=== PATIENT | female | born 1935 | race Caucasian/White ===

== ENCOUNTER 2017-02-28 09:45 | Emergency (ER) | payer OTHER ==
[~2017-02-28] VITALS: Ht 165.1 cm; Wt 55.0 kg
[~2017-02-28 09:45] MED LIST: ALBU1AER9 INH; ATEN100T8 PO; ATOR-24 PO; BNT20 PO; CHOL1000 PO; CYAN10004 PO; FEXO1TAB46 PO; FLUT110A INH; HYDR200T5 PO; LOSA1TAB PO; POTA20TA16 PO; PRLSR20 PO; TRAM-10 PO; WARF-246 PO
[2017-02-28 09:55] VITALS: TEMP 36.4; Ht 165.1 cm; Wt 55.0 kg
[2017-02-28] MEDS ORDERED: TNR50 PO (10:12)
[2017-02-28] MEDS ORDERED: HYG/25 PO (10:12)
[2017-02-28] MEDS ORDERED: WARF5TAB7 PO (10:17)
[2017-02-28 11:53] LABS: BASO % 0.7 %; BASO ABS # 0.04 K/uL (0-0.2); COMPLETE YES; EOS % 1.9 %; HEMATOCRIT 38.3 % (37-47); IG% 0.2 %; LYMPH % 26.7 %; LYMPH ABS # 1.58 K/uL (1.2-3.4); MEAN CELL VOLUME 91.6 fL (80-100); MEAN CORPUSCULAR HEMOGLOBIN 31.1 pg (25-34); MEAN CORPUSCULAR HGB CONC 33.9 g/dl (32-36); MEAN PLATELET VOLUME 10.6 fL (7.4-10.4); MONO % 8.5 %; PLATELET COUNT 160 K/uL (130-400); RED BLOOD COUNT 4.18 M/uL (4.2-5.4); WHITE BLOOD COUNT 5.91 K/uL (4.8-10.8)
[2017-02-28 11:59] LABS: URINE APPEARANCE CLOUDY (CLEAR); URINE BILIRUBIN NEG (NEG); URINE COLOR YELLOW; URINE EPITHELIAL CELL AUTO >30 /lpf (0-5); URINE NITRITE NEG (NEG); URINE SPECIFIC GRAVITY 1.018 (1.000-1.030); UROBILINOGEN NEG (NEG)
--- NOTE | 2017-02-28 11:59 | EMERGENCY ROOM VISIT NOTE ---
History Report prepared by Magan: Caridad Roman Under the Supervision of: Dr. Jordon Lynn D.O. First contact with patient: 10:48 Chief Complaint: ED VAG BLEEDING Stated Complaint: VAGINAL PAIN AND BLEEDING History of Present Illness The patient is an 81 year old female who presents to the Emergency Room with complaints of persistent vaginal bleeding starting this morning. She has had lower abdominal pain for the past couple of months. She has also been losing weight. Yesterday the pain worsened and she became very nauseous. This morning she went to the bathroom and noticed that there was blood in her Depends. She changed into a new one and later noticed there was bright red blood again. She believes the blood is coming from her vagina. Currently her abdominal pain is less severe. She reports a gurgling in her stomach. She has a history of C section and hiatal hernia surgery. She is on Coumadin for multiple TIA in the past and A fib. Source of History: patient Onset: this morning Position: other (vaginal) Quality: other (bleeding) Timing: other (persistent) Associated Symptoms: + nausea, + abdominal pain Note: Pt reports weight loss. Review of Systems See HPI for pertinent positives & negatives. A total of 10 systems reviewed and were otherwise negative. Past Medical & Surgical Medical Problems: (1) Asthma (2) CKD (chronic kidney disease) stage 3, GFR 30-59 ml/min (3) Coronary artery disease (4) Diaphragmatic hernia (5) Dyslipidemia (6) GERD (gastroesophageal reflux disease) (7) History of TIA (transient ischemic attack) (8) HTN (hypertension) (9) Meniere's disease (10) Myocardial infarction (11) Osteoporosis (12) Sciatica (13) Seronegative rheumatoid arthritis Surgical Problems: (1) H/O cataract removal with insertion of prosthetic lens (2) H/O hernia repair (3) History of carpal tunnel surgery (4) History of section (5) History of Milly fundoplication (6) S/P repair of paraesophageal hernia Social History Problems: (1) Esophageal Reflux (2) Osteoporosis Nos Family History Heart disease Social History Smoking Status: Never Smoker Drug Use: none Marital Status: Housing Status: lives with significant other Current/Historical Medications Scheduled Atenolol (Atenolol), 100 MG PO QAM Atorvastatin (Lipitor), 40 MG PO QAM Chlorthalidone (Hygroton), 25 MG PO QAM Cholecalciferol (Vitamin D3), 1 TAB PO QAM Cyanocobalamin (Vitamin B-12 1000 Mcg), 1,000 MCG PO QAM Dicyclomine Hcl (Bentyl *), 20 MG PO QAM Fluticasone Propionate Hfa (Flovent Hfa 110MCG Inhaler), 2 PUFF INH BID Hydroxychloroquine Sulfate (Plaquenil), 400 MG PO HS Losartan Potassium (Cozaar), 25 MG PO QAM Omeprazole (Prilosec), 20 MG PO BID Warfarin Sod (Jantoven), 5 MG PO 4XWK Warfarin Sodium (Warfarin Sodium), 2.5 MG PO DIRECTED Scheduled PRN Albuterol Sulfate (Proair Hfa), 2 PUFF INH Q4 PRN for SOB/Wheezing Fexofenadine Hcl (Valentina), 180 MG PO DAILY PRN for ALLERGIC REACTION Tramadol (Ultram), 50 MG PO Q4H PRN for Pain Allergies Coded Allergies: Penicillins (Verified Allergy, Mild, RASH, 02/28/17) Latex (Verified Allergy, Unknown, RASH, 02/28/17) Niacin (Verified Allergy, Unknown, UNKNOWN, 02/28/17) Metronidazole (Verified Adverse Reaction, Mild, N/V, 02/28/17) Sulfa Antibiotics (Verified Adverse Reaction, Unknown, ., 02/28/17) Physical Exam Vital Signs Date Time Temp Pulse Resp B/P (MAP) Pulse Ox O2 Delivery O2 Flow Rate FiO2 02/28/17 13:29 51 17 139/72 98 02/28/17 11:45 50 16 145/69 98 Room Air 02/28/17 09:55 36.4 58 18 112/70 98 Room Air Physical Exam GENERAL: Patient is awake, alert, and in no acute distress. Patient is resting comfortably and showing no signs of anxiety EYES: The conjunctivae are clear. The pupils are round and reactive. EARS, NOSE, MOUTH AND THROAT: The nose is without any evidence of any deformity. Mucous membranes are moist tongue is midline NECK: The neck is nontender and supple. RESPIRATORY: Normal respiratory effort is noted there is no evidence of wheezing rhonchi or rales CARDIOVASCULAR: Regular rate and rhythm noted there no murmurs rubs or gallops normal S1 normal S2 GASTROINTESTINAL: The abdomen is mildly distended, but soft. Lower abdomen is tender to palpation, no guarding or rigidity. Rectal exam reveals brown stool which is heme negative. PELVIS: External genitalia is normal in appearance, no active bleeding, no bleeding on fingertip exam MUSCULOSKELETAL/EXTREMITIES: There is no evidence of gross deformity full range of motion is noted in the hips and shoulders SKIN: There is no obvious evidence of any rash. There are no petechiae, pallor or cyanosis noted. NEUROLOGIC: Patient is awake alert and oriented x3 Medical Decision & Procedures ER Provider Diagnostic Interpretation: X-ray results as stated below per interpretation by me and the radiologist. Radiology results as stated below per my review and radiologist interpretation: SINGLE VIEW CHEST CLINICAL HISTORY: Generalized abdominal pain. FINDINGS: An AP, portable, upright chest radiograph is compared to study dated 01/06/2016 and correlated with chest CT dated 04/17/2010. The examination is degraded by portable technique and patient rotation. The heart is mildly enlarged and there is atherosclerotic calcification of the thoracic aorta. The pulmonary vasculature is noncongested. Chronic interstitial thickening is unchanged. No airspace consolidation, large pleural effusion, or pneumothorax is seen. The skeletal structures are osteopenic. Degenerative change is noted throughout the thoracic spine. IMPRESSION: Mild cardiac enlargement with no acute cardiopulmonary abnormality. Electronically signed by: Mukesh Godfrey M.D. 02/28/2017 12:03 PM Dictated Date/Time: 02/28/2017 12:02 PM ULTRASOUND OF THE PELVIS CLINICAL HISTORY: Vaginal bleeding. COMPARISON STUDY: No priors. TECHNIQUE: Real-time, grayscale, and color flow sonography of the pelvis is performed transabdominally. Images are reviewed in the transverse and longitudinal planes. The patient declined the endovaginal examination. FINDINGS: Uterus: The uterus is mildly enlarged measuring 11.2 x 3.0 x 6.0 cm. 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 Endometrium: The endometrium is thickened for age measuring up to 0.8 cm. No internal flow is shown color imaging. Trace fluid is noted within the endometrial canal. Ovaries: The ovaries not visualized on this transabdominal examination. Pelvis: There is no free fluid in the cul-de-sac. No concerning adnexal lesion is seen. IMPRESSION: 1. The endometrium is thickened for age measure up to 8 mm. Follow-up with gynecology is recommended with consideration to endometrial biopsy. 2. The ovaries were not visualized. 3. 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 Electronically signed by: Mukesh Godfrey M.D. 02/28/2017 1:02 PM Dictated Date/Time: 02/28/2017 1:00 PM Laboratory Results 02/28/17 11:20 Red Blood Count 4.18, Mean Corpuscular Volume 91.6, Mean Corpuscular Hemoglobin 31.1, Mean Corpuscular Hemoglobin Concent 33.9, Mean Platelet Volume 10.6, Neutrophils (%) (Auto) 62.0, Lymphocytes (%) (Auto) 26.7, Monocytes (%) (Auto) 8.5, Eosinophils (%) (Auto) 1.9, Basophils (%) (Auto) 0.7, Neutrophils # (Auto) 3.67, Lymphocytes # (Auto) 1.58, Monocytes # (Auto) 0.50, Eosinophils # (Auto) 0.11, Basophils # (Auto) 0.04 02/28/17 11:20 Test 02/28/17 11:20 02/28/17 11:35 White Blood Count 5.91 K/uL (4.8-10.8) Red Blood Count 4.18 M/uL (4.2-5.4) Hemoglobin 13.0 g/dL (12.0-16.0) Hematocrit 38.3 % (37-47) Mean Corpuscular Volume 91.6 fL (80-100) Mean Corpuscular Hemoglobin 31.1 pg (25-34) Mean Corpuscular Hemoglobin Concent 33.9 g/dl (32-36) Platelet Count 160 K/uL (130-400) Mean Platelet Volume 10.6 fL (7.4-10.4) Neutrophils (%) (Auto) 62.0 % Lymphocytes (%) (Auto) 26.7 % Monocytes (%) (Auto) 8.5 % Eosinophils (%) (Auto) 1.9 % Basophils (%) (Auto) 0.7 % Neutrophils # (Auto) 3.67 K/uL (1.4-6.5) Lymphocytes # (Auto) 1.58 K/uL (1.2-3.4) Monocytes # (Auto) 0.50 K/uL (0.11-0.59) Eosinophils # (Auto) 0.11 K/uL (0-0.5) Basophils # (Auto) 0.04 K/uL (0-0.2) RDW Standard Deviation 43.8 fL (36.4-46.3) RDW Coefficient of Variation 13.1 % (11.5-14.5) Immature Granulocyte % (Auto) 0.2 % Immature Granulocyte # (Auto) 0.01 K/uL (0.00-0.02) Prothrombin Time 13.9 SECONDS (9.0-12.0) Prothromb Time International Ratio 1.3 (0.9-1.1) Activated Partial Thromboplast Time 29.4 SECONDS (21.0-31.0) Partial Thromboplastin Ratio 1.1 Anion Gap 7.0 mmol/L (3-11) Est Creatinine Clear Calc Drug Dose 34.8 ml/min Estimated GFR () 54.5 Estimated GFR (Non- 47.0 BUN/Creatinine Ratio 20.1 (10-20) Calcium Level 8.9 mg/dl (8.5-10.1) Total Bilirubin 0.8 mg/dl (0.2-1) Direct Bilirubin 0.2 mg/dl (0-0.2) Aspartate Amino Transf (AST/SGOT) 24 U/L (15-37) Alanine Aminotransferase (ALT/SGPT) 27 U/L (12-78) Alkaline Phosphatase 50 U/L (45-117) Troponin I 0.191 ng/ml (0-0.045) Total Protein 6.9 gm/dl (6.4-8.2) Albumin 3.7 gm/dl (3.4-5.0) Lipase 189 U/L (73-393) Urine Color YELLOW Urine Appearance CLOUDY (CLEAR) Urine pH 5.0 (4.5-7.5) Urine Specific [place] 1.018 (1.000-1.030) Urine Protein NEG (NEG) Urine Glucose (UA) NEG (NEG) Urine Ketones NEG (NEG) Urine Occult Blood 3+ (NEG) Urine Nitrite NEG (NEG) Urine Bilirubin NEG (NEG) Urine Urobilinogen NEG (NEG) Urine Leukocyte Esterase SMALL (NEG) Urine WBC (Auto) 1-5 /hpf (0-5) Urine RBC (Auto) 0-4 /hpf (0-4) Urine Hyaline Casts (Auto) 1-5 /lpf (0-5) Urine Epithelial Cells (Auto) >30 /lpf (0-5) Urine Bacteria (Auto) NEG (NEG) Laboratory results per my review. ECG Indication: bradycardia Rate (beats per minute): 53 Rhythm: sinus bradycardia Findings: no ectopy, other (no acute ST segment abnormality, LVH by voltage criteria) Comparison ECG Date: 06-Jan-2017 Change: no significant change ED Course 1103: The patient was evaluated in room B8. A complete history and physical examination were performed. 1334: I discussed the patient's case with Suzanne Carey Spray Mixer. He recommends outpatient follow up. 1340: Upon reevaluation, the patient is resting comfortably. I discussed the results and treatment plan with her. She verbalized agreement of the treatment plan. She was discharged home. Medical Decision Prior records/ancillary studies reviewed. Triage Nursing notes reviewed. Additional history obtained from the family. The patient's history was concerning for vaginal bleeding and abdominal pain. Differential diagnosis: Etiologies such as ectopic , dysfunction uterine bleeding, bleeding dyscrasia, trauma, infection, as well as others were entertained. Medication Reconciliation: I attest that I have personally reviewed the patient' s current medications list. Blood pressure screening: Patient was found to have normal blood pressure on screening and does not require follow-up. The patient is an 81-year-old female who presented to the emergency department for an evaluation of vaginal bleeding. The patient appeared to have some degree of vaginal bleeding prior to arrival. No active bleeding was noted on digital exam and no rectal bleeding was noted either. The patient does take anticoagulation. I discussed the patient's laboratory and radiographic studies with her. I also discussed her case with the on-call A AUXILIARY physician for her primary group. She did have a mild elevation in her troponin but looks as though she's had chronic elevations in her troponin. Her EKG does not show any significant change from previous. She was encouraged to follow-up with the OB/ AUTO DESIGN CHECKER physician as soon as possible for further workup and possible endometrial biopsy. She was also encouraged return the emergency apartment immediately if symptoms change worsen or the need arises. Consults Time Called: 1325 Consulting Physician: Suzanne Carey Spray Mixer Returned Call: [phone] I discussed the patient's case with him. He recommends outpatient follow up. Impression Primary Impression: Vaginal bleeding Scribe Attestation The scribe's documentation has been prepared under my direction and personally reviewed by me in its entirety. I confirm that the note above accurately reflects all work, treatment, procedures, and medical decision making performed by me. Departure Information Dispostion Home / Self-Care Referrals Rory Vargas M.D. (PCP) John Post ., DO Forms HOME CARE DOCUMENTATION FORM, IMPORTANT VISIT INFORMATION, WORK / SCHOOL INSTRUCTIONS Patient Instructions ED Bleed Irregular Vaginal, My [facility] Additional Instructions Call the A AUXILIARY physician in the morning to schedule a follow-up appointment. You may require a biopsy to further evaluate the cause of your bleeding. Return to the emergency Department immediately if symptoms change worsen or the need arises.
[2017-02-28 12:00] LABS: BUN/CREATININE RATIO 20.1 (10-20); CALCIUM 8.9 mg/dl (8.5-10.1); CREATININE 1.1 mg/dl (0.60-1.20)
[2017-02-28 12:01] LABS: INR 1.3 (0.9-1.1); PARTIAL THROMBOPLASTIN RATIO 1.1; PROTHROMBIN TIME (PATIENT) 13.9 SECONDS (9.0-12.0)
--- NOTE | 2017-02-28 12:04 | DIAGNOSTIC IMAGING REPORT ---
SINGLE VIEW CHEST CLINICAL HISTORY: Generalized abdominal pain. FINDINGS: An AP, portable, upright chest radiograph is compared to study dated 01/06/2016 and correlated with chest CT dated 04/17/2010. The examination is degraded by portable technique and patient rotation. The heart is mildly enlarged and there is atherosclerotic calcification of the thoracic aorta. The pulmonary vasculature is noncongested. Chronic interstitial thickening is unchanged. No airspace consolidation, large pleural effusion, or pneumothorax is seen. The skeletal structures are osteopenic. Degenerative change is noted throughout the thoracic spine. IMPRESSION: Mild cardiac enlargement with no acute cardiopulmonary abnormality. Electronically signed by: Mukesh Godfrey M.D. 02/28/2017 12:03 PM Dictated Date/Time: 02/28/2017 12:02 PM
[2017-02-28 12:05] LABS: MANUAL MICROSCOPIC REQUIRED? NO; REVIEW REQ? NO
--- NOTE | 2017-02-28 13:04 | DIAGNOSTIC IMAGING REPORT ---
ULTRASOUND OF THE PELVIS CLINICAL HISTORY: Vaginal bleeding. COMPARISON STUDY: No priors. TECHNIQUE: Real-time, grayscale, and color flow sonography of the pelvis is performed transabdominally. Images are reviewed in the transverse and longitudinal planes. The patient declined the endovaginal examination. FINDINGS: Uterus: The uterus is mildly enlarged measuring 11.2 x 3.0 x 6.0 cm. 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 Endometrium: The endometrium is thickened for age measuring up to 0.8 cm. No internal flow is shown color imaging. Trace fluid is noted within the endometrial canal. Ovaries: The ovaries not visualized on this transabdominal examination. Pelvis: There is no free fluid in the cul-de-sac. No concerning adnexal lesion is seen. IMPRESSION: 1. The endometrium is thickened for age measure up to 8 mm. Follow-up with gynecology is recommended with consideration to endometrial biopsy. 2. The ovaries were not visualized. 3. 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 Electronically signed by: Mukesh Godfrey M.D. 02/28/2017 1:02 PM Dictated Date/Time: 02/28/2017 1:00 PM
[2017-02-28 13:29] VITALS: BP 139/72; PULSE 51; O2SAT 98
== END 2017-02-28 14:12 | disposition home or self-care (01) ==
LOC: C.EDB 09:46
DX: N93.9 Abnormal uterine and vaginal bleeding, unspecified (principal); J45.909 Unspecified asthma, uncomplicated; N18.3 Chronic kidney disease, stage 3 (moderate); I25.10 Atherosclerotic heart disease of native coronary artery without angina pectoris; E78.5 Hyperlipidemia, unspecified; K21.9 Gastro-esophageal reflux disease without esophagitis; Z86.73 Personal history of transient ischemic attack (TIA), and cerebral infarction without residual deficits; I10 Essential (primary) hypertension; H81.09 Meniere's disease, unspecified ear; I25.2 Old myocardial infarction; M81.0 Age-related osteoporosis without current pathological fracture; M54.40 Lumbago with sciatica, unspecified side; M06.00 Rheumatoid arthritis without rheumatoid factor, unspecified site; Z82.49 Family history of ischemic heart disease and other diseases of the circulatory system; Z79.01 Long term (current) use of anticoagulants; Z51.81 Encounter for therapeutic drug level monitoring

== ENCOUNTER → 2017-11-18 | Day surgery (SDC) | payer OTHER ==
[~2017-11-18] VITALS: Ht 162.6 cm; Wt 53.0 kg
[~2017-11-18] MED LIST changes: +ACETAMINOPHEN 325 MG TAB PO PRN; +ADENOSINE IV SOLN 3 MG/ML 20 ML VIAL ONE; -ATEN100T8 PO; +ATROPINE SULFATE 0.1 MG/ML 5ML SYR IV PRN; +DIAZEPAM 5MG TAB ONE; +HEPARIN SOD (PORCINE) 1000 UNIT/ML 10 ML VIAL ONE; +HYG/25 PO; +HydrALAZINE HCL 20 MG/ML VIAL ONE; +NITROGLYCERIN 0.4 MG SL PER TAB CHARGE SL PRN; +NITROGLYCERIN/D5W 100MCG/ML 20ML SYR ONE; +NRV5 PO; +NiCARDipine HCL INJ 2.5 MG/ML 10 ML AMP ONE; -POTA20TA16 PO; +SODIUM CHLORIDE 0.9% 1000ML 1,000 ML IV SCH; +SODIUM CHLORIDE 0.9% 1000ML 250 ML IV PRN; +TNR50 PO; +TRMCR130WC; +WARF5TAB7 PO
[2017-11-18 07:20] VITALS: BP 167/85; PULSE 58; TEMP 36.2; O2SAT 99; Ht 162.6 cm; Wt 53.0 kg
--- NOTE | 2017-11-18 08:42 | History & Physical Bridge Note ---
H&P Re-Evaluation Bridge Note: I have examined the patient, reviewed the History & Physical and in the interval since the performance of the History & Physical I have noted the following changes of clinical significance: No changes noted
--- NOTE | 2017-11-18 08:43 | Pre Sedation Assessment ---
Pre Sedation Assessment General Date of Sedation: Nov 18, 2017. Vital Signs Past 12 Hours Date Time Temp Pulse Resp B/P (MAP) Pulse Ox O2 Delivery O2 Flow Rate FiO2 11/18/17 07:20 36.2 58 18 167/85 (112) 99 Room Air Review Cardiovascular: regular rate, rhythm Lungs: chest non-tender, lungs clear Pre-Sedation Airway Assessment Smoking Status: Never Smoker Hx of Sleep Apnea: No Short Thick Neck: No Thyro-mental Distance: > 3 Finger Breadths Oral Cavity: WNL Mallampati Classification: Class II ASA Classification: Class III NPO Status Date of Last Intake of Fluids: Nov 18, 2017 Time of Last Intake of Fluids: 0530 Date of Last Intake of Solids: Nov 17, 2017 Time of Last Intake of Solids: 2200 Procedure Planning Contraindications for Sedation: None Current Medications Reviewed: Yes Notes The planned sedation has been discussed with the patient. Informed Consent was obtained. I have identified the patient, determined the appropriateness of sedation and have assessed the patient immediately prior to the procedure. All medicine(s) and interventions are by my order.
--- NOTE | 2017-11-18 09:52 | [facility] Post Operative Brief Note ---
Preliminary Procedure Note Procedure Date Nov 18, 2017. Pre-Procedure Diagnosis Angina AUC Score 7 Post-Procedure Diagnosis Moderate CAD Procedure(s) Performed Coronary Angiography, Left Heart Cath, LV Angiography Road Tester Dr. Rio Huber Calculation Reviewer(s) Iris Real Estimated Blood Loss <20cc Medication(s) Lidocaine 1% (Local infiltration), Diphenhydramine (25 mg p.o.), Diazepam (5 mg p.o.) Preliminary Findings Right dominant coronary anatomy Left main calcified but without obstruction Left anterior descending: Type III vessel with thin apical segment small first diagonal large second diagonal. There is an eccentric 60% mid left anterior descending stenosis after the second diagonal branch and moderate proximal and mid vessel calcification Left circumflex: Moderately large bifurcating obtuse marginal 1 large bifurcating obtuse2. There is a 30% mid left circumflex stenosis Ramus intermedius: Small vessel without disease Right coronary artery: Dominant in distribution within distal segments consisting of a long posterior descending artery and two tiny posterior ventricular branches Left ventricle hyperdynamic EF greater than 70% EDP 17 Recommendations management recommendations (Patient referred for FloWire interrogation of the mid left anterior descending) Specimens None Fluids (cc crystalloids) 46 Anesthesia Start time 852 end 935 anxiolytic usage only Procedural Complication(s) None Disposition Supervisor Sewer Maintenance Holding/Recovery
--- NOTE | 2017-11-18 10:18 | Post Sedation Assessment ---
Post Sedation Assessment General Date of Sedation Nov 18, 2017. Vital Signs: Vital Signs Past 12 Hours Date Time Temp Pulse Resp B/P (MAP) Pulse Ox O2 Delivery O2 Flow Rate FiO2 11/18/17 10:12 65 16 164/80 (108) 100 Room Air 11/18/17 07:20 36.2 58 18 167/85 (112) 99 Room Air Post Procedure Recovery Score Activity: (2) Moves 4 extremities * Respiration: (2) Deep breath/cough Circulation: (2) +/-20% PreAnes Value Consciousness: (2) Fully Awake Oxygen Saturation: (2) > 92% On Room Air Post Anesthesia Score: 10 Discharge Sedation Level of Care: Fast Track Phase II Post Sedation Plan On clinical assessment, the patient appears to have tolerated the sedation without complications. Patient is recovering as anticipated. Patient will continue to be monitored by nursing and may be discharged when sedation discharge criteria are met per below protocol. Upon Completions of procedure and additional 15 minutes continue every 5 minute vital signs and the P.A.R. score; then discharge to a Phase I or Fast Track to Phase II per the following guidelines: * Discharge Patient to appropriate Phase II area if PAR is 8 or greater or return to pre- procedure baseline. The post - procedure orders will be as directed. * If PAR score is less than 8 or not return to pre-procedure baseline then patient will follow Phase I monitoring till PAR is reached for Phase II. The Phase I may be done in procedure room or may call to secure a Phase I area. * If naloxone or flumazenil are used for reversal, hold in Phase I for an additional 60 -120 minutes before discharge to Phase II. Please call the Sedation Physician to re-evaluate and complete post-note for discharge to Phase II area. Do NOT discharge from procedure sedation or Phase 1 until post- sedation evaluation note is complete by procedure /sedation MD Sedation Discharge Instructions to be given to the patient at discharge to home.
--- NOTE | 2017-11-18 10:26 | Cardiac Catheterization ---
Procedure Note Procedure Date Nov 18, 2017. Pre-Procedure Diagnosis CAD AUC Score 7 Post-Procedure Diagnosis Moderate CAD Procedure(s) Performed Fractional Flow [place] Transition Coach Ray Academic Registrar(s) [place] Estimated Blood Loss 10 Medication(s) Heparin, Adenosine Summary of Findings For full details of patient's coronary angiography please see cath report dictated by Dr. Huber. Briefly found to have intermediate mid LAD disease. Decision to asses with FFR. Procedure: Upsized to 6Fr sheath via right TRANSPORTATION PLANNING TECHNICIAN EBU 3.75 guide (large for patient). Straight FFR wire placed into distal LAD iFR 0.89 FFR 0.81 Post procedure angiography revealed no coronary complications. Abdominal angiogram -- no aneurysms or significant stenotic arterial disease noted. Right TRANSPORTATION PLANNING TECHNICIAN - high bifurcation but appropriate for closure. SUMMARY: 1. Borderline mid LAD obstructive disease. FFR 0.81 Recommendations: - Maximize antianginal therapy. - Follow-up with Dr. Huber and Dr. Olivas. Hemodynamics Rest Ao: 150/57/92 Final Ao: 161/59/101 LV: -- Recommendations Medical therapy and/or Counseling Specimens None Radiation Exposure (mGy) 252 Contrast (mls) 130 + 40 Fluids (cc crystalloids) 95 Drains None Anesthesia Moderate Procedural Complication(s) None Disposition Oven Operator Automatic Holding/Recovery ACC Data Cardiac Status Clinical evaluation leading to the procedure CAD Presntation: Stable angina Anginal Classification: CCS III Heart Failure: No, NYHA Class: CCS I Cardiogenic Shock w/in 24Hrs: No Cardiac Arrest w/in 24Hrs: No Imaging studies past 6 months: Yes Stress studies past 6 months: No Closure Device Percutaneous Entry Location: Femoral Closure Device: Mynx, none - manual hold Recommendations: Medical therapy and/or Counseling Intraprocedure Events Significant Dissection: No Perforation: No
--- NOTE | 2017-11-18 13:47 | Discharge Instructions ---
Discharge Instructions Procedure Procedure Date: Nov 18, 2017. Reason for Visit: Exertional Chest Pain *Dr Huber To Do*. Discharge Discharge Date: Nov 18, 2017. Discharge Diagnosis: Stable coronary artery disease Last Recorded Wt (Kilograms): 53 Anesthesia Post Anesthesia Instructions: If you have had General Anesthesia or IV Sedation: * Do not drive today. * Resume driving when surgeon permits. * Do not make important decisions or sign legal documents today. * Call surgeon for: 1. Temperature elevations greater than 101 degrees F. 2. Uncontrollable pain. 3. Excessive bleeding. 4. Persistent nausea and vomiting. 5. Medication intolerance (nausea, vomiting or rash). * For nausea and vomiting use only clear liquids such as: tea, soda, bouillon until nausea subsides, then gradually increase diet as tolerated. * If you have any concerns or questions, call your surgeon's office. If physician is unavailable and it is an emergency, call 911 or go to the nearest emergency room. Instructions Activity Recommendations: limitations as noted below Recommended Home Diet: resume previous diet Allergies: Coded Allergies: Penicillins (Verified Allergy, Mild, RASH, 02/28/17) Latex (Verified Allergy, Unknown, RASH, 02/28/17) Niacin (Verified Allergy, Unknown, UNKNOWN, 02/28/17) Metronidazole (Verified Adverse Reaction, Mild, N/V, 02/28/17) Sulfa Antibiotics (Verified Adverse Reaction, Unknown, ., 02/28/17) Provider Instructions ACTIVITY RECOMMENDATIONS: It is common to feel weak and fatigue for a few days. * Do not drive or operate any motorized equipment for the next three days. * Limit stair usage (2 or 3 trips a day only) for the next three days. * Do not lift anything heavier than 10 pounds for the next three days. * Do not engage in vigorous exercise or any sports for the next five days. * You may shower the day after your procedure, but do not immerse the area for three days. Cleanse the site gently with soap and water. SPECIAL CARE INSTRUCTIONS: * You may replace the pressure dressing or band-aid the morning after the procedure. * After your procedure, it is normal to have a small bruise or small lump at the site. Examine your site daily for any change in the bruise or lump, redness, swelling, drainage or numbness. Notify your doctor if any change. BLEEDING: * If there is a small amount of bleeding at the site, lie down and apply firm pressure with a clean cloth for ten minutes. When the bleeding stops, lie quietly keeping the procedure limb straight for six hours. Notify your doctor as soon as possible. * If the bleeding does not stop after ten minutes or if there is a large amount of bleeding or spurting, call 911 immediately. Continue to lie down and hold firm pressure until help arrives. SKIN IRRITATION: * You may experience some redness and/or swelling in the area where radiation was administered. If any skin irritation occurs, please contact your family physician. FOLLOW UP VISIT: Keep any scheduled doctor appointments. Follow Up Follow-up with: Dr Olivas as scheduled Jose Zaman Recommendations: Call your doctor if: * Temperature above 101 degrees * Pain not relieved by pain medicine ordered * There is increased drainage or redness from any incision * You have any unanswered questions or concerns. Your Doctors Instructions noted above were prepared by provider Rio Huber. Patient Signature Section: Patient Instructions Signature Page Liliana Fuller Patient (or Guardian) Signature/Date: I have read and understand the instructions given to me by my caregivers. Caregiver/RN/Doctor Signature/Date: The above-named patient and/or guardian has received patient instructions on this date. + Original Patient Signature Page (only) stays with chart. Please make copy for patient.
[2017-11-18 14:05] VITALS: BP 128/62; PULSE 60; O2SAT 98
--- NOTE | 2017-11-18 19:09 | CARDIAC CATH REPORT ---
REFERRING: Dr. Aldo Olivas. PRIMARY CARE PHYSICIAN: Dr. Rory Vargas. INDICATIONS: History of moderate coronary artery disease with now increasing anginal symptoms. HISTORY: The patient is an 82-year-old female with prior history of diagnostic cardiac catheterization for anginal complaints in December of 2015 demonstrating moderate 50% mid LAD stenosis. She carries an underlying history of known vascular disease including right subclavian stenosis as well as bilateral carotid artery disease, most recently she has been experiencing increasing anginal symptoms now to chest pain a very low level thresholds. Due to change in anginal pattern symptoms, she is referred for diagnostic cardiac catheterization. PROCEDURE: Left heart catheterization, coronary and LV angiography. ACCESS: Right femoral artery, given history of right subclavian stenosis. CATHETERS: A 5-[place] arterial sheath, a 5-[place] JL4, a [place] 3DRC, and a 5-[place] straight pigtail. CONTRAST: Nonionic 130 mL IV FLUIDS: 46 mL normal saline. SEDATION: Start time 8:52 and end 9:35. The patient received anxiolytic therapy only orally with Valium 5 mg p.o. and Benadryl 25 mg p.o. MEDICATIONS: Local infiltration access site with 1% lidocaine. RADIATION EXPOSURE: 3 minutes fluoroscopy, 123 milligrays, DAP score 879. RESULTS: 1. CORONARY ANGIOGRAPHY: Note coronary anatomy is right dominant. There is moderate calcification in the proximal and mid left anterior descending and left main. 2. LEFT MAIN: Left main is moderately long and trifurcates to give rise to left anterior descending, a trivial ramus intermedius and the left circumflex. There is no disease in the left main, though moderate calcification is present. 3. LEFT ANTERIOR DESCENDING: Left anterior descending is type 3 in distribution with thin apical segment and gives rise to a small first diagonal, large second diagonal. Within the left anterior descending, there is an eccentric 60% mid vessel stenosis after the second diagonal branch. There is noted moderate calcification of the proximal mid vessel, mild irregularities of the distal vessel. 4. LEFT CIRCUMFLEX: Left circumflex is moderately large with a bifurcating obtuse marginal 1 and a bifurcating obtuse marginal 2 and a trivial AV groove portion. Within the left anterior descending, there are moderate irregularities with a 30% mid vessel stenosis. 5. RAMUS INTERMEDIUS: This is a trivial vessel without disease. 6. RIGHT CORONARY ARTERY: The right coronary is moderate in caliber, dominant in distribution and gives rise to a long posterior descending artery and 2 posterior ventricular branches at the AV groove with the distal vessels being thin in caliber. Within the right coronary artery, there are moderate mid vessel irregularities without obstruction. 7. LEFT VENTRICULAR ANGIOGRAPHY: The left ventricle was hyperdynamic, EF greater than 70%. There is no significant mitral insufficiency. HEMODYNAMICS: Initial aortic root pressure was 155/54 with a mean of 93. LV pressure was 165/2 with an EDP of 17. Following completion of the procedure, aortic root pressure was 164/70 with a mean of 108. FINAL IMPRESSIONS: 1. Moderate eccentric 60% narrowing in the mid left anterior descending, representing slight progression from prior study. 2. Calcification in the proximal mid portion of the left anterior descending, left main and right coronary artery. 3. Moderate irregularities of the vasculature without obstructive disease. 4. Hyperdynamic left ventricular function. 5. Systolic and end diastolic hypertension. RECOMMENDATIONS: The patient was referred and underwent flow wire of the left anterior descending, demonstrating the mid left anterior descending stenosis not to be significantly obstructive though with borderline flow wire interrogation of 0.81. Medication therapies will be adjusted and intensified adding antihypertensive and antianginal therapy with amlodipine initially at 2.5 mg per day. If the symptoms progress, consider may be made for re-interrogation of the mid left anterior descending lesion.
== END | disposition home or self-care (01) ==
LOC: C.CATH 06:17
PROVIDERS: ATTEND Internal Medicine Cardiovascular Disease
DX: I25.119 Atherosclerotic heart disease of native coronary artery with unspecified angina pectoris (principal); I12.9 Hypertensive chronic kidney disease with stage 1 through stage 4 chronic kidney disease, or unspecified chronic kidney disease; N18.3 Chronic kidney disease, stage 3 (moderate); M51.9 Unspecified thoracic, thoracolumbar and lumbosacral intervertebral disc disorder; M19.90 Unspecified osteoarthritis, unspecified site; H81.09 Meniere's disease, unspecified ear; M81.0 Age-related osteoporosis without current pathological fracture; E55.9 Vitamin D deficiency, unspecified; K91.1 Postgastric surgery syndromes; I67.2 Cerebral atherosclerosis; E53.8 Deficiency of other specified B group vitamins; E78.5 Hyperlipidemia, unspecified; K58.9 Irritable bowel syndrome, unspecified; J44.9 Chronic obstructive pulmonary disease, unspecified; I77.1 Stricture of artery; M06.09 Rheumatoid arthritis without rheumatoid factor, multiple sites; Z88.0 Allergy status to penicillin; Z88.2 Allergy status to sulfonamides; Z91.040 Latex allergy status; Z85.828 Personal history of other malignant neoplasm of skin; Z86.73 Personal history of transient ischemic attack (TIA), and cerebral infarction without residual deficits; Z79.01 Long term (current) use of anticoagulants; Z82.49 Family history of ischemic heart disease and other diseases of the circulatory system; Z82.3 Family history of stroke

== ENCOUNTER 2017-12-31 13:59 | Emergency (ER) | payer OTHER ==
[~2017-12-31] VITALS: Ht 162.6 cm; Wt 52.0 kg
[~2017-12-31 13:59] MED LIST changes: -ACETAMINOPHEN 325 MG TAB PO PRN; -ADENOSINE IV SOLN 3 MG/ML 20 ML VIAL ONE; -ATROPINE SULFATE 0.1 MG/ML 5ML SYR IV PRN; -DIAZEPAM 5MG TAB ONE; -HEPARIN SOD (PORCINE) 1000 UNIT/ML 10 ML VIAL ONE; -HydrALAZINE HCL 20 MG/ML VIAL ONE; -NITROGLYCERIN 0.4 MG SL PER TAB CHARGE SL PRN; -NITROGLYCERIN/D5W 100MCG/ML 20ML SYR ONE; -NRV5 PO; -NiCARDipine HCL INJ 2.5 MG/ML 10 ML AMP ONE; -SODIUM CHLORIDE 0.9% 1000ML 1,000 ML IV SCH; -SODIUM CHLORIDE 0.9% 1000ML 250 ML IV PRN
[2017-12-31 14:00] VITALS: TEMP 36.4; Ht 162.6 cm; Wt 52.0 kg
--- NOTE | 2017-12-31 14:22 | EMERGENCY ROOM VISIT NOTE ---
History Report prepared by Magan: Luke Farris Under the Supervision of: Dr. Heber Romero M.D. First contact with patient: 14:03 Chief Complaint: CHEST PAIN Stated Complaint: CHEST PAIN History of Present Illness The patient is a 82 year old female who presents to the Emergency Room with complaints of intermittent chest pain that began at 0500. The patient states that she has a history of heart problems and was supposed to get a stent a couple of months ago. She reports that due to the weather, she could not get a life flight to [place]. She reports she did have a cardiac catheter placed by Dr. Huber for her history of coronary artery disease. The patient states that she was then put on a new medication for 30 days, which she reports she is still taking. She reports that starting today she developed shortness of breath and intermittent chest pain. The patient states that her shortness of breath occurs whenever she tries to get up. She reports that her chest pain occurs randomly. The patient states she took four baby aspirin at 1000 for her symptoms. She reports she went to her appointment for a breathing test today at 1100. The patient states she told the nurses about her symptoms who then suggested she come to the ER. She reports she is not currently experiencing chest pain but states she did have some chest tightness on the way here. She denies any abdominal pain. Source of History: patient Onset: 0500 Position: chest Quality: other (tightness) Timing: intermittent Modifying Factors (Relieving): other (four baby aspirin) Associated Symptoms: + SOB, No abdominal pain Review of Systems See HPI for pertinent positives & negatives. A total of 10 systems reviewed and were otherwise negative. Past Medical & Surgical Medical Problems: (1) Asthma (2) CKD (chronic kidney disease) stage 3, GFR 30-59 ml/min (3) Coronary artery disease (4) Diaphragmatic hernia (5) Dyslipidemia (6) GERD (gastroesophageal reflux disease) (7) History of TIA (transient ischemic attack) (8) HTN (hypertension) (9) Meniere's disease (10) Myocardial infarction (11) Osteoporosis (12) Sciatica (13) Seronegative rheumatoid arthritis Surgical Problems: (1) H/O cataract removal with insertion of prosthetic lens (2) H/O hernia repair (3) History of carpal tunnel surgery (4) History of section (5) History of Milly fundoplication (6) S/P repair of paraesophageal hernia Social History Problems: (1) Esophageal Reflux (2) Osteoporosis Nos Family History Heart disease Social History Smoking Status: Never Smoker Drug Use: none Marital Status: Housing Status: lives with significant other Occupation Status: retired Current/Historical Medications Scheduled Amlodipine Besylate (Norvasc), 2.5 MG PO QAM Atenolol (Atenolol), 100 MG PO QAM Atorvastatin (Lipitor), 40 MG PO QAM Chlorthalidone (Hygroton), 25 MG PO QAM Cholecalciferol (Vitamin D3), 1 TAB PO QAM Cyanocobalamin (Vitamin B-12 1000 Mcg), 1,000 MCG PO QAM Dicyclomine Hcl (Dicyclomine Hcl), 20 MG PO QAM Fluticasone Propionate (Flovent Hfa), 2 PUFFS INH BID Hydroxychloroquine Sulfate (Plaquenil), 400 MG PO HS Losartan Potassium (Cozaar), 25 MG PO QAM Nitroglycerin (Nitrostat), 0.3 MG UT PRN Omeprazole (Prilosec), 20 MG PO BID Triamcinolone Acet (Aristocort 0.1%), use as directed Warfarin Sod (Jantoven), 5 MG PO 4XWK Warfarin Sodium (Warfarin Sodium), 2.5 MG PO DIRECTED Scheduled PRN Albuterol Sulfate (Proair Respiclick), 2 PUFFS INH Q4H PRN for SOB/Wheezing Fexofenadine Hcl (Valentina), 180 MG PO DAILY PRN for ALLERGIC REACTION Tramadol (Ultram), 50 MG PO Q4H PRN for Pain Allergies Coded Allergies: Penicillins (Verified Allergy, Mild, RASH, 12/31/17) Latex (Verified Allergy, Unknown, RASH, 12/31/17) Niacin (Verified Allergy, Unknown, UNKNOWN, 12/31/17) Metronidazole (Verified Adverse Reaction, Mild, N/V, 12/31/17) Sulfa Antibiotics (Verified Adverse Reaction, Unknown, ., 12/31/17) Physical Exam Vital Signs Date Time Temp Pulse Resp B/P (MAP) Pulse Ox O2 Delivery O2 Flow Rate FiO2 12/31/17 16:23 61 18 147/76 98 12/31/17 16:19 61 18 147/76 98 Room Air 12/31/17 15:58 50 18 148/61 97 Room Air 12/31/17 15:07 Room Air 12/31/17 15:00 57 23 158/74 98 Room Air 12/31/17 14:52 98 Room Air 12/31/17 14:35 98 Room Air 12/31/17 14:12 54 12/31/17 14:00 36.4 53 16 139/71 99 Room Air Physical Exam GENERAL: Awake, alert, well-appearing, in no acute distress HENT: Normocephalic, atraumatic. Oropharynx unremarkable. EYES: Normal conjunctiva. Sclera non-icteric. NECK: Supple. No nuchal rigidity. FROM. No JVD. RESPIRATORY: Clear to auscultation. CARDIAC: Regular rate, normal rhythm. Extremities warm and well perfused. Pulses equal. ABDOMEN: Soft, non-distended. No tenderness to palpation. No rebound or guarding. No masses. RECTAL: Deferred. MUSCULOSKELETAL: Chest examination reveals no tenderness. The back is symmetrical on inspection without obvious abnormality. There is no CVA tenderness to palpation. No joint edema. LOWER EXTREMITIES: Calves are equal size bilaterally and non-tender. No edema. No discoloration. NEURO: Normal sensorium. No sensory or motor deficits noted. SKIN: No rash or jaundice noted. Medical Decision & Procedures ER Provider Diagnostic Interpretation: X-ray results as stated below per interpretation by me and the radiologist: CHEST ONE VIEW PORTABLE CLINICAL HISTORY: CHEST PAIN dyspnea COMPARISON STUDY: 02/28/2017 FINDINGS: The bones soft tissues and hemidiaphragms are normal. The cardiomediastinal silhouette is normal. The lungs are clear. The pulmonary vasculature is normal. IMPRESSION: Negative chest. The above report was generated using voice recognition software. It may contain grammatical, syntax or spelling errors. Electronically signed by: Sudhir Loya M.D. 12/31/2017 2:33 PM Dictated Date/Time: 12/31/2017 2:32 PM Laboratory Results 12/31/17 15:00 Red Blood Count 4.20, Mean Corpuscular Volume 90.7, Mean Corpuscular Hemoglobin 30.5, Mean Corpuscular Hemoglobin Concent 33.6, Mean Platelet Volume 10.5, Neutrophils (%) (Auto) 61.4, Lymphocytes (%) (Auto) 29.3, Monocytes (%) (Auto) 7.7, Eosinophils (%) (Auto) 0.7, Basophils (%) (Auto) 0.7, Neutrophils # (Auto) 3.53, Lymphocytes # (Auto) 1.68, Monocytes # (Auto) 0.44, Eosinophils # (Auto) 0.04, Basophils # (Auto) 0.04 12/31/17 15:00 Test 12/31/17 15:00 White Blood Count 5.74 K/uL (4.8-10.8) Red Blood Count 4.20 M/uL (4.2-5.4) Hemoglobin 12.8 g/dL (12.0-16.0) Hematocrit 38.1 % (37-47) Mean Corpuscular Volume 90.7 fL (80-100) Mean Corpuscular Hemoglobin 30.5 pg (25-34) Mean Corpuscular Hemoglobin Concent 33.6 g/dl (32-36) Platelet Count 177 K/uL (130-400) Mean Platelet Volume 10.5 fL (7.4-10.4) Neutrophils (%) (Auto) 61.4 % Lymphocytes (%) (Auto) 29.3 % Monocytes (%) (Auto) 7.7 % Eosinophils (%) (Auto) 0.7 % Basophils (%) (Auto) 0.7 % Neutrophils # (Auto) 3.53 K/uL (1.4-6.5) Lymphocytes # (Auto) 1.68 K/uL (1.2-3.4) Monocytes # (Auto) 0.44 K/uL (0.11-0.59) Eosinophils # (Auto) 0.04 K/uL (0-0.5) Basophils # (Auto) 0.04 K/uL (0-0.2) RDW Standard Deviation 42.9 fL (36.4-46.3) RDW Coefficient of Variation 13.0 % (11.5-14.5) Immature Granulocyte % (Auto) 0.2 % Immature Granulocyte # (Auto) 0.01 K/uL (0.00-0.02) Prothrombin Time 17.2 SECONDS (9.0-12.0) Prothromb Time International Ratio 1.7 (0.9-1.1) Anion Gap 6.0 mmol/L (3-11) Est Creatinine Clear Calc Drug Dose 28.9 ml/min Estimated GFR () 47.3 Estimated GFR (Non- 40.8 BUN/Creatinine Ratio 16.2 (10-20) Calcium Level 8.8 mg/dl (8.5-10.1) Total Bilirubin 0.8 mg/dl (0.2-1) Direct Bilirubin 0.3 mg/dl (0-0.2) Aspartate Amino Transf (AST/SGOT) 30 U/L (15-37) Alanine Aminotransferase (ALT/SGPT) 26 U/L (12-78) Alkaline Phosphatase 43 U/L (45-117) Total Creatine Kinase 244 U/L (26-192) Creatine Kinase MB 2.3 ng/ml (0.5-3.6) Creatine Kinase MB Ratio 0.9 (0-3.0) Troponin I 0.674 ng/ml (0-0.045) Total Protein 7.1 gm/dl (6.4-8.2) Albumin 4.1 gm/dl (3.4-5.0) Lipase 153 U/L (73-393) Labs reviewed by ED physician. Medications Administered Medications (Trade) Dose Ordered Sig/Pam Route Start Time Stop Time Status Last Admin Dose Admin Sodium Chloride 500 ml @ 999 mls/hr Q31M STAT IV 12/31/17 15:34 12/31/17 16:04 DC 12/31/17 15:58 999 MLS/HR Potassium Chloride (Klor-Con Tab) 40 meq NOW STAT PO 12/31/17 15:39 12/31/17 15:41 DC 12/31/17 16:16 40 MEQ Potassium Chloride (Klor-Con M10) 30 meq NOW STAT PO 12/31/17 15:57 12/31/17 15:58 DC 12/31/17 16:16 30 MEQ ECG Per My Interpretation Indication: chest pain Rate (beats per minute): 55 Rhythm: sinus bradycardia Findings: LBBB, left axis deviation Comparison ECG Date: 02/28/17 Change: no significant change ED Course 1402: Past medical records reviewed. The patient was evaluated in room C07. A complete history and physical examination was performed. 1419: I discussed the patient's case with Dr. Lamar, [facility]. He reports he is going to look into the patient's case. 1456: I discussed the patient's case with Suzanne Patricia. He reports that the patient is able to be given Nitro since she does not have any at home. He states the patient is able to be discharged home and does not need to be hospitalized. 1534: Ordered Sodium Chloride 500 ml @ 999 mls/hr IV. 1539: Ordered Potassium Chloride 40 meq PO. 1545: I discussed the patient's elevated troponin with Suzanne Patricia. He still feels the patient is able to go home. 1546: Upon reexamination the patient is doing well. I discussed results and treatment plan with the patient. She verbalizes agreement and understanding. The patient is ready for discharge. Medical Decision Prior records/ancillary studies reviewed. Triage Nursing notes reviewed. Differential diagnosis: Etiologies such as cardiac ischemia, aortic dissection, pulmonary embolism, pneumonia, pneumothorax, musculoskeletal, infections, pericarditis, myocarditis , esophageal rupture, gastrointestinal, as well as others were entertained. This is an 82-year-old female who recently had a cardiac catheterization. I will note that the patient is being medically managed by her fork lift mechanic. Because the patient's complicated history I did discuss the case with the fork lift mechanic on-call who felt that the patient can be discharged on nitro. We did discuss the elevation in the patient's troponin however we both noted that this is chronically elevated. Patient is going to follow-up in the office. She was given a normal saline bolus here in the emergency department and her potassium was repleted. Do believe that the patient is well enough to be discharged home for follow-up with a primary care physician. Patient was in agreement with the treatment plan. Medication Reconcilliation Current Medication List: was personally reviewed by me Blood Pressure Screening Patient's blood pressure: Elevated blood pressure Blood pressure disposition: Referred to PCP Consults Time Called: 1419 Consulting Physician: [facility] Returned Call: [phone] I discussed the patient's case with Suzanne Patricia. He reports he is going to look into the patient's case. Additional Consults: Time Called: 1454 Consulted Physician: [facility] Returned Call: [phone] Additional Comments: I discussed the patient's case with Suzanne Patricia. He reports that the patient is able to be given Nitro since she does not have any at home. He states the patient is able to be discharged home and does not need to be hospitalized. Time Called: 1545 Consulted Physician: [facility] Returned Call: [phone] Additional Comments: I discussed the patient's elevated troponin with Suz[facility] Patricia [facility]. He still feels the patient is able to go home. Impression Primary Impression: Chest pain Scribe Attestation The scribe's documentation has been prepared under my direction and personally reviewed by me in its entirety. I confirm that the note above accurately reflects all work, treatment, procedures, and medical decision making performed by me. Departure Information Dispostion Home / Self-Care Prescriptions Nitroglycerin (Nitrostat) 0.3 Mg Tab 0.3 MG UT PRN, #30 BTL Prov: Heber Romero MD 12/31/17 Referrals Rory Vargas M.D. (PCP) Forms HOME CARE DOCUMENTATION FORM, IMPORTANT VISIT INFORMATION Patient Instructions Chest Pain - [facility], [facility] Additional Instructions Follow up with DR Huber's office You have been examined and treated today on an emergency basis only. This is not a substitute for, or an effort to provide, complete comprehensive medical care. It is impossible to recognize and treat all injuries or illnesses in a single emergency department visit. It is therefore important that you follow up closely with Dr Vargas. Call as soon as possible for an appointment. Thank you for your time and consideration. I look forward to speaking with you again soon. Please don't hesitate to call us if you have any questions. Problem Qualifiers Primary Impression: Chest pain Chest pain type: unspecified Qualified Codes: R07.9 - Chest pain, unspecified
[2017-12-31 14:35] VITALS: O2SAT 98
--- NOTE | 2017-12-31 14:35 | DIAGNOSTIC IMAGING REPORT ---
CHEST ONE VIEW PORTABLE CLINICAL HISTORY: CHEST PAIN dyspnea COMPARISON STUDY: 02/28/2017 FINDINGS: The bones soft tissues and hemidiaphragms are normal. The cardiomediastinal silhouette is normal. The lungs are clear. The pulmonary vasculature is normal. IMPRESSION: Negative chest. The above report was generated using voice recognition software. It may contain grammatical, syntax or spelling errors. Electronically signed by: Sudhir Loya M.D. 12/31/2017 2:33 PM Dictated Date/Time: 12/31/2017 2:32 PM
[2017-12-31] MEDS ORDERED: NTRSL3 UT (15:01)
[2017-12-31 15:14] LABS: BASO % 0.7 %; BASO ABS # 0.04 K/uL (0-0.2); EOS % 0.7 %; EOS ABS # 0.04 K/uL (0-0.5); HEMATOCRIT 38.1 % (37-47); HEMOGLOBIN 12.8 g/dL (12.0-16.0); IG# 0.01 K/uL (0.00-0.02); LYMPH % 29.3 %; LYMPH ABS # 1.68 K/uL (1.2-3.4); MEAN CELL VOLUME 90.7 fL (80-100); MEAN CORPUSCULAR HEMOGLOBIN 30.5 pg (25-34); MEAN CORPUSCULAR HGB CONC 33.6 g/dl (32-36); MEAN PLATELET VOLUME 10.5 fL (7.4-10.4); MONO % 7.7 %; MONO ABS # 0.44 K/uL (0.11-0.59); NEUT % 61.4 %; NEUT ABS # 3.53 K/uL (1.4-6.5); PLATELET COUNT 177 K/uL (130-400); RED CELL DISTRIBUTION WIDTH SD 42.9 fL (36.4-46.3); WHITE BLOOD COUNT 5.74 K/uL (4.8-10.8)
[2017-12-31] MEDS ORDERED: FLVHFA110 INH (15:15)
[2017-12-31] MEDS ORDERED: AMLO5TAB2 PO (15:15)
[2017-12-31] MEDS ORDERED: ALBU18002 INH (15:15)
[2017-12-31] MEDS ORDERED: DICY20TA10 PO (15:15)
[2017-12-31 15:19] LABS: INR 1.7 (0.9-1.1)
[2017-12-31 15:32] LABS: ALBUMIN 4.1 gm/dl (3.4-5.0); CALCIUM 8.8 mg/dl (8.5-10.1); CREATININE 1.23 mg/dl (0.60-1.20); POTASSIUM 3.2 mmol/L (3.5-5.1)
[2017-12-31] MEDS ORDERED: SODIUM CHLORIDE 0.9% 500ML 500 ML IV STA (15:34)
[2017-12-31] MEDS ORDERED: POTASSIUM CHLORIDE 20 MEQ TABCR PO STA (15:39)
[2017-12-31 15:41] LABS: CKMB 2.3 ng/ml (0.5-3.6); TOTAL PROTEIN 7.1 gm/dl (6.4-8.2)
[2017-12-31] MEDS ORDERED: POTASSIUM CHLORIDE 10 MEQ TABCR PO STA (15:57)
[2017-12-31 16:23] VITALS: BP 147/76; PULSE 61; O2SAT 98
== END 2017-12-31 16:23 | disposition home or self-care (01) ==
LOC: C.EDB 14:01 → C.EDC 16:23
DX: R07.9 Chest pain, unspecified (principal); I12.9 Hypertensive chronic kidney disease with stage 1 through stage 4 chronic kidney disease, or unspecified chronic kidney disease; N18.3 Chronic kidney disease, stage 3 (moderate); I25.2 Old myocardial infarction; E78.5 Hyperlipidemia, unspecified; J45.909 Unspecified asthma, uncomplicated; M06.00 Rheumatoid arthritis without rheumatoid factor, unspecified site; K21.9 Gastro-esophageal reflux disease without esophagitis; I25.10 Atherosclerotic heart disease of native coronary artery without angina pectoris; Z79.01 Long term (current) use of anticoagulants; Z88.0 Allergy status to penicillin; Z91.040 Latex allergy status; Z88.8 Allergy status to other drugs, medicaments and biological substances; Z88.2 Allergy status to sulfonamides

== ENCOUNTER 2018-04-01 00:54 | Inpatient (IN) | payer OTHER ==
[2018-04-01] VITALS (13 sets, daily range): BP systolic 103–149; BP diastolic 47–68; PULSE 53–86; TEMP 36.4–37; O2SAT 94–99; Ht 160 cm; Wt 51.7 kg
[~2018-04-01] VITALS: Ht 160 cm; Wt 51.7 kg
[~2018-04-01 00:54] MED LIST changes: +ALBU18002 INH; -ALBU1AER9 INH; +AMLO5TAB2 PO; -BNT20 PO; +DICY20TA10 PO; -FLUT110A INH; +FLVHFA110 INH; +NTRSL3 UT
--- NOTE | 2018-04-01 01:31 | EMERGENCY ROOM VISIT NOTE ---
History Report prepared by Magan: John Whittaker Under the Supervision of: Dr. Janessa Marc D.O. First contact with patient: 01:02 Chief Complaint: CHEST PAIN Stated Complaint: CHEST PAIN History of Present Illness The patient is an 82 year old female who presents to the Emergency Room with complaints of intermittent chest fullness beginning two days ago. The patient states she woke up yesterday morning with chest fullness and shortness of breath. She reports it felt as if she had pneumonia. The patient notes she continued the day with a dry cough and trouble swallowing. She states she was having trouble with swallowing meat and bread. The patient denies trouble swallowing applesauce and milk. She reports she woke up again this morning with similar symptoms, but they were not as severe. The patient notes her shortness of breath feels as if she cannot get enough air, and she gets winded more quickly. She states she also has a mild post nasal drip, and she normally takes allergy medication. The patient reports she has followed up with her PCP for her difficulty swallowing. She notes she has had a swallow study, and an endoscopy before, but it has been quite some time. The patient states a history of asthma and heart trouble. She reports she had a heart catheterization in January and told she has a 70% heart block. The patient notes she was supposed to have a stent placed, but she could not because of transportation issues. She states she was placed on medication and tried to medically manage it. The patient reports she follows up with Dr. Olivas, and she last saw him a week ago. She notes she was taken off the dicyclomine, and she is still on aspirin and Plavix. The patient denies fevers, chills, a stuffy nose, a history of smoking, changes in her diet, changes in activity, being around anyone sick, and currently being short of breath. Source of History: patient Onset: two days ago Position: chest Quality: other (fullness) Timing: intermittent Associated Symptoms: + cough (dry), + SOB, No fevers, No chills Note: Associated symptoms: difficulty swallowing, post nasal drip Denies: stuffy nose Review of Systems See HPI for pertinent positives & negatives. A total of 10 systems reviewed and were otherwise negative. Past Medical & Surgical Medical Problems: (1) Asthma (2) CKD (chronic kidney disease) stage 3, GFR 30-59 ml/min (3) Coronary artery disease (4) Diaphragmatic hernia (5) Dyslipidemia (6) GERD (gastroesophageal reflux disease) (7) History of TIA (transient ischemic attack) (8) HTN (hypertension) (9) Meniere's disease (10) Myocardial infarction (11) NSTEMI (non-ST elevated myocardial infarction) (12) Osteoporosis (13) Sciatica (14) Seronegative rheumatoid arthritis Surgical Problems: (1) H/O cataract removal with insertion of prosthetic lens (2) H/O hernia repair (3) History of carpal tunnel surgery (4) History of section (5) History of Milly fundoplication (6) S/P repair of paraesophageal hernia Social History Problems: (1) Esophageal Reflux (2) Osteoporosis Nos Family History Heart disease Social History Smoking Status: Never Smoker Drug Use: none Marital Status: Housing Status: lives with significant other Occupation Status: retired Current/Historical Medications Scheduled Amlodipine Besylate (Norvasc), 2.5 MG PO QAM Atenolol (Atenolol), 50 MG PO QAM Atorvastatin (Lipitor), 40 MG PO QAM Chlorthalidone (Hygroton), 25 MG PO QAM Cholecalciferol (Vitamin D3), 1,000 UNITS PO QAM Cyanocobalamin (Vitamin B-12 1000 Mcg), 1,000 MCG PO QAM Fluticasone Propionate (Flovent Hfa), 2 PUFFS INH BID Hydroxychloroquine Sulfate (Plaquenil), 400 MG PO HS Losartan Potassium (Cozaar), 25 MG PO QAM Nitroglycerin (Nitrostat), 0.4 MG UT PRN Omeprazole (Prilosec), 20 MG PO BID Triamcinolone Acet (Aristocort 0.1%), use as directed Warfarin Sod (Jantoven), 5 MG PO 4XWK Warfarin Sodium (Warfarin Sodium), 2.5 MG PO DIRECTED Scheduled PRN Albuterol Sulfate (Proair Respiclick), 2 PUFFS INH Q4H PRN for SOB/Wheezing Fexofenadine Hcl (Valentina), 180 MG PO DAILY PRN for ALLERGIC REACTION Tramadol (Ultram), 50 MG PO Q6H PRN for Pain Allergies Coded Allergies: Penicillins (Verified Allergy, Mild, RASH, 12/31/17) Latex (Verified Allergy, Unknown, RASH, 12/31/17) Niacin (Verified Allergy, Unknown, UNKNOWN, 12/31/17) Metronidazole (Verified Adverse Reaction, Mild, N/V, 12/31/17) Sulfa Antibiotics (Verified Adverse Reaction, Unknown, ., 12/31/17) Physical Exam Vital Signs Date Time Temp Pulse Resp B/P (MAP) Pulse Ox O2 Delivery O2 Flow Rate FiO2 04/01/18 04:00 55 18 159/68 99 Room Air 04/01/18 03:30 55 18 131/68 99 Room Air 04/01/18 03:01 54 16 125/58 97 04/01/18 02:31 53 22 138/74 97 04/01/18 02:01 56 15 145/66 96 04/01/18 01:36 58 12 149/68 97 04/01/18 01:15 55 04/01/18 01:02 Room Air 04/01/18 01:02 Room Air 04/01/18 00:59 36.5 58 14 140/72 97 Room Air Physical Exam GENERAL: alert, well appearing, well nourished, no distress, non-toxic EYE EXAM: normal conjunctiva, PERRL and EOM's grossly intact OROPHARYNX: no exudate, no erythema, lips, buccal mucosa, and tongue normal and mucous membranes are moist NECK: supple, no nuchal rigidity, no adenopathy, non-tender CHEST: No reproducible chest wall pain. LUNGS: Clear to auscultation. Normal chest wall mechanics. No wheezes, rhonchi, or rales. HEART: no murmurs, S1 normal and S2 normal ABDOMEN: abdomen soft, non-tender, normo-active bowel sounds, no masses, no rebound or guarding. BACK: Back is symmetrical on inspection and there is no deformity, no midline tenderness, no CVA tenderness. SKIN: no rashes and no bruising UPPER EXTREMITIES: upper extremities are grossly normal. LOWER EXTREMITIES: No pitting edema. NEURO EXAM: Normal sensorium, cranial nerves II-XII grossly intact, normal speech, no gross weakness of arms, no gross weakness of legs. Medical Decision & Procedures ER Provider Diagnostic Interpretation: X-ray: I interpreted the following studies. Chest: A one view study of the chest was reviewed and was negative for cardiomegaly, focal consolidation, effusion, pulmonary edema, or wide mediastinum. Laboratory Results 04/01/18 01:05 Red Blood Count 4.51, Mean Corpuscular Volume 88.7, Mean Corpuscular Hemoglobin 30.2, Mean Corpuscular Hemoglobin Concent 34.0, Mean Platelet Volume 10.9, Neutrophils (%) (Auto) 50.8, Lymphocytes (%) (Auto) 37.5, Monocytes (%) (Auto) 10.6, Eosinophils (%) (Auto) 0.3, Basophils (%) (Auto) 0.6, Neutrophils # (Auto ) 3.16, Lymphocytes # (Auto) 2.33, Monocytes # (Auto) 0.66, Eosinophils # (Auto ) 0.02, Basophils # (Auto) 0.04 04/01/18 01:05 Test 04/01/18 01:05 04/01/18 04:05 White Blood Count 6.22 K/uL (4.8-10.8) Red Blood Count 4.51 M/uL (4.2-5.4) Hemoglobin 13.6 g/dL (12.0-16.0) Hematocrit 40.0 % (37-47) Mean Corpuscular Volume 88.7 fL (80-100) Mean Corpuscular Hemoglobin 30.2 pg (25-34) Mean Corpuscular Hemoglobin Concent 34.0 g/dl (32-36) Platelet Count 175 K/uL (130-400) Mean Platelet Volume 10.9 fL (7.4-10.4) Neutrophils (%) (Auto) 50.8 % Lymphocytes (%) (Auto) 37.5 % Monocytes (%) (Auto) 10.6 % Eosinophils (%) (Auto) 0.3 % Basophils (%) (Auto) 0.6 % Neutrophils # (Auto) 3.16 K/uL (1.4-6.5) Lymphocytes # (Auto) 2.33 K/uL (1.2-3.4) Monocytes # (Auto) 0.66 K/uL (0.11-0.59) Eosinophils # (Auto) 0.02 K/uL (0-0.5) Basophils # (Auto) 0.04 K/uL (0-0.2) RDW Standard Deviation 42.0 fL (36.4-46.3) RDW Coefficient of Variation 13.0 % (11.5-14.5) Immature Granulocyte % (Auto) 0.2 % Immature Granulocyte # (Auto) 0.01 K/uL (0.00-0.02) Prothrombin Time 24.8 SECONDS (9.0-12.0) Prothromb Time International Ratio 2.4 (0.9-1.1) D-Dimer 190 ug/L FEU (0-500) Anion Gap 6.0 mmol/L (3-11) Est Creatinine Clear Calc Drug Dose 30.2 ml/min Estimated GFR () 51.9 Estimated GFR (Non- 44.7 BUN/Creatinine Ratio 19.1 (10-20) Calcium Level 8.5 mg/dl (8.5-10.1) Magnesium Level 1.9 mg/dl (1.8-2.4) Total Bilirubin 1.3 mg/dl (0.2-1) Aspartate Amino Transf (AST/SGOT) 37 U/L (15-37) Alanine Aminotransferase (ALT/SGPT) 30 U/L (12-78) Alkaline Phosphatase 47 U/L (45-117) Troponin I 1.580 ng/ml (0-0.045) Pro-B-Type Natriuretic Peptide 1417 pg/ml (0-1800) Total Protein 7.3 gm/dl (6.4-8.2) Albumin 4.0 gm/dl (3.4-5.0) Globulin 3.3 gm/dl (2.5-4.0) Albumin/Globulin Ratio 1.2 (0.9-2) Thyroid Stimulating Hormone (TSH) 1.420 uIu/ml (0.300-4.500) Urine Color YELLOW Urine Appearance CLEAR (CLEAR) Urine pH 6.0 (4.5-7.5) Urine Specific [place] 1.005 (1.000-1.030) Urine Protein NEG (NEG) Urine Glucose (UA) NEG (NEG) Urine Ketones NEG (NEG) Urine Occult Blood NEG (NEG) Urine Nitrite NEG (NEG) Urine Bilirubin NEG (NEG) Urine Urobilinogen NEG (NEG) Urine Leukocyte Esterase MODERATE (NEG) Urine WBC (Auto) 1-5 /hpf (0-5) Urine RBC (Auto) 0-4 /hpf (0-4) Urine Hyaline Casts (Auto) 0 /lpf (0-5) Urine Epithelial Cells (Auto) 5-10 /lpf (0-5) Urine Bacteria (Auto) NEG (NEG) Laboratory results per my review. Medications Administered Medications (Trade) Dose Ordered Sig/Pam Route Start Time Stop Time Status Last Admin Dose Admin Al Hydroxide/Mg Hydroxide (Maalox Susp) 30 ml NOW STAT PO 04/01/18 02:36 04/01/18 02:37 DC 04/01/18 02:42 30 ML Nitroglycerin (Nitroglycerin 2% Oint) 1 inch NOW ONCE EXT 04/01/18 02:45 04/01/18 04:05 DC 04/01/18 02:48 1 INCH Potassium Chloride (Klor-Con M10) 40 meq NOW STAT PO 04/01/18 03:02 04/01/18 03:03 DC 04/01/18 03:10 40 MEQ Potassium Chloride (Klor-Con M10) 40 meq NOW STAT PO 04/01/18 03:44 04/01/18 03:52 DC 04/01/18 03:59 40 MEQ ECG Per My Interpretation Indication: chest pain Rate (beats per minute): 56 Rhythm: sinus bradycardia Findings: LBBB, left axis deviation Comparison ECG Date: 12/31/2017 Change: no significant change ED Course 0105: The patient was evaluated in room B09. A complete history and physical exam was performed. 0215: Review of medical list from the patient's recent office visit shows she takes Coumadin and not Plavix/aspirin. 0236: Ordered Maalox Susp 30ml PO 0241: I reevaluated the patient and made her aware of the results. Her pain is improving but still present. I discussed the treatment plan with the patient. She and her family express agreement and understanding. The patient will be evaluated for further management. 0245: Ordered Nitroglycerin 1 inch EXT 0246: I spoke with the patient's son privately per his request. He states she seems to be having intermittent unfound paranoia regarding the people that live below her apartment. He states her mother behaved similarly with increased age. The son is not concerned for the physical safety of the other people. He thinks she may benefit from seeing a geriatric psychologist. 0302: Ordered Potassium Chloride 40meq PO 0329: I discussed the patient's case with Suzanne Browning Hospitalist. The patient will be evaluated for further management and care. Medical Decision Differential diagnoses includes but is not limited to acute coronary syndrome, myocardial infarction, pericarditis, pulmonary embolus, aortic dissection, pneumonia, pneumothorax, musculoskeletal, shingles, esophageal. On review of EMR, patient with cardiac catheterization done earlier this year. Patient has had chronically elevated troponins although tonight's is significantly higher than those previously recorded. I do feel there is a component of dysphasia likely contributing to her sense of throat tightness and difficulty swallowing that could likely be evaluated as an outpatient. Given her symptoms of this evening as well as the troponin that is much higher compared to previous levels, case discussed with hospitalist for additional evaluation and treatment. I do not suspect PE given therapeutic INR. No other evidence of effusion, consolidation, or dissection. I do not suspect occult GI bleed or perforation. I do not suspect tamponade. Patient hemodynamically stable throughout. She is pain improved here following Maalox application of Nitropaste. No acute EKG changes otherwise suggest evolving STEMI. Patient and family aware of all results. Son pulled me aside separately and is concerned about intermittent paranoia he is noticing in his mother that seems noted. States her mother had similar episodes late in life also. I did discuss with him outpatient evaluation by geriatric psychiatrist. I do not feel it is contributing to her current symptoms tonight. Patient well- appearing here, and was awake alert and oriented. Medication Reconcilliation Current Medication List: was personally reviewed by me Blood Pressure Screening Patient's blood pressure: Elevated blood pressure Monitored by hospitalist. Consults Time Called: [phone] [facility]ing [facility] Returned Call: [phone] I discussed the patient's case [facility]. The patient will be evaluated for further management and care. Impression Primary Impression: Chest pain Additional Impressions: Dyspnea Elevated troponin I level Hypokalemia Scribe Attestation The scribe's documentation has been prepared under my direction and personally reviewed by me in its entirety. I confirm that the note above accurately reflects all work, treatment, procedures, and medical decision making performed by me. Departure Information Dispostion Being Evaluated By Hospitalist Referrals Rory Vargas M.D. (PCP) Patient Instructions My [facility] Problem Qualifiers Primary Impression: Chest pain Chest pain type: unspecified Qualified Codes: R07.9 - Chest pain, unspecified Additional Impressions: Dyspnea Dyspnea type: unspecified Qualified Codes: R06.00 - Dyspnea, unspecified
[2018-04-01 01:35] LABS: BASO % 0.6 %; BASO ABS # 0.04 K/uL (0-0.2); EOS % 0.3 %; EOS ABS # 0.02 K/uL (0-0.5); HEMOGLOBIN 13.6 g/dL (12.0-16.0); IG# 0.01 K/uL (0.00-0.02); LYMPH % 37.5 %; LYMPH ABS # 2.33 K/uL (1.2-3.4); MEAN CELL VOLUME 88.7 fL (80-100); MEAN CORPUSCULAR HEMOGLOBIN 30.2 pg (25-34); MEAN PLATELET VOLUME 10.9 fL (7.4-10.4); MONO % 10.6 %; MONO ABS # 0.66 K/uL (0.11-0.59); NEUT % 50.8 %; NEUT ABS # 3.16 K/uL (1.4-6.5); PLATELET COUNT 175 K/uL (130-400); WHITE BLOOD COUNT 6.22 K/uL (4.8-10.8)
[2018-04-01 01:43] LABS: INR 2.4 (0.9-1.1)
[2018-04-01] MEDS ORDERED: FEXO1TAB49 PO (01:56)
[2018-04-01] MEDS ORDERED: NTRGSL/4 UT (01:57)
[2018-04-01 02:02] LABS: CALCIUM 8.5 mg/dl (8.5-10.1); CREATININE 1.14 mg/dl (0.60-1.20); POTASSIUM 2.8 mmol/L (3.5-5.1); TOTAL PROTEIN 7.3 gm/dl (6.4-8.2)
[2018-04-01] MEDS ORDERED: ALUMINUM/MAGNESIUM SUSP 30 ML UDC PO STA (02:36)
[2018-04-01] MEDS ORDERED: NITROGLYCERIN 2% OINTMENT 30GM TUBE EXT ONE (02:45)
[2018-04-01] MEDS ORDERED: POTASSIUM CHLORIDE 10 MEQ TABCR PO STA ×2 (03:02→03:44)
[2018-04-01] MEDS ORDERED: NITROGLYCERIN 0.4 MG SL PER TAB CHARGE SL PRN (04:00)
[2018-04-01] MEDS ORDERED: FEXOFENADINE HCL 180 MG TAB PO PRN (04:00)
[2018-04-01] MEDS ORDERED: TRAMADOL HCL 50 MG TAB PO PRN (04:00)
[2018-04-01] MEDS ORDERED: ALBUTEROL HFA 8 GM INHALER INH PRN (04:00)
[2018-04-01] MEDS ORDERED: ALUMINUM/MAGNESIUM/SIMETH (MAALOX MAX) 30 ML UDC PO PRN (04:00)
[2018-04-01] MEDS ORDERED: POLYETHYLENE (MIRALAX) 17 GM PACK PO PRN (04:00)
[2018-04-01] MEDS ORDERED: ONDANSETRON INJ 2 MG/ML 2 ML VIAL IV PRN (04:00)
[2018-04-01] MEDS ORDERED: ACETAMINOPHEN 325 MG TAB PO PRN (04:00)
[2018-04-01] MEDS ORDERED: NITROGLYCERIN 0.4 MG SL PER TAB CHARGE UT SCH (04:00)
[2018-04-01] MEDS ORDERED: ASPIRIN 81 MG ECTAB PO STA (06:09)
--- NOTE | 2018-04-01 06:54 | DIAGNOSTIC IMAGING REPORT ---
CHEST ONE VIEW PORTABLE CLINICAL HISTORY: sob, chest pressure dyspnea COMPARISON STUDY: 12/31/2017 FINDINGS: The bones soft tissues and hemidiaphragms are normal. The cardiomediastinal silhouette is normal. The lungs are clear. The pulmonary vasculature is normal. IMPRESSION: Negative chest. The above report was generated using voice recognition software. It may contain grammatical, syntax or spelling errors. Electronically signed by: Sudhir Loya M.D. 04/01/2018 6:53 AM Dictated Date/Time: 04/01/2018 6:37 AM
[2018-04-01] MEDS ORDERED: PHYTONADIONE 5 MG TAB PO STA (07:31)
[2018-04-01] MEDS: FLUTICASONE HFA 110MCG INHALER INH SCH ×2 (08:20→20:05)
[2018-04-01] MEDS: NITROGLYCERIN 2% OINTMENT 30GM TUBE EXT SCH ×3 (08:20→20:05)
[2018-04-01 08:21] LABS: CALCIUM 8.8 mg/dl (8.5-10.1); CREATININE 0.87 mg/dl (0.60-1.20); POTASSIUM 3.9 mmol/L (3.5-5.1)
[2018-04-01] MEDS: CHLORTHALIDONE 25 MG TAB PO SCH (08:21)
[2018-04-01] MEDS: ATORVASTATIN 20 MG TAB PO SCH (08:21)
[2018-04-01] MEDS: CHOLECALCIFEROL 1000 INTER.UNIT TAB PO SCH (08:21)
[2018-04-01] MEDS: CYANOCOBALAMIN 500 MCG TAB (VIT B-12) PO SCH (08:21)
[2018-04-01] MEDS: LOSARTAN POTASSIUM 25 MG TAB PO SCH (08:21)
[2018-04-01] MEDS: AMLODIPINE BESYLATE 5 MG TAB PO SCH (08:21)
[2018-04-01] MEDS: PANTOprazole SOD 40 MG TAB PO SCH ×2 (08:21→20:05)
--- NOTE | 2018-04-01 08:28 | HISTORY & PHYSICAL EXAMINATION ---
DATE OF ADMISSION: 04/01/2018 CHIEF COMPLAINT: Chest pain. HISTORY OF PRESENT ILLNESS: This is an 82-year-old female with past medical history significant for osteoporosis, vitamin B12 deficiency, hypertension, hyperlipidemia, CVA, irritable bowel syndrome, COPD mild, chronic kidney disease stage III, subclavian artery stenosis, rheumatoid arthritis, who had nonobstructive CAD, last cardiac catheterization was done in 12/2017, which showed mid LAD 60% stenosis, on medical management, comes with chest pain. Yesterday evening, she noticed left-sided chest pain, 6/10 in severity, pressure-like feeling, no radiation, no associated nausea or sweating, no dizziness. She took a nitroglycerin and it helped. She is getting this angina kind of pains on and off, but today's was somewhat more severe, and she came to the ER. Currently, she is resting comfortably and hemodynamically stable. Currently, there is no pain. Denies any headaches, no dizziness. She has some issues with the left eye, and she is following with an eye doctor. No earache, no runny nose, no sore throat. She is having difficulty swallowing for some time. She has difficulty swallowing solids and liquids. Says she eats slowly, and she says she had an speech evaluation was done in 2016, and at that time thought to be having esophageal dysfunction and advised for moist regular diet and followup with the GI. An EGD was also done. Currently denies any nausea or abdominal pain. Normal bowel and bladder movements. No blood in the stools, no blood in the urine. No swelling in the legs. No skin rash. ALLERGIES: LATEX, FLAGYL, NIACIN, PENICILLIN, SULFA ANTIBIOTICS. PAST MEDICAL HISTORY: As mentioned above. PAST SURGICAL HISTORY: Carpal tunnel surgery, right side; C section; colonoscopy with hyperplastic removal; EGD with biopsies; EGD with fundoplasty; implant mesh for abdominal hernia repair; heart catheterization; cataract surgery; repair of paraesophageal hernia; sigmoidoscopy. MEDICATIONS: Patient is on atorvastatin 40 mg p.o. daily, tramadol 50 mg p.o. q.6 h. p.r.n., Plaquenil 400 mg p.o. daily, chlorthalidone 25 mg p.o. daily, amlodipine 2.5 mg p.o. daily, Coumadin 5 mg on Mondays, Wednesdays, and Fridays and 2.5 mg on the rest of the days, albuterol 2 puffs every 4 hours p.r.n., omeprazole 20 mg p.o. b.i.d., losartan 25 mg p.o. daily, atenolol 50 mg p.o. daily, Flovent 2 puffs b.i.d., vitamin D 1000 units p.o. daily, vitamin B12 1000 mcg p.o. daily, fexofenadine as needed. FAMILY HISTORY: Significant for father at the age of 48 of an [place] and also stroke. Mother had no past medical history. Brother had CABG. Daughter has rheumatoid arthritis and has a melanoma. SOCIAL HISTORY: . No smoking, no alcohol, no drug use. REVIEW OF SYMPTOMS: As per HPI. Rest of review of systems negative. PHYSICAL EXAMINATION: GENERAL: Patient is of moderate build, not in distress. VITAL SIGNS: Temperature 36.5, pulse 54, respiratory rate 20, blood pressure 146/68, oxygen saturation 94% on room air. HEENT: No pallor, no icterus. Pupils equal, round, and reactive to light. NECK: No JVD, no neck masses, no carotid bruits. CARDIOVASCULAR SYSTEM: S1 and S2 heard, regular rate and rhythm, no murmur, no gallop. RESPIRATORY SYSTEM: Clear to auscultation bilaterally. No wheezing, no crackles. ABDOMEN: Soft, bowel sounds present, nontender, no distention. CENTRAL NERVOUS SYSTEM: Cranial nerves II through XII grossly intact. Nonfocal. EXTREMITIES: No edema, no erythema. LABORATORY DATA: WBC is 6.2, hemoglobin 13.6, hematocrit 40, platelets 175. Sodium 137, potassium 2.8, chloride 102, bicarb 29, BUN 22, creatinine 1.1, serum glucose 113, calcium 8.5, magnesium 1.9, total bilirubin 1.3, AST 37, ALT 30, alkaline phosphatase 47. Troponin 1.5, BNP 1417. TSH 1.4. PT 24.8, INR 2.4, D-dimer 190. Urinalysis positive for moderate leukocyte esterase. IMAGING: Chest x-ray: No acute findings. EKG: Sinus bradycardia with a rate of 56, left axis deviation, nonspecific T-wave abnormality. ASSESSMENT AND PLAN: This is an 82-year-old female who presents with chest pain. 1. Chest pain, history of nonobstructive coronary artery disease with a 60% lesion in the mid left anterior descending on the cardiac catheterization in 12/2017. Presents with chest pain and troponin elevation of 1.5. Mostly with non-ST elevated myocardial infarction. Patient is already on Coumadin. INR is 2.4. Placed on nitroglycerin paste. Continue home medication of Lipitor and atenolol. We will also give aspirin. We will get repeat troponin, echocardiogram, and consult cardiology for further recommendations. Monitor on the tele floor. 2. Hypokalemia. We will replace potassium. Patient is on chlorthalidone, may need potassium supplements at discharge. 3. History of hypertension. Continue home medication of amlodipine, atenolol, losartan, and chlorthalidone. We will monitor the blood pressure. 4. History of hyperlipidemia. Continue statin. Follow up fasting lipid profile. 5. History of rheumatoid arthritis. Continue Plaquenil. 6. History of cerebrovascular accident. Patient is on Coumadin. INR is therapeutic. 7. History of mild chronic obstructive pulmonary disease, on Flovent and albuterol p.r.n. 8. Gastroesophageal reflux disease, on Prilosec. 9. Deep venous thrombosis prophylaxis, on Coumadin. 10. Disposition: Admit to tele floor. Expect to discharge home and follow up with family doctor. Level 1 full code. MTDD
--- NOTE | 2018-04-01 10:56 | ECHOCARDIOGRAM REPORT ---
*NOTICE TO RECEIVING [employer] [employer] This information is strictly Confidential and protected under [place] law. [place] law prohibits you from making any further disclosure of this information unless further disclosure is expressly permitted by the written consent of the person to whom it pertains or is authorized by law. A general authorization for the release of medical or other information is not sufficient for this purpose. Hospital accepts no responsibility if the information is made available to any other person, INCLUDING THE PATIENT. Interpretation Summary * Name: WOODY IBANEZ Study Date: 04/01/2018 06:42 AM BP: 146/68 mmHg * Patient Location: [facility] [place] [facility] HR: 54 * : 1935 (M/d/yyyy) Gender: Female Height: 65 in * Age: 82 yrs Ethnicity: [place] Weight: 110 lb * Ordering Physician: Humberto Mancia * Referring Physician: Self, Referred * Performed By: Roxann Key RDCS * * Reason For Study: Chest Pain * BSA: 1.5 m2 * The study was technically adequate. * Compared to prior study, there is no significant change. * -- Conclusions -- * Left ventricular systolic function is normal. * Ejection Fraction = 55-60%. * There is mild concentric left ventricular hypertrophy. * No regional wall motion abnormalities noted. * The left atrium is moderately dilated. * There is mild tricuspid regurgitation. * Doppler findings do not suggest pulmonary hypertension. Procedure Details * A complete two-dimensional transthoracic echocardiogram was performed (2D, M-mode, Doppler and color flow Doppler). Left Ventricle * The left ventricle is normal in size. * The left ventricular apex is not well visualized. * There is mild concentric left ventricular hypertrophy. * Ejection Fraction = 55-60%. * Left ventricular systolic function is normal. * No regional wall motion abnormalities noted. Right Ventricle * The right ventricle is normal size. * The right ventricular systolic function is normal as assessed by tricuspid annular plane systolic excursion (TAPSE) (normal >1.5 cm). Atria * The left atrium is moderately dilated. * Right atrial size is normal. * There is no evidence of atrial septal defect, but resolution does not allow assessment for a patent foramen ovale. Mitral Valve * The mitral valve is normal. * There is no mitral valve stenosis. * There is trace mitral regurgitation. Tricuspid Valve * The tricuspid valve is normal. * There is no tricuspid stenosis. * There is mild tricuspid regurgitation. * Doppler findings do not suggest pulmonary hypertension. Aortic Valve * The aortic valve is trileaflet. * Aortic valve sclerosis mild, without significant aortic valvular stenosis. * Aortic stenosis is absent. * There is no significant aortic regurgitation. Pulmonic Valve * The pulmonary valve is not well seen, but the Doppler examination is normal without significant regurgitation or stenosis. Great Vessels * The aortic root is normal size. Pericardium/Pleural * There is no pericardial effusion. Great Vessels * Normal inferior vena cava diameter and respiratory variation suggests normal central venous pressure. Left Ventricular Diastolic Function * Diastolic dysfunction, Grade II (pseudonormalization pattern). MMode 2D Measurements and Calculations IVSd 0.88 cm IVSs 1.0 cm LVIDd 3.8 cm LVIDs 2.8 cm LVPWd 0.96 cm LVPWs 1.9 cm IVS/LVPW 0.91 FS 27.4 % EDV(Teich) 63.4 ml ESV(Teich) 29.2 ml EF(Teich) 54.0 % EDV(cubed) 56.5 ml ESV(cubed) 21.6 ml EF(cubed) 61.7 % % IVS thick 16.3 % % LVPW thick 93.6 % LV mass(C)d 106.1 grams LV mass(C)dI 69.2 grams/m\S\2 LV mass(C)s 134.6 grams LV mass(C)sI 87.8 grams/m\S\2 SV(Teich) 34.2 ml SI(Teich) 22.3 ml/m\S\2 SV(cubed) 34.9 ml SI(cubed) 22.7 ml/m\S\2 Ao root diam 2.4 cm Ao root area 4.6 cm\S\2 ACS 1.8 cm LA dimension 4.6 cm LA/Ao 1.9 LVAd ap4 22.1 cm\S\2 LVLd ap4 6.6 cm EDV(MOD-sp4) 63.0 ml EDV(sp4-el) 62.8 ml LVAs ap4 13.8 cm\S\2 LVLs ap4 6.5 cm ESV(MOD-sp4) 27.9 ml ESV(sp4-el) 25.0 ml EF(MOD-sp4) 55.8 % EF(sp4-el) 60.2 % LVAd ap2 19.6 cm\S\2 LVLd ap2 6.1 cm EDV(MOD-sp2) 53.0 ml EDV(sp2-el) 53.0 ml LVAs ap2 10.2 cm\S\2 LVLs ap2 5.2 cm ESV(MOD-sp2) 17.6 ml ESV(sp2-el) 16.9 ml EF(MOD-sp2) 66.8 % EF(sp2-el) 68.1 % LVLd %diff -7.83 % EDV(MOD-bp) 59.8 ml LVLs %diff -23.90 % ESV(MOD-bp) 23.9 ml EF(MOD-bp) 60.1 % SV(MOD-sp4) 35.1 ml SI(MOD-sp4) 22.9 ml/m\S\2 SV(MOD-sp2) 35.4 ml SI(MOD-sp2) 23.1 ml/m\S\2 SV(MOD-bp) 35.9 ml SI(MOD-bp) 23.4 ml/m\S\2 SV(sp4-el) 37.8 ml SI(sp4-el) 24.6 ml/m\S\2 SV(sp2-el) 36.1 ml SI(sp2-el) 23.5 ml/m\S\2 Doppler Measurements and Calculations MV E max therese 79.4 cm/sec MV A max therese 84.6 cm/sec MV E/A 0.94 MV dec time 0.24 sec Ao V2 max 141.7 cm/sec Ao max PG 8.0 mmHg Ao max PG (full) 4.4 mmHg LV V1 max PG 3.6 mmHg LV V1 max 95.3 cm/sec PA V2 max 100.1 cm/sec PA max PG 4.0 mmHg TR max therese 216.3 cm/sec
--- NOTE | 2018-04-01 13:09 | CARDIOLOGY CONSULTATION ---
DATE OF CONSULTATION: 04/01/2018 CARDIOLOGY CONSULTATION REASON FOR CONSULTATION: Elevated troponin, chest pain, CAD. HISTORY OF PRESENT ILLNESS: Ms. Liliana Fuller is an 82-year-old female with a history of chronic coronary disease. Patient had a cardiac catheterization performed 10/2017 which demonstrated a 60-70% eccentric mid LAD stenosis. The stenosis was found to be not significant by FFR with a value of 0.81. Patient returned to the Emergency Department in December with recurrent chest discomfort, noted to have a mildly elevated troponin. She was discharged to home. She returned again this morning in the early a.m. hours due to chest discomfort. She awoke from sleep with a pressure and heaviness which did not radiate. Describes the severity as 5/10. She took 2 sublingual nitroglycerin at home and then summoned EMS. She received additional sublingual nitroglycerin en route. Patient was then treated with topical nitrates in the ER. Pain resolved at that time. Initial troponin 1.5. Pain free since arrival to the progressive care unit. INR of 2.4. Patient is chronically anticoagulated for remote history of transient ischemic attack. There is no chart history of DVT, PE, or atrial fibrillation. Patient currently offers no complaints. REVIEW OF SYSTEMS: The pertinent positive noted above, a comprehensive 10-system review is otherwise negative. PAST MEDICAL HISTORY: 1. LAD stenosis, not significant by FFR as noted above 10/2017. 2. Dyslipidemia. 3. Meniere's disease. 4. Hypertension. 5. TIA on chronic Coumadin. 6. Myalgia. 7. Stage III chronic kidney disease. 8. Diaphragmatic hernia. 9. GERD. PAST SURGICAL HISTORY: 1. Cardiac catheterization after an FFR. 2. Cataract extraction. 3. Hernia repair. 4. Carpal tunnel surgery. 5. . 6. Milly fundoplication. 7. Paraesophageal hernia repair. FAMILY HISTORY: Heart disease with details unknown. SOCIAL HISTORY: She is , lives with her . She is a nonsmoker. ALLERGIES: LATEX, NIACIN, PENICILLIN, METRONIDAZOLE, SULFA. OUTPATIENT MEDICATIONS: 1. Aspirin 81 mg daily. 2. Norvasc 2.5 mg daily. 3. Atenolol 50 mg daily. 4. Lipitor 40 mg daily. 5. Hygroton 25 mg daily. 6. Vitamin B12 daily. 7. Flovent twice daily. 8. Losartan 25 mg daily. 9. Nitrostat as needed. 10. Prilosec 20 mg twice daily. 11. Triamcinolone topical as needed. 12. Coumadin 5 mg 4 days per week, 2.5 mg 2 days per week. 13. Albuterol as needed. 14. Valentina daily as needed. 15. Tramadol 50 mg q. 6 as needed. LABORATORY DATA: Initial troponin 1.580, repeat troponin 1.450. Sodium 141, potassium 3.9, chloride 106, CO2 28, BUN is 19, creatinine 0.87. White blood cell count 6.22, hemoglobin is 13.6, platelet count is 175. INR is 2.4 on admission. Chest x-ray on admission: No acute disease. ECG on admission: Sinus bradycardia, incomplete left bundle-branch block with ST elevation in V1, V2. Repeat ECG when pain free, unchanged. PHYSICAL EXAMINATION: VITAL SIGNS: Afebrile, pulse 55 beats per minute and regular, respiratory rate is 18 breaths per minute, blood pressure 103/51, SAO2 is 98% on room air. GENERAL: NAD, awake, alert and oriented x3. HEENT: Mucous membranes are moist. No scleral icterus. Conjunctivae pink. NECK: Supple. There is no JVD, no HJR. No carotid bruit. HEART: Regular with a normal S1 and S2. There is no murmur, rub or gallop. LUNGS: Clear without rales, rhonchi or wheeze. ABDOMEN: Soft, nontender. No rebound or guarding. EXTREMITIES: The femoral pulses are 2/4 bilaterally. Left radial pulses 2/4. NEUROLOGIC: Demonstrates no focal deficit. FINAL IMPRESSION: 1. An 82-year-old female admitted with non-ST elevation myocardial infarction and incomplete left bundle-branch block. Currently, pain free with troponin trending downward. Resting 2D transthoracic echocardiogram demonstrates normal wall motion with preserved left ventricular systolic function. 2. Chronic anticoagulation with Coumadin due to history of transient ischemic attack with therapeutic INR. 3. Hypertension, controlled. 4. Dyslipidemia. 5. A 60-70% mid left anterior descending stenosis, not significant by fractional flow reserve October 2017. 6. Chronic kidney disease, stage III. PLAN AND RECOMMENDATIONS: The risks, benefits and alternatives to cardiac catheterization were discussed with the patient at length. She has known right subclavian stenosis. Ulnar collateral flow is inadequate in her left upper extremity. Prior catheterization performed via right femoral approach which is recommended at this time. Patient understands the risks and is agreeable to proceed with surgery. We will reverse INR with fresh frozen plasma and 5 mg vitamin K with a repeat INR prior to procedure. Other medications will be continued as previously ordered. Consider drug-eluting stent implantation pending review of catheterization. PALOMA
[2018-04-01 14:17] LABS: INR 1.5 (0.9-1.1)
[2018-04-01] MEDS ORDERED: WARFARIN SOD 5 MG TAB PO SCH (16:00)
[2018-04-01] MEDS ORDERED: MIDAZOLAM HCL 1 MG/ML 2ML VIAL ONE (16:11)
[2018-04-01] MEDS ORDERED: FENTANYL CITRATE INJ 50 MCG/1 ML 2 ML VIAL ONE (16:12)
[2018-04-01] MEDS ORDERED: NiCARDipine HCL INJ 2.5 MG/ML 10 ML AMP ONE (16:12)
[2018-04-01] MEDS ORDERED: HEPARIN SOD (PORCINE) 1000 UNIT/ML 10 ML VIAL ONE (16:12)
[2018-04-01] MEDS ORDERED: NITROGLYCERIN/D5W 100MCG/ML 20ML SYR ONE (16:12)
--- NOTE | 2018-04-01 16:27 | Pre Sedation Assessment ---
Pre Sedation Assessment General Date of Sedation: Apr 01, 2018. Vital Signs Past 12 Hours Date Time Temp Pulse Resp B/P (MAP) Pulse Ox O2 Delivery O2 Flow Rate FiO2 04/01/18 15:35 36.4 86 16 123/64 (83) 95 Room Air 04/01/18 12:26 36.5 53 18 120/55 (76) 98 Room Air 04/01/18 12:24 36.6 58 18 105/53 96 04/01/18 11:29 36.8 55 18 103/51 98 04/01/18 08:06 96 04/01/18 07:14 36.7 86 16 126/61 (82) 97 Room Air 04/01/18 04:56 36.5 54 20 146/68 94 Room Air Review Cardiovascular: regular rate, rhythm, no edema, no gallop, no JVD Lungs: chest non-tender, lungs clear, normal breath sounds Pre-Sedation Airway Assessment Smoking Status: Never Smoker Oral Cavity: WNL Mallampati Classification: Class II ASA Classification: Class IV NPO Status Date of Last Intake of Fluids: Mar 31, 2018 Date of Last Intake of Solids: Mar 31, 2018 Procedure Planning Contraindications for Sedation: None Current Medications Reviewed: Yes Notes The planned sedation has been discussed with the patient. Informed Consent was obtained. I have identified the patient, determined the appropriateness of sedation and have assessed the patient immediately prior to the procedure. All medicine(s) and interventions are by my order.
--- NOTE | 2018-04-01 17:04 | Post Sedation Assessment ---
Post Sedation Assessment General Date of Sedation Apr 01, 2018. Vital Signs: Vital Signs Past 12 Hours Date Time Temp Pulse Resp B/P (MAP) Pulse Ox O2 Delivery O2 Flow Rate FiO2 04/01/18 15:35 36.4 86 16 123/64 (83) 95 Room Air 04/01/18 12:26 36.5 53 18 120/55 (76) 98 Room Air 04/01/18 12:24 36.6 58 18 105/53 96 04/01/18 11:29 36.8 55 18 103/51 98 04/01/18 08:06 96 04/01/18 07:14 36.7 86 16 126/61 (82) 97 Room Air Post Procedure Recovery Score Activity: (2) Moves 4 extremities * Respiration: (2) Deep breath/cough Consciousness: (2) Fully Awake Oxygen Saturation: (2) > 92% On Room Air Post Anesthesia Score: 8 Discharge Sedation Level of Care: Fast Track Phase II Post Sedation Plan On clinical assessment, the patient appears to have tolerated the sedation without complications. Patient is recovering as anticipated. Patient will continue to be monitored by nursing and may be discharged when sedation discharge criteria are met per below protocol. Upon Completions of procedure and additional 15 minutes continue every 5 minute vital signs and the P.A.R. score; then discharge to a Phase I or Fast Track to Phase II per the following guidelines: * Discharge Patient to appropriate Phase II area if PAR is 8 or greater or return to pre- procedure baseline. The post - procedure orders will be as directed. * If PAR score is less than 8 or not return to pre-procedure baseline then patient will follow Phase I monitoring till PAR is reached for Phase II. The Phase I may be done in procedure room or may call to secure a Phase I area. * If naloxone or flumazenil are used for reversal, hold in Phase I for an additional 60 -120 minutes before discharge to Phase II. Please call the Sedation Physician to re-evaluate and complete post-note for discharge to Phase II area. Do NOT discharge from procedure sedation or Phase 1 until post- sedation evaluation note is complete by procedure /sedation MD Sedation Discharge Instructions to be given to the patient at discharge to home.
--- NOTE | 2018-04-01 17:11 | Cardiac Catheterization ---
Procedure Note Procedure Date Apr 01, 2018. Pre-Procedure Diagnosis Non STEMI AUC Score 8 Post-Procedure Diagnosis Severe CAD Procedure(s) Performed Coronary Angiography, Left Heart Cath Cigarette And Filter Chief Inspector Dr. Frank Storm Window Installer(s) [place] RTR Estimated Blood Loss 8cc Medication(s) Versed Summary of Findings 75% mid LAD Hemodynamics Rest Ao: 134/51/83 Final Ao: 142/54/88 LV: 126/-2/13 Recommendations PCI without planned CABG Specimens None Radiation Exposure (mGy) 432 Contrast (mls) 50 Anesthesia Moderate sedation. Start 1638. End 1700. Sedation monitor Oscar CARROLL Procedural Complication(s) None Disposition Patient remained in laboratory miller for PCI LAD ACC Data Cardiac Status Clinical evaluation leading to the procedure CAD Presntation: Non STEMI Anginal Classification: CCS IV Heart Failure: No Cardiogenic Shock w/in 24Hrs: No Cardiac Arrest w/in 24Hrs: No Imaging studies past 6 months: Yes Stress studies past 6 months: No Coronary Anatomy Dominant: Right Left Main (% Stenosis): Ostial (30% taper with focal calcification) LAD (% Stenosis): Proximal (20%), Mid (75%), Distal (10%) D1 (% Stenosis): Normal Circumflex (% Stenosis): Normal OM1 (% Stenosis): Normal L PL1 (% Stenosis): Normal RCA (% Stenosis): Proximal (20% mild calcification) R PDA (% Stenosis): Normal R PL1 (% Stenosis): Normal Diagnostic Status: Urgent Closure Device Percutaneous Entry Location: Femoral Closure Device: Angio-Seal Intraprocedure Events Significant Dissection: No Perforation: No
[2018-04-01] MEDS ORDERED: NITROGLYCERIN 0.4 MG SL PER TAB CHARGE ONE (17:12)
[2018-04-01] MEDS ORDERED: CLOPIDOGREL BISULFATE 300 MG TAB PO ONE (17:16)
[2018-04-01] MEDS ORDERED: SODIUM CHLORIDE 0.45% 1000ML 1,000 ML IV SCH (17:30)
--- NOTE | 2018-04-01 19:07 | CARDIAC CATH REPORT ---
REPORT OF PERCUTANEOUS CORONARY INTERVENTION INDICATION: Recurrent anginal chest discomfort, recurrent non-ST elevated RI, significant stenosis of the mid LAD in an 82-year-old female whose past medical history is significant for hypertension, hyperlipidemia. PROCEDURE PERFORMED: PCI with drug-eluting stent x1, left anterior descending artery, radiological interpretation and supervision. METHOD: Upon completion of cardiac catheterization and exchange of the 5-Norwegian for a 6-Norwegian sheath in the right femoral artery, a 6-Norwegian EBU 3.5 guiding catheter was advanced over wire under fluoroscopic guidance to the central circulation where it was aspirated and flushed. After confirmation of adequate waveform, was advanced into the left main. Cineangiograms of the left anterior descending artery obtained and reviewed. Intravenous heparin was administered and titrated to an ACT on the order of 200 seconds, INR had been titrated to 1.5 with 2 units of FFP and 5 mg of subcutaneous vitamin K prior to arrival in the laborer operator. A 0.014-inch company pilot wire was advanced through the guiding catheter across the area of stenosis of the apical LAD. A 2.0 Mini Trek 12 angioplasty catheter was positioned in the mid left anterior descending artery immediately distal to a second diagonal branch, inflated to maximum pressure of less than 1 minute. Balloon was withdrawn. A 2.25 Xience 15 stent was positioned in the mid LAD in the same location, inflated to maximum pressure of less than 1 minute. Balloon was withdrawn. The stented segment was postdilated using a 2.5 NC Trek 15 to nominal pressure for less than a minute. Balloon was withdrawn. Final cineangiograms were obtained and the wire was removed from the coronary artery guiding catheter, removed from left main under fluoroscopic guidance. The 6-Norwegian sheath was aspirated and flushed. After an Angio-Seal failed to deploy a manual compression with was held to adequate hemostasis. The patient returned to room in good condition. COMPLICATIONS: None. FINDINGS: Initial cineangiograms demonstrated 75% stenosis in mid LAD distal to the second diagonal branch. Final cineangiograms demonstrate no residual stenosis, no uncovered dissection, GOLDY grade 3 flow in both the LAD and the diagonal branch. IMPRESSION: Successful angioplasty, drug-eluting stent placement, left anterior descending artery. RECOMMENDATIONS: Dual antiplatelet therapy per guidelines.
--- NOTE | 2018-04-01 19:17 | Progress Note ---
Progress Note Date of Service Apr 01, 2018. Progress Note Subjective: Patient is s/p cardiac cath. Patient denies chest pain or shortness of breath. Patient denies abdominal pain or groin pain Physical Exam General: no acute distress Lungs: CTABL Heart: regular rate Abdomen: soft, nontender, positive bowel sounds Extremities: right groin femoral site with dressing Assessment and Plan Recurrent anginal chest discomfort, recurrent non-ST elevated WI, significant stenosis of the mid LAD in an 82-year-old female whose past medical history is significant for hypertension, hyperlipidemia. -PROCEDURE PERFORMED: PCI with drug-eluting stent x1, left anterior descending artery -dual antiplatelet as per guidelines -Continue home medication of amlodipine, atenolol, losartan, and chlorthalidone , statin -continue telemetry monitoring History of cerebrovascular accident in the past -was on coumadin with INR reversed for cardiac cath; hold coumadin for now immediately post cath Hypokalemia resolved after supplementation History of rheumatoid arthritis -Continue Plaquenil. History of mild chronic obstructive pulmonary disease - on Flovent and albuterol p.r.n Gastroesophageal reflux disease -Pantoprazole Deep venous thrombosis prophylaxis -SCDs Full Code
[2018-04-01] MEDS ORDERED: HYDROXYCHLOROQUINE SULFATE 200 MG TAB PO SCH (21:00)
[2018-04-02] MEDS: NITROGLYCERIN 2% OINTMENT 30GM TUBE EXT SCH (02:23)
[2018-04-02 03:22] VITALS: BP 105/46; PULSE 59; TEMP 37; O2SAT 94
[2018-04-02 05:58] LABS: BASO % 0.6 %; BASO ABS # 0.04 K/uL (0-0.2); EOS ABS # 0.14 K/uL (0-0.5); HEMATOCRIT 34.6 % (37-47); HEMOGLOBIN 11.5 g/dL (12.0-16.0); IG# 0.02 K/uL (0.00-0.02); LYMPH % 20.1 %; LYMPH ABS # 1.41 K/uL (1.2-3.4); MEAN CELL VOLUME 89.2 fL (80-100); MEAN CORPUSCULAR HEMOGLOBIN 29.6 pg (25-34); MEAN CORPUSCULAR HGB CONC 33.2 g/dl (32-36); MEAN PLATELET VOLUME 10.7 fL (7.4-10.4); MONO % 11.4 %; NEUT % 65.6 %; PLATELET COUNT 141 K/uL (130-400); RED CELL DISTRIBUTION WIDTH CV 13.1 % (11.5-14.5); RED CELL DISTRIBUTION WIDTH SD 42.8 fL (36.4-46.3); WHITE BLOOD COUNT 7.01 K/uL (4.8-10.8)
[2018-04-02 06:09] LABS: INR 1.3 (0.9-1.1)
[2018-04-02 06:26] LABS: CALCIUM 8.3 mg/dl (8.5-10.1); CREATININE 0.94 mg/dl (0.60-1.20); POTASSIUM 3.7 mmol/L (3.5-5.1)
[2018-04-02 08:00] VITALS: PULSE 60; TEMP 37.1; O2SAT 97
[2018-04-02] MEDS: ATORVASTATIN 20 MG TAB PO SCH (08:34)
[2018-04-02] MEDS: CHOLECALCIFEROL 1000 INTER.UNIT TAB PO SCH (08:34)
[2018-04-02] MEDS: PANTOprazole SOD 40 MG TAB PO SCH (08:34)
[2018-04-02] MEDS: LOSARTAN POTASSIUM 25 MG TAB PO SCH (08:34)
[2018-04-02] MEDS: CHLORTHALIDONE 25 MG TAB PO SCH (08:35)
[2018-04-02] MEDS: CYANOCOBALAMIN 500 MCG TAB (VIT B-12) PO SCH (08:35)
[2018-04-02] MEDS: AMLODIPINE BESYLATE 5 MG TAB PO SCH (08:35)
[2018-04-02] MEDS: FLUTICASONE HFA 110MCG INHALER INH SCH (08:36)
[2018-04-02 08:39] VITALS: BP 101/51
[2018-04-02] MEDS ORDERED: CLOPIDOGREL BISULFATE 75 MG TAB PO SCH (09:00)
[2018-04-02] MEDS ORDERED: ASPIRIN 81 MG ECTAB PO SCH (09:00)
--- NOTE | 2018-04-02 10:42 | PROGRESS NOTE ---
DATE: 04/02/2018 Patient is seen and examined. Chart, medications, telemetry reviewed. SUBJECTIVE: Patient feels well this morning, has been ambulatory in the room without difficulty. Groin site access is healing well. Notes no chest pains, notes no tachypalpitations, notes no dizziness or lightheadedness. Overall is pleased with sense of well being this morning. OBJECTIVE: VITAL SIGNS: Heart rate is 45-50, blood pressure is 101/51. HEENT: Normocephalic and atraumatic. There is no jugular venous distention at 30 degrees. There are no audible carotid bruits. RESPIRATORY: Lungs are clear to auscultation, with good aeration to both bases. CARDIOVASCULAR: Regular, bradycardia. There is no S3 gallop. GASTROINTESTINAL: Abdomen is soft and nontender. SKIN: Right groin puncture sites are healing well. VASCULAR: There is no femoral bruit. LABORATORY DATA: This morning, white cell count 7.0, hemoglobin is 11.5. Sodium is 139, potassium is 3.7, chloride is 106, bicarbonate is 25, BUN is 15, creatinine 0.94. Cholesterol is 114, with an LDL of 32. EKG reveals no acute ST segment changes, with sinus bradycardia, voltage criteria for left ventricular hypertrophy on prior studies. IMPRESSION: An 82-year-old female with a presentation with increased anginal frequency, with cardiac catheterization demonstrating evidence of significant mid vessel left anterior descending stenosis. She has undergone drug-eluting stent implantation. Issues are as follows: 1. Atherosclerotic coronary disease, status post successful coronary stenting. 2. Resting bradycardia. 3. History of past small vessel transient ischemia attack/stroke in 2002, empirically begun on anticoagulation with warfarin at that time. No history of atrial arrhythmias. RECOMMENDATIONS: Would recommend reducing atenolol dosing to 25 mg per day on discharge. Lipids are being well managed due to drug-eluting stent. Patient will warrant dual antiplatelet therapy with aspirin and clopidogrel . Given history of stroke being small vessel nature, no history of atrial arrhythmias, and the increased risk of bleeding with combination of triple therapy, aspirin, clopidogrel, and warfarin, would discontinue warfarin given limited indications for such. Patient has also had past bleeding complications. Patient can be discharged today with planned followup as already arranged. Cardiac rehab consultation to be placed.
[2018-04-02 11:30] VITALS: BP 114/70; PULSE 52; TEMP 36.5; O2SAT 97
--- NOTE | 2018-04-02 13:32 | Progress Note ---
Internal Med Progress Note Date of Service: Apr 02, 2018. Provider Documentation: Subjective: Patient denies chest pain or shortness of breath. Patient denies abdominal pain or groin pain Physical Exam General: no acute distress Neck: no JVD Lungs: CTABL, no wheezing, no use of accessory muscles Heart: regular rate Abdomen: soft, nontender, positive bowel sounds Extremities: ambulatory, no leg edema ASSESSMENT & PLAN: Hospital Course and Plans Recurrent anginal chest discomfort, recurrent non-ST elevated MS, significant stenosis of the mid LAD in an 82-year-old female whose past medical history is significant for hypertension, hyperlipidemia. Atherosclerotic coronary disease, status post successful coronary stenting -PROCEDURE PERFORMED: PCI with drug-eluting stent x1, left anterior descending artery -Continue home medication of amlodipine, atenolol (reduce to 25 mg daily), losartan, and chlorthalidone, statin -Cardiology Dr. Huber RECOMMENDATIONS: "Would recommend reducing atenolol dosing to 25 mg per day on discharge. Lipids are being well managed due to drug -eluting stent. Patient will warrant dual antiplatelet therapy with aspirin and clopidogrel Given history of stroke being small vessel nature, no history of atrial arrhythmias, and the increased risk of bleeding with combination of triple therapy, aspirin, clopidogrel, and warfarin, would discontinue warfarin given limited indications for such. Patient has also had past bleeding complications. " History of past small vessel transient ischemia attack/stroke in 2002, empirically begun on anticoagulation with warfarin at that time. No history of atrial arrhythmias. -was on coumadin with INR reversed for cardiac cath -coumadin to be discontinued as per cardiology as patient on aspirin and plavix now Hypokalemia resolved after supplementation History of mild chronic obstructive pulmonary disease - on Flovent and albuterol p.r.n Gastroesophageal reflux disease -Pantoprazole History of rheumatoid arthritis -Continue Plaquenil. Discharge Instructions Take aspirin and clopidogrel daily. Take atenolol 25 mg daily. Stop coumadin ( warfarin) [facility] 04/11/2018 1:20 PM Rory Vargas MD [facility] (Patient will need follow up appointment with cardiology as outpatient) 04/13/2018 11:00 AM Nurse Infusion 2 Rheumatology Kian, RN Rheumatology [facility] Vital Signs: Date Time Temp Pulse Resp B/P (MAP) Pulse Ox O2 Delivery O2 Flow Rate FiO2 04/02/18 11:30 36.5 52 16 114/70 (85) 97 Room Air 04/02/18 08:39 101/51 (68) 04/02/18 08:20 Room Air 04/02/18 08:00 37.1 60 18 97 Room Air 04/02/18 03:22 37.0 59 12 105/46 (65) 94 Room Air 04/01/18 23:59 94 Room Air 04/01/18 23:18 37.0 58 19 114/47 (69) 94 Room Air 04/01/18 20:57 36.5 53 16 131/63 (85) 97 Room Air 04/01/18 20:00 Room Air 04/01/18 19:00 58 16 127/52 (77) 98 04/01/18 18:21 36.6 56 16 127/60 (82) 99 Room Air 04/01/18 17:58 36.6 69 18 149/63 (91) 97 Room Air 04/01/18 17:40 53 18 139/70 (93) 98 Room Air 04/01/18 17:35 54 18 140/68 (92) 98 Room Air 04/01/18 17:30 54 18 142/66 (91) 97 Room Air 04/01/18 17:25 56 18 130/64 (86) 97 Room Air 04/01/18 17:19 57 18 126/56 (79) 97 Room Air 04/01/18 15:35 36.4 86 16 123/64 (83) 95 Room Air Lab Results: Results Past 24 Hours Test 04/01/18 16:58 04/02/18 05:28 Range/Units Kaolin Activated Coagulation Time 147 94-140 SECONDS White Blood Count 7.01 4.8-10.8 K/uL Red Blood Count 3.88 4.2-5.4 M/uL Hemoglobin 11.5 12.0-16.0 g/dL Hematocrit 34.6 37-47 % Mean Corpuscular Volume 89.2 80-100 fL Mean Corpuscular Hemoglobin 29.6 25-34 pg Mean Corpuscular Hemoglobin Concent 33.2 32-36 g/dl Platelet Count 141 130-400 K/uL Mean Platelet Volume 10.7 7.4-10.4 fL Neutrophils (%) (Auto) 65.6 % Lymphocytes (%) (Auto) 20.1 % Monocytes (%) (Auto) 11.4 % Eosinophils (%) (Auto) 2.0 % Basophils (%) (Auto) 0.6 % Neutrophils # (Auto) 4.60 1.4-6.5 K/uL Lymphocytes # (Auto) 1.41 1.2-3.4 K/uL Monocytes # (Auto) 0.80 0.11-0.59 K/uL Eosinophils # (Auto) 0.14 0-0.5 K/uL Basophils # (Auto) 0.04 0-0.2 K/uL RDW Standard Deviation 42.8 36.4-46.3 fL RDW Coefficient of Variation 13.1 11.5-14.5 % Immature Granulocyte % (Auto) 0.3 % Immature Granulocyte # (Auto) 0.02 0.00-0.02 K/uL Prothrombin Time 14.0 9.0-12.0 SECONDS Prothromb Time International Ratio 1.3 0.9-1.1 Sodium Level 139 136-145 mmol/L Potassium Level 3.7 3.5-5.1 mmol/L Chloride Level 106 98-107 mmol/L Carbon Dioxide Level 25 21-32 mmol/L Anion Gap 8.0 3-11 mmol/L Blood Urea Nitrogen 15 7-18 mg/dl Creatinine 0.94 0.60-1.20 mg/dl Est Creatinine Clear Calc Drug Dose 37.7 ml/min Estimated GFR () 65.5 Estimated GFR (Non- 56.5 BUN/Creatinine Ratio 16.0 10-20 Random Glucose 68 70-99 mg/dl Calcium Level 8.3 8.5-10.1 mg/dl Magnesium Level 1.8 1.8-2.4 mg/dl Triglycerides Level 78 0-150 mg/dl Cholesterol Level 114 0-200 mg/dl HDL Cholesterol 66 mg/dl LDL Cholesterol, Calculated 32 mg/dl VLDL Cholesterol, Calculated 16 mg/dl Cholesterol/HDL Ratio 1.7
[2018-04-02] MEDS ORDERED: TNR25 PO (13:37)
[2018-04-02] MEDS ORDERED: PLV75 PO (13:37)
[2018-04-02] MEDS ORDERED: ASPI-461 OR (13:39)
[2018-04-02 13:54] VITALS: BP 114/70; PULSE 52; TEMP 36.5; O2SAT 97
--- NOTE | 2018-04-02 13:54 | Discharge Instructions ---
Discharge Instructions Date of Service Apr 02, 2018. Admission Reason for Admission: Nstemi (Non-St Elevated Myocardial Infarction) Discharge Discharge Diagnosis / Problem: Atherosclerotic coronary disease, status post successful coronary stenting Discharge Goals Goal(s): Improve disease control Activity Recommendations Activity Limitations: per Instructions/Follow-up section . Instructions / Follow-Up Instructions / Follow-Up Hospital Course and Plans Recurrent anginal chest discomfort, recurrent non-ST elevated [place], significant stenosis of the mid LAD in an 82-year-old female whose past medical history is significant for hypertension, hyperlipidemia. Atherosclerotic coronary disease, status post successful coronary stenting -PROCEDURE PERFORMED: PCI with drug-eluting stent x1, left anterior descending artery -Continue home medication of amlodipine, atenolol (reduce to 25 mg daily), losartan, and chlorthalidone, statin -Cardiology Dr. Huber RECOMMENDATIONS: "Would recommend reducing atenolol dosing to 25 mg per day on discharge. Lipids are being well managed due to drug -eluting stent. Patient will warrant dual antiplatelet therapy with aspirin and clopidogrel Given history of stroke being small vessel nature, no history of atrial arrhythmias, and the increased risk of bleeding with combination of triple therapy, aspirin, clopidogrel, and warfarin, would discontinue warfarin given limited indications for such. Patient has also had past bleeding complications. " History of past small vessel transient ischemia attack/stroke in 2002, empirically begun on anticoagulation with warfarin at that time. No history of atrial arrhythmias. -was on coumadin with INR reversed for cardiac cath -coumadin to be discontinued as per cardiology as patient on aspirin and plavix now Hypokalemia resolved after supplementation History of mild chronic obstructive pulmonary disease - on Flovent and albuterol p.r.n Gastroesophageal reflux disease -Pantoprazole History of rheumatoid arthritis -Continue Plaquenil. Discharge Instructions Take aspirin and clopidogrel daily. Take atenolol 25 mg daily. Stop coumadin ( warfarin) [facility] 04/11/2018 1:20 PM Rory Vargas MD [facility] (Patient will need follow up appointment with cardiology as outpatient) 04/13/2018 11:00 AM Nurse Infusion 2 Rheumatology Kian RN Rheumatology [facility] Hospital Diet Patient's current hospital diet: AHA Diet (Heart Healthy) Discharge Diet Recommended Diet: AHA Diet (Heart Healthy) Pending Studies Studies pending at discharge: no Laboratory Results 04/02/18 05:28 Red Blood Count 3.88, Mean Corpuscular Volume 89.2, Mean Corpuscular Hemoglobin 29.6, Mean Corpuscular Hemoglobin Concent 33.2, Mean Platelet Volume 10.7, Neutrophils (%) (Auto) 65.6, Lymphocytes (%) (Auto) 20.1, Monocytes (%) (Auto) 11.4, Eosinophils (%) (Auto) 2.0, Basophils (%) (Auto) 0.6, Neutrophils # (Auto ) 4.60, Lymphocytes # (Auto) 1.41, Monocytes # (Auto) 0.80, Eosinophils # (Auto ) 0.14, Basophils # (Auto) 0.04 04/02/18 05:28 Test 04/01/18 01:05 04/01/18 04:05 04/01/18 13:45 04/01/18 16:58 D-Dimer 190 ug/L FEU (0-500) Total Bilirubin 1.3 mg/dl (0.2-1) Aspartate Amino Transf (AST/SGOT) 37 U/L (15-37) Alanine Aminotransferase (ALT/SGPT) 30 U/L (12-78) Alkaline Phosphatase 47 U/L (45-117) Pro-B-Type Natriuretic Peptide 1417 pg/ml (0-1800) Total Protein 7.3 gm/dl (6.4-8.2) Albumin 4.0 gm/dl (3.4-5.0) Globulin 3.3 gm/dl (2.5-4.0) Albumin/Globulin Ratio 1.2 (0.9-2) Thyroid Stimulating Hormone (TSH) 1.420 uIu/ml (0.300-4.500) Urine Color YELLOW Urine Appearance CLEAR (CLEAR) Urine pH 6.0 (4.5-7.5) Urine Specific [place] 1.005 (1.000-1.030) Urine Protein NEG (NEG) Urine Glucose (UA) NEG (NEG) Urine Ketones NEG (NEG) Urine Occult Blood NEG (NEG) Urine Nitrite NEG (NEG) Urine Bilirubin NEG (NEG) Urine Urobilinogen NEG (NEG) Urine Leukocyte Esterase MODERATE (NEG) Urine WBC (Auto) 1-5 /hpf (0-5) Urine RBC (Auto) 0-4 /hpf (0-4) Urine Hyaline Casts (Auto) 0 /lpf (0-5) Urine Epithelial Cells (Auto) 5-10 /lpf (0-5) Urine Bacteria (Auto) NEG (NEG) Troponin I 1.290 ng/ml (0-0.045) Kaolin Activated Coagulation Time 147 SECONDS (94-140) Test 04/02/18 05:28 White Blood Count 7.01 K/uL (4.8-10.8) Red Blood Count 3.88 M/uL (4.2-5.4) Hemoglobin 11.5 g/dL (12.0-16.0) Hematocrit 34.6 % (37-47) Mean Corpuscular Volume 89.2 fL (80-100) Mean Corpuscular Hemoglobin 29.6 pg (25-34) Mean Corpuscular Hemoglobin Concent 33.2 g/dl (32-36) Platelet Count 141 K/uL (130-400) Mean Platelet Volume 10.7 fL (7.4-10.4) Neutrophils (%) (Auto) 65.6 % Lymphocytes (%) (Auto) 20.1 % Monocytes (%) (Auto) 11.4 % Eosinophils (%) (Auto) 2.0 % Basophils (%) (Auto) 0.6 % Neutrophils # (Auto) 4.60 K/uL (1.4-6.5) Lymphocytes # (Auto) 1.41 K/uL (1.2-3.4) Monocytes # (Auto) 0.80 K/uL (0.11-0.59) Eosinophils # (Auto) 0.14 K/uL (0-0.5) Basophils # (Auto) 0.04 K/uL (0-0.2) RDW Standard Deviation 42.8 fL (36.4-46.3) RDW Coefficient of Variation 13.1 % (11.5-14.5) Immature Granulocyte % (Auto) 0.3 % Immature Granulocyte # (Auto) 0.02 K/uL (0.00-0.02) Prothrombin Time 14.0 SECONDS (9.0-12.0) Prothromb Time International Ratio 1.3 (0.9-1.1) Anion Gap 8.0 mmol/L (3-11) Est Creatinine Clear Calc Drug Dose 37.7 ml/min Estimated GFR () 65.5 Estimated GFR (Non- 56.5 BUN/Creatinine Ratio 16.0 (10-20) Calcium Level 8.3 mg/dl (8.5-10.1) Magnesium Level 1.8 mg/dl (1.8-2.4) Triglycerides Level 78 mg/dl (0-150) Cholesterol Level 114 mg/dl (0-200) HDL Cholesterol 66 mg/dl LDL Cholesterol, Calculated 32 mg/dl VLDL Cholesterol, Calculated 16 mg/dl Cholesterol/HDL Ratio 1.7 Date/Time Source Procedure Growth Status 04/01/18 13:00 Urine , Clean Catch Urine Culture - Preliminary Group B Beta Strep Resulted Lipid Panel Test 04/02/18 05:28 Range/Units Triglycerides Level 78 0-150 mg/dl Cholesterol Level 114 0-200 mg/dl HDL Cholesterol 66 mg/dl Cholesterol/HDL Ratio 1.7 LDL Cholesterol, Calculated 32 mg/dl Medical Emergencies . Who to Call and When: Medical Emergencies: If at any time you feel your situation is an emergency, please call 911 immediately. . Non-Emergent Contact Non-Emergency issues call your: Primary Care Provider, Casino Controller Call Non-Emergent contact if: you have any medication questions . . "Provider Documentation" section prepared by Arian Negron. .
--- NOTE | 2018-04-02 13:56 | Discharge Summary ---
Discharge Summary Date of Service Apr 02, 2018. Discharge Summary Admission Date: Apr 01, 2018 at 04:03 Discharge Date: Apr 02, 2018 Discharge Disposition: Home Principal Diagnosis: Recurrent anginal chest discomfort, recurrent non-ST elevated FL, significant stenosis of the mid LAD Atherosclerotic coronary disease, status post successful coronary stenting Secondary Diagnoses/Problems: hypertension, hyperlipidemia rheumatoid arthritis Medication Reconciliation New Medications: Aspirin (Aspirin) 81 Mg Tab 1 TAB OR DAILY for 30 Days, #30 TAB Atenolol (Atenolol) 25 Mg Tab 25 MG PO QAM for 30 Days, #30 TAB Clopidogrel Bisulfate (Clopidogrel) 75 Mg Tab 75 MG PO QAM for 30 Days, #30 TAB Continued Medications: Albuterol Sulfate (Proair Respiclick) 108 Mcg/Act Aer 2 PUFFS INH Q4H PRN for SOB/Wheezing Amlodipine Besylate (Norvasc) 5 Mg Tab 2.5 MG PO QAM, TAB Atenolol (Atenolol) 50 Mg Tab 50 MG PO QAM Atorvastatin (Lipitor) 40 Mg Tab 40 MG PO QAM, TAB Chlorthalidone (Hygroton) 25 Mg Tab 25 MG PO QAM, TAB Cholecalciferol (Vitamin D3) 1,000 Unit Tab 1000 UNITS PO QAM Cyanocobalamin (Vitamin B-12 1000 Mcg) 1,000 Mcg Tab 1000 MCG PO QAM, TAB Fexofenadine Hcl (Valentina) 180 Mg Tab 180 MG PO DAILY PRN for ALLERGIC REACTION, TAB Fluticasone Propionate (Flovent Hfa) 120 Puffs/67260 Mcg Aero 2 PUFFS INH BID Hydroxychloroquine Sulfate (Plaquenil) 200 Mg Tab 400 MG PO HS, TAB Losartan Potassium (Cozaar) 25 Mg Tab 25 MG PO QAM, TAB Nitroglycerin (Nitrostat) 0.4 Mg Tab 0.4 MG UT PRN, BTL NEEDED FOR CHEST PAIN. Omeprazole (Prilosec) 20 Mg Capcr 20 MG PO BID, CAP Tramadol (Ultram) 50 Mg Tab 50 MG PO Q6H PRN for Pain, TAB Triamcinolone Acet (Aristocort 0.1%) 90 Appln/30 Gm Cr use as directed Discontinued Medications: Warfarin Sod (Jantoven) 5 Mg Tab 5 MG PO 4XWK, TAB TAKE 5MG Wednesday Warfarin Sodium (Warfarin Sodium) 5 Mg Tab 2.5 MG PO DIRECTED, #30 TAKE 2.5MG WEDNESDAY, WEDNESDAY AND WEDNESDAY Admission Information HPI (per Admitting provider): CHIEF COMPLAINT: Chest pain. HISTORY OF PRESENT ILLNESS: This is an 82-year-old female with past medical history significant for osteoporosis, vitamin B12 deficiency, hypertension, hyperlipidemia, CVA, irritable bowel syndrome, COPD mild, chronic kidney disease stage III, subclavian artery stenosis, rheumatoid arthritis, who had nonobstructive CAD, last cardiac catheterization was done in 12/2017, which showed mid LAD 60% stenosis, on medical management, comes with chest pain. Yesterday evening, she noticed left-sided chest pain, 6/10 in severity, pressure-like feeling, no radiation, no associated nausea or sweating, no dizziness. She took a nitroglycerin and it helped. She is getting this angina kind of pains on and off, but today's was somewhat more severe, and she came to the ER. Currently, she is resting comfortably and hemodynamically stable. Currently, there is no pain. Denies any headaches, no dizziness. She has some issues with the left eye, and she is following with an eye doctor. No earache, no runny nose, no sore throat. She is having difficulty swallowing for some time. She has difficulty swallowing solids and liquids. Says she eats slowly, and she says she had an speech evaluation was done in 2015, and at that time thought to be having esophageal dysfunction and advised for moist regular diet and followup with the GI. An EGD was also done. Currently denies any nausea or abdominal pain. Normal bowel and bladder movements. No blood in the stools, no blood in the urine. No swelling in the legs. No skin rash. ALLERGIES: LATEX, FLAGYL, NIACIN, PENICILLIN, SULFA ANTIBIOTICS. PAST MEDICAL HISTORY: As mentioned above. PAST SURGICAL HISTORY: Carpal tunnel surgery, right side; C section; colonoscopy with hyperplastic removal; EGD with biopsies; EGD with fundoplasty; implant mesh for abdominal hernia repair; heart catheterization; cataract surgery; repair of paraesophageal hernia; sigmoidoscopy. MEDICATIONS: Patient is on atorvastatin 40 mg p.o. daily, tramadol 50 mg p.o. q.6 h. p.r.n., Plaquenil 400 mg p.o. daily, chlorthalidone 25 mg p.o. daily, amlodipine 2.5 mg p.o. daily, Coumadin 5 mg on Mondays, Wednesdays, and Fridays and 2.5 mg on the rest of the days, albuterol 2 puffs every 4 hours p.r.n., omeprazole 20 mg p.o. b.i.d., losartan 25 mg p.o. daily, atenolol 50 mg p.o. daily, Flovent 2 puffs b.i.d., vitamin D 1000 units p.o. daily, vitamin B12 1000 mcg p.o. daily, fexofenadine as needed. FAMILY HISTORY: Significant for father at the age of 48 of an FL and also stroke. Mother had no past medical history. Brother had CABG. Daughter has rheumatoid arthritis and has a melanoma. SOCIAL HISTORY: . No smoking, no alcohol, no drug use. REVIEW OF SYMPTOMS: As per HPI. Rest of review of systems negative. Physical Exam (per Admitting): PHYSICAL EXAMINATION: GENERAL: Patient is of moderate build, not in distress. VITAL SIGNS: Temperature 36.5, pulse 54, respiratory rate 20, blood pressure 146/68, oxygen saturation 94% on room air. HEENT: No pallor, no icterus. Pupils equal, round, and reactive to light. NECK: No JVD, no neck masses, no carotid bruits. CARDIOVASCULAR SYSTEM: S1 and S2 heard, regular rate and rhythm, no murmur, no gallop. RESPIRATORY SYSTEM: Clear to auscultation bilaterally. No wheezing, no crackles. ABDOMEN: Soft, bowel sounds present, nontender, no distention. CENTRAL NERVOUS SYSTEM: Cranial nerves II through XII grossly intact. Nonfocal. EXTREMITIES: No edema, no erythema. Hospital Course Hospital Course and Plans Recurrent anginal chest discomfort, recurrent non-ST elevated FL, significant stenosis of the mid LAD in an 82-year-old female whose past medical history is significant for hypertension, hyperlipidemia. Atherosclerotic coronary disease, status post successful coronary stenting -PROCEDURE PERFORMED: PCI with drug-eluting stent x1, left anterior descending artery -Continue home medication of amlodipine, atenolol (reduce to 25 mg daily), losartan, and chlorthalidone, statin -Cardiology Dr. Huber RECOMMENDATIONS: "Would recommend reducing atenolol dosing to 25 mg per day on discharge. Lipids are being well managed due to drug -eluting stent. Patient will warrant dual antiplatelet therapy with aspirin and clopidogrel Given history of stroke being small vessel nature, no history of atrial arrhythmias, and the increased risk of bleeding with combination of triple therapy, aspirin, clopidogrel, and warfarin, would discontinue warfarin given limited indications for such. Patient has also had past bleeding complications. " History of past small vessel transient ischemia attack/stroke in 2002, empirically begun on anticoagulation with warfarin at that time. No history of atrial arrhythmias. -was on coumadin with INR reversed for cardiac cath -coumadin to be discontinued as per cardiology as patient on aspirin and plavix now Hypokalemia resolved after supplementation History of mild chronic obstructive pulmonary disease - on Flovent and albuterol p.r.n Gastroesophageal reflux disease -Pantoprazole History of rheumatoid arthritis -Continue Plaquenil. Discharge Instructions Take aspirin and clopidogrel daily. Take atenolol 25 mg daily. Stop coumadin ( warfarin) Upcoming [facility] appointments 04/11/2018 1:20 PM Rory Vargas MD [facility] (Patient will need follow up appointment with cardiology as outpatient) 04/13/2018 11:00 AM Nurse Infusion 2 Rheumatology Kian, RN Rheumatology [facility] Total time spent on discharge = 40 minutes This includes examination of the patient, discharge planning, medication reconciliation, and communication with other providers. Discharge Instructions see above
[2018-04-03] MEDS ORDERED: WARFARIN SOD 2.5 MG TAB PO SCH (16:00)
== END 2018-04-02 14:54 | disposition home or self-care (01) | DRG 247 ==
LOC: C.EDB 00:55 → C.2E 04:03 → ENRESERV 04:18
PROVIDERS: ADMIT Hospitalist; ATTEND Hospitalist
PROC: 4A023N7 Measurement of Cardiac Sampling and Pressure, Left Heart, Percutaneous Approach (ICD-10-PCS; 2018-04-01)
PROC: B2111ZZ Fluoroscopy of Multiple Coronary Arteries using Low Osmolar Contrast (ICD-10-PCS; 2018-04-01)
PROC: 027034Z Dilation of Coronary Artery, One Artery with Drug-eluting Intraluminal Device, Percutaneous Approach (ICD-10-PCS; principal; 2018-04-01 09:31)
DX: I21.3 ST elevation (STEMI) myocardial infarction of unspecified site (principal); R07.9 Chest pain, unspecified; J45.909 Unspecified asthma, uncomplicated; N18.3 Chronic kidney disease, stage 3 (moderate); I25.119 Atherosclerotic heart disease of native coronary artery with unspecified angina pectoris; E78.5 Hyperlipidemia, unspecified; K21.9 Gastro-esophageal reflux disease without esophagitis; I12.9 Hypertensive chronic kidney disease with stage 1 through stage 4 chronic kidney disease, or unspecified chronic kidney disease; H81.09 Meniere's disease, unspecified ear; I25.2 Old myocardial infarction; M81.0 Age-related osteoporosis without current pathological fracture; Z82.49 Family history of ischemic heart disease and other diseases of the circulatory system; I44.7 Left bundle-branch block, unspecified; Z79.01 Long term (current) use of anticoagulants; J44.9 Chronic obstructive pulmonary disease, unspecified; Z88.0 Allergy status to penicillin; Z88.5 Allergy status to narcotic agent; Z88.2 Allergy status to sulfonamides; Z88.8 Allergy status to other drugs, medicaments and biological substances; E87.6 Hypokalemia; M06.9 Rheumatoid arthritis, unspecified; Z91.040 Latex allergy status; Z86.73 Personal history of transient ischemic attack (TIA), and cerebral infarction without residual deficits

== ENCOUNTER 2018-11-28 20:58 | Inpatient (IN) ==
[2018-11-28] MEDS ORDERED: SODIUM CHLORIDE 0.9% 1000ML 500 ML IV ONE (21:08)
[2018-11-28] MEDS ORDERED: METOCLOPRAMIDE HCL INJ 5 MG/ML 2 ML VIAL IV STA (21:08)
[2018-11-28 21:41] LABS: Basophils # (auto) 0.03 K/uL (0-0.2); Basophils % (auto) 0.3 %; Eosinophils # (auto) 0.01 K/uL (0-0.5); Eosinophils % (auto) 0.1 %; Hematocrit (blood only) 45.4 % (37-47); Hemoglobin 15.5 g/dL (12.0-16.0); Immature Granulocytes # (auto) 0.02 K/uL (0.00-0.02); Immature Granulocytes % (auto) 0.2 %; Lymphocytes # (auto) 0.77 K/uL (1.2-3.4); Lymphocytes % (auto) 6.7 %; Mean Corpuscular Hgb Conc 34.1 g/dL (32-36); Mean Platelet Volume 10.3 fL (7.4-10.4); Monocytes # (auto) 0.48 K/uL (0.11-0.59); Monocytes % (auto) 4.2 %; Neutrophils # (auto) 10.22 K/uL (1.4-6.5); Neutrophils % (auto) 88.5 %; Platelet Count 148 K/uL (130-400); RDW Coefficient of Variation 13.2 % (11.5-14.5); RDW Standard Deviation 42.8 fL (36.4-46.3); Red Blood Count 5.16 M/uL (4.2-5.4); White Blood Count 11.53 K/uL (4.8-10.8)
[2018-11-28 21:46] LABS: Appearance Urine Clear (Clear); Bacteria Urine Automated Negative (Negative); Bilirubin Urine Negative (Negative); Blood Urine Trace (Negative); Cast Urine Automated 0 /lpf (0-5); Color Urine Yellow; Glucose Urine UA 1+ (Negative); Ketones Urine Trace (Negative); Leukocyte Esterase Urine Negative (Negative); Nitrite Urine Negative (Negative); RBC Urine Automated 0-4 /hpf (0-4); Specific Gravity Urine 1.011 (1.000-1.030); Urobilinogen Urine Negative (Negative); WBC Urine Automated 0 /hpf (0-5); pH Urine 7.5 (4.5-7.5)
[2018-11-28 21:55] LABS: Protein Urine 2+ (Negative)
[2018-11-28 21:58] LABS: Albumin Level 4.5 gm/dl (3.4-5.0); Calcium 9.2 mg/dl (8.5-10.1); Creatinine Clr Calc Pharmacy 51.2 ml/min; Est GFR (African American) 86.8; Est GFR (Non-African American) 74.9
[2018-11-28] MEDS ORDERED: POTASSIUM CHLORIDE 20 MEQ/15 ML UDC PO STA (22:01)
[2018-11-28] MEDS ORDERED: PROMETHAZINE 12.5 MG/50.5 ML BAG IV STA (22:01)
[2018-11-28] MEDS ORDERED: POTASSIUM CHLORIDE / WTR 10 MEQ/100 ML PLCT IV ONE (22:01)
[2018-11-28 22:07] LABS: Albumin Globulin Ratio 1.1 (0.9-2); Bilirubin,Total 1.3 mg/dl (0.2-1); Total Protein 8.5 gm/dl (6.4-8.2); Troponin I 0.119 ng/ml (0-0.045)
--- NOTE | 2018-11-28 22:13 | XRay Report ---
AP CHEST WITH ABDOMINAL SERIES CLINICAL HISTORY: Nausea and vomiting. Diarrhea. FINDINGS: An AP upright chest radiograph is compared to study dated 05/08/2019. Correlation is made with chest C T dated 04/17/2010. Examination is degraded by apical lordotic positioning. The heart is enlarged and there is atherosclerotic calcification of the thoracic aorta. The pulmonary vasculature is noncongest ed. Chronic interstitial thickening is similar to previous. Mild bibasilar atelectasis is noted. No a irspace consolidation or large pleural effusion is identified. No pneumothorax is seen. The skeletal structures are osteopenic. The bony thorax is grossly intact. Supine and erect abdominal radiographs are compared to study dated 03/26/2010. There is a nonobstructed abdominal bowel gas pattern. No evidence of intraperitoneal free air is seen. There are no abnormal abdominal calcifications. Phleboliths are noted in the pelvis. There is mild lumbosacral spondylosis. The lumbosacral spine and bony pelvis appear intact. IMPRESSION: 1. Cardiomegaly with no active disease in the chest. 2. Nonobstructed abdominal bowel gas pattern. Electronically signed by: Mukesh Godfrey M.D. 11/28/2018 10:12 PM
[2018-11-28] MEDS ORDERED: LABETALOL HCL IV 5 MG/ML 20ML IV PRN (22:18)
[2018-11-29] MEDS ORDERED: NITROGLYCERIN SL 0.4 MG/TAB TAB SL PRN ×2 (00:02)
[2018-11-29] MEDS ORDERED: NON-FORMULARY MEDICATION (Melatonin 6 MG) PO PRN (00:02)
[2018-11-29] MEDS ORDERED: ACETAMINOPHEN 325 MG TAB PO PRN (00:02)
[2018-11-29] MEDS ORDERED: TRIAMCINOLONE ACET 0.1% CR 15 GM TUBE TOP PRN (00:02)
[2018-11-29] MEDS ORDERED: FEXOFENADINE HCL 180 MG TAB PO PRN (00:02)
--- NOTE | 2018-11-29 00:47 | Emergency Department Note ---
Entered by Jon Guo acting as a scribe for Heber Romero MD History of Present Illness General Chief complaint: Vomiting Stated complaint: AB PAIN, VOMITING Time Seen by Provider: 11/28/18 20:59 Source: patient and family History of Present Illness Provider complaint: Abdominal pain Onset (ago): hour(s) (This afternoon) Location: abdomen Radiation: non-radiation Pain Consistency: + intermittent Exacerbated By: + none Associated symptoms: + nausea/vomiting and + other (Lightheadedness, no diarrhea) The patient is a 83 year old female who presents to the Emergency Room with complaints of intermittent lower abdominal pain and vomiting that started this afternoon. The patient's son states they were at the hospital earlier today because his father, the patient's , was getting surgery. During this time the patient went to the cafe and had an egg sandwich and about 4 hours after that her symptoms started. The patient's sister also had an egg sandwich and got sick but not nearly as bad as the patient. She has had multiple episodes of vomiting but no diarrhea or hematemesis. She also notes that when she sits up she becomes lightheaded. Prior to arriving at the hospital the patient received 4mg of Zofran from EMS. The patient also stated she did get the flu vaccine this year. Home Medications Home Medications Medication Instructions Recorded Confirmed Type albuterol sulfate [ProAir HFA] 2 puff INHALATION QID PRN 05/08/18 11/28/18 History aspirin [Aspir-81] 81 mg PO DAILY 05/08/18 11/28/18 History atenolol 25 mg PO DAILY 05/08/18 11/28/18 History atorvastatin 40 mg PO DAILY 05/08/18 11/28/18 History cholecalciferol (vitamin D3) 1,000 unit PO DAILY 05/08/18 11/28/18 History clopidogrel 75 mg PO DAILY 05/08/18 11/28/18 History fexofenadine 180 mg PO DAILY PRN 05/08/18 11/28/18 History losartan 25 mg PO DAILY 05/08/18 11/28/18 History nitroglycerin [Nitrostat] 1 tab SUBLINGUAL UD PRN 05/08/18 11/28/18 History omeprazole 20 mg PO BID 05/08/18 11/28/18 History triamcinolone acetonide 1 applic TOPICAL UD PRN 05/08/18 11/28/18 History amlodipine 5 mg PO DAILY #30 tab 05/10/18 11/28/18 Rx cyanocobalamin (vitamin B-12) 1,000 mcg PO DAILY 11/28/18 11/28/18 History [Vitamin B-12] escitalopram oxalate [Lexapro] 5 mg PO DAILY 11/28/18 11/28/18 History fluticasone furoate-vilanterol 1 inh INHALATION DAILY 11/28/18 11/28/18 History [Breo Ellipta] isosorbide dinitrate 5 mg PO TID 11/28/18 11/28/18 History melatonin 6 mg PO HS PRN 11/28/18 11/28/18 History montelukast [Singulair] 10 mg PO PM 11/28/18 11/28/18 History Allergies Allergy/AdvReac Type Severity Reaction Status Date / Time Penicillins Allergy Mild RASH Verified 11/28/18 22:53 latex Allergy Unknown RASH Verified 11/28/18 22:53 niacin Allergy Unknown UNKNOWN Verified 11/28/18 22:53 metronidazole AdvReac Mild N/V Verified 11/28/18 22:53 Sulfa (Sulfonamide AdvReac Unknown . Verified 11/28/18 22:53 Antibiotics) Past Med/Surg History Medical History Rheumatoid arthritis (Chronic) CKD (chronic kidney disease), stage III (Chronic) COPD (chronic obstructive pulmonary disease) (Chronic) Hypertension (Chronic) History of kidney disease (Chronic) History of CVA (cerebrovascular accident) without residual deficits (Chronic) Dyslipidemia (Chronic) HTN (hypertension) (Chronic) History of TIA (transient ischemic attack) (Chronic) GERD (gastroesophageal reflux disease) (Chronic) Osteoporosis (Chronic) Asthma (Chronic) Coronary artery disease (Chronic) Meniere's disease (Chronic) Sciatica (Chronic) Surgical History Status post coronary artery stent placement (Chronic) Drug-eluting stent mid LAD Dr. Garces 04/01/18 History of carpal tunnel repair (Chronic) Status post cardiac catheterization (Chronic) Family History Father Stroke Heart attack Brother Ischemic heart disease Other Family history non-contributory Social History Preferred Language: Vietnamese Communication Ability: Effective Beliefs That Will Affect Care: None Current Living Situation: Spouse Other Information That Helps Us Care for You: No Feels Safe at Home: Yes Safety Concerns: Feels Safe At This Time Smoking Status: Never smoker Hx Alcohol Use: No Hx Substance Use: No Review of Systems See HPI for pertinent positives & negatives. and A total of 10 systems reviewed and were otherwise negative Physical Exam Vital Signs Vital Signs - 24 hr 11/28/18 21:04 11/28/18 21:24 11/28/18 21:25 Temperature 36.5 C Temperature Source Oral Sepsis Recent Fever Within 48 Hours No Sepsis Action Taken by Nursing No Action Required Pulse Rate 76 83 Pulse Rate [Bilateral Apical] Pulse Rhythm [Bilateral Apical] Pulse Strength [Bilateral Apical] Respiratory Rate 18 20 Respiratory Effort / Characteristics Non-Labored Spontaneous Respiratory Depth Normal Respiratory Pattern Regular Blood Pressure 204/123 H Blood Pressure [Left Arm] Blood Pressure Mean 150 Blood Pressure Mean [Left Arm] Blood Pressure Position Lying Pulse Oximetry 98 94 94 Oxygen Delivery Method Room Air Room Air Room Air 11/28/18 21:38 11/28/18 22:22 11/28/18 22:50 Temperature Temperature Source Sepsis Recent Fever Within 48 Hours Sepsis Action Taken by Nursing Pulse Rate Pulse Rate [Bilateral Apical] 80 82 85 Pulse Rhythm [Bilateral Apical] Pulse Strength [Bilateral Apical] Respiratory Rate 20 20 20 Respiratory Effort / Characteristics Non-Labored Respiratory Depth Normal Respiratory Pattern Blood Pressure Blood Pressure [Left Arm] 189/102 H 187/97 H 170/90 H Blood Pressure Mean Blood Pressure Mean [Left Arm] 131 127 116 Blood Pressure Position Pulse Oximetry 94 97 94 Oxygen Delivery Method Room Air Room Air Room Air 11/28/18 23:05 11/28/18 23:34 11/29/18 00:32 Temperature 36.4 C L Temperature Source Oral Sepsis Recent Fever Within 48 Hours Sepsis Action Taken by Nursing Pulse Rate Pulse Rate [Bilateral Apical] 64 75 78 Pulse Rhythm [Bilateral Apical] Regular Pulse Strength [Bilateral Apical] Normal Respiratory Rate 18 18 20 Respiratory Effort / Characteristics Non-Labored Spontaneous Respiratory Depth Normal Respiratory Pattern Blood Pressure Blood Pressure [Left Arm] 180/76 H 171/84 H 188/91 H Blood Pressure Mean Blood Pressure Mean [Left Arm] 110 113 123 Blood Pressure Position Pulse Oximetry 97 95 95 Oxygen Delivery Method Room Air Room Air Room Air GENERAL: Awake, alert, well-appearing, in no distress HENT: Normocephalic, atraumatic. Oropharynx unremarkable. EYES: Normal conjunctiva. Sclera non-icteric. NECK: Supple. No nuchal rigidity. FROM. No masses. RESPIRATORY: Clear to auscultation. No wheezes. No rales. Normal respiratory effort. CARDIAC: Normal rate. Normal rhythm. No murmurs. No rubs. Extremities warm and well perfused. Pulses equal. No JVD. GI: Soft, non-distended. No tenderness to palpation. No rebound or guarding. No masses. RECTAL: Deferred. MUSCULOSKELETAL: Atraumatic. Chest examination reveals no tenderness. The back is symmetrical on inspection without obvious abnormality. There is no CVA tenderness to palpation. No joint edema. LOWER EXTREMITIES: Calves are equal size bilaterally and non-tender. No edema. No discoloration. NEURO: Normal sensorium. No sensory or motor deficits noted. Course 2103: The patient was evaluated in room A11B, and a complete history and physical examination were performed. 2220: I spoke to Dr. Blanche Zelaya about the patient's case and he is going to accept her for further evaluation. Consultations Consultation #1: I spoke to Dr. Blanche Zelaya about the patient's case and he is going to accept her for further evaluation. Time: 22:20 Administered Medications Discontinued Medications Sodium Chloride (Nss 1000ml) 500 mls @ 999 mls/hr IV .Q31M ONE Stop: 11/28/18 21:38 Last Infusion: 11/28/18 21:54 Dose: 0 mls/hr Documented by: [id number] Admin: 11/28/18 21:25 Dose: 999 mls/hr Documented by: [id number] Promethazine HCl (Phenergan) 12.5 mg in 50.5 mls @ 202 mls/hr IV NOW STA Stop: 11/28/18 22:15 Last Infusion: 11/28/18 23:01 Dose: 0 mls/hr Documented by: [id number] Admin: 11/28/18 22:44 Dose: 202 mls/hr Documented by: [id number] Potassium Chloride (K Elias / Wtr) 10 meq in 100 mls @ 100 mls/hr IV ONE ONE Stop: 11/28/18 23:00 Last Infusion: 11/28/18 23:48 Dose: 0 mls/hr Documented by: [id number] Admin: 11/28/18 22:44 Dose: 100 mls/hr Documented by: [id number] Labetalol HCl (Normodyne) 10 mg IV Q10M PRN PRN Reason: SBP above 185 or DBP above 110 Last Admin: 11/28/18 22:44 Dose: 10 mg Documented by: [id number] Cosigned by: [id number] Metoclopramide HCl (Reglan) 10 mg IV NOW STA Stop: 11/28/18 21:09 Last Admin: 11/28/18 21:20 Dose: 10 mg Documented by: [id number] Potassium Chloride (Arianne Ciel Elix) 40 meq PO NOW STA Stop: 11/28/18 22:02 Last Admin: 11/28/18 22:44 Dose: 40 meq Documented by: [id number] Medical Decision Making Differential Diagnosis Differential: Gastroenteritis, Food Borne, Esophageal Perforation, , Electrolyte Abnormality, Dehydration, Intraabdominal Infection, UTI/Pyelonephritis, Bowel Obstruction, Biliary Pathology, amongst other pathology entertained. Medical Records Attestation: I reviewed the patient's medical records. Home Medications Current Medication List: was personally reviewed by me Laboratory Data Attestation: I reviewed the patient's lab results. Result diagrams: 11/28/18 21:25 11/28/18 21:25 Lab Results 11/28/18 11/28/18 11/28/18 Range/Units 21:25 21:25 21:36 WBC 11.53 H (4.8-10.8) K/uL RBC 5.16 (4.2-5.4) M/uL Hgb 15.5 (12.0-16.0) g/dL Hct 45.4 (37-47) % MCV 88.0 (80-100) fL MCH 30.0 (25-34) pg MCHC 34.1 (32-36) g/dL RDW Std Deviation 42.8 (36.4-46.3) fL RDW Coeff of Josse 13.2 (11.5-14.5) % Plt Count 148 (130-400) K/uL MPV 10.3 (7.4-10.4) fL Immature Gran % (Auto) 0.2 % Neut % (Auto) 88.5 % Lymph % (Auto) 6.7 % [place] % (Auto) 4.2 % Eos % (Auto) 0.1 % Baso % (Auto) 0.3 % Immature Gran # (Auto) 0.02 (0.00-0.02) K/uL Neut # (Auto) 10.22 H (1.4-6.5) K/uL Lymph # (Auto) 0.77 L (1.2-3.4) K/uL [place] # (Auto) 0.48 (0.11-0.59) K/uL Eos # (Auto) 0.01 (0-0.5) K/uL Baso # (Auto) 0.03 (0-0.2) K/uL Sodium 135 L (136-145) mmol/L Potassium 3.0 L (3.5-5.1) mmol/L Chloride 99 (98-107) mmol/L Carbon Dioxide 25 (21-32) mmol/L Anion Gap 10.0 (3-11) BUN 13 (7-18) mg/dl Creatinine 0.74 (0.6-1.2) mg/dl Est Cr Clr Drug Dosing 51.2 ml/min Est GFR ( Amer) 86.8 Est GFR (Non-Af Amer) 74.9 BUN/Creatinine Ratio 18.0 (10-20) Glucose 188 H (70-99) mg/dl Calcium 9.2 (8.5-10.1) mg/dl Total Bilirubin 1.3 H (0.2-1) mg/dl AST 21 (15-37) U/L ALT 19 (12-78) U/L Alkaline Phosphatase 82 (45-117) U/L Total Creatine Kinase 91 (26-192) U/L CK-MB (CK-2) 1.0 (0.5-3.6) ng/ml CK/CKMB % Calc 1.1 (0-3.0) Troponin I 0.119 H* (0-0.045) ng/ml Total Protein 8.5 H (6.4-8.2) gm/dl Albumin 4.5 (3.4-5.0) gm/dl Globulin 4.0 (2.5-4.0) gm/dl Albumin/Globulin Ratio 1.1 (0.9-2) Lipase 375 (73-393) U/L Urine Color Yellow Urine Appearance Clear (Clear) Urine pH 7.5 (4.5-7.5) Ur Specific [place] 1.011 (1.000-1.030) Urine Protein 2+ H (Negative) Urine Glucose (UA) 1+ H (Negative) Urine Ketones Trace H (Negative) Urine Blood Trace H (Negative) Urine Nitrite Negative (Negative) Urine Bilirubin Negative (Negative) Urine Urobilinogen Negative (Negative) Ur Leukocyte Esterase Negative (Negative) Urine WBC (Auto) 0 (0-5) /hpf Urine RBC (Auto) 0-4 (0-4) /hpf U Hyaline Cast (Auto) 0 (0-5) /lpf U Epithel Cells (Auto) 5-10 H (0-5) /lpf Urine Bacteria (Auto) Negative (Negative) Imaging Data Radiologist's Impression: Radiology results as stated below per my review and the radiologist's interpretation: AP CHEST WITH ABDOMINAL SERIES CLINICAL HISTORY: Nausea and vomiting. Diarrhea. FINDINGS: An AP upright chest radiograph is compared to study dated 05/08/2019. Correlation is made with chest CT dated 04/17/2010. Examination is degraded by apical lordotic positioning. The heart is enlarged and there is atherosclerotic calcification of the thoracic aorta. The pulmonary vasculature is noncongested. Chronic interstitial thickening is similar to previous. Mild bibasilar atelectasis is noted. No airspace consolidation or large pleural effusion is identified. No pneumothorax is seen. The skeletal structures are osteopenic. The bony thorax is grossly intact. Supine and erect abdominal radiographs are compared to study dated 03/26/2010. There is a nonobstructed abdominal bowel gas pattern. No evidence of intraperitoneal free air is seen. There are no abnormal abdominal calcifications. Phleboliths are noted in the pelvis. There is mild lumbosacral spondylosis. The lumbosacral spine and bony pelvis appear intact. IMPRESSION: 1. Cardiomegaly with no active disease in the chest. 2. Nonobstructed abdominal bowel gas pattern. Electronically signed by: Mukesh Godfrey M.D. 11/28/2018 10:12 PM ECG Data Attestation: I personally reviewed and interpreted this ECG as follows: Indication: vomiting Rate (beats per minute): 80 Rhythm: sinus rhythm Findings: + other (Left ventricular hypertrophy) and + PVC; no ST depression and no ST elevation Blood Pressure Blood Pressure Findings: Elevated blood pressure Blood Pressure Disposition: further management by hospitalist BERYL Narrative This is an 83-year-old female who presents emergency department complaining of emesis. Patient's blood pressure is also grossly elevated. She was given Zofran as well as Reglan in the emergency department. She was started on normal saline bolus and was given labetalol for her blood pressure. I am more concerned that the patient is suffering from hypertensive urgency. Her troponin is also elevated. For this reason I did discuss the case with the hospitalist service who did agree to admit the patient. Patient was in agreement with the treatment plan. Impression & Plan Vomiting, Hypertensive urgency Critical Care Time -I have personally spent greater than 30 minutes of critical care time in the direct management of this patient. This includes bedside care, interpretation of diagnostic studies, and testing, discussion with consultants, patient, and family members, and other required patient management activities. This 30 minutes is in excess of all separately billable procedures. Discharge Plan Visit Data *Final* Discharge Date/Time: 11/28/18 23:38 Chief Complaint: Vomiting Stated Complaint: AB PAIN, VOMITING ED Provider: Heber Romero Discharge Problem: Vomiting, Hypertensive urgency Patient Disposition: Admitted As Inpatient Discharge Instructions Interventions: ED Discharge Assessment Last Done: 11/28/18 23:38 Discharge Problem: Vomiting Qualifiers: Vomiting type: unspecified Vomiting Intractability: non-intractable Nausea presence: with nausea Qualified Code(s): R11.2 - Nausea with vomiting, unspecified The scribe's documentation has been prepared under my direction and personally reviewed by me in its entirety. I confirm that the note above accurately reflects all work, treatment, procedures, and medical decision making performed by me.
--- NOTE | 2018-11-29 00:49 | History and Physical Report ---
DATE OF ADMISSION: 11/28/2018 CHIEF COMPLAINT: Nausea and vomiting. HISTORY OF PRESENT ILLNESS: This is an 83-year-old female with past medical history significant for hyperlipidemia, obstructive sleep apnea on CPAP, moderate persistent asthma without complication, history of CVA, history of subclavian artery stenosis, history of non-ST elevated [place] status post stent to LAD, hypertension, stenosis of left carotid artery, post gastric surgery syndrome, B12 deficiency, vitamin D deficiency, irritable bowel syndrome, GERD, chronic kidney disease stage III, history of paranoia, history of rheumatoid arthritis. Presents with nausea and vomiting. The patient's had a gallbladder surgery today in the hospital. The patient and her daughter ate egg salad in the cafeteria. After that, both of them have been sick with nausea, vomiting, but the patient got more sicker with several episodes of nausea and vomiting. She received Reglan, promethazine in the ER. The blood pressure is running somewhat on the higher side, received some labetalol. Troponin was slightly elevated, and we were called for admission. Currently, patient is resting comfortably, hemodynamically stable. Denies any chest pain. No shortness of breath, no cough. Nausea is better. Denies any abdominal pain, no diarrhea, somewhat constipated. Denies any blood in the stools or black stools, no hematuria or burning micturition. No headache, no sore throat, no cough. Otherwise, her appetite is okay and she ambulates okay. She lives with her . No fever or chills.Some what sleepy. ALLERGIES: LATEX, METRONIDAZOLE, NIACIN, PCN, SULFA ANTIBIOTICS. PAST MEDICAL HISTORY: As mentioned above. PAST SURGICAL HISTORY: Cardiac catheterization multiple times, carpal tunnel surgery, , colonoscopy, laparoscopy with esophagogastric fundoplasty, incisional hernia repair, eyelid surgery, repair of paraesophageal hernia, cataract surgeries. MEDICATIONS: The patient is on triamcinolone p.r.n., omeprazole 20 mg p.o. b.i.d., amlodipine 5 mg p.o. daily, atenolol 25 mg p.o. daily, Plavix 75 mg p.o. daily, Lexapro 5 mg p.o. daily, atorvastatin 40 mg p.o. daily, isosorbide dinitrate 5 mg p.o. t.i.d., losartan 25 mg p.o. daily, Breo Ellipta 1 puff daily, Singulair 10 mg p.o. daily, Tylenol 1000 mg p.o. q. 8 hours p.r.n., melatonin 6 mg p.o. at bedtime, albuterol 2 puffs every 4 hours p.r.n., nitroglycerin 0.3 mg sublingual p.r.n., aspirin 81 mg p.o. daily, vitamin D 1000 units p.o. daily, vitamin B12 1000 mcg p.o. daily. FAMILY HISTORY: Significant for father of [place] at age of 48 and had a stroke. Brother had heart disorder. Daughter has rheumatoid arthritis. SOCIAL HISTORY: , lives with her . No smoking history, no alcohol, no drug use. REVIEW OF SYSTEMS: As per HPI. Rest of the review of systems negative. PHYSICAL EXAMINATION: GENERAL: The patient is old and frail, not in any acute distress. VITAL SIGNS: Temperature 36.5, pulse rate 64, respiratory rate 18, blood pressure 118/76, oxygen 97% room air. HEENT: No pallor, no icterus. Pupils equal, round, and reactive to light. NECK: No JVD. No neck masses, no carotid bruits, no lymphadenopathy. CARDIOVASCULAR: S1, S2 heard, regular rate and rhythm, no murmur, no gallop. RESPIRATORY SYSTEM: Normal AP diameter. No accessory muscle use. No wheezing, no crackles. ABDOMEN: Soft, bowel sounds present. Nontender. No distention. CENTRAL NERVOUS SYSTEM: Cranial nerves II-XII grossly intact. Nonfocal. EXTREMITIES: No edema, no erythema. LABORATORY DATA: WBC 11.5, hemoglobin 15.5, hematocrit 45.4, platelets 148. Sodium 135, potassium 3, chloride 99, bicarbonate 25, BUN 13, creatinine 0.7, serum glucose 188, calcium 9.2, total bilirubin 1.3, AST 21, ALT 19, alkaline phosphatase 82, total creatine kinase 91. CK-MB 1, troponin I of 0.11, lipase 375. Urinalysis, trace ketones, trace blood. IMAGING DATA: Chest and abdominal x-ray unremarkable. EKG: . Sinus rhythm with marked sinus arrhythmia with occasional PVCs. at a rate of 80. ASSESSMENT AND PLAN: This is an 83-year-old female who presents with nausea, vomiting. 1. Nausea, vomiting after eating egg salad in the hospital cafeteria. Currently somewhat improved with antiemetics. We will observe in med/surg tele. IV fluids, clear liquid diet, IV antiemetics and closely monitor. Supportive care. 2. Mild elevation of troponin, most likely demand ischemia. The patient with history of coronary artery disease with stent to LAD and multiple catheterizations in the past. In March 2018, cardiac cath showed 30% stenosis of the left main and 75% stenosis of the mid LAD and 20% stenosis of the proximal right coronary artery. At that time, LAD lesion was stented with drug-eluting stent and again a month later in April 2018, she came with chest pain and another cardiac catheterization showed patent LAD stent and no other significant changes. Amlodipine was added at that time. Will continue her home medications of amlodipine, aspirin, atenolol, Plavix, isosorbide dinitrate. Monitor the serial cardiac enzymes. The patient is currently asymptomatic. Ordered echo and cardiology consult as patient was having pauses and bradycardia on the monitor( could be from [facility]).Holding atenolol. 3. History of moderate left internal carotid artery stenosis and asymptomatic right subclavian stenosis. Needs followup. 4. History of remote recurrent TIAs, currently on aspirin and Plavix. 5. History of sleep apnea, on CPAP. 6. Hyperlipidemia, on statin. 7. Hypertension. Amlodipine, , losartan, isosorbide dinitrate. holding atenolol for bradycardia and pause will monitor blood pressure. 8. Gastroesophageal reflux disease, on PPI. 9. Moderate persistent asthma. Continue home inhalers. Currently seems to be stable. 10. Post gastric surgery syndrome. . Vitamin B12 deficiency, vitamin D deficiency, continue supplements. 11. Chronic kidney disease stage III. Creatinine is 0.7, seems to be at baseline. We will follow the labs. 12. History of depression, on Lexapro. 13. Deep vein thrombosis prophylaxis, sequential compression devices for now. DISPOSITION: Observation in med/surg tele. Level 1 full code. PT and OT prior to discharge. Social service to help with discharge planning. PAL[place]
[2018-11-29] MEDS: SODIUM CHLORIDE 0.9% 1000ML 1,000 ML IV SCH ×2 (00:54→13:49)
[2018-11-29] MEDS ORDERED: ALBUTEROL HFA 8 GM INHALER INH PRN (01:00)
[2018-11-29 01:59] LABS: Magnesium 1.9 mg/dl (1.8-2.4); Potassium 3.7 mmol/L (3.5-5.1)
[2018-11-29] MEDS ORDERED: METOPROLOL TARTRATE 1 MG/ML VIAL IV PRN (03:13)
[2018-11-29 05:30] LABS: Basophils # (auto) 0.01 K/uL (0-0.2); Basophils % (auto) 0.1 %; Hematocrit (blood only) 45.3 % (37-47); Hemoglobin 15.4 g/dL (12.0-16.0); Immature Granulocytes # (auto) 0.02 K/uL (0.00-0.02); Immature Granulocytes % (auto) 0.2 %; Lymphocytes # (auto) 0.85 K/uL (1.2-3.4); Lymphocytes % (auto) 8.1 %; Mean Corpuscular Volume 89.2 fL (80-100); Mean Platelet Volume 10.2 fL (7.4-10.4); Monocytes # (auto) 0.57 K/uL (0.11-0.59); Monocytes % (auto) 5.4 %; Neutrophils # (auto) 9.03 K/uL (1.4-6.5); Neutrophils % (auto) 86.2 %; Platelet Count 168 K/uL (130-400); RDW Coefficient of Variation 13.3 % (11.5-14.5); RDW Standard Deviation 43.6 fL (36.4-46.3); Red Blood Count 5.08 M/uL (4.2-5.4); White Blood Count 10.48 K/uL (4.8-10.8)
[2018-11-29 05:52] LABS: BUN Creatinine Ratio 13.7 (10-20); Calcium 8.4 mg/dl (8.5-10.1); Creatinine Clr Calc Pharmacy 36.4 ml/min; Est GFR (African American) 58.9; Est GFR (Non-African American) 50.8; Potassium 4.5 mmol/L (3.5-5.1)
[2018-11-29 05:57] LABS: Troponin I 0.139 ng/ml (0-0.045)
[2018-11-29] MEDS: ISOSORBIDE DINITRATE 5 MG TAB PO SCH ×3 (06:40→16:30)
[2018-11-29] MEDS: ESCITALOPRAM OXALATE 10 MG TAB PO SCH (07:48)
[2018-11-29] MEDS: CLOPIDOGREL BISULFATE 75 MG TAB PO SCH (07:49)
[2018-11-29] MEDS: AMLODIPINE BESYLATE 5 MG TAB PO SCH (07:49)
[2018-11-29] MEDS: CHOLECALCIFEROL 1,000 UNITS TAB PO SCH (07:49)
[2018-11-29] MEDS: LOSARTAN POTASSIUM 25 MG TAB PO SCH (07:50)
[2018-11-29] MEDS: ASPIRIN 81 MG ECTAB PO SCH (07:50)
[2018-11-29] MEDS: PANTOprazole 40 MG TAB PO SCH ×2 (07:50→21:15)
[2018-11-29] MEDS: NON-FORMULARY MEDICATION (Cyanocobalamin (Vitamin B-12) [Vitamin B-12] 1,000 MCG) PO SCH (08:31)
[2018-11-29] MEDS ORDERED: ATENOLOL 25 MG TABLET PO SCH (09:00)
[2018-11-29] MEDS ORDERED: ATORVASTATIN 40 MG TAB PO SCH (09:00)
[2018-11-29] MEDS: DOCUSATE SODIUM 100 MG CAP PO SCH ×2 (12:23→21:15)
--- NOTE | 2018-11-29 12:50 | Cardiology Consultation ---
Date of Consultation November 29, 2018 Assessment & Plan (1) Sinus bradycardia: As noted above, telemetry reviewed without significant pauses or symptomatic bradycardia. We will discontinue atenolol in favor of low-dose Toprol-XL 25 mg daily due to history of CAD and previous NSTEMI within the past 12 months. Patient currently asymptomatic. I suspect transient lightheadedness as well as bradycardia vagally mediated in the setting of retching and vomiting. (2) Elevated troponin I level: Nonspecific minor elevation in troponin which does not represent acute plaque rupture event. Echocardiogram is stable and ECG without significant ST changes. (3) CAD (coronary artery disease), ak chin coronary artery: (4) HTN (hypertension): Transiently elevated blood pressure noted on admission secondary to GI ill ness. Continue to monitor. No medication changes at this time. History of Present Illness Reason for Consultation: Bradycardia, sinus pauses Requesting Physician: Dr. Humberto Mancia Attending Physician: Joana King MD History of Present Illness 83-year-old female presented to the emergency department with abdominal pain, nausea and vomiting. Denies any chest discomfort or shortness of breath. Symptoms began after eating an egg salad sandwich at the caf yesterday. She had been at the hospital to visit her who underwent hernia repair. Her daughter is present at bedside. Daughter also experienced abdominal symptoms however to a lesser severity than her mother. Mildly elevated troponin is noted. No ischemic ECG changes. Consultation requested for bradycardia and sinus pauses, however, I reviewed the telemetry at length. The longest pause approximately 2.1 seconds during presumed hours of sleep. Normal sinus rhythm noted currently. Patient reports lightheadedness during periods of retching and vomiting otherwise denies lightheadedness, dizziness, syncope, or near syncope. Taking atenolol chronically. Currently asymptomatic. Tolerating a clear liquid diet. Offers no other concerns/complaints at this time. Cardiac history as noted below. Cardiac history as taken from the [facility] medical record: Long-standing history of recurrent chest pain episodes with multiple cardiac catheterizations. Most recently she had presented to [facility] in March 2018 with findings of chest discomfort and mild elevation in her troponin. I performed cardiac catheterization on 04/01/2018 which demonstrated a 30% stenosis the left main, 75% stenosis of the mid LAD, and 20% stenosis of the proximal right coronary artery. The LAD lesion had been previously felt to be intermediate in severity, and on a previous cardiac catheterization had been manage medically, however due to the patient's recurrent symptoms and elevated troponin, this was treated with PCI and drug-eluting stent on 04/01/2018. Echocardiogram during that admission revealed mild left ventricular hypertrophy and normal LV EF. A month later on May 08, 2018 the patient woke up from sleep with 7/10 intensity chest pressure. She was brought to the emergency room by EMS was found to have lateral T-wave inversions and troponin elevation. She had a repeat cardiac catheterization which demonstrated patency of the recently placed LAD stent a no other significant culprit stenosis. Allergies Allergy/AdvReac Type Severity Reaction Status Date / Time Penicillins Allergy Mild RASH Verified 11/28/18 22:53 latex Allergy Unknown RASH Verified 11/28/18 22:53 niacin Allergy Unknown UNKNOWN Verified 11/28/18 22:53 metronidazole AdvReac Mild N/V Verified 11/28/18 22:53 Sulfa (Sulfonamide AdvReac Unknown . Verified 11/28/18 22:53 Antibiotics) Home Medications Home Medications Medication Instructions Recorded Confirmed Type albuterol sulfate [ProAir HFA] 2 puff INHALATION QID PRN 05/08/18 11/28/18 Histo ry aspirin [Aspir-81] 81 mg PO DAILY 05/08/18 11/28/18 History atenolol 25 mg PO DAILY 05/08/18 11/28/18 History atorvastatin 40 mg PO DAILY 05/08/18 11/28/18 History cholecalciferol (vitamin D3) 1,000 unit PO DAILY 05/08/18 11/28/18 History clopidogrel 75 mg PO DAILY 05/08/18 11/28/18 History fexofenadine 180 mg PO DAILY PRN 05/08/18 11/28/18 History losartan 25 mg PO DAILY 05/08/18 11/28/18 History nitroglycerin [Nitrostat] 1 tab SUBLINGUAL UD PRN 05/08/18 11/28/18 History omeprazole 20 mg PO BID 05/08/18 11/28/18 History triamcinolone acetonide 1 applic TOPICAL UD PRN 05/08/18 11/28/18 History amlodipine 5 mg PO DAILY #30 tab 05/10/18 11/28/18 Rx cyanocobalamin (vitamin B-12) 1,000 mcg PO DAILY 11/28/18 11/28/18 History [Vitamin B-12] escitalopram oxalate [Lexapro] 5 mg PO DAILY 11/28/18 11/28/18 History fluticasone furoate-vilanterol 1 inh INHALATION DAILY 11/28/18 11/28/18 History [Breo Ellipta] isosorbide dinitrate 5 mg PO TID 11/28/18 11/28/18 History melatonin 6 mg PO HS PRN 11/28/18 11/28/18 History montelukast [Singulair] 10 mg PO PM 11/28/18 11/28/18 History Patient History Medical History Rheumatoid arthritis (Chronic) CKD (chronic kidney disease), stage III (Chronic) COPD (chronic obstructive pulmonary disease) (Chronic) Hypertension (Chronic) History of kidney disease (Chronic) History of CVA (cerebrovascular accident) without residual deficits (Chronic) Dyslipidemia (Chronic) HTN (hypertension) (Chronic) History of TIA (transient ischemic attack) (Chronic) GERD (gastroesophageal reflux disease) (Chronic) Osteoporosis (Chronic) Asthma (Chronic) Coronary artery disease (Chronic) Meniere's disease (Chronic) Sciatica (Chronic) Surgical History Status post coronary artery stent placement (Chronic) Drug-eluting stent mid LAD Dr. Garces 04/01/18 History of carpal tunnel repair (Chronic) Status post cardiac catheterization (Chronic) Family History Father Stroke Heart attack Brother Ischemic heart disease Other Family history non-contributory Social History Communication Ability: Effective Beliefs That Will Affect Care: None Current Living Situation: Spouse Other Information That Helps Us Care for You: No Feels Safe at Home: Yes Safety Concerns: Feels Safe At This Time Smoking Status: Never smoker Hx Alcohol Use: No Hx Substance Use: No Review of Systems Pertinent positives noted per HPI, conference of 10 system review otherwise negative. Physical Exam Vital Signs (Past 24 Hours): Last Vital Signs Temp 37.1 C 11/29/18 11:21 Pulse 64 11/29/18 11:21 Resp 18 11/29/18 11:21 BP 144/73 H 11/29/18 11:21 Pulse Ox 93 11/29/18 11:21 Physical Exam: General: NAD, AAO x3, well nourished. HEENT: Normocephalic. Atraumatic. Conjunctiva pink, no scleral icterus. Neck: No carotid bruits, the carotid upstrokes are brisk. No JVD. No HJR Heart: Regular normal S-1 and S-2 no S-3 or S-4 gallop. No murmurs or rub appreciated. PMI is not displaced. No RV heave. Lungs: Clear bilateral without rales , rhonchi, or wheeze. Abdomen: Normal bowel sounds. Soft. Nontender. No masses or organomegaly. No abdominal bruits. Extremities: No clubbing, cyanosis, or edema. Pulses: radial=2/4, posterior tibial=2/4. Neuro: Cranial nerves grossly intact. No focal motor deficit. (1) CAD (coronary artery disease), ak chin coronary artery [place] vs. transplanted heart: ak chin heart Associated angina: without angina Qualified Code(s): I25.10 - Atherosclerotic heart disease of ak chin coronary artery without angina pectoris
[2018-11-29] MEDS: METOPROLOL SUCC 25MG EXT REL TAB PO SCH (13:49)
[2018-11-29] MEDS: ONDANSETRON INJ 2 MG/ML 2 ML VIAL IV PRN (15:35)
--- NOTE | 2018-11-29 18:15 | Hospitalist Progress Note ---
Date of Service November 29, 2018 Assessment & Plan (1) Vasovagal syncope: Presented with dizzy spells lightheadedness after nausea vomiting and GI symptoms, Due to vasovagal syncope, appreciate input from cardiology No evidence of stroke, no active coronary event noted Continue supportive care Beta-sheila kept on hold to prevent bradycardia arrhythmia Patient had similar symptoms this afternoon, felt nauseous followed by a flushed, dizzy lightheaded, no syncope, felt totally wiped out tired afterwards Not had any vomiting Patient still have GI symptoms: Poor appetite, nausea, no diarrhea yet Diet changed to clears IV fluids Continue to monitor Symptoms of nausea managed with Zofran, as needed Phenergan (2) Elevated troponin I level: No evidence of acute coronary event, patient input from cardiology Shows no wall motion abnormality Possible mild demand ischemia in the setting of hypotension, vasovagal syncope Continue to monitor No further cardiac testing or intervention needed (3) Sinus bradycardia: Beta-sheila kept on hold (4) Hypertensive urgency: Possible secondary to anxiety, physical distressed with GI symptoms, vasovagal symptoms acid with nausea Evaluated by GI earlier, continued with outpatient antihypertensive Ordered as needed Ativan PRN Zofran and Phenergan alternated for nausea Continue to monitor until (5) Food poisoning: GI symptoms started after eating egg sandwich yesterday evening in [facility] cafeteria Patient and her daughter both at the similar meal and both had this GI symptoms: Abdominal cramps, nausea vomiting No diarrhea, no fever Vision continues to have GI symptoms, poor appetite, no nausea, diet was advanced to solid, could not tolerate, ordered for clear liquid diet, continue IV fluids Per patient: Patient's daughter recovered well, does not have any GI symptoms at present CODE STATUS: Full code Disposition: Expect to be to discharge home in next 24 to 48 hours if remains medically stable Subjective Is feeling fine throughout the day, this evening while trying to go to the bathroom, felt nauseous, dizzy and lightheadedness Patient was seen afterwards, feels totally tired and wiped out No complaint of shortness of breath, no chest heaviness Feels pretty flushed Still have persistent nausea, no abdominal pain or discomfort, no diarrhea no fever or Physical Exam Vital Signs (Past 24 Hours): Last Vital Signs Temp 37.1 C 11/29/18 11:21 Pulse 65 11/29/18 17:09 Resp 18 11/29/18 11:21 BP 157/69 H 11/29/18 16:29 Pulse Ox 93 11/29/18 11:21 Physical Exam: GENERAL: Very tired, pale, increased risk for ongoing nausea HEENT: Sclera nonicteric, Normal oral mucosa, neck: No JVD, no thyromegaly, trachea midline Lungs: Clear to auscultate, no wheeze or rales Cardiovascular: Regular S1 and S2, no murmur or gallop, no JVD, no lower extremity edema Abdomen: Soft, nontender, mild epigastric discomfort, bowel sounds active Extremities: No rash or deformity, normal joint, Neuro: No focal neurological deficit, no dysarthria, no facial droop Psych: Alert awake oriented x3: Anxious Skin: No rash LYMPH NODES: No cervical lymphadenopathy
[2018-11-29] MEDS: HydrALAZINE HCL 20 MG/ML VIAL IV PRN (18:51)
[2018-11-29] MEDS ORDERED: LORazepam 0.5 MG TAB PO PRN (19:17)
[2018-11-29] MEDS ORDERED: SODIUM CHLORIDE 0.9% 1000ML 1,000 ML IV SCH (19:30)
[2018-11-29] MEDS: PROMETHAZINE HCL 12.5 MG in SODIUM CHLORIDE 0.9% 50 ML IV PRN (20:00)
[2018-11-29] MEDS: MONTELUKAST SODIUM 10 MG TABLET PO SCH (21:15)
[2018-11-30] MEDS: ONDANSETRON INJ 2 MG/ML 2 ML VIAL IV PRN (03:37)
[2018-11-30] MEDS: HydrALAZINE HCL 20 MG/ML VIAL IV PRN (04:03)
[2018-11-30] MEDS: PROMETHAZINE HCL 12.5 MG in SODIUM CHLORIDE 0.9% 50 ML IV PRN (06:09)
[2018-11-30] MEDS: NON-FORMULARY MEDICATION (Cyanocobalamin (Vitamin B-12) [Vitamin B-12] 1,000 MCG) PO SCH (07:51)
[2018-11-30] MEDS: CHOLECALCIFEROL 1,000 UNITS TAB PO SCH (08:06)
[2018-11-30] MEDS: ASPIRIN 81 MG ECTAB PO SCH (08:06)
[2018-11-30] MEDS: CLOPIDOGREL BISULFATE 75 MG TAB PO SCH (08:06)
[2018-11-30] MEDS: AMLODIPINE BESYLATE 5 MG TAB PO SCH (08:06)
[2018-11-30] MEDS: LOSARTAN POTASSIUM 25 MG TAB PO SCH (08:06)
[2018-11-30] MEDS: ESCITALOPRAM OXALATE 10 MG TAB PO SCH (08:06)
[2018-11-30] MEDS: ISOSORBIDE DINITRATE 5 MG TAB PO SCH ×3 (08:07→17:08)
[2018-11-30] MEDS: PANTOprazole 40 MG TAB PO SCH ×2 (08:07→20:25)
[2018-11-30] MEDS: DOCUSATE SODIUM 100 MG CAP PO SCH ×2 (08:07→20:24)
[2018-11-30] MEDS: METOPROLOL SUCC 25MG EXT REL TAB PO SCH (08:07)
[2018-11-30] MEDS ORDERED: LORazepam 0.5 MG TAB PO PRN (13:48)
--- NOTE | 2018-11-30 17:56 | Hospitalist Progress Note ---
Date of Service November 30, 2018 Assessment & Plan (1) Hypertensive urgency: Blood pressure remains persistently elevated Possible secondary to anxiety, Will increase patient's p.o. Norvasc from 5 mg to 10 mg daily, Giving extra dose of 5 mg now Will discontinue as needed hydralazine, possible causing flushed appearance Cardiology following Continue to monitor in telemetry Present on Admission?: Yes (2) Vasovagal syncope: Did not had any further episode Just to feel tired and wiped out, BP remains persistently elevated No sign of infection, dehydration Continue monitoring telemetry 11/29/2018 Presented with dizzy spells lightheadedness after nausea vomiting and GI symptoms, Due to vasovagal syncope, appreciate input from cardiology No evidence of stroke, no active coronary event noted Beta-sheila kept on hold -tachycardia/pause Present on Admission?: Yes (3) Elevated troponin I level: No evidence of acute coronary event, patient input from cardiology Shows no wall motion abnormality Possible mild demand ischemia in the setting of hypotension, vasovagal syncope Continue to monitor No further cardiac testing or intervention needed (4) Sinus bradycardia: Beta-sheila kept on hold (5) Food poisoning: GI symptoms started after eating egg sandwich yesterday evening at [facility] [employer] Patient and her daughter both at the similar meal and both had this GI symptoms: Abdominal cramps, nausea vomiting No diarrhea, no fever Patient's daughter recovered well, does not have any GI symptoms at present Diet advanced to solid, very poor appetite-he ate only a few bites at dinner Feels nauseous, no vomiting or diarrhea CODE STATUS: Full code Disposition: Lives at home with , was independent in ADLs prior to admission Noted to have severe weakness, fall risk Order for PT OT evaluation and son updated at bedside Subjective Feeling weak and tired, appears to be very flushed, BP remains elevated more than 160, patient reports of episode of blurred vision earlier this morning after waking /while trying to sit up The symptoms lasted for couple of minutes, did not had any recurrence No complaint of headache, No weakness or paresthesia Appetite remains very poor, No nausea vomiting, no diarrhea No further episode of dizzy spells lightheadedness or syncope Physical Exam Vital Signs (Past 24 Hours): Last Vital Signs Temp 36.6 C 11/30/18 14:59 Pulse 85 11/30/18 15:25 Resp 17 11/30/18 14:59 BP 169/89 H 11/30/18 14:59 Pulse Ox 94 11/30/18 14:59 Physical Exam: GENERAL: No apparent sign of distress,/very tired and fatigue, HEENT: Sclera nonicteric, face: Cheeks, forehead-flushed Normal oral mucosa, neck: No JVD, no thyromegaly, trachea midline Lungs: Clear to auscultate, no wheeze or rales Cardiovascular: Regular S1 and S2, no murmur or gallop, no JVD, no lower extremity edema Abdomen: Soft, nontender, bowel sounds active, no hepatosplenomegaly Extremities: No rash or deformity, normal joint, Neuro: No focal neurological deficit, no dysarthria, no facial droop Psych: Alert awake oriented x3: Flat affect Skin: No rash LYMPH NODES: No cervical lymphadenopathy (1) Food poisoning Encounter type: initial encounter Injury intent: accidental or unintentional Qualified Code(s): T62.91XA - Toxic effect of unspecified noxious substance eaten as food, accidental (unintentional), initial encounter
[2018-11-30] MEDS ORDERED: AMLODIPINE BESYLATE 5 MG TAB PO ONE (18:00)
[2018-11-30] MEDS: MONTELUKAST SODIUM 10 MG TABLET PO SCH (20:25)
[2018-12-01] MEDS ORDERED: MoRPHine SULFATE 2 MG/ML CARP IV PRN
[2018-12-01] MEDS ORDERED: TRAMADOL HCL 50 MG TABLET PO PRN
[2018-12-01] MEDS ORDERED: METOPROLOL SUCC 25MG EXT REL TAB PO SCH
[2018-12-01 00:33] LABS: Basophils # (auto) 0.01 K/uL (0-0.2); Basophils % (auto) 0.1 %; Hematocrit (blood only) 45.1 % (37-47); Hemoglobin 15.8 g/dL (12.0-16.0); Immature Granulocytes # (auto) 0.03 K/uL (0.00-0.02); Immature Granulocytes % (auto) 0.2 %; Lymphocytes # (auto) 1.28 K/uL (1.2-3.4); Lymphocytes % (auto) 10.5 %; Mean Corpuscular Volume 86.7 fL (80-100); Mean Platelet Volume 10.2 fL (7.4-10.4); Monocytes # (auto) 1.51 K/uL (0.11-0.59); Monocytes % (auto) 12.4 %; Neutrophils # (auto) 9.38 K/uL (1.4-6.5); Neutrophils % (auto) 76.8 %; Platelet Count 177 K/uL (130-400); RDW Coefficient of Variation 13.6 % (11.5-14.5); RDW Standard Deviation 43.2 fL (36.4-46.3); White Blood Count 12.21 K/uL (4.8-10.8)
[2018-12-01 00:55] LABS: Albumin Globulin Ratio 0.9 (0.9-2); Albumin Level 3.5 gm/dl (3.4-5.0); BUN Creatinine Ratio 21.3 (10-20); Bilirubin,Total 1.4 mg/dl (0.2-1); Calcium 8.3 mg/dl (8.5-10.1); Creatinine Clr Calc Pharmacy 40.4 ml/min; Est GFR (African American) 69.5; Est GFR (Non-African American) 59.9; Magnesium 1.9 mg/dl (1.8-2.4); Potassium 2.9 mmol/L (3.5-5.1); Total Protein 7.5 gm/dl (6.4-8.2)
[2018-12-01] MEDS ORDERED: POTASSIUM CHLORIDE 20 MEQ TABCR PO STA (01:06)
[2018-12-01] MEDS ORDERED: IOVERSOL 100ml IV PRN (01:08)
[2018-12-01] MEDS ORDERED: MAGNESIUM SULFATE / D5W 1 GM/100 ML BAG IV ONE (01:15)
[2018-12-01] MEDS: ONDANSETRON INJ 2 MG/ML 2 ML VIAL IV PRN (01:32)
[2018-12-01] MEDS ORDERED: NSS + 20MEQ KCL 20 MEQ/1,000 ML BAG IV ONE (01:45)
--- NOTE | 2018-12-01 02:02 | Hospitalist Progress Note ---
Date of Service December 01, 2018 Subjective Made aware by RN of worsening lower abdominal discomfort. No nausea, no emesis Minimal bowel movement yesterday as per px. PVCs noted on the monitor as per as per RN. Patient denies chest pain, S OB. ABD EXAM : Minimal abdominal distention, no overt tenderness CT abdomen pelvis initial read: Cecal volvulus. Mild cecal wall thickening and adjacent inflammatory change. Cholelithiasis. AP Cecal volvulus Patient nontoxic. Bowel rest for now Surgery consult cecal volvulus on CT Case discussed with Dr. Sawyer (general surgeon on-call). He recommends IV antibiotics and urgent GI consult for cecal volvulus. Case discussed with Dr. Doll (GI specialist cone operator) over the phone. Will relay to AM provider. Physical Exam Vital Signs (Past 24 Hours): Last Vital Signs Temp 36.6 C 11/30/18 22:56 Pulse 69 11/30/18 23:33 Resp 18 11/30/18 22:56 BP 146/82 H 11/30/18 22:56 Pulse Ox 93 11/30/18 22:56
[2018-12-01 02:37] LABS: Troponin I 0.254 ng/ml (0-0.045)
[2018-12-01] MEDS ORDERED: ERTAPENEM CONSULT ACTIVE PRN (02:57)
[2018-12-01] MEDS ORDERED: ERTAPENEM SODIUM 1,000 MG in SODIUM CHLORIDE 0.9% 50 ML IV ONE (03:00)
[2018-12-01] MEDS ORDERED: POTASSIUM CHLORIDE 10 MEQ TABCR PO ONE (03:30)
[2018-12-01] MEDS: HydrALAZINE HCL 20 MG/ML VIAL IV PRN (04:10)
[2018-12-01] MEDS ORDERED: CALCIUM GLUCONATE 10% 1,000 MG in SODIUM CHLORIDE 0.9% 50 ML IV ONE (06:45)
--- NOTE | 2018-12-01 07:05 | CT Scan Report ---
CT abd pelvis IV con only CLINICAL HISTORY: 83 years-old Female presenting with rlq and left-sided abdominal pain. TECHNIQUE: Multidetector CT of the abdomen and pelvis was performed after the administration of intra venous contrast. IV contrast: 94 mL of Optiray 320. One or more dose lowering techniques were used co nsistent with the principles of ALARA (as low as reasonably achievable), including automatic exposure control, mA or kV adjustment to individual patient size, and/or use of iterative reconstruction. COMPARISON: None. CT DOSE (mGy.cm): The estimated cumulative dose is 264.07 mGy.cm. 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 Lung bases: Left atrial enlargement. Coronary artery calcification. Trace left pleural effusion. Mini mal dependent changes likely atelectasis. Liver: Normal morphology. No liver lesion. Patent hepatic vasculature. Biliary: No intrahepatic or extrahepatic biliary ductal dilatation. Gallbladder contains gallstones. Pancreas: Shift of the pancreatic head to the right. Pancreas otherwise normal. Spleen: Normal. Adrenal glands: 1.9 cm nodule in the left adrenal gland in the inferior aspect of the medial limb wit h an additional 1.4 cm nodule more superiorly. These are indeterminate by density on this contrast-en hanced examination. Macroscopic fat-containing 1.6 cm nodule in the right adrenal gland characteristi c of myelolipoma. Kidneys and ureters: Few small well-defined hypodensities some too small to characterize though likel y cysts. Excretion of contrast in the urinary collecting systems limits evaluation for renal calculi. Allowing for this, no evidence of nephrolithiasis. Renovascular calcification noted on the right. No hydronephrosis. Mild urothelial thickening bilaterally. Ureters nondistended. Bladder: Distended though otherwise normal. Pelvic organs: Enhancing polypoid 1.1 cm submucosal lesion in the endometrial cavity (series 3 image 308). Ovaries not well visualized, likely atrophic. Bowel: Mild wall thickening of the rectum. The colon is decompressed to the level of the cecum, which is displaced into the left abdomen. A twisting of mesentery is suggested. The cecum is markedly dila armando with a diameter of nearly 9 cm. No pneumatosis or evidence of wall thickening. Distal esophageal wall thickening suggested. Hiatal hernia may be present. The duodenum is shifted to the right as a re sult of the distended cecum. Small bowel is decompressed. Peritoneal cavity: Small amount pelvic ascites as well as fluid in the left lower quadrant. Mesenteri c edema noted diffusely. No pneumatosis or free intraperitoneal gas. Lymph nodes: No enlarged lymph nodes in the abdomen or pelvis. Vasculature: Atherosclerosis of the normal caliber abdominal aorta. IVC patent. Abdominal wall: Mild body wall edema. Musculoskeletal: Degenerative changes of the spine. IMPRESSION: 1. 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 No evidence of perforation or ischemia at this ti me. Surgical consultation is necessary. 2. Distal esophageal wall thickening. This could indicate esophagitis or relate to the presence of a hiatal hernia. Consider gastroenterology consultation on a nonurgent basis. 3. Mild rectal wall thickening. This is nonspecific and may relate to a mild proctitis or nonspecifi c submucosal edema. 4. Enhancing polypoid 1.1 cm submucosal lesion in the uterus. Differential considerations include en dometrial polyp versus submucosal fibroid. Nonurgent outpatient gynecologic consultation could be con sidered if there is clinical concern. 5. Multiple left adrenal nodules, which are indeterminant. Statistically, these most likely represen t adenomas. 6. Small volume ascites, which may be reactive to the volvulus. These findings were discussed with nurse Sinha by Dr. Tellez on 12/01/2018 2:11 AM. The report will be called/faxed according to standard departmental protocol. Electronically signed by: Andrea Ferrell M.D. 12/01/2018 7:04 AM
[2018-12-01] MEDS: NON-FORMULARY MEDICATION (Cyanocobalamin (Vitamin B-12) [Vitamin B-12] 1,000 MCG) PO SCH (07:31)
[2018-12-01] MEDS: ISOSORBIDE DINITRATE 5 MG TAB PO SCH (07:32)
[2018-12-01] MEDS ORDERED: ACETAMINOPHEN 1,000 MG/100 ML VIAL IV SCH (08:00)
[2018-12-01 08:22] LABS: Basophils # (auto) 0.01 K/uL (0-0.2); Basophils % (auto) 0.1 %; Hemoglobin 17.1 g/dL (12.0-16.0); Immature Granulocytes # (auto) 0.02 K/uL (0.00-0.02); Immature Granulocytes % (auto) 0.2 %; Lymphocytes # (auto) 1.01 K/uL (1.2-3.4); Lymphocytes % (auto) 8.1 %; Mean Corpuscular Hgb Conc 34.9 g/dL (32-36); Mean Platelet Volume 10.9 fL (7.4-10.4); Monocytes # (auto) 1.19 K/uL (0.11-0.59); Monocytes % (auto) 9.5 %; Neutrophils # (auto) 10.29 K/uL (1.4-6.5); Neutrophils % (auto) 82.1 %; Platelet Count 194 K/uL (130-400); RDW Coefficient of Variation 13.6 % (11.5-14.5); RDW Standard Deviation 43.4 fL (36.4-46.3); Red Blood Count 5.63 M/uL (4.2-5.4); White Blood Count 12.52 K/uL (4.8-10.8)
[2018-12-01 08:31] LABS: Calcium 8.6 mg/dl (8.5-10.1); Est GFR (African American) 74.5; Est GFR (Non-African American) 64.3; Magnesium 2.4 mg/dl (1.8-2.4); Phosphorus 2.4 mg/dl (2.5-4.9); Potassium 4.3 mmol/L (3.5-5.1)
[2018-12-01 08:43] LABS: Troponin I 0.28 ng/ml (0-0.045)
[2018-12-01] MEDS ORDERED: MoRPHine SULFATE 2 MG/ML CARP IV STA ×3 (08:43→10:07)
--- NOTE | 2018-12-01 08:47 | XRay Report ---
KUB HISTORY: Acute generalized abdominal pain abdominal pain COMPARISON: CT abdomen and pelvis 12/01/2018 FINDINGS: Distended contrast-filled urinary bladder. Cecal volvulus with air distended cecum and ascending colo n redemonstrated measuring up to 11.5 cm transversely. No associated pneumatosis or pneumoperitoneum. No dilated proximal small bowel. No urolith or acute fracture. Degenerative changes of the spine, pe lvis and hips. IMPRESSION: 1. Persistent cecal volvulus. No evidence of associated small bowel obstruction. 2. No pneumatosis or pneumoperitoneum. Electronically signed by: Michael Wu M.D. 12/01/2018 8:45 AM
--- NOTE | 2018-12-01 08:50 | Gastrointestinal Consultation ---
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 Please call with any acute changes, questions or concerns. Please see addendum below with additional recommendation from my supervising physician. Supervising Physician Co-Signing Physician Notes I have seen and examined the patient with REYNALDO Lucas whose note reflects our findings and plan. 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 No role for colonoscopic decompression. History of Present Illness Reason for Consultation: cecal volvulus Requesting Physician: Fernando Attending Physician: Joana King MD History of Present Illness 83 year old female w/ history of dyperlipidemia, LOUIE on CPAP, HTN, IBS, GERD, CKD-3, prior CVA, NSTEMI, RA and other below who presented through the ED for abd pain, nausea/vomiting x 1 days. GI consulted for cecal volvulus. She notes lower abd pain. Persistent. Worsening overnight. Associated w/ nausea and prior vomiting. No vomiting since admission. Denies black/bloody stools, fever, chills. She is afebrile, without leukocytosis. Troponin mildly elevated w/o ischemic changes on EKG. H&H stable w/ normal plt. LFTs non-elevated, lipase was normal on admission, elevated this AM at 873. CT w/ cecal volvulus KUB: Persistent cecal volvulus. No evidence of associated small bowel obstruction. No pneumatosis or pneumoperitoneum. CT: Cecal volvulus with a markedly distended cecum. No evidence of perforation or ischemia at this time. Surgical consultation is necessary. Allergies Allergy/AdvReac Type Severity Reaction Status Date / Time Penicillins Allergy Mild RASH Verified 11/28/18 22:53 latex Allergy Unknown RASH Verified 11/28/18 22:53 niacin Allergy Unknown UNKNOWN Verified 11/28/18 22:53 metronidazole AdvReac Mild N/V Verified 11/28/18 22:53 Sulfa (Sulfonamide AdvReac Unknown . Verified 11/28/18 22:53 Antibiotics) Home Medications Home Medications Medication Instructions Recorded Confirmed Type ertapenem [Invanz] 1 gm IV DAILY #1 ea 12/01/18 Rx Patient History Medical History Rheumatoid arthritis (Chronic) CKD (chronic kidney disease), stage III (Chronic) COPD (chronic obstructive pulmonary disease) (Chronic) Hypertension (Chronic) History of kidney disease (Chronic) History of CVA (cerebrovascular accident) without residual deficits (Chronic) Dyslipidemia (Chronic) HTN (hypertension) (Chronic) History of TIA (transient ischemic attack) (Chronic) GERD (gastroesophageal reflux disease) (Chronic) Osteoporosis (Chronic) Asthma (Chronic) Coronary artery disease (Chronic) Meniere's disease (Chronic) Sciatica (Chronic) Surgical History Status post coronary artery stent placement (Chronic) Drug-eluting stent mid LAD Dr. Garces 04/01/18 History of carpal tunnel repair (Chronic) Status post cardiac catheterization (Chronic) Family History Father Stroke Heart attack Brother Ischemic heart disease Other Family history non-contributory Social History Preferred Language: Bengali Beliefs That Will Affect Care: None Current Living Situation: Spouse Other Information That Helps Us Care for You: No Feels Safe at Home: Yes Safety Concerns: Feels Safe At This Time Smoking Status: Never smoker Hx Alcohol Use: No Hx Substance Use: No Review of Systems Constitutional: no fever, no chills, no fatigue and no anorexia Respiratory: no cough, no dyspnea and no wheezing Cardiovascular: no chest pain, no radiating jaw, neck or arm pain, no dyspnea on exertion and no palpitations Gastrointestinal: + abdominal pain, + bloating, + nausea and + constipation; no belching, no early satiety, no heartburn, no vomiting, no coffee ground emesis, no hematemesis, no pain with swallowing, no dysphagia, no cramping, no excessive flatulence, no change in bowel habits, no change in stools, no diarrhea/loose stools, no fecal incontinence, no constant urge to pass stools, no blood in stools, no melena and no problem reported Physical Exam Vital Signs (Past 24 Hours): Last Vital Signs Temp 36.7 C 12/01/18 08:35 Pulse 65 12/01/18 08:35 Resp 18 12/01/18 08:35 BP 165/78 H 12/01/18 08:35 Pulse Ox 97 12/01/18 08:35 Constitutional: well developed, well nourished, cooperative and comfortable; no acute distress Respiratory: normal respiratory effort, lungs clear to auscultation Cardiovascular: Rate/Rhythm: regular rate and regular rhythm; not tachycardic Gastrointestinal (Abdomen): Inspection/Auscultation: + abdomen distended (mild); + abnormal bowel sounds (hypoactive x 4) Percussion/Palpation: + abdomen tender and abdomen soft; no guarding and abdomen not rigid Skin: no rashes, warm and dry Results & Data Laboratory Results 12/01/18 12/01/18 12/01/18 Range/Units 07:45 07:43 07:43 WBC 12.52 H (4.8-10.8) K/uL RBC 5.63 H (4.2-5.4) M/uL Hgb 17.1 H (12.0-16.0) g/dL Hct 49.0 H (37-47) % MCV 87.0 (80-100) fL MCH 30.4 (25-34) pg MCHC 34.9 (32-36) g/dL RDW Std Deviation 43.4 (36.4-46.3) fL RDW Coeff of Josse 13.6 (11.5-14.5) % Plt Count 194 (130-400) K/uL MPV 10.9 H (7.4-10.4) fL Immature Gran % (Auto) 0.2 % Neut % (Auto) 82.1 % Lymph % (Auto) 8.1 % [place] % (Auto) 9.5 % Eos % (Auto) 0.0 % Baso % (Auto) 0.1 % Immature Gran # (Auto) 0.02 (0.00-0.02) K/uL Neut # (Auto) 10.29 H (1.4-6.5) K/uL Lymph # (Auto) 1.01 L (1.2-3.4) K/uL [place] # (Auto) 1.19 H (0.11-0.59) K/uL Eos # (Auto) 0.00 (0-0.5) K/uL Baso # (Auto) 0.01 (0-0.2) K/uL Sodium (136-145) mmol/L Potassium (3.5-5.1) mmol/L Chloride (98-107) mmol/L Carbon Dioxide (21-32) mmol/L Anion Gap (3-11) BUN (7-18) mg/dl Creatinine (0.6-1.2) mg/dl Est Cr Clr Drug Dosing ml/min Est GFR ( Amer) Est GFR (Non-Af Amer) BUN/Creatinine Ratio (10-20) Glucose (70-99) mg/dl Lactate 1.1 (0.4-2.0) mmol/L Calcium (8.5-10.1) mg/dl Phosphorus (2.5-4.9) mg/dl Magnesium (1.8-2.4) mg/dl Total Bilirubin (0.2-1) mg/dl AST (15-37) U/L ALT (12-78) U/L Alkaline Phosphatase (45-117) U/L Troponin I (0-0.045) ng/ml Total Protein (6.4-8.2) gm/dl Albumin (3.4-5.0) gm/dl Globulin (2.5-4.0) gm/dl Albumin/Globulin Ratio (0.9-2) Lipase (73-393) U/L Procalcitonin < 0.05 (0-0.5) ng/ml 12/01/18 12/01/18 12/01/18 Range/Units 07:43 00:19 00:19 WBC 12.21 H (4.8-10.8) K/uL RBC 5.20 (4.2-5.4) M/uL Hgb 15.8 (12.0-16.0) g/dL Hct 45.1 (37-47) % MCV 86.7 (80-100) fL MCH 30.4 (25-34) pg MCHC 35.0 (32-36) g/dL RDW Std Deviation 43.2 (36.4-46.3) fL RDW Coeff of Josse 13.6 (11.5-14.5) % Plt Count 177 (130-400) K/uL MPV 10.2 (7.4-10.4) fL Immature Gran % (Auto) 0.2 % Neut % (Auto) 76.8 % Lymph % (Auto) 10.5 % [place] % (Auto) 12.4 % Eos % (Auto) 0.0 % Baso % (Auto) 0.1 % Immature Gran # (Auto) 0.03 H (0.00-0.02) K/uL Neut # (Auto) 9.38 H (1.4-6.5) K/uL Lymph # (Auto) 1.28 (1.2-3.4) K/uL [place] # (Auto) 1.51 H (0.11-0.59) K/uL Eos # (Auto) 0.00 (0-0.5) K/uL Baso # (Auto) 0.01 (0-0.2) K/uL Sodium 135 L 135 L (136-145) mmol/L Potassium 4.3 D 2.9 L D (3.5-5.1) mmol/L Chloride 103 101 (98-107) mmol/L Carbon Dioxide 25 27 (21-32) mmol/L Anion Gap 7.0 7.0 (3-11) BUN 18 19 H (7-18) mg/dl Creatinine 0.84 0.89 (0.6-1.2) mg/dl Est Cr Clr Drug Dosing 43.0 40.4 ml/min Est GFR ( Amer) 74.5 69.5 Est GFR (Non-Af Amer) 64.3 59.9 BUN/Creatinine Ratio 22.0 H 21.3 H (10-20) Glucose 128 H 127 H (70-99) mg/dl Lactate (0.4-2.0) mmol/L Calcium 8.6 8.3 L (8.5-10.1) mg/dl Phosphorus 2.4 L (2.5-4.9) mg/dl Magnesium 2.4 1.9 (1.8-2.4) mg/dl Total Bilirubin 1.4 H (0.2-1) mg/dl AST 22 (15-37) U/L ALT 18 (12-78) U/L Alkaline Phosphatase 70 (45-117) U/L Troponin I 0.280 H* 0.254 H* (0-0.045) ng/ml Total Protein 7.5 (6.4-8.2) gm/dl Albumin 3.5 (3.4-5.0) gm/dl Globulin 4.0 (2.5-4.0) gm/dl Albumin/Globulin Ratio 0.9 (0.9-2) Lipase 173 872 H (73-393) U/L Procalcitonin (0-0.5) ng/ml
[2018-12-01] MEDS ORDERED: AMLODIPINE BESYLATE 5 MG TAB PO SCH (09:00)
--- NOTE | 2018-12-01 09:51 | Discharge Summary ---
Date of Service December 01, 2018 Admission HPI Per Admitting Provider DICTATED BY: Humberto Mancia MD DATE OF ADMISSION: 11/28/2018 CHIEF COMPLAINT: Nausea and vomiting. HISTORY OF PRESENT ILLNESS: This is an 83-year-old female with past medical history significant for hyperlipidemia, obstructive sleep apnea on CPAP, moderate persistent asthma without complication, history of CVA, history of subclavian artery stenosis, history of non-ST elevated NH status post stent to LAD, hypertension, stenosis of left carotid artery, post gastric surgery syndrome, B12 deficiency, vitamin D deficiency, irritable bowel syndrome, GERD, chronic kidney disease stage III, history of paranoia, history of rheumatoid arthritis. Presents with nausea and vomiting. The patient's had a gallbladder surgery today in the hospital. The patient and her daughter ate egg salad in the cafeteria. After that, both of them have been sick with nausea, vomiting, but the patient got more sicker with several episodes of nausea and vomiting. She received Reglan, promethazine in the ER. The blood pressure is running somewhat on the higher side, received some labetalol. Troponin was slightly elevated, and we were called for admission. Currently, patient is resting comfortably, hemodynamically stable. Denies any chest pain. No shortness of breath, no cough. Nausea is better. Denies any abdominal pain, no diarrhea, somewhat constipated. Denies any blood in the stools or black stools, no hematuria or burning micturition. No headache, no sore throat, no cough. Otherwise, her appetite is okay and she ambulates okay. She lives with her . No fever or chills.Some what sleepy. ALLERGIES: LATEX, METRONIDAZOLE, NIACIN, PCN, SULFA ANTIBIOTICS. PAST MEDICAL HISTORY: As mentioned above. Principal Diagnosis Cecal volvuous -needs emergent surgery /exp laparotomy Pt is transferred to [facility] Discharge Exam GENERAL: ill appearing , in distress for abdominal pain HEENT: Sclera nonicteric, pink-purple bilateral equal reactive to light extraocular muscle intact dry oral mucosa, neck: No JVD, no thyromegaly, trachea midline Lungs: Clear to auscultate, no wheeze or rales Cardiovascular: Regular S1 and S2, no murmur or gallop, no JVD, no lower extremity edema Abdomen: + tenderness , bowel sound diminished Extremities: No rash or deformity, normal joint, Neuro: No focal neurological deficit, no dysarthria, no facial droop Psych: Alert awake oriented x3: anxious Skin: No rash LYMPH NODES: No cervical lymphadenopathy Discharge Data Allergies Allergy/AdvReac Type Severity Reaction Status Date / Time Penicillins Allergy Mild RASH Verified 11/28/18 22:53 latex Allergy Unknown RASH Verified 11/28/18 22:53 niacin Allergy Unknown UNKNOWN Verified 11/28/18 22:53 metronidazole AdvReac Mild N/V Verified 11/28/18 22:53 Sulfa (Sulfonamide AdvReac Unknown . Verified 11/28/18 22:53 Antibiotics) Consultations 11/29/18 00:02 Consult Case Management - Discharge Planning Routine 11/29/18 08:00 Consult Cardiology Routine 12/01/18 02:25 Consult General Surgery Routine 12/01/18 02:26 Consult Gastroenterology Routine 12/01/18 09:19 Burn CD for patient Routine Ordered Studies 11/30/18 23:58 CT abd pelvis IV con only Urgent Hospital Course (1) Cecal volvulus: Developed acute abdominal pain overnight CT abdomen /pelvis shows distended Cecum and Ascending colon -cecal volvolus with twisting of mesentery no radiographic evidence of bowel ischemia ordered NPO /given 1 gm IV Invanz , lactic acid level -wnl GI updated -volvulous is too high /beyond colonoscopinc decompression Repeat KUB this Am show progression of colonic distention > 11 cm Surgery team contacted : pt will need emergent exp laparotomy given high risk /CAD -recommends transfer to tertiary care Contacted [facility] pt is accepted by surgery team life flighted to [facility] today (2) Hypertensive urgency: developed Hypertensive Urgency due to acute abdomen pt is strict NPO pain control PRN IV hypertensives for SBP > 160 (3) Vasovagal syncope: 11/29/2018 Presented with dizzy spells lightheadedness after nausea vomiting and GI symptoms, Due to vasovagal syncope, appreciate input from cardiology No evidence of stroke, no active coronary event noted Beta-sheila kept on hold -tachycardia/pause (4) Elevated troponin I level: secondary to acute illness No evidence of acute coronary event, patient input from cardiology Shows no wall motion abnormality Possible mild demand ischemia in the setting of hypotension, vasovagal syncope Pt has hx of CAD s/p Drug eluting stent on 05/2018 d/w Cardiology OK to hold Plavix for ex laparotomy for acute abdomen (5) Sinus bradycardia: Beta-sheila kept on hold (6) Food poisoning: GI symptoms started after eating egg sandwich yesterday evening at [facility] [employer] Patient and her daughter both at the similar meal and both had this GI symptoms: Abdominal cramps, nausea vomiting No diarrhea, no fever Patient's daughter recovered well, does not have any GI symptoms at present developed acute abdomen /Cecal volulous overnight NPO , IV fluids , pain control transferred to [facility] CODE STATUS: Full code Disposition: Transferred to [facility] Total Time Total Time Spent Total Time Spent (In Minutes): 50 mins Total Time Includes: Examination of the Patient, Discharge Planning, Medication Reconciliation and Communication With Other Providers Discharge Plan Discharge Items Patient Disposition: Transfer Acute Care Hospital Reason For Visit: NAUSEA,VOMITING Discharge Diagnosis: ACUTE CEACAL VOLVULOUS Discharge Goals: Decrease discomfort Activity: As commented below Activity Comment: BED REST TILL EVALUATED BY SURGERY TEAM Non-emergency contact: Primary Care Provider Call non-emergency contact if: you have any medication questions Follow-up/Referrals: Rory Vargas MD [Primary Care Provider] - Diet: See below Diet Comment: STRICT NPO Addtl Provider Instructions: PATIENT IS BEING TRANSFERRED TO [facility] FOR ACUTE ABDOMEN , ACUTE CEACAL VOLVULUS ACCEPTING SURGERY PHYSICIAN DR DARLENE MAYFIELD Prescriptions: New ertapenem [Invanz] 1 gram recon soln 1 gm IV DAILY Qty: 1 RF: 0 Discontinued atorvastatin 40 mg Tablet 40 mg PO DAILY RF: 0 atenolol 25 mg Tablet 25 mg PO DAILY RF: 0 fexofenadine 180 mg Tablet 180 mg PO DAILY PRN (Reason: Allergy Symptoms) RF: 0 aspirin [Aspir-81] 81 mg Tablet,Delayed Release (Dr/Ec) 81 mg PO DAILY RF: 0 triamcinolone acetonide 0.1 % Cream 1 applic TOPICAL UD PRN (Reason: skin impairment) RF: 0 losartan 25 mg Tablet 25 mg PO DAILY RF: 0 nitroglycerin [Nitrostat] 0.4 mg Tablet, Sublingual 1 tab Sublingual UD PRN (Reason: Chest Pain) RF: 0 albuterol sulfate [ProAir HFA] 90 mcg/actuation Hfa Aerosol Inhaler 2 puff INHALATION QID PRN (Reason: Allergy Symptoms) RF: 0 cholecalciferol (vitamin D3) 1,000 unit Capsule 1,000 unit PO DAILY RF: 0 omeprazole 20 mg Tablet,Delayed Release (Dr/Ec) 20 mg PO BID RF: 0 clopidogrel 75 mg Tablet 75 mg PO DAILY RF: 0 amlodipine 5 mg tablet 5 mg PO DAILY Qty: 30 RF: 5 cyanocobalamin (vitamin B-12) [Vitamin B-12] 1,000 mcg Tablet 1,000 mcg PO DAILY RF: 0 melatonin 3 mg Tablet 6 mg PO HS PRN (Reason: Sleep) RF: 0 montelukast [Singulair] 10 mg Tablet 10 mg PO PM RF: 0 isosorbide dinitrate 5 mg tablet 5 mg PO TID RF: 0 escitalopram oxalate [Lexapro] 5 mg tablet 5 mg PO DAILY RF: 0 Breo Ellipta 100-25 mcg/dose Blister With Device 1 inh INHALATION DAILY RF: 0 Stand-Alone Forms: [facility] Discharge Orders: Discharge Order (Routine); Ordered 12/01/18 Ordered By: Joana King Admission Data Admit Date/Time: 12/01/18 07:55 Attending Provider: Joana King Admit Provider: Humberto Mancia Primary Care Provider: Rory Vargas Other Providers: Rio Huber ; Radha Valdez ; Sudhir Sawyer ; Martha Doll Service: Telemetry Medical Other Interventions: Discharge Summary Assessment (RN) Last Done: 12/01/18 09:56 DC Date/Time DO NOT enter until pt leaves facility: 12/01/18 10:23
[2018-12-01] MEDS ORDERED: NSS + 20MEQ KCL 20 MEQ/1,000 ML BAG IV SCH (22:00)
[2018-12-02] MEDS ORDERED: ERTAPENEM SODIUM 1,000 MG in SODIUM CHLORIDE 0.9% 50 ML IV SCH (04:00)
== END 2018-12-01 10:23 | disposition short-term general hospital (02) | DRG 917 ==
LOC: 2N 20:58 → ED 20:58 → SUATTDRO 23:08 → 2N 23:38
DX: Z88.3 Allergy status to other anti-infective agents; G47.33 Obstructive sleep apnea (adult) (pediatric); R11.2 Nausea with vomiting, unspecified; R55 Syncope and collapse; F41.9 Anxiety disorder, unspecified; N18.3 Chronic kidney disease, stage 3 (moderate); Z95.5 Presence of coronary angioplasty implant and graft; K21.9 Gastro-esophageal reflux disease without esophagitis; Z82.49 Family history of ischemic heart disease and other diseases of the circulatory system; Z88.8 Allergy status to other drugs, medicaments and biological substances; K91.1 Postgastric surgery syndromes; Z79.02 Long term (current) use of antithrombotics/antiplatelets; E55.9 Vitamin D deficiency, unspecified; I12.9 Hypertensive chronic kidney disease with stage 1 through stage 4 chronic kidney disease, or unspecified chronic kidney disease; Z82.3 Family history of stroke; Z86.73 Personal history of transient ischemic attack (TIA), and cerebral infarction without residual deficits; Z88.2 Allergy status to sulfonamides; F32.9 Major depressive disorder, single episode, unspecified; E78.5 Hyperlipidemia, unspecified; Z79.82 Long term (current) use of aspirin; I95.9 Hypotension, unspecified; Z88.0 Allergy status to penicillin; I25.2 Old myocardial infarction; R00.1 Bradycardia, unspecified; K56.2 Volvulus; E53.8 Deficiency of other specified B group vitamins; Z91.81 History of falling; Z79.899 Other long term (current) drug therapy; J45.40 Moderate persistent asthma, uncomplicated; I24.8 Other forms of acute ischemic heart disease; J44.9 Chronic obstructive pulmonary disease, unspecified; Z91.040 Latex allergy status; I25.10 Atherosclerotic heart disease of native coronary artery without angina pectoris; T62.91XA Toxic effect of unspecified noxious substance eaten as food, accidental (unintentional), initial encounter; I16.0 Hypertensive urgency

== ENCOUNTER 2019-04-18 13:58 | Inpatient (IN) ==
--- OUTSIDE RECORDS SUMMARY | 2019-04-18 14:01 | External Medical Summary | Continuity of Care Document ---
:1935 Author Name Ramon Gomez, Provider Address Unavailable Unavailable , Care Team Providers Name Role Phone Magen Gomez, Williams Valdez Unavailable [email or web address] [email or web address], UNKNOWN Unavailable Unavailable Problems Active medical history not documented Allergies and Adverse Reactions Allergy history not documented Medications Medications not documented Procedures Procedures not documented Immunizations Immunizations not documented Plan of Treatment Planned Observations Planned Goals not documented Results No Known Results Results not documented
[2019-04-18] MEDS ORDERED: HYDROmorphone INJ 0.5 MG/0.5 ML SYR IV STA (14:09)
[2019-04-18] MEDS ORDERED: ONDANSETRON INJ 2 MG/ML 2 ML VIAL IV STA (14:13)
[2019-04-18] MEDS ORDERED: SODIUM CHLORIDE 0.9% 500 ML IV SCH (14:15)
[2019-04-18] MEDS ORDERED: XYLOCAINE 1%/SOD BICARB 20 ML VIAL INFIL ONE (14:24)
[2019-04-18] MEDS ORDERED: ACETAMINOPHEN 1,000 MG/100 ML VIAL IV STA (14:29)
[2019-04-18 14:39] LABS: Basophils # (auto) 0.04 K/uL (0-0.2); Basophils % (auto) 0.5 %; Eosinophils # (auto) 0.07 K/uL (0-0.5); Eosinophils % (auto) 0.9 %; Hematocrit (blood only) 39.8 % (37-47); Hemoglobin 13.6 g/dL (12.0-16.0); Immature Granulocytes # (auto) 0.01 K/uL (0.00-0.02); Immature Granulocytes % (auto) 0.1 %; Lymphocytes # (auto) 1.61 K/uL (1.2-3.4); Lymphocytes % (auto) 20.2 %; Mean Corpuscular Hgb Conc 34.2 g/dL (32-36); Mean Corpuscular Volume 87.7 fL (80-100); Mean Platelet Volume 10.1 fL (7.4-10.4); Monocytes # (auto) 0.74 K/uL (0.11-0.59); Monocytes % (auto) 9.3 %; Neutrophils # (auto) 5.51 K/uL (1.4-6.5); Platelet Count 184 K/uL (130-400); RDW Coefficient of Variation 13.3 % (11.5-14.5); RDW Standard Deviation 42.5 fL (36.4-46.3); Red Blood Count 4.54 M/uL (4.2-5.4); White Blood Count 7.98 K/uL (4.8-10.8)
[2019-04-18 14:49] LABS: Prothrombin Time 10.3 Seconds (9.0-12.0)
[2019-04-18 14:57] LABS: Albumin Level 3.7 gm/dl (3.4-5.0); BUN Creatinine Ratio 23.7 (10-20); Calcium 8.6 mg/dl (8.5-10.1); Creatinine Clr Calc Pharmacy 44.9 ml/min; Est GFR (African American) 76.7; Est GFR (Non-African American) 66.2; Potassium 4.2 mmol/L (3.5-5.1)
[2019-04-18 14:59] LABS: Globulin 3.7 gm/dl (2.5-4.0); Total Protein 7.4 gm/dl (6.4-8.2)
--- NOTE | 2019-04-18 15:18 | XRay Report ---
XR knee RT 2V routine CLINICAL HISTORY: Right knee pain following fall. COMPARISON: None FINDINGS: A small right knee joint effusion is noted. There is marked prepatellar soft tissue swelli ng. There is a possible acute nondisplaced patellar fracture. No additional fractures are noted. A sc lerotic lesion within the distal right femur is likely benign. There is extensive vascular calcificat ion. Mild right knee osteoarthrosis present. IMPRESSION: 1. Possible acute nondisplaced patellar fracture. Marked prepatellar soft tissue swelling. 2. Small right knee joint effusion. Electronically signed by: Mehdi Ibarra M.D. 04/18/2019 3:16 PM
--- NOTE | 2019-04-18 15:19 | XRay Report ---
XR finger RT min 2V CLINICAL HISTORY: Right middle finger laceration. COMPARISON: None FINDINGS: Bandage on the right third finger is noted. There is no acute fracture or radiopaque forei gn body. Mild osteoarthritis is noted within the articulations of the right third finger. Alignment i s anatomic. IMPRESSION: No acute fracture, dislocation or radiopaque foreign body within the right third finger. Electronically signed by: Mehdi Ibarra M.D. 04/18/2019 3:18 PM
--- NOTE | 2019-04-18 15:21 | XRay Report ---
XR wrist LT min 3V routine CLINICAL HISTORY: Left wrist pain following fall. COMPARISON: None FINDINGS: No acute carpal bone fracture is noted. 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 Note is made of an acute comminuted mildly di splaced angulated distal left radial fracture with intra-articular extension. There is mild palmar ti lt of the distal component. IMPRESSION: Acute comminuted displaced distal left radial fracture with intra-articular extension and mild palmar tilt of the distal component. Electronically signed by: Mehdi Ibarra M.D. 04/18/2019 3:19 PM
--- NOTE | 2019-04-18 15:21 | XRay Report ---
XR pelvis 1-2V routine CLINICAL HISTORY: Pt c/o fall trauma. Pain. COMPARISON: None. DISCUSSION: Moderate narrowing of the hip joint spaces bilaterally. No evidence for fracture or dislocation. No evidence for acetabular protrusion. There is no evidence for soft tissue swelling. IMPRESSION: Generalized degenerative change. No acute process. The above report was generated using voice recognition software. It may contain grammatical, syntax or spelling errors. Electronically signed by: Sudhir Loya M.D. 04/18/2019 3:19 PM
--- NOTE | 2019-04-18 15:22 | XRay Report ---
XR chest 1V portable CLINICAL HISTORY: Fall. COMPARISON STUDY: Chest radiograph December 09, 2018. FINDINGS: There is no pneumothorax or pleural effusion. Skinfold projects over the left hemithorax. C ardiomediastinal silhouette is stable. No airspace opacities are identified. There is no evidence for pulmonary edema. IMPRESSION: No acute cardiopulmonary findings. Electronically signed by: Mehdi Ibarra M.D. 04/18/2019 3:21 PM
[2019-04-18 15:37] LABS: Appearance Urine Clear (Clear); Bilirubin Urine Negative (Negative); Blood Urine Negative (Negative); Color Urine Yellow; Glucose Urine UA Negative (Negative); Ketones Urine Negative (Negative); Leukocyte Esterase Urine Negative (Negative); Nitrite Urine Negative (Negative); Protein Urine Negative (Negative); Urobilinogen Urine Negative (Negative)
--- NOTE | 2019-04-18 15:51 | CT Scan Report ---
CT facial bones wo con CT DOSE: 882.13 mGy.cm HISTORY: Trauma. Pain. Pt c/o fall TECHNIQUE: Multiaxial CT images of the maxillofacial region were performed and reformatted in the cor onal plane without the use of contrast. A dose lowering technique was utilized adhering to the princ iplVanesa. COMPARISON: None. FINDINGS: The visualized cervical spine, skull base, pterygoid plates, nasal bones, lamina papyracea, orbital floors, mandible, and zygomatic arches are intact. No fractures. The orbits are unremarkable . There are findings of the mandibular soft tissue edema. Several periapical abscesses and caries are i dentified involving the dentition primarily of the maxilla. There are hyperplastic changes the nasal turbinates. IMPRESSION: 1. No acute bony abnormality. 2. Premandibular soft tissue edema. 3. Several periapical abscesses and caries within the dentition as discussed. The above report was generated using voice recognition software. It may contain grammatical, syntax or spelling errors. Electronically signed by: Sudhir Loya M.D. 04/18/2019 3:50 PM
--- NOTE | 2019-04-18 15:52 | CT Scan Report ---
CT OF THE HEAD WITHOUT CONTRAST CLINICAL HISTORY: Fall. COMPARISON STUDY: No previous studies for comparison. TECHNIQUE: Helical axial images of the head were obtained without IV contrast. Automated exposure con trol was utilized for the study. A dose lowering technique was utilized adhering to the principles o f ALARA. FINDINGS: No acute intracranial hemorrhage, midline shift or mass effect is present. The ventricular system is unremarkable. The basilar cisterns are patent. No extra-axial collections are present. Ther e are no findings to suggest acute dural sinus thrombosis or acute territorial infarct. No significan t calvarial abnormalities are present. Visualized portions of the sinuses and mastoid air cells are c lear. IMPRESSION: 1. No acute intracranial findings. 2. No calvarial fracture. Electronically signed by: Mehdi Ibarra M.D. 04/18/2019 3:51 PM
--- NOTE | 2019-04-18 15:53 | CT Scan Report ---
CT cervical spine wo con CT DOSE: HISTORY: Trauma. Pain. Pt c/o fall TECHNIQUE: Multiaxial CT images of the cervical spine were performed and reformatted in the sagittal and coronal plane without the use of contrast. A dose lowering technique was utilized adhering to th e principles of ALARA. COMPARISON: None. FINDINGS: No fractures. No subluxation. Prevertebral soft tissues and the C1-C2 interval are intact. No pneumothorax. General degenerative disc change. Osteopenia. IMPRESSION: No fractures within the cervical spine. Generalized degenerative disc change. The above report was generated using voice recognition software. It may contain grammatical, syntax or spelling errors. Electronically signed by: Sudhir Loya M.D. 04/18/2019 3:52 PM
[2019-04-18] MEDS ORDERED: CEFAZOLIN 1000MG 1,000 MG/7.5 ML SYR IV STA (16:14)
[2019-04-18 17:41] LABS: Creatine Kinase MB 1.2 ng/ml (0.5-3.6); Troponin I 0.082 ng/ml (0-0.045)
--- NOTE | 2019-04-18 17:53 | History & Physical Report ---
Date of Service April 18, 2019 Assessment & Plan (1) Fall (on) (from) other stairs and steps, initial encounter: (2) Closed fracture of left distal radius: (3) Closed fracture of right patella: This is an 83-year-old female who has significant PMH of CAD with history of MILENA to mid LAD 03/2018, mild COPD, hx of CVA/TIA w/o deficit, LOUIE on cpap, seronegative RA, senile osteoporosis, GERD, CKD-3, vitamin D deficiency, GERD who presents to [facility] ED after suffering mechanical fall. Pt with multiple injuries including nondisplaced R Patellar Fracture, L comminuted distal radial fx with intraarticular involvement, R 3rd finger laceration, numerous ecchymosis and abrasion CBC, CMP relatively unremarkable Troponin elevated at 0.082, has been elevated in past - pt w/o chest pain, sob or ECG changes admit to med/surg orthopedics consulted NWB to RLE and LUE Splint in place to LUE, RLE immobilizer ICE prn Oxycodone 5mg po q4h prn pain/ IV dilaudid q4hr prn/APAP senna-S at HS Gentle IVF recommend adding PT/OT after eval by orthopedics case management consulted (4) Laceration of right middle finger: s/p 8 sutures placed dressing changes daily neosporin to area (5) Elevated troponin: troponin 0.082, appears chronically elevated Was elevated in 11/2018 when presented with volvulus hx of CAD as noted above Last echo 04/2018 EF 55-60%, AV sclerosis, trace MR/TR trend troponin, if elevates further recommend obtaining echocardiogram She is asymptomatic w/o cardiac symptoms (6) CAD (coronary artery disease), [place] coronary artery: hx of MILENA to mid LAD 03/2018 no chest pain/sob good exercise tolerance, able to walk flight of stairs w/o sob/cp continue ASA, plavix, statin, atenolol, losartan, imdur (7) Hypertension: blood pressure elevated in setting of acute pain continue amlodipine, atenolol, losartan, imdur monitor (8) History of CVA (cerebrovascular accident) without residual deficits: continue ASA, Statin therapy (9) CKD (chronic kidney disease) stage 3, GFR 30-59 ml/min: bun/cr stable 19/0.82 GFR actually >60 follow (10) Dyslipidemia: continue statin (11) Periapical abscess: asymptomatic recommend dental and periodontal referral as outpatient (12) Seronegative rheumatoid arthritis: continue hydroxychloroquine (13) Osteoporosis: continue vit D supplementation Receives Reclast (14) LOUIE on CPAP: cpap at HS (15) DVT prophylaxis: SCD/TEDS pt on ASA, Plavix will hold off further chemical prophylaxis for now, re-eval need daily Disposition: to be determined, case management consulted, will need PT/OT eval once seen by ortho Follow up: PCP Dr. Vargas upon discharge as well as approp ortho follow up Recommend dental referral given abn finding on Facial CT with periapical abscess and dental caries Patient was seen and examined in collaboration with Dr. Valdez, please see addendum History of Present Illness Chief Complaint: mechanical fall prior to arrival Primary Care Provider: Rory Vargas MD This is an 83-year-old female who has significant PMH of CAD with history of MILENA to mid LAD 03/2018, mild COPD, hx of CVA/TIA w/o deficit, LOUIE on cpap, seronegative RA, senile osteoporosis, GERD, CKD-3, vitamin D deficiency, GERD who presents to [facility] ED after suffering mechanical fall. Patient was returning home from getting groceries, carrying groceries up steps and fell when she got to cement landing. She fell on her chin striking her right knee and landing on the left wrist. Pt helped her get up after fall. Due to pain prompted her to seek ED. Prior to fall she has been in a relatively good state of health given age. Last hospitalized 11/2018 for volvulus s/p R hemicolectomy at [facility]. Denies recent f/c/s, dizziness, lightheaded, syncope, change in vision/hearing, chest pain, lara, n/v/d, change in bowel or urinary habits. +BM this morning. Appetite has been normal. She is still independent, lives in apt with her , able to do adls on own. Allergies Allergy/AdvReac Type Severity Reaction Status Date / Time Penicillins Allergy Mild RASH Verified 04/18/19 14:45 latex Allergy Unknown RASH Verified 04/18/19 14:45 niacin Allergy Unknown UNKNOWN Verified 04/18/19 14:45 metronidazole AdvReac Mild N/V Verified 04/18/19 14:45 Sulfa (Sulfonamide AdvReac Unknown . Verified 04/18/19 14:45 Antibiotics) tramadol AdvReac Unknown psycho Unverified 04/18/19 14:45 Home Medications Home Medications Medication Instructions Recorded Confirmed Type albuterol sulfate [Ventolin HFA] 2 puff INHALATION Q4H PRN 12/09/18 04/18/19 History amlodipine 2.5 mg PO QAM 12/09/18 04/18/19 History atenolol 25 mg PO QAM 12/09/18 04/18/19 History atorvastatin 40 mg PO HS 12/09/18 04/18/19 History cholecalciferol (vitamin D3) 1,000 unit PO QAM 12/09/18 04/18/19 History [Vitamin D3] clopidogrel 75 mg PO QAM 12/09/18 04/18/19 History cyanocobalamin (vitamin B-12) 1,000 mcg PO QAM 12/09/18 04/18/19 History [Vitamin B-12] escitalopram oxalate 5 mg PO QAM 12/09/18 04/18/19 History fluticasone propion-salmeterol 1 puff INHALATION BID PRN 12/09/18 04/18/19 History [Advair Diskus] hydroxychloroquine 400 mg PO HS 12/09/18 04/18/19 History isosorbide dinitrate 5 mg PO TID 12/09/18 04/18/19 History losartan 25 mg PO HS 12/09/18 04/18/19 History montelukast 10 mg PO HS 12/09/18 04/18/19 History nitroglycerin 0.3 mg SUBLINGUAL UD PRN 12/09/18 04/18/19 History olanzapine 2.5 mg PO HS 12/09/18 04/18/19 History omeprazole 20 mg PO BID 12/09/18 04/18/19 History triamcinolone acetonide 1 applic TOPICAL BID PRN 12/09/18 04/18/19 History aspirin 81 mg PO QAM 04/18/19 04/18/19 History Past Med/Surg History Medical History CAD (coronary artery disease), [place] coronary artery (Chronic) Rheumatoid arthritis (Chronic) CKD (chronic kidney disease), stage III (Chronic) COPD (chronic obstructive pulmonary disease) (Chronic) Hypertension (Chronic) History of kidney disease (Chronic) History of CVA (cerebrovascular accident) without residual deficits (Chronic) Dyslipidemia (Chronic) HTN (hypertension) (Chronic) History of TIA (transient ischemic attack) (Chronic) GERD (gastroesophageal reflux disease) (Chronic) Osteoporosis (Chronic) Asthma (Chronic) Coronary artery disease (Chronic) Diaphragmatic hernia (Chronic) Meniere's disease (Chronic) Sciatica (Chronic) CKD (chronic kidney disease) stage 3, GFR 30-59 ml/min (Chronic) Surgical History H/O exploratory laparotomy (Chronic) 11/2018 History of right hemicolectomy (Chronic) 11/2018 History of carpal tunnel repair (Chronic) Status post cardiac catheterization (Chronic) Status post coronary artery stent placement (Chronic) Drug-eluting stent mid LAD Dr. Garces 04/01/18 History of section (Resolved) History of Milly fundoplication (Resolved) Family History Father Stroke Myocardial infarction Brother Ischemic heart disease Other Family history non-contributory Social History Preferred Language: Georgian Communication Ability: Effective Squeezer Operator Required: No Beliefs That Will Affect Care: None Current Living Situation: Spouse Feels Safe at Home: Yes Smoking Status: Never smoker Second Hand Exposure: No ; Hx Alcohol Use: No Hx Substance Use: No Review of Systems Review of Systems: All systems reviewed & are unremarkable except as noted in HPI & below Physical Exam Physical Exam: Constitutional: WD/WN, Elderly F, vitals as above, NAD, sitting up in bed, pleasant, conversing easily Head: Normocephalic, + traumatic with abrasion to chin, lower lip edema and ecchymosis from biting Eyes: PERRL, conjunctivae normal, anicteric sclerae ENMT: external ear and nose normal, oropharynx normal Neck: trachea midline, no thyromegaly normal visual inspection Respiratory: normal respiratory effort, lungs clear to auscultation, no wheeze, rales, rhonchi. Normal insp/exp effort, no accessory muscle use Cardiovascular: RRR, soft 1/6 SILVERIO noted RUSB, no edema Vessels: no JVD or carotid bruit Chest: normal inspection of chest Abdomen: normal bowel sounds, soft, nontender, no hepatosplenomegaly Musculoskeletal: RLE Knee effusion with significant ecchymosis, Immobilizer in place, LUE wrist dorsal ecchymosis and edema, R 3rd finger laceration placed in metal splint, no cyanosis or clubbing, Skin: no rashes, warm and dry normal turgor Neurologic: PERRL, EOMI, accommodation nl, no face palsy, no dysarthria CN's II-XI intact bilaterally and moves all extremities Psychiatric: A+Ox3, euthymic affect Lymphatic: no cervical or axillary lymphadenopathy : deferred Results & Data Vital Signs (Past 12 Hours) Vital Signs Temp Pulse Resp BP Pulse Ox 04/18/19 15:20 63 14 04/18/19 15:10 62 18 04/18/19 15:00 60 18 04/18/19 14:50 60 21 04/18/19 14:40 52 L 20 04/18/19 14:30 58 L 21 04/18/19 14:20 57 L 24 04/18/19 14:16 53 L 19 04/18/19 14:10 98 04/18/19 14:05 69 20 188/76 H 04/18/19 13:52 36.7 C 59 L 20 188/76 H 98 Laboratory Results Short CBC 04/18/19 Range/Units 14:27 WBC 7.98 (4.8-10.8) K/uL Hgb 13.6 (12.0-16.0) g/dL Hct 39.8 (37-47) % Plt Count 184 (130-400) K/uL BMP 04/18/19 14:27 Sodium 142 Potassium 4.2 Chloride 106 Carbon Dioxide 28 BUN 19 H Creatinine 0.82 Glucose 102 H Calcium 8.6 Cardiac Enzymes 04/18/19 04/18/19 Range/Units 14:27 17:10 Total Creatine Kinase 96 79 (26-192) U/L CK-MB (CK-2) 1.2 (0.5-3.6) ng/ml Troponin I 0.082 H* (0-0.045) ng/ml Liver Function 04/18/19 Range/Units 14:27 Total Bilirubin 1.0 (0.2-1) mg/dl AST 14 L (15-37) U/L ALT 14 (12-78) U/L Alkaline Phosphatase 71 (45-117) U/L Albumin 3.7 (3.4-5.0) gm/dl Urine 04/18/19 Range/Units 14:28 Urine Color Yellow Urine Appearance Clear (Clear) Urine pH 7.0 (4.5-7.5) Ur Specific [place] 1.010 (1.000-1.030) Urine Protein Negative (Negative) Urine Glucose (UA) Negative (Negative) Diagnostic Findings Finger Xray: IMPRESSION: No acute fracture, dislocation or radiopaque foreign body within the right third finger. Wrist Xray: IMPRESSION: Acute comminuted displaced distal left radial fracture with intra- articular extension and mild palmar tilt of the distal component. Pelvis Xray: IMPRESSION: Generalized degenerative change. No acute process. Knee Xray: IMPRESSION: 1. Possible acute nondisplaced patellar fracture. Marked prepatellar soft tissue swelling. 2. Small right knee joint effusion. Head CT: IMPRESSION: 1. No acute intracranial findings. 2. No calvarial fracture. Face CT: IMPRESSION: 1. No acute bony abnormality. 2. Premandibular soft tissue edema. 3. Several periapical abscesses and caries within the dentition as discussed. CXR: IMPRESSION: No acute cardiopulmonary findings. Cspine CT: IMPRESSION: No fractures within the cervical spine. Generalized degenerative disc change. Medications Administered Discontinued Medications Hydromorphone HCl (Dilaudid) 0.25 mg IV NOW STA Stop: 04/18/19 14:10 Last Admin: 04/18/19 15:00 Dose: 0.25 mg Documented by: [id number] Sodium Chloride (Nss) 500 mls @ 999 mls/hr IV .Q31M MAC Stop: 04/18/19 14:45 Last Infusion: 04/18/19 15:42 Dose: 0 mls/hr Documented by: [id number] Admin: 04/18/19 15:08 Dose: 999 mls/hr Documented by: [id number] Acetaminophen (Ofirmev) 1,000 mg in 100 mls @ 400 mls/hr IV NOW STA Stop: 04/18/19 14:43 Last Infusion: 04/18/19 15:09 Dose: 0 mls/hr Documented by: [id number] Admin: 04/18/19 14:45 Dose: 400 mls/hr Documented by: [id number] Cefazolin Sodium (Ancef 1000mg) 1,000 mg in 7.5 mls @ 2.5 mls/min IV NOW STA Stop: 04/18/19 16:16 Last Admin: 04/18/19 16:30 Dose: 2.5 mls/min Documented by: [id number] Lidocaine HCl (Buffered Lidocaine 1%) 20 ml INFIL NOW ONE Stop: 04/18/19 14:25 Last Admin: 04/18/19 15:07 Dose: 20 ml Documented by: [id number] Ondansetron HCl (Zofran) 4 mg IV NOW STA Stop: 04/18/19 14:14 Last Admin: 04/18/19 15:08 Dose: 4 mg Documented by: [id number] ECG Rhythm: sinus bradycardia Findings: + LBBB and + PVC Additional Comments: Appears unchanged from prior tracings Code Status & VTE Plan Code Status Full Code VTE Prophylaxis Plan VTE Prophylaxis will be ordered: Yes Supervising Physician Co-Signing Physician Notes Pt was seen and examined. Agreed with Catalina LICONA exam, assessment and plan. 83-year-old female who has significant PMH of CAD with history of MILENA to mid LAD 03/2018, mild COPD, hx of CVA/TIA w/o deficit, LOUIE on cpap, seronegative RA, senile osteoporosis, GERD, CKD-3, vitamin D deficiency, GERD who presents to the ED for mechanical fall while carrying grocery. CT cervical spine showed no fractures within the cervical spine. Left wrist xray showed acute comminuted displaced distal left radial fracture with intra-articular extension and mild palmar tilt of the distal component. Right Knee xray showed possible acute non displaced patellar fracture. Ortho on board recommended no surgical intervention for now. Will continue to wear splint for the right middle finger. Weightbearing as tolerated with a knee immobilizer in place for the right patella fracture. Continue pain control. PT/OT eval. Fall precaution. MD José Miguel (1) CAD (coronary artery disease), [place] coronary artery Associated angina: without angina [place] vs. transplanted heart: [place] heart Qualified Code(s): I25.10 - Atherosclerotic heart disease of [place] coronary artery without angina pectoris
--- NOTE | 2019-04-18 19:29 | Orthopedic Consultation ---
Date of Consultation April 18, 2019 Assessment & Plan (1) Laceration of right middle finger: With regards to her right middle finger, we will keep the bandage on until I see her in the office next week. She will remain in the splint as well. Present on Admission?: Yes (2) Closed fracture of right patella: With regards to her right knee, she can be weightbearing as tolerated with a knee immobilizer in place. I want her in the knee immobilizer at all times. She will likely be locked in full extension for 4 to 6 weeks. She can be weightbearing as tolerated. I will place her in a Alfonzo brace when I see her in the office in 1 week. Present on Admission?: Yes (3) Closed fracture of left distal radius: With regards to her left wrist, I will change the splint when I see her in the office next week. She will likely be in a long-arm coaptation splint for 3 to 4 weeks. We will then get her in a short arm splint for a couple of weeks. She is to be nonweightbearing with the left wrist. Present on Admission?: Yes History of Present Illness Reason for Consultation: Right middle finger laceration Left distal radius fracture Right nondisplaced patella fracture Attending Physician: Arian Garcia DO History of Present Illness Patient is a pleasant 83-year-old female who lives in apartment with her . She was carrying groceries earlier today when she tripped on the first step and fell. She sustained a laceration to her right middle finger and an injury to her left wrist and her right knee. She came to the emergency room. Radiographs demonstrated a nondisplaced patella fracture and a displaced left distal radius fracture. She also had a laceration on her right middle finger. The laceration was closed in the emergency room. The left wrist was placed in a coaptation splint. The right knee was placed in a knee immobilizer. She was then admitted to the hospitalist service. Orthopedics was consulted to evaluate and treat. Allergies Allergy/AdvReac Type Severity Reaction Status Date / Time Penicillins Allergy Mild RASH Verified 04/18/19 14:45 latex Allergy Unknown RASH Verified 04/18/19 14:45 niacin Allergy Unknown UNKNOWN Verified 04/18/19 14:45 metronidazole AdvReac Mild N/V Verified 04/18/19 14:45 Sulfa (Sulfonamide AdvReac Unknown . Verified 04/18/19 14:45 Antibiotics) tramadol AdvReac Unknown psycho Unverified 04/18/19 14:45 Home Medications Home Medications Medication Instructions Recorded Confirmed Type albuterol sulfate [Ventolin HFA] 2 puff INHALATION Q4H PRN 12/09/18 04/18/19 History amlodipine 2.5 mg PO QAM 12/09/18 04/18/19 History atenolol 25 mg PO QAM 12/09/18 04/18/19 History atorvastatin 40 mg PO HS 12/09/18 04/18/19 History cholecalciferol (vitamin D3) 1,000 unit PO QAM 12/09/18 04/18/19 History [Vitamin D3] clopidogrel 75 mg PO QAM 12/09/18 04/18/19 History cyanocobalamin (vitamin B-12) 1,000 mcg PO QAM 12/09/18 04/18/19 History [Vitamin B-12] escitalopram oxalate 5 mg PO QAM 12/09/18 04/18/19 History fluticasone propion-salmeterol 1 puff INHALATION BID PRN 12/09/18 04/18/19 History [Advair Diskus] hydroxychloroquine 400 mg PO HS 12/09/18 04/18/19 History isosorbide dinitrate 5 mg PO TID 12/09/18 04/18/19 History losartan 25 mg PO HS 12/09/18 04/18/19 History montelukast 10 mg PO HS 12/09/18 04/18/19 History nitroglycerin 0.3 mg SUBLINGUAL UD PRN 12/09/18 04/18/19 History olanzapine 2.5 mg PO HS 12/09/18 04/18/19 History omeprazole 20 mg PO BID 12/09/18 04/18/19 History triamcinolone acetonide 1 applic TOPICAL BID PRN 12/09/18 04/18/19 History aspirin 81 mg PO QAM 04/18/19 04/18/19 History Patient History Medical History CAD (coronary artery disease), [place] coronary artery (Chronic) Rheumatoid arthritis (Chronic) CKD (chronic kidney disease), stage III (Chronic) COPD (chronic obstructive pulmonary disease) (Chronic) Hypertension (Chronic) History of kidney disease (Chronic) History of CVA (cerebrovascular accident) without residual deficits (Chronic) Dyslipidemia (Chronic) HTN (hypertension) (Chronic) History of TIA (transient ischemic attack) (Chronic) GERD (gastroesophageal reflux disease) (Chronic) Osteoporosis (Chronic) Asthma (Chronic) Coronary artery disease (Chronic) Diaphragmatic hernia (Chronic) Meniere's disease (Chronic) Sciatica (Chronic) CKD (chronic kidney disease) stage 3, GFR 30-59 ml/min (Chronic) Surgical History H/O exploratory laparotomy (Chronic) 11/2018 History of right hemicolectomy (Chronic) 11/2018 History of carpal tunnel repair (Chronic) Status post cardiac catheterization (Chronic) Status post coronary artery stent placement (Chronic) Drug-eluting stent mid LAD Dr. Garces 04/01/18 History of section (Resolved) History of Milly fundoplication (Resolved) Family History Father Stroke Myocardial infarction Brother Ischemic heart disease Other Family history non-contributory Social History Preferred Language: Latvian Communication Ability: Effective Laundry Superintendent Required: No Beliefs That Will Affect Care: None Current Living Situation: Spouse Feels Safe at Home: Yes Smoking Status: Never smoker Second Hand Exposure: No ; Hx Alcohol Use: No Hx Substance Use: No Review of Systems Review of Systems: All systems reviewed & are unremarkable except as noted in HPI & below Physical Exam Musculoskeletal: On examination of her right hand she has a bandage over the right middle finger. There is a laceration around the area of the PIP joint. It is splinted and she has no range of motion at this time. Examination of her left wrist, there is a coaptation splint in place. She does have active motion of all of her fingers. She has good capillary refill. Examination of the right knee, there is a knee immobilizer in place. I do not see any breaks in the skin. She has active dorsiflexion and plantarflexion of her right ankle. Results & Data Vital Signs (Past 12 Hours) Vital Signs Temp Pulse Resp BP Pulse Ox 04/18/19 18:40 53 L 16 04/18/19 18:30 60 13 173/85 H 04/18/19 18:20 54 L 19 04/18/19 18:10 54 L 16 04/18/19 18:00 55 L 18 178/81 H 04/18/19 17:50 67 13 04/18/19 17:42 57 L 20 04/18/19 17:31 53 L 20 169/75 H 96 04/18/19 17:30 60 21 97 04/18/19 17:20 54 L 17 96 04/18/19 17:10 55 L 20 97 04/18/19 17:06 54 L 17 96 04/18/19 17:05 55 L 15 138/76 98 04/18/19 15:20 63 14 04/18/19 15:10 62 18 04/18/19 15:00 60 18 04/18/19 14:50 60 21 04/18/19 14:40 52 L 20 04/18/19 14:30 58 L 21 04/18/19 14:20 57 L 24 04/18/19 14:16 53 L 19 04/18/19 14:10 98 04/18/19 14:05 69 20 188/76 H 04/18/19 13:52 36.7 C 59 L 20 188/76 H 98 Diagnostic Findings X-rays of her right middle finger are negative X-rays of her left wrist do show a three-part comminuted intra-articular left distal radius fracture. There is moderate displacement. X-rays of the right knee do show a nondisplaced transverse fracture of the right patella. PG Care Time/CCT Total # of Minutes Spent Total Time Spent with Patient: Total time spent is greater than 50% in coordination of care (as documented) at patient's floor/unit and/or counseling patient:
[2019-04-18] MEDS ORDERED: ACETAMINOPHEN 325 MG TAB PO PRN (19:32)
[2019-04-18] MEDS ORDERED: NALOXONE HCL 0.4 MG/1 ML VIAL/CARP IV PRN (19:32)
[2019-04-18] MEDS ORDERED: HYDROmorphone INJ 0.5 MG/0.5 ML SYR IV PRN (19:32)
[2019-04-18] MEDS ORDERED: ALUMINUM/MAGNESIUM SUSP 30 ML UDC PO PRN (19:32)
[2019-04-18] MEDS ORDERED: POLYETHYLENE (MIRALAX) 17 GM PACK PO PRN (19:32)
[2019-04-18] MEDS ORDERED: BISACODYL 10 MG SUPP PR PRN (19:32)
[2019-04-18] MEDS ORDERED: MAGNESIUM HYDROXIDE SUSP 30 ML UDC PO PRN ×2 (19:32)
[2019-04-18] MEDS ORDERED: ONDANSETRON INJ 2 MG/ML 2 ML VIAL IV PRN (19:32)
[2019-04-18] MEDS ORDERED: SODIUM CHLORIDE 0.9% 1000ML 1,000 ML IV SCH (19:32)
[2019-04-18] MEDS: NEOMYCIN/POLYMYX/BACITR OINT 15 GM TUBE EXT SCH (20:16)
[2019-04-18] MEDS: HYDROXYCHLOROQUINE SULFATE 200 MG TAB PO SCH (20:49)
[2019-04-18] MEDS: OLANZAPINE 2.5 MG TAB PO SCH (20:49)
[2019-04-18] MEDS: ATORVASTATIN 40 MG TAB PO SCH (20:49)
[2019-04-18] MEDS: MONTELUKAST SODIUM 10 MG TABLET PO SCH (20:50)
[2019-04-18] MEDS: DOCUSATE SODIUM/SENNA 50/8.6MG TAB PO SCH (20:50)
[2019-04-18] MEDS: PANTOprazole 40 MG TAB PO SCH (20:50)
[2019-04-18] MEDS: LOSARTAN POTASSIUM 25 MG TAB PO SCH (20:51)
[2019-04-18] MEDS: ACETAMINOPHEN 325 MG TAB PO SCH ×2 (20:57→23:55)
--- NOTE | 2019-04-18 21:07 | Emergency Department Note ---
Entered by John Whittaker acting as a scribe for History of Present Illness General Chief complaint: Fall Stated complaint: fall/ facial injury, R hand lac, poss. 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 The patient states she was carrying groceries in when she fell right before going up the stairs. She reports she hit her head on the steps and her right knee on the ground. The patient notes she also fell on her left wrist which took most of her weight. She states she was able to walk to the ambulance and stand, both with assistance. Movement worsens her pain. The patient reports her tetanus is UTD. She states she is on Coumadin for a history of a CVA, three TIAs, and a stent placement. The patient denies neck pain, back pain, and chest pain. She currently does not want pain medication. Home Medications Home Medications Medication Instructions Recorded Confirmed Type albuterol sulfate [Ventolin HFA] 2 puff INHALATION Q4H PRN 12/09/18 04/18/19 History amlodipine 2.5 mg PO QAM 12/09/18 04/18/19 History atenolol 25 mg PO QAM 12/09/18 04/18/19 History atorvastatin 40 mg PO HS 12/09/18 04/18/19 History cholecalciferol (vitamin D3) 1,000 unit PO QAM 12/09/18 04/18/19 History [Vitamin D3] clopidogrel 75 mg PO QAM 12/09/18 04/18/19 History cyanocobalamin (vitamin B-12) 1,000 mcg PO QAM 12/09/18 04/18/19 History [Vitamin B-12] escitalopram oxalate 5 mg PO QAM 12/09/18 04/18/19 History fluticasone propion-salmeterol 1 puff INHALATION BID PRN 12/09/18 04/18/19 History [Advair Diskus] hydroxychloroquine 400 mg PO HS 12/09/18 04/18/19 History isosorbide dinitrate 5 mg PO TID 12/09/18 04/18/19 History losartan 25 mg PO HS 12/09/18 04/18/19 History montelukast 10 mg PO HS 12/09/18 04/18/19 History nitroglycerin 0.3 mg SUBLINGUAL UD PRN 12/09/18 04/18/19 History olanzapine 2.5 mg PO HS 12/09/18 04/18/19 History omeprazole 20 mg PO BID 12/09/18 04/18/19 History triamcinolone acetonide 1 applic TOPICAL BID PRN 12/09/18 04/18/19 History aspirin 81 mg PO QAM 04/18/19 04/18/19 History Allergies Allergy/AdvReac Type Severity Reaction Status Date / Time Penicillins Allergy Mild RASH Verified 04/18/19 14:45 latex Allergy Unknown RASH Verified 04/18/19 14:45 niacin Allergy Unknown UNKNOWN Verified 04/18/19 14:45 metronidazole AdvReac Mild N/V Verified 04/18/19 14:45 Sulfa (Sulfonamide AdvReac Unknown . Verified 04/18/19 14:45 Antibiotics) tramadol AdvReac Unknown psycho Unverified 04/18/19 14:45 Past Med/Surg History Medical History CAD (coronary artery disease), [place] coronary artery (Chronic) Rheumatoid arthritis (Chronic) CKD (chronic kidney disease), stage III (Chronic) COPD (chronic obstructive pulmonary disease) (Chronic) Hypertension (Chronic) History of kidney disease (Chronic) History of CVA (cerebrovascular accident) without residual deficits (Chronic) Dyslipidemia (Chronic) HTN (hypertension) (Chronic) History of TIA (transient ischemic attack) (Chronic) GERD (gastroesophageal reflux disease) (Chronic) Osteoporosis (Chronic) Asthma (Chronic) Coronary artery disease (Chronic) Diaphragmatic hernia (Chronic) Meniere's disease (Chronic) Sciatica (Chronic) CKD (chronic kidney disease) stage 3, GFR 30-59 ml/min (Chronic) Surgical History H/O exploratory laparotomy (Chronic) 11/2018 History of right hemicolectomy (Chronic) 11/2018 History of carpal tunnel repair (Chronic) Status post cardiac catheterization (Chronic) Status post coronary artery stent placement (Chronic) Drug-eluting stent mid LAD Dr. Garces 04/01/18 History of section (Resolved) History of Milly fundoplication (Resolved) Family History Father Stroke Myocardial infarction Brother Ischemic heart disease Other Family history non-contributory Social History Preferred Language: Fijian Communication Ability: Effective Glove Cleaner Required: No Beliefs That Will Affect Care: None Current Living Situation: Spouse Other Information That Helps Us Care for You: No Feels Safe at Home: Yes Safety Concerns: Feels Safe At This Time Smoking Status: Never smoker Second Hand Exposure: No ; Hx Alcohol Use: No Hx Substance Use: No Review of Systems See HPI for pertinent positives & negatives. and A total of 10 systems reviewed and were otherwise negative Physical Exam Vital Signs Vital Signs - 24 hr 04/20/19 15:20 04/20/19 15:41 Temperature 36.7 C Temperature Source Oral Pulse Rate [Right Finger] 54 L Respiratory Rate 16 Respiratory Effort / Characteristics Non-Labored Spontaneous Respiratory Depth Normal Respiratory Pattern Regular Blood Pressure [Right Arm] 109/66 Blood Pressure Mean [Right Arm] 80 Blood Pressure Position [Right Arm] Lying Pulse Oximetry 93 Oxygen Delivery Method Room Air Room Air GENERAL: Awake, alert, well-appearing, in no acute distress HENT: Normocephalic,. Oropharynx unremarkable. Contusion to jaw. EYES: Normal conjunctiva. Sclera non-icteric. NECK: Supple. No nuchal rigidity. FROM. No JVD. RESPIRATORY: Clear to auscultation. CARDIAC: Regular rate, normal rhythm. Extremities warm and well perfused. Pulses equal. ABDOMEN: Soft, non-distended. No tenderness to palpation. No rebound or guarding. No masses. RECTAL: Deferred. MUSCULOSKELETAL: Chest examination reveals no tenderness. The back is symmetrical on inspection without obvious abnormality. There is no CVA tenderness to palpation. No joint edema. UPPER EXTREMITIES: Left wrist has an obvious deformity. Neurovascularly intact at the tip of the fingers. 5cm, S-shaped laceration through the right middle finger that appears to be superficial and above the intermediate joint. LOWER EXTREMITIES: Calves are equal size bilaterally. The right knee is grossly swollen and neurovascularly intact at the right foot. NEURO: Normal sensorium. No sensory or motor deficits noted. SKIN: No rash or jaundice noted. Procedures Free Text Procedures Location: right middle finger Total length: 5 cm Complexity: complex Verbal consent was obtained after the risks and benefits were explained, including but not limited to bleeding, scarring, infection, pain, and bone/joint/nerve damage. At this time, the risks of the procedure are less than the risks of NOT performing the procedure. A time out was taken and the correct patient and site identified. The skin was prepped with Betadine. The target area was anesthetized with 8 ml of 1% lidocaine without epinephrine. Copious irrigation was performed using 500cc normal saline. The skin was re-prepped with Betadine and a sterile field set. The wound was explored for foreign bodies and none found. Examination revealed no injury to deep structures such as tendons, bone, or significant blood vessels. Debridement was not performed. The wound edges were approximated using 8 stitches, 4-0 simple interrupted nylon sutures. Hemostasis and excellent approximation was achieved. Antibacterial ointment and a sterile dressing applied. Detailed wound care instructions and signs and symptoms of infection reviewed with the patient. No complications and the patient tolerated the procedure well. Course 1406: Past medical records reviewed. The patient was evaluated in room C10. A complete history and physical examination was performed. 1551: Upon reevaluation, the patient is resting comfortably. I performed a laceration repair, see the procedure note for details. After performing a laceration I discussed the lab results and imaging results with the patient. She is in agreement with the treatment plan and hospitalist evaluation.. 1642: I discussed patient's case with Catalina Schmid PA-C, [facility] Hospitalist. She will evaluate the patient for further management and care Administered Medications Acetaminophen (Tylenol) 650 mg PO Q6 MAC Stop: 05/18/19 19:59 Last Admin: 04/21/19 05:43 Dose: 650 mg Documented by: [id number] Admin: 04/20/19 23:44 Dose: 650 mg Documented by: [id number] Admin: 04/20/19 17:44 Dose: 650 mg Documented by: [id number] Admin: 04/20/19 12:08 Dose: 650 mg Documented by: [id number] Admin: 04/20/19 05:50 Dose: 650 mg Documented by: [id number] Admin: 04/19/19 23:35 Dose: 650 mg Documented by: [id number] Admin: 04/19/19 18:05 Dose: 650 mg Documented by: [id number] Admin: 04/19/19 12:29 Dose: 650 mg Documented by: [id number] Admin: 04/19/19 05:08 Dose: 650 mg Documented by: [id number] Admin: 04/18/19 23:55 Dose: Not Given Documented by: [id number] Admin: 04/18/19 20:57 Dose: 650 mg Documented by: [id number] Amlodipine Besylate (Norvasc) 2.5 mg PO [facility] Stop: 05/19/19 08:59 Last Admin: 04/20/19 09:37 Dose: 2.5 mg Documented by: [id number] Admin: 04/19/19 09:28 Dose: 2.5 mg Documented by: [id number] Aspirin (Ecotrin Ectab) 81 mg PO [facility] Stop: 05/19/19 08:59 Last Admin: 04/20/19 09:37 Dose: 81 mg Documented by: [id number] Admin: 04/19/19 09:27 Dose: 81 mg Documented by: [id number] Atenolol (Tenormin) 25 mg PO [facility] Stop: 05/19/19 08:59 Last Admin: 04/20/19 09:38 Dose: 25 mg Documented by: [id number] Admin: 04/19/19 09:31 Dose: Not Given Documented by: [id number] Atorvastatin Calcium (Lipitor) 40 mg PO [facility] Stop: 05/18/19 20:59 Last Admin: 04/20/19 20:34 Dose: 40 mg Documented by: [id number] Admin: 04/19/19 20:41 Dose: 40 mg Documented by: [id number] Admin: 04/18/19 20:49 Dose: 40 mg Documented by: [id number] Clopidogrel Bisulfate (Plavix) 75 mg PO [facility] Stop: 05/19/19 08:59 Last Admin: 04/20/19 09:38 Dose: 75 mg Documented by: [id number] Admin: 04/19/19 09:28 Dose: 75 mg Documented by: [id number] Cyanocobalamin (Vitamin B-12) 1,000 mcg PO [facility] Stop: 05/19/19 08:59 Last Admin: 04/20/19 09:38 Dose: 1,000 mcg Documented by: [id number] Admin: 04/19/19 09:29 Dose: 1,000 mcg Documented by: [id number] Escitalopram Oxalate (Lexapro Tab) 5 mg PO QAM [facility] Stop: 05/19/19 08:59 Last Admin: 04/20/19 09:37 Dose: 5 mg Documented by: [id number] Admin: 04/19/19 09:27 Dose: 5 mg Documented by: [id number] Heparin Sodium (Porcine) (Heparin Sodium (Porcine)) 5,000 units SQ Q12 MAC Stop: 05/20/19 20:59 Last Admin: 04/20/19 20:42 Dose: 5,000 units Documented by: [id number] Cosigned by: [id number] Hydroxychloroquine Sulfate (Plaquenil) 400 mg PO [facility] Stop: 05/18/19 20:59 Last Admin: 04/20/19 20:35 Dose: 400 mg Documented by: [id number] Admin: 04/19/19 20:40 Dose: 400 mg Documented by: [id number] Admin: 04/18/19 20:49 Dose: 400 mg Documented by: [id number] Isosorbide Dinitrate (Isordil) 5 mg PO TID@0700,1200,1700 [facility] Stop: 05/19/19 06:59 Last Admin: 04/21/19 06:05 Dose: 5 mg Documented by: [id number] Admin: 04/20/19 16:42 Dose: 5 mg Documented by: [id number] Admin: 04/20/19 12:08 Dose: 5 mg Documented by: [id number] Admin: 04/20/19 05:50 Dose: 5 mg Documented by: [id number] Admin: 04/19/19 16:47 Dose: 5 mg Documented by: [id number] Admin: 04/19/19 12:29 Dose: 5 mg Documented by: [id number] Admin: 04/19/19 05:08 Dose: 5 mg Documented by: [id number] Losartan Potassium (Cozaar) 25 mg PO [facility] Stop: 05/18/19 20:59 Last Admin: 04/20/19 20:36 Dose: 25 mg Documented by: [id number] Admin: 04/19/19 20:39 Dose: 25 mg Documented by: [id number] Admin: 04/18/19 20:51 Dose: 25 mg Documented by: [id number] Montelukast Sodium (Singulair) 10 mg PO [facility] Stop: 05/18/19 20:59 Last Admin: 04/20/19 20:35 Dose: 10 mg Documented by: [id number] Admin: 04/19/19 20:40 Dose: 10 mg Documented by: [id number] Admin: 04/18/19 20:50 Dose: 10 mg Documented by: [id number] Neomycin/Polymyxin/Bacitracin (Neosporin Oint) 1 appln EXT DAILY MAC Stop: 05/18/19 19:31 Last Admin: 04/20/19 09:37 Dose: 1 appln Documented by: [id number] Admin: 04/19/19 09:34 Dose: 1 appln Documented by: [id number] Admin: 04/18/19 20:16 Dose: Not Given Documented by: [id number] Olanzapine (Zyprexa) 2.5 mg PO [facility] Stop: 05/18/19 20:59 Last Admin: 04/20/19 20:35 Dose: 2.5 mg Documented by: [id number] Admin: 04/19/19 20:40 Dose: 2.5 mg Documented by: [id number] Admin: 04/18/19 20:49 Dose: 2.5 mg Documented by: [id number] Oxycodone HCl (Roxicodone Immediate Rel) 5 mg PO Q4H PRN PRN Reason: MODERATE Pain (Scale 4,5,6) Stop: 05/02/19 19:31 Last Admin: 04/19/19 13:45 Dose: 5 mg Documented by: [id number] Pantoprazole Sodium (Protonix) 40 mg PO BID [facility] Stop: 05/18/19 20:59 Last Admin: 04/20/19 20:34 Dose: 40 mg Documented by: [id number] Admin: 04/20/19 09:38 Dose: 40 mg Documented by: [id number] Admin: 04/19/19 20:41 Dose: 40 mg Documented by: [id number] Admin: 04/19/19 09:28 Dose: 40 mg Documented by: [id number] Admin: 04/18/19 20:50 Dose: 40 mg Documented by: [id number] Senna/Docusate Sodium (Senokot S) 2 tab PO [facility] Stop: 05/18/19 20:59 Last Admin: 04/20/19 20:35 Dose: 2 tab Documented by: [id number] Admin: 04/19/19 20:40 Dose: 2 tab Documented by: [id number] Admin: 04/18/19 20:50 Dose: 2 tab Documented by: [id number] Vitamin D (Vitamin D3) 1,000 units PO QAM MAC Stop: 05/19/19 08:59 Last Admin: 04/20/19 09:39 Dose: 1,000 units Documented by: [id number] Admin: 04/19/19 09:30 Dose: 1,000 units Documented by: [id number] Discontinued Medications Hydromorphone HCl (Dilaudid) 0.25 mg IV NOW STA Stop: 04/18/19 14:10 Last Admin: 04/18/19 15:00 Dose: 0.25 mg Documented by: [id number] Sodium Chloride (Nss) 500 mls @ 999 mls/hr IV .Q31M MAC Stop: 04/18/19 14:45 Last Infusion: 04/18/19 15:42 Dose: 0 mls/hr Documented by: [id number] Admin: 04/18/19 15:08 Dose: 999 mls/hr Documented by: [id number] Acetaminophen (Ofirmev) 1,000 mg in 100 mls @ 400 mls/hr IV NOW STA Stop: 04/18/19 14:43 Last Infusion: 04/18/19 15:09 Dose: 0 mls/hr Documented by: [id number] Admin: 04/18/19 14:45 Dose: 400 mls/hr Documented by: [id number] Cefazolin Sodium (Ancef 1000mg) 1,000 mg in 7.5 mls @ 2.5 mls/min IV NOW STA Stop: 04/18/19 16:16 Last Admin: 04/18/19 16:30 Dose: 2.5 mls/min Documented by: [id number] Sodium Chloride (Nss 1000ml) 1,000 mls @ 80 mls/hr IV .[id number] MAC Stop: 04/19/19 08:01 Last Infusion: 04/19/19 08:39 Dose: 0 mls/hr Documented by: [id number] Infusion: 04/19/19 05:47 Dose: 80 mls/hr Documented by: [id number] Admin: 04/18/19 20:34 Dose: 80 mls/hr Documented by: [id number] Lidocaine HCl (Buffered Lidocaine 1%) 20 ml INFIL NOW ONE Stop: 04/18/19 14:25 Last Admin: 04/18/19 15:07 Dose: 20 ml Documented by: [id number] Ondansetron HCl (Zofran) 4 mg IV NOW STA Stop: 04/18/19 14:14 Last Admin: 04/18/19 15:08 Dose: 4 mg Documented by: [id number] Potassium Chloride (Klor-Con M10) 40 meq PO ONE ONE Stop: 04/19/19 08:46 Last Admin: 04/19/19 09:23 Dose: 40 meq Documented by: [id number] Medical Decision Making Differential Diagnosis Differential diagnoses include major intracranial, cervical, spinal, thoracic, abdominal, pelvic and neurologic injury. Fracture, contusion, sprain, strain, laceration, abrasions included as well. Medical Records Attestation: I reviewed the patient's medical records. Home Medications Current Medication List: was personally reviewed by me Laboratory Data Attestation: I reviewed the patient's lab results. Result diagrams: 04/20/19 06:37 04/20/19 06:37 Lab Results 04/18/19 04/18/19 04/18/19 Range/Units 14:27 14:27 14:27 WBC 7.98 (4.8-10.8) K/uL RBC 4.54 (4.2-5.4) M/uL Hgb 13.6 (12.0-16.0) g/dL Hct 39.8 (37-47) % MCV 87.7 (80-100) fL MCH 30.0 (25-34) pg MCHC 34.2 (32-36) g/dL RDW Std Deviation 42.5 (36.4-46.3) fL RDW Coeff of Josse 13.3 (11.5-14.5) % Plt Count 184 (130-400) K/uL MPV 10.1 (7.4-10.4) fL Immature Gran % (Auto) 0.1 % Neut % (Auto) 69.0 % Lymph % (Auto) 20.2 % [place] % (Auto) 9.3 % Eos % (Auto) 0.9 % Baso % (Auto) 0.5 % Immature Gran # (Auto) 0.01 (0.00-0.02) K/uL Neut # (Auto) 5.51 (1.4-6.5) K/uL Lymph # (Auto) 1.61 (1.2-3.4) K/uL [place] # (Auto) 0.74 H (0.11-0.59) K/uL Eos # (Auto) 0.07 (0-0.5) K/uL Baso # (Auto) 0.04 (0-0.2) K/uL PT 10.3 (9.0-12.0) Seconds INR 1.0 (0.9-1.1) Sodium 142 (136-145) mmol/L Potassium 4.2 (3.5-5.1) mmol/L Chloride 106 (98-107) mmol/L Carbon Dioxide 28 (21-32) mmol/L Anion Gap 8.0 (3-11) BUN 19 H (7-18) mg/dl Creatinine 0.82 (0.6-1.2) mg/dl Est Cr Clr Drug Dosing 44.9 ml/min Est GFR ( Amer) 76.7 Est GFR (Non-Af Amer) 66.2 BUN/Creatinine Ratio 23.7 H (10-20) Glucose 102 H (70-99) mg/dl Calcium 8.6 (8.5-10.1) mg/dl Magnesium (1.8-2.4) mg/dl Total Bilirubin 1.0 (0.2-1) mg/dl AST 14 L (15-37) U/L ALT 14 (12-78) U/L Alkaline Phosphatase 71 (45-117) U/L Total Creatine Kinase 96 (26-192) U/L CK-MB (CK-2) (0.5-3.6) ng/ml CK/CKMB % Calc (0-3.0) Troponin I (0-0.045) ng/ml Total Protein 7.4 (6.4-8.2) gm/dl Albumin 3.7 (3.4-5.0) gm/dl Globulin 3.7 (2.5-4.0) gm/dl Albumin/Globulin Ratio 1.0 (0.9-2) Urine Color Urine Appearance (Clear) Urine pH (4.5-7.5) Ur Specific [place] (1.000-1.030) Urine Protein (Negative) Urine Glucose (UA) (Negative) Urine Ketones (Negative) Urine Blood (Negative) Urine Nitrite (Negative) Urine Bilirubin (Negative) Urine Urobilinogen (Negative) Ur Leukocyte Esterase (Negative) Blood Type Antibody Screen 04/18/19 04/18/19 04/18/19 Range/Units 14:28 17:10 23:03 WBC (4.8-10.8) K/uL RBC (4.2-5.4) M/uL Hgb (12.0-16.0) g/dL Hct (37-47) % MCV (80-100) fL MCH (25-34) pg MCHC (32-36) g/dL RDW Std Deviation (36.4-46.3) fL RDW Coeff of Josse (11.5-14.5) % Plt Count (130-400) K/uL MPV (7.4-10.4) fL Immature Gran % (Auto) % Neut % (Auto) % Lymph % (Auto) % [place] % (Auto) % Eos % (Auto) % Baso % (Auto) % Immature Gran # (Auto) (0.00-0.02) K/uL Neut # (Auto) (1.4-6.5) K/uL Lymph # (Auto) (1.2-3.4) K/uL [place] # (Auto) (0.11-0.59) K/uL Eos # (Auto) (0-0.5) K/uL Baso # (Auto) (0-0.2) K/uL PT (9.0-12.0) Seconds INR (0.9-1.1) Sodium (136-145) mmol/L Potassium (3.5-5.1) mmol/L Chloride (98-107) mmol/L Carbon Dioxide (21-32) mmol/L Anion Gap (3-11) BUN (7-18) mg/dl Creatinine (0.6-1.2) mg/dl Est Cr Clr Drug Dosing ml/min Est GFR ( Amer) Est GFR (Non-Af Amer) BUN/Creatinine Ratio (10-20) Glucose (70-99) mg/dl Calcium (8.5-10.1) mg/dl Magnesium (1.8-2.4) mg/dl Total Bilirubin (0.2-1) mg/dl AST (15-37) U/L ALT (12-78) U/L Alkaline Phosphatase (45-117) U/L Total Creatine Kinase 79 (26-192) U/L CK-MB (CK-2) 1.2 (0.5-3.6) ng/ml CK/CKMB % Calc 1.5 (0-3.0) Troponin I 0.082 H* (0-0.045) ng/ml Total Protein (6.4-8.2) gm/dl Albumin (3.4-5.0) gm/dl Globulin (2.5-4.0) gm/dl Albumin/Globulin Ratio (0.9-2) Urine Color Yellow Urine Appearance Clear (Clear) Urine pH 7.0 (4.5-7.5) Ur Specific [place] 1.010 (1.000-1.030) Urine Protein Negative (Negative) Urine Glucose (UA) Negative (Negative) Urine Ketones Negative (Negative) Urine Blood Negative (Negative) Urine Nitrite Negative (Negative) Urine Bilirubin Negative (Negative) Urine Urobilinogen Negative (Negative) Ur Leukocyte Esterase Negative (Negative) Blood Type O Positive Antibody Screen NEGATIVE 04/18/19 04/19/19 04/19/19 Range/Units 23:03 05:24 05:24 WBC 7.52 (4.8-10.8) K/uL RBC 4.13 L (4.2-5.4) M/uL Hgb 11.9 L (12.0-16.0) g/dL Hct 36.2 L (37-47) % MCV 87.7 (80-100) fL MCH 28.8 (25-34) pg MCHC 32.9 (32-36) g/dL RDW Std Deviation 42.7 (36.4-46.3) fL RDW Coeff of Josse 13.3 (11.5-14.5) % Plt Count 152 (130-400) K/uL MPV 10.0 (7.4-10.4) fL Immature Gran % (Auto) % Neut % (Auto) % Lymph % (Auto) % [place] % (Auto) % Eos % (Auto) % Baso % (Auto) % Immature Gran # (Auto) (0.00-0.02) K/uL Neut # (Auto) (1.4-6.5) K/uL Lymph # (Auto) (1.2-3.4) K/uL [place] # (Auto) (0.11-0.59) K/uL Eos # (Auto) (0-0.5) K/uL Baso # (Auto) (0-0.2) K/uL PT (9.0-12.0) Seconds INR (0.9-1.1) Sodium 142 (136-145) mmol/L Potassium 3.1 L D (3.5-5.1) mmol/L Chloride 109 H (98-107) mmol/L Carbon Dioxide 27 (21-32) mmol/L Anion Gap 6.0 (3-11) BUN 14 (7-18) mg/dl Creatinine 0.66 (0.6-1.2) mg/dl Est Cr Clr Drug Dosing 55.8 ml/min Est GFR ( Amer) 94.7 Est GFR (Non-Af Amer) 81.7 BUN/Creatinine Ratio 21.9 H (10-20) Glucose 86 (70-99) mg/dl Calcium 8.1 L (8.5-10.1) mg/dl Magnesium (1.8-2.4) mg/dl Total Bilirubin (0.2-1) mg/dl AST (15-37) U/L ALT (12-78) U/L Alkaline Phosphatase (45-117) U/L Total Creatine Kinase (26-192) U/L CK-MB (CK-2) (0.5-3.6) ng/ml CK/CKMB % Calc (0-3.0) Troponin I 0.079 H* (0-0.045) ng/ml Total Protein (6.4-8.2) gm/dl Albumin (3.4-5.0) gm/dl Globulin (2.5-4.0) gm/dl Albumin/Globulin Ratio (0.9-2) Urine Color Urine Appearance (Clear) Urine pH (4.5-7.5) Ur Specific [place] (1.000-1.030) Urine Protein (Negative) Urine Glucose (UA) (Negative) Urine Ketones (Negative) Urine Blood (Negative) Urine Nitrite (Negative) Urine Bilirubin (Negative) Urine Urobilinogen (Negative) Ur Leukocyte Esterase (Negative) Blood Type Antibody Screen 04/19/19 04/20/19 04/20/19 Range/Units 05:24 06:37 06:37 WBC 7.75 (4.8-10.8) K/uL RBC 3.90 L (4.2-5.4) M/uL Hgb 11.3 L (12.0-16.0) g/dL Hct 34.2 L (37-47) % MCV 87.7 (80-100) fL MCH 29.0 (25-34) pg MCHC 33.0 (32-36) g/dL RDW Std Deviation 43.1 (36.4-46.3) fL RDW Coeff of Josse 13.4 (11.5-14.5) % Plt Count 142 (130-400) K/uL MPV 9.9 (7.4-10.4) fL Immature Gran % (Auto) % Neut % (Auto) % Lymph % (Auto) % [place] % (Auto) % Eos % (Auto) % Baso % (Auto) % Immature Gran # (Auto) (0.00-0.02) K/uL Neut # (Auto) (1.4-6.5) K/uL Lymph # (Auto) (1.2-3.4) K/uL [place] # (Auto) (0.11-0.59) K/uL Eos # (Auto) (0-0.5) K/uL Baso # (Auto) (0-0.2) K/uL PT (9.0-12.0) Seconds INR (0.9-1.1) Sodium 141 (136-145) mmol/L Potassium 3.6 D (3.5-5.1) mmol/L Chloride 108 H (98-107) mmol/L Carbon Dioxide 27 (21-32) mmol/L Anion Gap 6.0 (3-11) BUN 12 (7-18) mg/dl Creatinine 0.71 (0.6-1.2) mg/dl Est Cr Clr Drug Dosing 51.8 ml/min Est GFR ( Amer) 91.3 Est GFR (Non-Af Amer) 78.8 BUN/Creatinine Ratio 17.1 (10-20) Glucose 102 H (70-99) mg/dl Calcium 8.0 L (8.5-10.1) mg/dl Magnesium 1.9 (1.8-2.4) mg/dl Total Bilirubin (0.2-1) mg/dl AST (15-37) U/L ALT (12-78) U/L Alkaline Phosphatase (45-117) U/L Total Creatine Kinase (26-192) U/L CK-MB (CK-2) (0.5-3.6) ng/ml CK/CKMB % Calc (0-3.0) Troponin I 0.082 H* (0-0.045) ng/ml Total Protein (6.4-8.2) gm/dl Albumin (3.4-5.0) gm/dl Globulin (2.5-4.0) gm/dl Albumin/Globulin Ratio (0.9-2) Urine Color Urine Appearance (Clear) Urine pH (4.5-7.5) Ur Specific [place] (1.000-1.030) Urine Protein (Negative) Urine Glucose (UA) (Negative) Urine Ketones (Negative) Urine Blood (Negative) Urine Nitrite (Negative) Urine Bilirubin (Negative) Urine Urobilinogen (Negative) Ur Leukocyte Esterase (Negative) Blood Type Antibody Screen Imaging Data Radiologist's Impression: Radiology results as stated below per my review and the radiologist's interpretation: CT cervical spine wo con CT DOSE: HISTORY: Trauma. Pain. Pt c/o fall TECHNIQUE: Multiaxial CT images of the cervical spine were performed and reformatted in the sagittal and coronal plane without the use of contrast. A dose lowering technique was utilized adhering to the principles of ALARA. COMPARISON: None. FINDINGS: No fractures. No subluxation. Prevertebral soft tissues and the C1-C2 interval are intact. No pneumothorax. General degenerative disc change. Osteopenia. IMPRESSION: No fractures within the cervical spine. Generalized degenerative disc change. The above report was generated using voice recognition software. It may contain grammatical, syntax or spelling errors. Electronically signed by: Sudhir Loya M.D. 04/18/2019 3:[address] facial bones wo con CT DOSE: 882.13 mGy.cm HISTORY: Trauma. Pain. Pt c/o fall TECHNIQUE: Multiaxial CT images of the maxillofacial region were performed and reformatted in the coronal plane without the use of contrast. A dose lowering technique was utilized adhering to the principles of ALARA. COMPARISON: None. FINDINGS: The visualized cervical spine, skull base, pterygoid plates, nasal bones, lamina papyracea, orbital floors, mandible, and zygomatic arches are intact. No fractures. The orbits are unremarkable. There are findings of the mandibular soft tissue edema. Several periapical abscesses and caries are identified involving the dentition primarily of the maxilla. There are hyperplastic changes the nasal turbinates. IMPRESSION: 1. No acute bony abnormality. 2. Premandibular soft tissue edema. 3. Several periapical abscesses and caries within the dentition as discussed. The above report was generated using voice recognition software. It may contain grammatical, syntax or spelling errors. Electronically signed by: Sudhir Loya M.D. 04/18/2019 3:50 PM XR chest 1V portable CLINICAL HISTORY: Fall. COMPARISON STUDY: Chest radiograph December 09, 2018. FINDINGS: There is no pneumothorax or pleural effusion. Skinfold projects over the left hemithorax. Cardiomediastinal silhouette is stable. No airspace opacities are identified. There is no evidence for pulmonary edema. IMPRESSION: No acute cardiopulmonary findings. Electronically signed by: Mehdi Ibarra M.D. 04/18/2019 3:21 PM XR knee RT 2V routine CLINICAL HISTORY: Right knee pain following fall. COMPARISON: None FINDINGS: A small right knee joint effusion is noted. There is marked prepatellar soft tissue swelling. There is a possible acute nondisplaced p atellar fracture. No additional fractures are noted. A sclerotic lesion within the distal right femur is likely benign. There is extensive vascular calcification. Mild right knee osteoarthrosis present. IMPRESSION: 1. Possible acute nondisplaced patellar fracture. Marked prepatellar soft tissue swelling. 2. Small right knee joint effusion. Electronically signed by: Mehdi Ibarra M.D. 04/18/2019 3:16 PM XR pelvis 1-2V routine CLINICAL HISTORY: Pt c/o fall trauma. Pain. COMPARISON: None. DISCUSSION: Moderate narrowing of the hip joint spaces bilaterally. No evidence for fracture or dislocation. No evidence for acetabular protrusion. There is no evidence for soft tissue swelling. IMPRESSION: Generalized degenerative change. No acute process. The above report was generated using voice recognition software. It may contain grammatical, syntax or spelling errors. Electronically signed by: Sudhir Loya M.D. 04/18/2019 3:19 PM XR wrist LT min 3V routine CLINICAL HISTORY: Left wrist pain following fall. COMPARISON: None FINDINGS: No acute carpal bone fracture is noted. 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 Note is made of an acute comminuted mildly displaced angulated distal left radial fracture with intra-articular extension. There is mild palmar tilt of the distal component. IMPRESSION: Acute comminuted displaced distal left radial fracture with intra- articular extension and mild palmar tilt of the distal component. Electronically signed by: Mehdi Ibarra M.D. 04/18/2019 3:[address] OF THE HEAD WITHOUT CONTRAST CLINICAL HISTORY: Fall. COMPARISON STUDY: No previous studies for comparison. TECHNIQUE: Helical axial images of the head were obtained without IV contrast. Automated exposure control was utilized for the study. A dose lowering technique was utilized adhering to the principles of ALARA. FINDINGS: No acute intracranial hemorrhage, midline shift or mass effect is present. The ventricular system is unremarkable. The basilar cisterns are pa tent. No extra-axial collections are present. There are no findings to suggest acute dural sinus thrombosis or acute territorial infarct. No significant calvarial abnormalities are present. Visualized portions of the sinuses and mastoid air cells are clear. IMPRESSION: 1. No acute intracranial findings. 2. No calvarial fracture. Electronically signed by: Mehdi Ibarra M.D. 04/18/2019 3:51 PM XR finger RT min 2V CLINICAL HISTORY: Right middle finger laceration. COMPARISON: None FINDINGS: Bandage on the right third finger is noted. There is no acute fracture or radiopaque foreign body. Mild osteoarthritis is noted within the articulations of the right third finger. Alignment is anatomic. IMPRESSION: No acute fracture, dislocation or radiopaque foreign body within the right third finger. Electronically signed by: Mehdi Ibarra M.D. 04/18/2019 3:18 PM ECG Data Attestation: I personally reviewed and interpreted this ECG as follows: Indication: other (trauma) Rate (beats per minute): 56 Rhythm: sinus bradycardia Findings: + PVC and + RBBB; no ST depression, no ST elevation and no acute ischemic change MDM Narrative This is an 83-year-old female who presents emergency department complaining of a fall. Patient has a contusion to her chin. She also has a laceration to her left middle finger. I am concerned that this is open therefore the patient was given Ancef. The laceration was repaired as above. Her left wrist is deformed. I did speak with the orthopedic PA on-call about the patient's middle finger, left wrist as well as her right knee fracture. I do not feel this candidate can be safely discharged home so recommended admission. Patient was in agreement with the treatment plan. Impression & Plan Fall, Fracture of wrist, Finger laceration, Fracture, patella Discharge Plan Visit Data *Final* Discharge Date/Time: 04/18/19 18:54 Chief Complaint: Fall Stated Complaint: fall/ facial injury, R hand lac, poss. L wrist fx ED Provider: Heber Romero Discharge Problem: Fall, Fracture of wrist, Finger laceration, Fracture, patella Patient Disposition: Admitted As Inpatient Discharge Instructions Interventions: ED Discharge Assessment Last Done: 04/18/19 18:54 The scribe's documentation has been prepared under my direction and personally reviewed by me in its entirety. I confirm that the note above accurately reflects all work, treatment, procedures, and medical decision making performed by me.
[2019-04-19] MEDS: ISOSORBIDE DINITRATE 5 MG TAB PO SCH ×3 (05:08→16:47)
[2019-04-19] MEDS: ACETAMINOPHEN 325 MG TAB PO SCH ×4 (05:08→23:35)
[2019-04-19 05:46] LABS: Hematocrit (blood only) 36.2 % (37-47); Hemoglobin 11.9 g/dL (12.0-16.0); Mean Corpuscular Hemoglobin 28.8 pg (25-34); Mean Corpuscular Hgb Conc 32.9 g/dL (32-36); Mean Corpuscular Volume 87.7 fL (80-100); Platelet Count 152 K/uL (130-400); RDW Coefficient of Variation 13.3 % (11.5-14.5); RDW Standard Deviation 42.7 fL (36.4-46.3); Red Blood Count 4.13 M/uL (4.2-5.4); White Blood Count 7.52 K/uL (4.8-10.8)
[2019-04-19 06:20] LABS: BUN Creatinine Ratio 21.9 (10-20); Calcium 8.1 mg/dl (8.5-10.1); Creatinine Clr Calc Pharmacy 55.8 ml/min; Est GFR (African American) 94.7; Est GFR (Non-African American) 81.7; Potassium 3.1 mmol/L (3.5-5.1)
[2019-04-19] MEDS ORDERED: POTASSIUM CHLORIDE 10 MEQ TABCR PO ONE (08:45)
[2019-04-19] MEDS: ESCITALOPRAM OXALATE 10 MG TAB PO SCH (09:27)
[2019-04-19] MEDS: ASPIRIN 81 MG ECTAB PO SCH (09:27)
[2019-04-19] MEDS: CLOPIDOGREL BISULFATE 75 MG TAB PO SCH (09:28)
[2019-04-19] MEDS: AMLODIPINE BESYLATE 5 MG TAB PO SCH (09:28)
[2019-04-19] MEDS: PANTOprazole 40 MG TAB PO SCH ×2 (09:28→20:41)
[2019-04-19] MEDS: CYANOCOBALAMIN 500 MCG TABLET (VITAMIN B-12) PO SCH (09:29)
[2019-04-19] MEDS: CHOLECALCIFEROL 1,000 UNITS TAB PO SCH (09:30)
[2019-04-19] MEDS: ATENOLOL 25 MG TABLET PO SCH (09:31)
[2019-04-19] MEDS: NEOMYCIN/POLYMYX/BACITR OINT 15 GM TUBE EXT SCH (09:34)
[2019-04-19] MEDS: OXYCODONE HCL IR 5 MG TAB (IMMEDIATE RELEASE) PO PRN (13:45)
--- NOTE | 2019-04-19 17:52 | Hospitalist Progress Note ---
Date of Service April 19, 2019 Assessment & Plan (1) Fall (on) (from) other stairs and steps, initial encounter: (2) Closed fracture of left distal radius: (3) Closed fracture of right patella: Patient is an 83 yr female with H/O CAD S/P MILENA to mid LAD 03/2018, mild COPD, hx of CVA/TIA w/o deficit, LOUIE on cpap, seronegative RA, senile osteoporosis, GERD, CKD-3, vitamin D deficiency, GERD who presents to [facility] ED after suffering mechanical fall. Mechanical Fall Nondisplaced R Patellar Fracture Left comminuted distal radial fx with intraarticular involvement Right 3rd finger laceration Weightbearing as tolerated Pain control Conservative management Appreciate orthopedics input PT OT May need rehab placement For right patella--locked in full extension for 4 to 6 weeks For left wrist--long-arm coaptation splint for 3 to 4 weeks Needs follow-up with orthopedics upon discharge in 1 week (4) Laceration of right middle finger: s/p 8 sutures placed Continue wound care (5) Elevated troponin: Chronic troponin elevation troponin H/O CAD Last echo 04/2018 EF 55-60%, AV sclerosis, trace MR/TR Denies any chest pain, shortness of breath (6) CAD (coronary artery disease), [place] coronary artery: H/O CAD S/P MILENA to mid LAD 03/2018 continue ASA, plavix, statin, atenolol, losartan, imdur (7) Hypertension: BP stable continue amlodipine, atenolol, losartan, imdur monitor BP (8) History of CVA (cerebrovascular accident) without residual deficits: continue ASA, Statin (9) CKD (chronic kidney disease) stage 3, GFR 30-59 ml/min: Cr at baseline Monitor renal function (10) Dyslipidemia: continue statin (11) Periapical abscess: asymptomatic recommend dental and periodontal referral as outpatient (12) Seronegative rheumatoid arthritis: continue hydroxychloroquine (13) Osteoporosis: continue vit D supplementation Receives Reclast (14) LOUIE on CPAP: cpap at HS (15) DVT prophylaxis: SCD/TEDS for now Disposition: May needs Rehab placement Follow up: PCP Dr. Vargas, Orthopedics, Dental surgeon upon discharge Subjective Patient is seen and examined at bedside Complains of pain over right knee, left wrist Denies any chest pain, shortness of breath, dizziness, nausea, abdominal pain Family at bedside Offers no other complaints Review of Systems Review of Systems: All systems reviewed & are unremarkable except as noted in HPI & below Physical Exam 2 Physical Exam: Physical Exam: Vitals signs as noted above General Appearance:Moderately built and nourished, no apparent distress Head: normocephalic, Echymosis of chin Eyes: normal inspection, EOMI, PERRL Neck: supple, Trachea midline Respiratory/Chest: Normal breath sounds, CTA, No accessory muscle use Cardiovascular: S1, S2, + murmur Abdomen/GI:Soft, Non tender, Bowel sounds present Extremities/Musculoskelatal:normal inspection, no edema, right middle finger bandage, left wrist splint, R knee immobilizer Neurologic/Psych:AAOX3, grossly no focal neurological deficits Skin: normal color, warm Results & Data Vital Signs (Past 12 Hours) Vital Signs Temp Pulse Pulse Resp BP Pulse Ox 04/19/19 15:33 37.1 C 88 17 146/75 H 95 04/19/19 07:35 36.6 C 56 L 14 144/66 H 96 Laboratory Results Short CBC 04/19/19 Range/Units 05:24 WBC 7.52 (4.8-10.8) K/uL Hgb 11.9 L (12.0-16.0) g/dL Hct 36.2 L (37-47) % Plt Count 152 (130-400) K/uL BMP 04/19/19 05:24 Sodium 142 Potassium 3.1 L D Chloride 109 H Carbon Dioxide 27 BUN 14 Creatinine 0.66 Glucose 86 Calcium 8.1 L Cardiac Enzymes 04/18/19 04/18/19 04/19/19 Range/Units 17:10 23:03 05:24 Total Creatine Kinase 79 (26-192) U/L CK-MB (CK-2) 1.2 (0.5-3.6) ng/ml Troponin I 0.082 H* 0.079 H* 0.082 H* (0-0.045) ng/ml (1) CAD (coronary artery disease), [place] coronary artery [place] vs. transplanted heart: [place] heart Associated angina: without angina Qualified Code(s): I25.10 - Atherosclerotic heart disease of [place] coronary artery without angina pectoris
[2019-04-19] MEDS: LOSARTAN POTASSIUM 25 MG TAB PO SCH (20:39)
[2019-04-19] MEDS: OLANZAPINE 2.5 MG TAB PO SCH (20:40)
[2019-04-19] MEDS: MONTELUKAST SODIUM 10 MG TABLET PO SCH (20:40)
[2019-04-19] MEDS: HYDROXYCHLOROQUINE SULFATE 200 MG TAB PO SCH (20:40)
[2019-04-19] MEDS: DOCUSATE SODIUM/SENNA 50/8.6MG TAB PO SCH (20:40)
[2019-04-19] MEDS: ATORVASTATIN 40 MG TAB PO SCH (20:41)
[2019-04-20] MEDS: ACETAMINOPHEN 325 MG TAB PO SCH ×4 (05:50→23:44)
[2019-04-20] MEDS: ISOSORBIDE DINITRATE 5 MG TAB PO SCH ×3 (05:50→16:42)
[2019-04-20 07:02] LABS: Hematocrit (blood only) 34.2 % (37-47); Hemoglobin 11.3 g/dL (12.0-16.0); Mean Corpuscular Volume 87.7 fL (80-100); Mean Platelet Volume 9.9 fL (7.4-10.4); Platelet Count 142 K/uL (130-400); RDW Coefficient of Variation 13.4 % (11.5-14.5); RDW Standard Deviation 43.1 fL (36.4-46.3); White Blood Count 7.75 K/uL (4.8-10.8)
[2019-04-20 07:30] LABS: BUN Creatinine Ratio 17.1 (10-20); Creatinine Clr Calc Pharmacy 51.8 ml/min; Est GFR (African American) 91.3; Est GFR (Non-African American) 78.8; Magnesium 1.9 mg/dl (1.8-2.4); Potassium 3.6 mmol/L (3.5-5.1)
[2019-04-20] MEDS: AMLODIPINE BESYLATE 5 MG TAB PO SCH (09:37)
[2019-04-20] MEDS: ESCITALOPRAM OXALATE 10 MG TAB PO SCH (09:37)
[2019-04-20] MEDS: NEOMYCIN/POLYMYX/BACITR OINT 15 GM TUBE EXT SCH (09:37)
[2019-04-20] MEDS: ASPIRIN 81 MG ECTAB PO SCH (09:37)
[2019-04-20] MEDS: ATENOLOL 25 MG TABLET PO SCH (09:38)
[2019-04-20] MEDS: CYANOCOBALAMIN 500 MCG TABLET (VITAMIN B-12) PO SCH (09:38)
[2019-04-20] MEDS: CLOPIDOGREL BISULFATE 75 MG TAB PO SCH (09:38)
[2019-04-20] MEDS: PANTOprazole 40 MG TAB PO SCH ×2 (09:38→20:34)
[2019-04-20] MEDS: CHOLECALCIFEROL 1,000 UNITS TAB PO SCH (09:39)
--- NOTE | 2019-04-20 17:07 | Hospitalist Progress Note ---
Date of Service April 20, 2019 Assessment & Plan (1) Fall (on) (from) other stairs and steps, initial encounter: (2) Closed fracture of left distal radius: (3) Closed fracture of right patella: Patient is an 83 yr female with H/O CAD S/P MILENA to mid LAD 03/2018, mild COPD, hx of CVA/TIA w/o deficit, LOUIE on cpap, seronegative RA, senile osteoporosis, GERD, CKD-3, vitamin D deficiency, GERD who presents to [facility] ED after suffering mechanical fall. Mechanical Fall Nondisplaced R Patellar Fracture Left comminuted distal radial fx with intraarticular involvement Right 3rd finger laceration Weightbearing as tolerated Pain control Conservative management Appreciate orthopedics input PT OT May need rehab placement For right patella--locked in full extension for 4 to 6 weeks For left wrist--long-arm coaptation splint for 3 to 4 weeks Needs follow-up with orthopedics upon discharge in 1 week Waiting for rehab placement Case management following (4) Laceration of right middle finger: s/p 8 sutures placed Continue wound care (5) Elevated troponin: Chronic troponin elevation troponin H/O CAD Last echo 04/2018 EF 55-60%, AV sclerosis, trace MR/TR Denies any chest pain, shortness of breath (6) CAD (coronary artery disease), [place] coronary artery: H/O CAD S/P MILENA to mid LAD 03/2018 continue ASA, plavix, statin, atenolol, losartan, imdur (7) Hypertension: continue amlodipine, atenolol, losartan, imdur monitor BP (8) History of CVA (cerebrovascular accident) without residual deficits: continue ASA, Statin (9) CKD (chronic kidney disease) stage 3, GFR 30-59 ml/min: Cr at baseline Monitor renal function (10) Dyslipidemia: continue statin (11) Periapical abscess: asymptomatic recommend dental and periodontal referral as outpatient (12) Seronegative rheumatoid arthritis: continue hydroxychloroquine (13) Osteoporosis: continue vit D supplementation Receives Reclast (14) LOUIE on CPAP: CPAP QHS (15) DVT prophylaxis: Heparin SQ Code Status Full Code Disposition: Needs Rehab placement Follow up: PCP Dr. Vargas, Orthopedics, Dental surgeon upon discharge Subjective Patient is seen and examined at bedside No new complaints Pain is controlled Denies any chest pain, shortness of breath, dizziness, nausea, abdominal pain Waiting for placement Review of Systems Review of Systems: All systems reviewed & are unremarkable except as noted in HPI & below Physical Exam Physical Exam: Physical Exam: Vitals signs as noted above General Appearance:Moderately built and nourished, no apparent distress Head: normocephalic, Echymosis of chin Eyes: normal inspection, EOMI, PERRL Neck: supple, Trachea midline Respiratory/Chest: Normal breath sounds, CTA Cardiovascular: S1, S2, + murmur Abdomen/GI:Soft, Non tender, Bowel sounds present Extremities/Musculoskelatal:normal inspection, no edema, right middle finger bandage, left wrist splint, R knee immobilizer Neurologic/Psych:AAOX3, grossly no focal neurological deficits Skin: normal color, warm Results & Data Vital Signs (Past 12 Hours) Vital Signs Temp Pulse Pulse Resp BP Pulse Ox 04/20/19 15:41 36.7 C 54 L 16 109/66 93 04/20/19 06:00 36.4 C L 60 20 113/65 92 Laboratory Results Short CBC 04/20/19 Range/Units 06:37 WBC 7.75 (4.8-10.8) K/uL Hgb 11.3 L (12.0-16.0) g/dL Hct 34.2 L (37-47) % Plt Count 142 (130-400) K/uL BMP 04/20/19 06:37 Sodium 141 Potassium 3.6 D Chloride 108 H Carbon Dioxide 27 BUN 12 Creatinine 0.71 Glucose 102 H Calcium 8.0 L (1) CAD (coronary artery disease), [place] coronary artery [place] vs. transplanted heart: [place] heart Associated angina: without angina Qualified Code(s): I25.10 - Atherosclerotic heart disease of [place] coronary artery without angina pectoris
[2019-04-20] MEDS: ATORVASTATIN 40 MG TAB PO SCH (20:34)
[2019-04-20] MEDS: DOCUSATE SODIUM/SENNA 50/8.6MG TAB PO SCH (20:35)
[2019-04-20] MEDS: MONTELUKAST SODIUM 10 MG TABLET PO SCH (20:35)
[2019-04-20] MEDS: OLANZAPINE 2.5 MG TAB PO SCH (20:35)
[2019-04-20] MEDS: HYDROXYCHLOROQUINE SULFATE 200 MG TAB PO SCH (20:35)
[2019-04-20] MEDS: LOSARTAN POTASSIUM 25 MG TAB PO SCH (20:36)
[2019-04-20] MEDS: HEPARIN SOD 5,000 UNIT/0.5 ML VIAL SQ SCH (20:42)
[2019-04-21] MEDS: ACETAMINOPHEN 325 MG TAB PO SCH ×2 (05:43→10:55)
[2019-04-21] MEDS: ISOSORBIDE DINITRATE 5 MG TAB PO SCH ×3 (06:05→17:32)
[2019-04-21 08:37] LABS: BUN Creatinine Ratio 23.1 (10-20); Calcium 8.3 mg/dl (8.5-10.1); Creatinine Clr Calc Pharmacy 44.3 ml/min; Est GFR (African American) 75.6; Est GFR (Non-African American) 65.2; Potassium 3.9 mmol/L (3.5-5.1)
[2019-04-21] MEDS: ESCITALOPRAM OXALATE 10 MG TAB PO SCH (09:08)
[2019-04-21] MEDS: CHOLECALCIFEROL 1,000 UNITS TAB PO SCH (09:08)
[2019-04-21] MEDS: CYANOCOBALAMIN 500 MCG TABLET (VITAMIN B-12) PO SCH (09:08)
[2019-04-21] MEDS: PANTOprazole 40 MG TAB PO SCH ×2 (09:08→20:30)
[2019-04-21] MEDS: CLOPIDOGREL BISULFATE 75 MG TAB PO SCH (09:08)
[2019-04-21] MEDS: NEOMYCIN/POLYMYX/BACITR OINT 15 GM TUBE EXT SCH (09:09)
[2019-04-21] MEDS: AMLODIPINE BESYLATE 5 MG TAB PO SCH (09:09)
[2019-04-21] MEDS: ATENOLOL 25 MG TABLET PO SCH (09:09)
[2019-04-21] MEDS: HEPARIN SOD 5,000 UNIT/0.5 ML VIAL SQ SCH ×2 (09:12→20:31)
[2019-04-21] MEDS: ASPIRIN 81 MG ECTAB PO SCH (10:54)
[2019-04-21] MEDS ORDERED: BENZOCAINE 20% (ORAJEL) 11.9 GM TUBE MT PRN (14:14)
--- NOTE | 2019-04-21 19:31 | Hospitalist Progress Note ---
Date of Service April 21, 2019 Assessment & Plan (1) Fall (on) (from) other stairs and steps, initial encounter: (2) Closed fracture of left distal radius: (3) Closed fracture of right patella: Patient is an 83 yr female with H/O CAD S/P MILENA to mid LAD 03/2018, mild COPD, hx of CVA/TIA w/o deficit, LOUIE on cpap, seronegative RA, senile osteoporosis, GERD, CKD-3, vitamin D deficiency, GERD who presents to [facility] ED after suffering mechanical fall. Mechanical Fall Nondisplaced R Patellar Fracture Left comminuted distal radial fx with intraarticular involvement Right 3rd finger laceration Weightbearing as tolerated Pain is controlled Conservative management Appreciate orthopedics input PT OT May need rehab placement For right patella--locked in full extension for 4 to 6 weeks For left wrist--long-arm coaptation splint for 3 to 4 weeks Needs follow-up with orthopedics upon discharge in 1 week Plan to discharge to SNF when accepted Case management working on placement (4) Laceration of right middle finger: s/p 8 sutures placed Continue wound care (5) Elevated troponin: Chronic troponin elevation troponin H/O CAD Last echo 04/2018 EF 55-60%, AV sclerosis, trace MR/TR Denies any chest pain, shortness of breath (6) CAD (coronary artery disease), [place] coronary artery: H/O CAD S/P MILENA to mid LAD 03/2018 continue ASA, plavix, statin, atenolol, losartan, imdur (7) Hypertension: continue amlodipine, atenolol, losartan, imdur monitor BP (8) History of CVA (cerebrovascular accident) without residual deficits: continue ASA, Statin (9) CKD (chronic kidney disease) stage 3, GFR 30-59 ml/min: Cr at baseline Monitor renal function (10) Dyslipidemia: continue statin (11) Periapical abscess: asymptomatic recommend dental and periodontal referral as outpatient (12) Seronegative rheumatoid arthritis: continue hydroxychloroquine (13) Osteoporosis: continue vit D supplementation Receives Reclast (14) LOUIE on CPAP: CPAP QHS (15) DVT prophylaxis: Heparin SQ Code Status Full Code Disposition: Waiting for rehab placement Follow up: PCP Dr. Vargas, Orthopedics, Dental surgeon upon discharge Subjective Patient is seen and examined at bedside Leg pain is improving Left shoulder pain decreased Denies any chest pain, shortness of breath, dizziness, nausea, abdominal pain Waiting for placement Family at bedside Review of Systems Review of Systems: All systems reviewed & are unremarkable except as noted in HPI & below Physical Exam Physical Exam: Physical Exam: Vitals signs as noted above General Appearance:Moderately built and nourished, no apparent distress Head: normocephalic, Echymosis of chin Eyes: normal inspection, EOMI, PERRL Neck: supple, Trachea midline Respiratory/Chest: Normal breath sounds, CTA Cardiovascular: S1, S2, + murmur Abdomen/GI:Soft, Non tender, Bowel sounds present Extremities/Musculoskelatal:normal inspection, no edema, right middle finger bandage, left wrist splint, R knee immobilizer Neurologic/Psych:AAOX3, grossly no focal neurological deficits Skin: normal color, warm Results & Data Vital Signs (Past 12 Hours) Vital Signs Temp Pulse Pulse Resp BP Pulse Ox 04/21/19 15:43 36.3 C L 55 L 17 137/77 96 04/21/19 08:19 36.6 C 56 L 20 114/58 L 95 Laboratory Results [facility] 04/21/19 07:31 Sodium 142 Potassium 3.9 Chloride 109 H Carbon Dioxide 28 BUN 19 H D Creatinine 0.83 Glucose 99 Calcium 8.3 L (1) CAD (coronary artery disease), [place] coronary artery [place] vs. transplanted heart: [place] heart Associated angina: without angina Qualified Code(s): I25.10 - Atherosclerotic heart disease of [place] coronary artery without angina pectoris
[2019-04-21] MEDS: HYDROXYCHLOROQUINE SULFATE 200 MG TAB PO SCH (20:28)
[2019-04-21] MEDS: ATORVASTATIN 40 MG TAB PO SCH (20:28)
[2019-04-21] MEDS: MONTELUKAST SODIUM 10 MG TABLET PO SCH (20:29)
[2019-04-21] MEDS: LOSARTAN POTASSIUM 25 MG TAB PO SCH (20:29)
[2019-04-21] MEDS: OLANZAPINE 2.5 MG TAB PO SCH (20:30)
[2019-04-21] MEDS: DOCUSATE SODIUM/SENNA 50/8.6MG TAB PO SCH (20:30)
[2019-04-21 22:26] LABS: BUN Creatinine Ratio 15.9 (10-20); Calcium 8.4 mg/dl (8.5-10.1); Creatinine Clr Calc Pharmacy 25.6 ml/min; Est GFR (African American) 38.8; Est GFR (Non-African American) 33.5; Magnesium 1.9 mg/dl (1.8-2.4); Potassium 3.8 mmol/L (3.5-5.1)
[2019-04-21 22:33] LABS: Basophils # (auto) 0.05 K/uL (0-0.2); Basophils % (auto) 0.6 %; Eosinophils # (auto) 0.26 K/uL (0-0.5); Eosinophils % (auto) 2.9 %; Hematocrit (blood only) 36.2 % (37-47); Hemoglobin 12.2 g/dL (12.0-16.0); Immature Granulocytes # (auto) 0.01 K/uL (0.00-0.02); Immature Granulocytes % (auto) 0.1 %; Lymphocytes # (auto) 2.18 K/uL (1.2-3.4); Lymphocytes % (auto) 24.4 %; Mean Corpuscular Hemoglobin 29.8 pg (25-34); Mean Corpuscular Hgb Conc 33.7 g/dL (32-36); Mean Corpuscular Volume 88.3 fL (80-100); Mean Platelet Volume 10.3 fL (7.4-10.4); Monocytes % (auto) 13.4 %; Neutrophils # (auto) 5.23 K/uL (1.4-6.5); Neutrophils % (auto) 58.6 %; Platelet Count 177 K/uL (130-400); RDW Coefficient of Variation 13.4 % (11.5-14.5); RDW Standard Deviation 43.2 fL (36.4-46.3); White Blood Count 8.93 K/uL (4.8-10.8)
[2019-04-21] MEDS ORDERED: LACTATED RINGER'S 1,000 ML IV ONE (22:36)
--- NOTE | 2019-04-21 22:37 | Hospitalist Progress Note ---
Date of Service April 21, 2019 Subjective Made aware by RN of patient complaint of transient substernal pain while on the telephone around 9 PM. Denies shortness of breath. SBP 140-150s. EKG as per my interpretation : Rate 65, NSR, LAD, LAFB, chronic left bundle branch block Serum creatinine 1.44 Serum troponin 0.064 from 0.082 (04/19/19) AP Transient chest pain with troponin elevation Elevated BP, ARF History chronic angina History CAD as per records Continue home BP meds, may need titration Baseline UA, monitor creatinine response to IV fluids, hold Losartan until creatinine at baseline Trend troponin Transfer to telemetry if with progression. Fco relay to AM provider. Results & Data Vital Signs (Past 12 Hours) Vital Signs Temp Pulse Pulse Resp BP Pulse Ox 04/21/19 21:43 36.7 C 71 18 146/69 H 98 04/21/19 20:27 62 155/70 H 04/21/19 15:43 36.3 C L 55 L 17 137/77 96
[2019-04-21 22:39] LABS: Troponin I 0.064 ng/ml (0-0.045)
[2019-04-21 22:43] LABS: Partial Thromboplastin Ratio 1.5; Partial Thromboplastin Time 41.5 Seconds (21.0-31.0)
[2019-04-21] MEDS ORDERED: MAGNESIUM SULFATE / D5W 1 GM/100 ML BAG IV ONE (23:00)
[2019-04-22] MEDS: AMLODIPINE BESYLATE 5 MG TAB PO SCH (03:28)
[2019-04-22 03:39] LABS: Basophils # (auto) 0.04 K/uL (0-0.2); Basophils % (auto) 0.5 %; Eosinophils # (auto) 0.28 K/uL (0-0.5); Eosinophils % (auto) 3.6 %; Hematocrit (blood only) 36.1 % (37-47); Hemoglobin 12.3 g/dL (12.0-16.0); Immature Granulocytes # (auto) 0.01 K/uL (0.00-0.02); Immature Granulocytes % (auto) 0.1 %; Lymphocytes # (auto) 2.41 K/uL (1.2-3.4); Lymphocytes % (auto) 30.7 %; Mean Corpuscular Hemoglobin 29.6 pg (25-34); Mean Corpuscular Hgb Conc 34.1 g/dL (32-36); Mean Platelet Volume 10.1 fL (7.4-10.4); Monocytes # (auto) 1.06 K/uL (0.11-0.59); Monocytes % (auto) 13.5 %; Neutrophils # (auto) 4.04 K/uL (1.4-6.5); Neutrophils % (auto) 51.6 %; Platelet Count 187 K/uL (130-400); RDW Coefficient of Variation 13.2 % (11.5-14.5); RDW Standard Deviation 42.2 fL (36.4-46.3); Red Blood Count 4.15 M/uL (4.2-5.4); White Blood Count 7.84 K/uL (4.8-10.8)
[2019-04-22 03:54] LABS: Partial Thromboplastin Ratio 1.4; Partial Thromboplastin Time 38.9 Seconds (21.0-31.0)
[2019-04-22 03:59] LABS: Calcium 8.3 mg/dl (8.5-10.1); Creatinine Clr Calc Pharmacy 35.4 ml/min; Est GFR (African American) 57.5; Est GFR (Non-African American) 49.6; Potassium 3.7 mmol/L (3.5-5.1)
[2019-04-22 04:14] LABS: Troponin I 0.064 ng/ml (0-0.045)
[2019-04-22] MEDS: ISOSORBIDE DINITRATE 5 MG TAB PO SCH ×3 (05:00→16:51)
[2019-04-22] MEDS: ATENOLOL 25 MG TABLET PO SCH (05:01)
[2019-04-22 07:22] LABS: Appearance Urine Clear (Clear); Bacteria Urine Automated Negative (Negative); Bilirubin Urine Negative (Negative); Blood Urine Negative (Negative); Cast Urine Automated 0 /lpf (0-5); Color Urine Yellow; Glucose Urine UA Negative (Negative); Ketones Urine Negative (Negative); Leukocyte Esterase Urine 1+ (Negative); Nitrite Urine Negative (Negative); Protein Urine Negative (Negative); RBC Urine Automated 0-4 /hpf (0-4); Specific Gravity Urine 1.013 (1.000-1.030); Urobilinogen Urine Negative (Negative); pH Urine 6.5 (4.5-7.5)
[2019-04-22] MEDS: ESCITALOPRAM OXALATE 10 MG TAB PO SCH (08:54)
[2019-04-22] MEDS: CHOLECALCIFEROL 1,000 UNITS TAB PO SCH (08:54)
[2019-04-22] MEDS: CLOPIDOGREL BISULFATE 75 MG TAB PO SCH (08:54)
[2019-04-22] MEDS: NEOMYCIN/POLYMYX/BACITR OINT 15 GM TUBE EXT SCH (08:54)
[2019-04-22] MEDS: CYANOCOBALAMIN 500 MCG TABLET (VITAMIN B-12) PO SCH (08:54)
[2019-04-22] MEDS: ASPIRIN 81 MG ECTAB PO SCH (08:55)
[2019-04-22] MEDS: PANTOprazole 40 MG TAB PO SCH ×2 (08:55→20:52)
[2019-04-22] MEDS: HEPARIN SOD 5,000 UNIT/0.5 ML VIAL SQ SCH ×2 (08:55→20:51)
--- NOTE | 2019-04-22 11:13 | Cardiology Consultation ---
Date of Consultation April 22, 2019 Assessment & Plan (1) Left bundle branch block: Patient last night with typical chest discomfort she previously has experience with evaluations as substantially in the past. EKG however demonstrates progression of underlying conduction system disease. Left bundle branch block Do not suspect acute coronary syndrome however patient's had past bradycardia arrhythmias. Current presentation does not appear to be an syncopal event Recommendations place patient on telemetry during current stay. Continue all current medications though may need to reduce beta-sheila if bradycardia observed Echocardiogram ordered for full assessment (2) CAD (coronary artery disease), [place] coronary artery: Stable with class III angina pectoris (3) Sinus bradycardia: History of Present Illness Reason for Consultation: Transient chest pain, left bundle branch block Requesting Physician: Dr. Pate Attending Physician: Clifford Pate MD History of Present Illness Patient is an 83-year-old female referred for evaluation after admission with mechanical fall and multiple limb injury. Her past history is notable for 1. Coronary artery disease s/p MILENA to the mid LAD on 04/01/18, other 30% steno sis of LM, 20% stenosis of RCA noted. Repeat admission/cath due to recurrent chest pain, elevated enzymes on 05/09/18 demonstrated patent stent with non obstructive CAD, med management. 2. LOUIE - following with sleep med 3. History of chest discomfort, possibly due to microvascular dysfunction versus noncardiac etiology. Is noted that she has a long-standing history of recurrent chest discomfort with previous cardiac catheterizations in 2004, 2009, and 2015. Patient has chronic class III angina pectoris 4. History of moderate left internal carotid artery stenosis, most recent duplex March, 5. History of asymptomatic right subclavian stenosis 15 millimeter Hg gradient noted at time cardiac catheterization in Dec, 2015 6. Remote recurrent TIA /CVA 7. Long-standing history of sinus bradycardia, left anterior fascicular block 8. Chronic low level troponin elevation 9. Hospitalization with acute cecal volvulus November 2018 transient bradycardia noted during hospital stay Patient presents this admission noting having been carrying bags of groceries up a small level of stairs and tangled her cane in the stair railing took a mechanical fall with substantial injury. She denies syncope or near syncope shortness of breath or chest discomfort with the initial event. Notes last evening while sitting talking on the phone had her typical low level chest discomfort which resolved spontaneously. EKG and evaluation demonstrated newly noted left bundle branch block. Patient this morning without cardiac complaint no chest pain, shortness of breath, dizziness, lightheadedness, tachypalpitations, orthopnea. Patient notes chest pain last evening was typical for patient usually resolving spontaneously occasionally relieved by sublingual nitroglycerin. Currently without complaint no abdominal pain or discomfort no bleeding difficulties other than signs of ecchymosis injuries Allergies Allergy/AdvReac Type Severity Reaction Status Date / Time Penicillins Allergy Mild RASH Verified 04/18/19 14:45 latex Allergy Unknown RASH Verified 04/18/19 14:45 niacin Allergy Unknown UNKNOWN Verified 04/18/19 14:45 metronidazole AdvReac Mild N/V Verified 04/18/19 14:45 Sulfa (Sulfonamide AdvReac Unknown . Verified 04/18/19 14:45 Antibiotics) tramadol AdvReac Unknown psycho Unverified 04/18/19 14:45 Home Medications Home Medications Medication Instructions Recorded Confirmed Type albuterol sulfate [Ventolin HFA] 2 puff INHALATION Q4H PRN 12/09/18 04/18/19 History amlodipine 2.5 mg PO QAM 12/09/18 04/18/19 History atenolol 25 mg PO QAM 12/09/18 04/18/19 History atorvastatin 40 mg PO HS 12/09/18 04/18/19 History cholecalciferol (vitamin D3) 1,000 unit PO QAM 12/09/18 04/18/19 History [Vitamin D3] clopidogrel 75 mg PO QAM 12/09/18 04/18/19 History cyanocobalamin (vitamin B-12) 1,000 mcg PO QAM 12/09/18 04/18/19 History [Vitamin B-12] escitalopram oxalate 5 mg PO QAM 12/09/18 04/18/19 History fluticasone propion-salmeterol 1 puff INHALATION BID PRN 12/09/18 04/18/19 History [Advair Diskus] hydroxychloroquine 400 mg PO HS 12/09/18 04/18/19 History isosorbide dinitrate 5 mg PO TID 12/09/18 04/18/19 History losartan 25 mg PO HS 12/09/18 04/18/19 History montelukast 10 mg PO HS 12/09/18 04/18/19 History nitroglycerin 0.3 mg SUBLINGUAL UD PRN 12/09/18 04/18/19 History olanzapine 2.5 mg PO HS 12/09/18 04/18/19 History omeprazole 20 mg PO BID 12/09/18 04/18/19 History triamcinolone acetonide 1 applic TOPICAL BID PRN 12/09/18 04/18/19 History aspirin 81 mg PO QAM 04/18/19 04/18/19 History Patient History Medical History CAD (coronary artery disease), [place] coronary artery (Chronic) Rheumatoid arthritis (Chronic) CKD (chronic kidney disease), stage III (Chronic) COPD (chronic obstructive pulmonary disease) (Chronic) Hypertension (Chronic) History of kidney disease (Chronic) History of CVA (cerebrovascular accident) without residual deficits (Chronic) Dyslipidemia (Chronic) HTN (hypertension) (Chronic) History of TIA (transient ischemic attack) (Chronic) GERD (gastroesophageal reflux disease) (Chronic) Osteoporosis (Chronic) Asthma (Chronic) Coronary artery disease (Chronic) Diaphragmatic hernia (Chronic) Meniere's disease (Chronic) Sciatica (Chronic) CKD (chronic kidney disease) stage 3, GFR 30-59 ml/min (Chronic) Surgical History H/O exploratory laparotomy (Chronic) 11/2018 History of right hemicolectomy (Chronic) 11/2018 History of carpal tunnel repair (Chronic) Status post cardiac catheterization (Chronic) Status post coronary artery stent placement (Chronic) Drug-eluting stent mid LAD Dr. Garces 04/01/18 History of section (Resolved) History of Milly fundoplication (Resolved) Family History Father Stroke Myocardial infarction Brother Ischemic heart disease Other Family history non-contributory Social History Preferred Language: [place] Communication Ability: Effective Youth Coordinator Required: No Beliefs That Will Affect Care: None Current Living Situation: Spouse Other Information That Helps Us Care for You: No Feels Safe at Home: Yes Safety Concerns: Feels Safe At This Time Smoking Status: Never smoker Second Hand Exposure: No ; Hx Alcohol Use: No Hx Substance Use: No Physical Exam Constitutional: + thin; no acute distress ENMT: Extensive contusion of chin and jaw with surrounding ecchymosis Neck: trachea midline, no thyromegaly Respiratory: normal respiratory effort, lungs clear to auscultation Cardiovascular: Rate/Rhythm: regular rate and regular rhythm Heart Sounds: normal S1 and normal S2; no gallop and no cardiac rub Vessels: no JVD and no carotid bruit Extremities: no edema Gastrointestinal (Abdomen): normal bowel sounds, soft, nontender, no hepatosplenomegaly Musculoskeletal: Left arm casted, right index finger in splint, right knee in brace Results & Data Vital Signs (Past 12 Hours) Vital Signs Temp Pulse Resp BP Pulse Ox Pulse Ox 04/22/19 07:38 36.8 C 70 16 130/67 97 04/22/19 04:56 72 12 141/73 H 97 97 04/22/19 03:25 62 161/79 H 04/21/19 23:30 98 (1) CAD (coronary artery disease), [place] coronary artery [place] vs. transplanted heart: [place] heart Associated angina: without angina Qualified Code(s): I25.10 - Atherosclerotic heart disease of [place] coronary artery without angina pectoris
[2019-04-22] MEDS ORDERED: NITROGLYCERIN SL 0.4 MG/TAB TAB SL PRN (13:38)
--- NOTE | 2019-04-22 15:23 | Hospitalist Progress Note ---
Date of Service April 22, 2019 Assessment & Plan (1) Fall (on) (from) other stairs and steps, initial encounter: (2) Closed fracture of left distal radius: (3) Closed fracture of right patella: Patient is an 83 yr female with H/O CAD S/P MILENA to mid LAD 03/2018, mild COPD, hx of CVA/TIA w/o deficit, LOUIE on cpap, seronegative RA, senile osteoporosis, GERD, CKD-3, vitamin D deficiency, GERD who presents to [facility] ED after suffering mechanical fall. Mechanical Fall Nondisplaced R Patellar Fracture Left comminuted distal radial fx with intraarticular involvement Right 3rd finger laceration Weightbearing as tolerated Pain is controlled Conservative management Appreciate orthopedics input PT OT Needs rehab placement For right patella--locked in full extension for 4 to 6 weeks For left wrist--long-arm coaptation splint for 3 to 4 weeks Needs follow-up with orthopedics upon discharge in 1 week Plan to discharge to SNF when accepted Case management working on placement (4) Laceration of right middle finger: s/p 8 sutures placed Continue wound care (5) Elevated troponin: Transient chest pain Chronic troponin elevation troponin H/O CAD Last echo 04/2018 EF 55-60%, AV sclerosis, trace MR/TR EKG: Suggestive of progression of underlying conduction system, left bundle branch block Check echo Appreciate cardiology input Monitor on telemetry for bradycardia arrhythmias May need to decrease dose of beta-sheila if significant bradycardia or pauses (6) CAD (coronary artery disease), [place] coronary artery: H/O CAD S/P MILENA to mid LAD 03/2018 continue ASA, plavix, statin, atenolol, losartan, imdur (7) Hypertension: continue amlodipine, atenolol, losartan, imdur monitor BP (8) History of CVA (cerebrovascular accident) without residual deficits: continue ASA, Statin (9) CKD (chronic kidney disease) stage 3, GFR 30-59 ml/min: Cr at baseline Monitor renal function (10) Dyslipidemia: continue statin (11) Periapical abscess: asymptomatic recommend dental and periodontal referral as outpatient (12) Seronegative rheumatoid arthritis: continue hydroxychloroquine (13) Osteoporosis: continue vit D supplementation Receives Reclast (14) LOUIE on CPAP: CPAP QHS (15) DVT prophylaxis: Heparin SQ Code Status Full Code Disposition: Waiting for rehab placement Follow up: PCP Dr. Vargas, Orthopedics, Dental surgeon upon discharge Subjective Patient is seen and examined at bedside Reports transient chest pain overnight, which currently resolved Denies any shortness of breath, dizziness, nausea, abdominal pain Denies right knee pain Left shoulder pain continues to improve Discussed with cardiology today ECHO pending Review of Systems Review of Systems: All systems reviewed & are unremarkable except as noted in HPI & below Physical Exam Physical Exam: Physical Exam: Vitals signs as noted above General Appearance:Moderately built and nourished, no apparent distress Head: normocephalic, Echymosis of chin Eyes: normal inspection, EOMI, PERRL Neck: supple, Trachea midline Respiratory/Chest: Normal breath sounds, CTA Cardiovascular: S1, S2, + murmur Abdomen/GI:Soft, Non tender, Bowel sounds present Extremities/Musculoskelatal:normal inspection, no edema, right middle finger bandage, left wrist splint, R knee immobilizer Neurologic/Psych:AAOX3, grossly no focal neurological deficits Skin: normal color, warm Results & Data Vital Signs (Past 12 Hours) Vital Signs Temp Pulse Pulse Resp BP Pulse Ox Pulse Ox 04/22/19 15:01 36.9 C 66 18 134/65 97 04/22/19 13:42 67 04/22/19 12:00 37.3 C 67 18 151/76 H 96 04/22/19 07:38 36.8 C 70 16 130/67 97 04/22/19 04:56 72 12 141/73 H 97 97 04/22/19 03:25 62 161/79 H Laboratory Results Short CBC 04/21/19 04/22/19 Range/Units 22:11 03:05 WBC 8.93 7.84 (4.8-10.8) K/uL Hgb 12.2 12.3 (12.0-16.0) g/dL Hct 36.2 L 36.1 L (37-47) % Plt Count 177 187 (130-400) K/uL BMP 04/21/19 04/22/19 21:58 03:05 Sodium 140 141 Potassium 3.8 3.7 Chloride 107 107 Carbon Dioxide 27 28 BUN 23 H 21 H Creatinine 1.44 H D 1.04 Glucose 140 H 104 H Calcium 8.4 L 8.3 L Cardiac Enzymes 04/21/19 04/22/19 04/22/19 Range/Units 21:58 03:05 06:32 Troponin I 0.064 H* 0.064 H* 0.063 H* (0-0.045) ng/ml Urine 04/22/19 Range/Units 07:00 Urine Color Yellow Urine Appearance Clear (Clear) Urine pH 6.5 (4.5-7.5) Ur Specific [place] 1.013 (1.000-1.030) Urine Protein Negative (Negative) Urine Glucose (UA) Negative (Negative) (1) CAD (coronary artery disease), [place] coronary artery [place] vs. transplanted heart: [place] heart Associated angina: without angina Qualified Code(s): I25.10 - Atherosclerotic heart disease of [place] coronary artery without angina pectoris
[2019-04-22] MEDS: ATORVASTATIN 40 MG TAB PO SCH (20:52)
[2019-04-22] MEDS: HYDROXYCHLOROQUINE SULFATE 200 MG TAB PO SCH (20:52)
[2019-04-22] MEDS: DOCUSATE SODIUM/SENNA 50/8.6MG TAB PO SCH (20:52)
[2019-04-22] MEDS: MONTELUKAST SODIUM 10 MG TABLET PO SCH (20:52)
[2019-04-22] MEDS: OLANZAPINE 2.5 MG TAB PO SCH (20:52)
[2019-04-22] MEDS: LOSARTAN POTASSIUM 25 MG TAB PO SCH (20:52)
[2019-04-23] MEDS: ATENOLOL 25 MG TABLET PO SCH (07:52)
[2019-04-23] MEDS: CLOPIDOGREL BISULFATE 75 MG TAB PO SCH (07:53)
[2019-04-23] MEDS: ASPIRIN 81 MG ECTAB PO SCH (07:53)
[2019-04-23] MEDS: CHOLECALCIFEROL 1,000 UNITS TAB PO SCH (07:53)
[2019-04-23] MEDS: ISOSORBIDE DINITRATE 5 MG TAB PO SCH ×3 (07:53→16:39)
[2019-04-23] MEDS: CYANOCOBALAMIN 500 MCG TABLET (VITAMIN B-12) PO SCH (07:54)
[2019-04-23] MEDS: ESCITALOPRAM OXALATE 10 MG TAB PO SCH (07:54)
[2019-04-23] MEDS: PANTOprazole 40 MG TAB PO SCH ×2 (07:55→21:30)
[2019-04-23] MEDS: AMLODIPINE BESYLATE 5 MG TAB PO SCH (07:55)
[2019-04-23] MEDS: NEOMYCIN/POLYMYX/BACITR OINT 15 GM TUBE EXT SCH (07:56)
[2019-04-23] MEDS: HEPARIN SOD 5,000 UNIT/0.5 ML VIAL SQ SCH ×2 (09:16→21:30)
--- NOTE | 2019-04-23 09:28 | Cardiology Progress Note ---
Date of Service April 23, 2019 Assessment & Plan (1) Left bundle branch block: Intermittent left bundle branch block on telemetry asymptomatic. Do not suspect acute coronary syndrome Will reduce beta-sheila discontinuing atenolol again and metoprolol succinate at 12.5 mill grams p.o. daily We will increase isosorbide to 10 mg 3 times daily for further blood pressure control (2) CAD (coronary artery disease), [place] coronary artery: Stable with class III angina pectoris As above (3) Sinus bradycardia: With intermittent left bundle branch block, underlying conduction system disease Subjective Patient seen and examined, chart, telemetry, medications reviewed. No cardiac issues overnight though heart rate was slower at times on telemetry with t elemetry demonstrating intermittent left bundle branch block. She denies chest pains or shortness of breath less discomfort at sites of injury Blood pressure somewhat labile in association with pain Physical Exam Constitutional: + thin; no acute distress ENMT: Ecchymosis to chin and jaw improved from day prior Neck: trachea midline, no thyromegaly Respiratory: normal respiratory effort, lungs clear to auscultation Cardiovascular: Rate/Rhythm: regular rate and regular rhythm Heart Sounds: normal S1 and normal S2; no gallop and no cardiac rub Vessels: no JVD and no carotid bruit Extremities: no edema Gastrointestinal (Abdomen): normal bowel sounds, soft, nontender, no hepatosplenomegaly Musculoskeletal: Left arm casted, right index finger in splint, right knee in brace Results & Data Vital Signs (Past 12 Hours) Vital Signs Temp Pulse Pulse Pulse Resp BP Pulse Ox 04/23/19 07:25 36.4 C L 61 18 179/77 H 97 04/23/19 07:24 57 L 04/23/19 03:28 36.6 C 62 19 125/65 95 04/22/19 23:30 36.7 C 65 18 99/62 L 96 04/22/19 23:10 60 (1) CAD (coronary artery disease), [place] coronary artery [place] vs. transplanted heart: [place] heart Associated angina: without angina Qualified Code(s): I25.10 - Atherosclerotic heart disease of [place] coronary artery without angina pectoris
[2019-04-23] MEDS: OXYCODONE HCL IR 5 MG TAB (IMMEDIATE RELEASE) PO PRN (13:54)
--- NOTE | 2019-04-23 18:12 | Hospitalist Progress Note ---
Date of Service April 23, 2019 Assessment & Plan (1) Fall (on) (from) other stairs and steps, initial encounter: (2) Closed fracture of left distal radius: (3) Closed fracture of right patella: Patient is an 83 yr female with H/O CAD S/P MILENA to mid LAD 03/2018, mild COPD, hx of CVA/TIA w/o deficit, LOUIE on cpap, seronegative RA, senile osteoporosis, GERD, CKD-3, vitamin D deficiency, GERD who presents to [facility] ED after suffering mechanical fall. Mechanical Fall Nondisplaced R Patellar Fracture Left comminuted distal radial fx with intraarticular involvement Right 3rd finger laceration Weightbearing as tolerated Pain is controlled Conservative management Appreciate orthopedics input PT OT Needs rehab placement For right patella--locked in full extension for 4 to 6 weeks For left wrist--long-arm coaptation splint for 3 to 4 weeks Needs follow-up with orthopedics upon discharge in 1 week Waiting on SNF placement (4) Laceration of right middle finger: s/p 8 sutures placed Continue wound care (5) Elevated troponin: Transient chest pain Chronic troponin elevation troponin H/O CAD Last echo 04/2018 EF 55-60%, AV sclerosis, trace MR/TR EKG: Suggestive of progression of underlying conduction system, left bundle branch block ECHO:EF:55-60%, No regional wall motion abnormality, grade I diastolic dysfunction Appreciate cardiology input Atenolol discontinued Started on low dose Metoprolol--12.5mg daily Increased Isosorbide to 10mg TID (6) CAD (coronary artery disease), [place] coronary artery: H/O CAD S/P MILENA to mid LAD 03/2018 continue ASA, plavix, statin, atenolol, losartan, imdur (7) Hypertension: continue amlodipine, atenolol, losartan, imdur monitor BP (8) History of CVA (cerebrovascular accident) without residual deficits: continue ASA, Statin (9) CKD (chronic kidney disease) stage 3, GFR 30-59 ml/min: Cr at baseline Monitor renal function (10) Dyslipidemia: continue statin (11) Periapical abscess: asymptomatic recommend dental and periodontal referral as outpatient (12) Seronegative rheumatoid arthritis: continue hydroxychloroquine (13) Osteoporosis: continue vit D supplementation Receives Reclast (14) LOUIE on CPAP: CPAP QHS (15) DVT prophylaxis: Heparin SQ Code Status Full Code Disposition: Waiting for rehab placement Follow up: PCP Dr. Vargas, Orthopedics, Dental surgeon upon discharge Subjective Patient is seen and examined at bedside Doing better today No new complaints Denies any chest pain, SOB, dizziness Left shoulder pain is controlled Review of Systems Review of Systems: All systems reviewed & are unremarkable except as noted in HPI & below Physical Exam Physical Exam: Physical Exam: Vitals signs as noted above General Appearance:Moderately built and nourished, no apparent distress Head: normocephalic, Echymosis of chin Eyes: normal inspection, EOMI, PERRL Neck: supple, Trachea midline Respiratory/Chest: Normal breath sounds, CTA Cardiovascular: S1, S2, + murmur Abdomen/GI:Soft, Non tender, Bowel sounds present Extremities/Musculoskelatal:normal inspection, no edema, right middle finger bandage, left wrist splint, R knee immobilizer Neurologic/Psych:AAOX3, grossly no focal neurological deficits Skin: normal color, warm Results & Data Vital Signs (Past 12 Hours) Vital Signs Temp Pulse Pulse Pulse Pulse Resp BP 04/23/19 16:38 63 120/61 04/23/19 16:00 67 04/23/19 15:00 36.6 C 61 18 107/67 04/23/19 12:29 133/61 04/23/19 11:14 36.8 C 78 18 94/58 L 04/23/19 07:25 36.4 C L 61 18 179/77 H 04/23/19 07:24 57 L Pulse Ox 04/23/19 16:38 04/23/19 16:00 04/23/19 15:00 96 04/23/19 12:29 04/23/19 11:14 95 04/23/19 07:25 97 04/23/19 07:24 (1) CAD (coronary artery disease), [place] coronary artery [place] vs. transplanted heart: [place] heart Associated angina: without angina Qualified Code(s): I25.10 - Atherosclerotic heart disease of [place] coronary artery without angina pectoris
[2019-04-23] MEDS: DOCUSATE SODIUM/SENNA 50/8.6MG TAB PO SCH (21:28)
[2019-04-23] MEDS: MONTELUKAST SODIUM 10 MG TABLET PO SCH (21:30)
[2019-04-23] MEDS: LOSARTAN POTASSIUM 25 MG TAB PO SCH (21:30)
[2019-04-23] MEDS: HYDROXYCHLOROQUINE SULFATE 200 MG TAB PO SCH (21:30)
[2019-04-23] MEDS: ATORVASTATIN 40 MG TAB PO SCH (21:30)
[2019-04-23] MEDS: OLANZAPINE 2.5 MG TAB PO SCH (21:31)
[2019-04-23] MEDS: ACETAMINOPHEN 325 MG TAB PO PRN (21:35)
[2019-04-24] MEDS: ISOSORBIDE DINITRATE 5 MG TAB PO SCH ×3 (06:37→16:45)
[2019-04-24] MEDS: ASPIRIN 81 MG ECTAB PO SCH (08:34)
[2019-04-24] MEDS: METOPROLOL SUCC 25MG EXT REL TAB PO SCH (08:34)
[2019-04-24] MEDS: CHOLECALCIFEROL 1,000 UNITS TAB PO SCH (08:34)
[2019-04-24] MEDS: PANTOprazole 40 MG TAB PO SCH ×2 (08:34→21:22)
[2019-04-24] MEDS: CYANOCOBALAMIN 500 MCG TABLET (VITAMIN B-12) PO SCH (08:34)
[2019-04-24] MEDS: CLOPIDOGREL BISULFATE 75 MG TAB PO SCH (08:34)
[2019-04-24] MEDS: ESCITALOPRAM OXALATE 10 MG TAB PO SCH (08:35)
[2019-04-24] MEDS: HEPARIN SOD 5,000 UNIT/0.5 ML VIAL SQ SCH ×2 (08:35→21:22)
[2019-04-24] MEDS: AMLODIPINE BESYLATE 5 MG TAB PO SCH (08:36)
[2019-04-24] MEDS: NEOMYCIN/POLYMYX/BACITR OINT 15 GM TUBE EXT SCH (08:36)
--- NOTE | 2019-04-24 10:00 | Cardiology Progress Note ---
Date of Service April 24, 2019 Assessment & Plan (1) Left bundle branch block: Intermittent left bundle branch block, astigmatic. Tolerating transition to metoprolol succinate 12.5 mg daily. (2) CAD (coronary artery disease), [place] coronary artery: Chronic class III anginal symptoms, past PCI to LAD for which she is on aspirin and clopidogrel. Isosorbide increased to 10 mg 3 times per day. (3) Sinus bradycardia: Asymptomatic. The patient is well-known to the undersigned as I have followed her on both an inpatient outpatient basis for years. I also follow her who is a patient of mine. I have observed a progressive decline in her gait when watching her walk into her appointments, and unfortunately she has suffered a significant mechanical fall. Agree with transfer to inpatient rehabilitation, [facility], when bed available. Subjective Chief complaint: Follow-up mechanical fall, history of coronary heart disease, difficult to control hypertension, newly diagnosed intermittent left bundle branch block Subjective: Patient comfortable. Telemetry reveals sinus rhythm in the 60 bpm range this morning, sinus rhythm in the 50 bpm range noted overnight last night. No pauses or prolonged AV block noted. Review of Systems Review of Systems: All systems reviewed & are unremarkable except as noted in HPI & below Physical Exam Physical Exam: Temp Pulse Resp BP Pulse Ox 36.6 C 67 17 123/71 95 04/24/19 07:14 04/24/19 07:20 04/24/19 07:14 04/24/19 07:14 04/24/19 07:14 Constitutional: WD/WN, vitals as above Neck: trachea midline, no thyromegaly Respiratory: normal respiratory effort, lungs clear to auscultation Cardiovascular: RRR, no murmur, no edema Gastrointestinal (Abdomen): normal bowel sounds, soft, nontender, no hepatosplenomegaly Musculoskeletal: Right knee and immobilized, left second finger status post sutures, left arm immobilized with soft cast Skin: Multiple areas of ecchymosis noted on her face Results & Data Vital Signs (Past 12 Hours) Vital Signs Temp Pulse Pulse Pulse Resp BP Pulse Ox 04/24/19 07:20 67 04/24/19 07:14 36.6 C 59 L 17 123/71 95 04/24/19 06:36 60 16 134/70 96 04/24/19 04:15 55 L 04/24/19 03:00 36.6 C 56 L 16 114/63 96 04/23/19 23:02 36.8 C 59 L 20 118/67 95 (1) CAD (coronary artery disease), [place] coronary artery [place] vs. transplanted heart: [place] heart Associated angina: without angina Qualified Code(s): I25.10 - Atherosclerotic heart disease of [place] coronary artery without angina pectoris
[2019-04-24] MEDS: ACETAMINOPHEN 325 MG TAB PO PRN (14:18)
--- NOTE | 2019-04-24 18:24 | Hospitalist Progress Note ---
Date of Service April 24, 2019 Assessment & Plan (1) Fall (on) (from) other stairs and steps, initial encounter: (2) Closed fracture of left distal radius: (3) Closed fracture of right patella: Patient is an 83 yr female with H/O CAD S/P MILENA to mid LAD 03/2018, mild COPD, hx of CVA/TIA w/o deficit, LOUIE on cpap, seronegative RA, senile osteoporosis, GERD, CKD-3, vitamin D deficiency, GERD who presents to [facility] ED after suffering mechanical fall. Mechanical Fall Nondisplaced R Patellar Fracture Left comminuted distal radial fx with intraarticular involvement Right 3rd finger laceration Weightbearing as tolerated Conservative management Appreciate orthopedics input PT OT Needs rehab placement For right patella--locked in full extension for 4 to 6 weeks For left wrist--long-arm coaptation splint for 3 to 4 weeks Needs follow-up with orthopedics upon discharge in 1 week Waiting on SNF placement Pain is controlled (4) Laceration of right middle finger: s/p 8 sutures placed Continue wound care Sleep Apnea: Continue CPAP Qhs (5) Elevated troponin: Transient chest pain Chronic troponin elevation troponin H/O CAD Last echo 04/2018 EF 55-60%, AV sclerosis, trace MR/TR EKG: Suggestive of progression of underlying conduction system, left bundle branch block ECHO:EF:55-60%, No regional wall motion abnormality, grade I diastolic dysfunction Appreciate cardiology input Atenolol discontinued Started on low dose Metoprolol--12.5mg daily Increased Isosorbide to 10mg TID (6) CAD (coronary artery disease), [place] coronary artery: H/O CAD S/P MILENA to mid LAD 03/2018 continue ASA, plavix, statin, atenolol, losartan, imdur (7) Hypertension: continue amlodipine, atenolol, losartan, imdur monitor BP (8) History of CVA (cerebrovascular accident) without residual deficits: continue ASA, Statin (9) CKD (chronic kidney disease) stage 3, GFR 30-59 ml/min: Cr at baseline Monitor renal function (10) Dyslipidemia: continue statin (11) Periapical abscess: asymptomatic recommend dental and periodontal referral as outpatient (12) Seronegative rheumatoid arthritis: continue hydroxychloroquine (13) Osteoporosis: continue vit D supplementation Receives Reclast (14) LOUIE on CPAP: CPAP QHS (15) DVT prophylaxis: Heparin SQ Code Status Full Code Disposition: Waiting for SNF placement Follow up: PCP Dr. Vargas, Orthopedics, Dental surgeon upon discharge Subjective Patient is seen and examined at bedside Requests for CPAP at bedtime for Sleep Apnea No new complaints Denies any chest pain, SOB, dizziness Left shoulder pain continues to improve Review of Systems Review of Systems: All systems reviewed & are unremarkable except as noted in HPI & below Physical Exam Physical Exam: Physical Exam: Vitals signs as noted above General Appearance:Moderately built and nourished, no apparent distress Head: normocephalic, Echymosis of chin Eyes: normal inspection, EOMI, PERRL Neck: supple, Trachea midline Respiratory/Chest: Normal breath sounds, CTA Cardiovascular: S1, S2, + murmur Abdomen/GI:Soft, Non tender, Bowel sounds present Extremities/Musculoskelatal:normal inspection, no edema, right middle finger bandage, left wrist splint, R knee immobilizer Neurologic/Psych:AAOX3, grossly no focal neurological deficits Skin: normal color, warm Results & Data Vital Signs (Past 12 Hours) Vital Signs Temp Pulse Pulse Pulse Resp BP Pulse Ox 04/24/19 16:44 67 119/63 04/24/19 15:18 75 04/24/19 15:11 36.7 C 66 66 17 108/61 93 04/24/19 11:30 36.6 C 62 17 136/67 95 04/24/19 07:20 67 04/24/19 07:14 36.6 C 59 L 17 123/71 95 04/24/19 06:36 60 16 134/70 96 (1) CAD (coronary artery disease), [place] coronary artery [place] vs. transplanted heart: [place] heart Associated angina: without angina Qualified Code(s): I25.10 - Atherosclerotic heart disease of [place] coronary artery without angina pectoris
[2019-04-24] MEDS: MONTELUKAST SODIUM 10 MG TABLET PO SCH (21:22)
[2019-04-24] MEDS: ATORVASTATIN 40 MG TAB PO SCH (21:22)
[2019-04-24] MEDS: HYDROXYCHLOROQUINE SULFATE 200 MG TAB PO SCH (21:22)
[2019-04-24] MEDS: OLANZAPINE 2.5 MG TAB PO SCH (21:22)
[2019-04-24] MEDS: LOSARTAN POTASSIUM 25 MG TAB PO SCH (21:22)
[2019-04-24] MEDS: DOCUSATE SODIUM/SENNA 50/8.6MG TAB PO SCH (21:25)
[2019-04-25] MEDS: ISOSORBIDE DINITRATE 5 MG TAB PO SCH ×2 (06:44→11:51)
[2019-04-25] MEDS: METOPROLOL SUCC 25MG EXT REL TAB PO SCH (08:43)
[2019-04-25] MEDS: CYANOCOBALAMIN 500 MCG TABLET (VITAMIN B-12) PO SCH (08:43)
[2019-04-25] MEDS: ESCITALOPRAM OXALATE 10 MG TAB PO SCH (08:44)
[2019-04-25] MEDS: ASPIRIN 81 MG ECTAB PO SCH (08:44)
[2019-04-25] MEDS: PANTOprazole 40 MG TAB PO SCH (08:44)
[2019-04-25] MEDS: HEPARIN SOD 5,000 UNIT/0.5 ML VIAL SQ SCH (08:45)
[2019-04-25] MEDS: CHOLECALCIFEROL 1,000 UNITS TAB PO SCH (08:45)
[2019-04-25] MEDS: AMLODIPINE BESYLATE 5 MG TAB PO SCH (08:45)
[2019-04-25] MEDS: CLOPIDOGREL BISULFATE 75 MG TAB PO SCH (08:45)
[2019-04-25] MEDS: NEOMYCIN/POLYMYX/BACITR OINT 15 GM TUBE EXT SCH (08:50)
--- NOTE | 2019-04-25 13:06 | Hospitalist Progress Note ---
Date of Service April 25, 2019 Assessment & Plan (1) Fall (on) (from) other stairs and steps, initial encounter: (2) Closed fracture of left distal radius: (3) Closed fracture of right patella: Patient is an 83 yr female with H/O CAD S/P MILENA to mid LAD 03/2018, mild COPD, hx of CVA/TIA w/o deficit, LOUIE on cpap, seronegative RA, senile osteoporosis, GERD, CKD-3, vitamin D deficiency, GERD who presents to [facility] ED after suffering mechanical fall. Mechanical Fall Nondisplaced R Patellar Fracture Left comminuted distal radial fx with intraarticular involvement Right 3rd finger laceration Weightbearing as tolerated Conservative management Appreciate orthopedics input PT OT Needs rehab placement For right patella--locked in full extension for 4 to 6 weeks For left wrist--long-arm coaptation splint for 3 to 4 weeks Needs follow-up with orthopedics upon discharge in 1 week Pain is controlled Patient prefers to be discharged home Plan to discharge home with Home Health (4) Laceration of right middle finger: s/p 8 sutures placed Continue wound care Sleep Apnea: Continue CPAP Qhs (5) Elevated troponin: Transient chest pain Chronic troponin elevation troponin H/O CAD Last echo 04/2018 EF 55-60%, AV sclerosis, trace MR/TR EKG: Suggestive of progression of underlying conduction system, left bundle branch block ECHO:EF:55-60%, No regional wall motion abnormality, grade I diastolic dysfunction Appreciate cardiology input Atenolol discontinued Started on low dose Metoprolol--12.5mg daily Increased Isosorbide to 10mg TID (6) CAD (coronary artery disease), [place] coronary artery: H/O CAD S/P MILENA to mid LAD 03/2018 continue ASA, plavix, statin, atenolol, losartan, imdur (7) Hypertension: continue amlodipine, atenolol, losartan, imdur monitor BP (8) History of CVA (cerebrovascular accident) without residual deficits: continue ASA, Statin (9) CKD (chronic kidney disease) stage 3, GFR 30-59 ml/min: Cr at baseline Monitor renal function (10) Dyslipidemia: continue statin (11) Periapical abscess: asymptomatic recommend dental and periodontal referral as outpatient (12) Seronegative rheumatoid arthritis: continue hydroxychloroquine (13) Osteoporosis: continue vit D supplementation Receives Reclast (14) LOUIE on CPAP: CPAP QHS (15) DVT prophylaxis: Heparin SQ Code Status Full Code Disposition: Plan to discharge home with Home Health Follow up: PCP Dr. Vargas, Orthopedics, Dental surgeon upon discharge Subjective Patient is seen and examined at bedside No new complaints Eager to get discharged Denies any chest pain, SOB, dizziness, nausea, abd pain Plan to be discharged home with Home Health Review of Systems Review of Systems: All systems reviewed & are unremarkable except as noted in HPI & below Physical Exam Physical Exam: Physical Exam: Vitals signs as noted above General Appearance:Moderately built and nourished, no apparent distress Head: normocephalic, Ecchymosis of chin Eyes: normal inspection, EOMI, PERRL Neck: supple, Trachea midline Respiratory/Chest: Normal breath sounds, CTA Cardiovascular: S1, S2, + murmur Abdomen/GI:Soft, Non tender, Bowel sounds present Extremities/Musculoskelatal:normal inspection, no edema, right middle finger bandage, left wrist splint, R knee immobilizer Neurologic/Psych:AAOX3, grossly no focal neurological deficits Skin: normal color, warm Results & Data Vital Signs (Past 12 Hours) Vital Signs Temp Pulse Pulse Resp BP Pulse Ox 04/25/19 11:51 116/58 L 04/25/19 11:24 36.8 C 63 16 94/58 L 96 04/25/19 07:05 36.8 C 82 16 152/82 H 95 04/25/19 06:43 36.8 C 80 152/82 H 04/25/19 04:00 37.0 C 78 20 159/83 H 93 (1) CAD (coronary artery disease), [place] coronary artery [place] vs. transplanted heart: [place] heart Associated angina: without angina Qualified Code(s): I25.10 - Atherosclerotic heart disease of [place] coronary artery without angina pectoris
--- NOTE | 2019-04-25 13:25 | Discharge Summary ---
Date of Service April 25, 2019 Admission HPI Per Admitting Provider This is an 83-year-old female who has significant PMH of CAD with history of MILENA to mid LAD 03/2018, mild COPD, hx of CVA/TIA w/o deficit, LOUIE on cpap, seronegative RA, senile osteoporosis, GERD, CKD-3, vitamin D deficiency, GERD who presents to [facility] ED after suffering mechanical fall. Patient was returning home from getting groceries, carrying groceries up steps and fell when she got to cement landing. She fell on her chin striking her right knee and landing on the left wrist. Pt helped her get up after fall. Due to pain prompted her to seek ED. Prior to fall she has been in a relatively good state of health given age. 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 Denies recent f/c/s, dizziness, lightheaded, syncope, change in vision/hearing, chest pain, lara, n/v/d, change in bowel or urinary habits. +BM this morning. Appetite has been normal. She is still independent, lives in apt with her , able to do adls on own. Admission Exam Per Admitting Provider Constitutional: WD/WN, Elderly F, vitals as above, NAD, sitting up in bed, pleasant, conversing easily Head: Normocephalic, + traumatic with abrasion to chin, lower lip edema and ecchymosis from biting Eyes: PERRL, conjunctivae normal, anicteric sclerae ENMT: external ear and nose normal, oropharynx normal Neck: trachea midline, no thyromegaly normal visual inspection Respiratory: normal respiratory effort, lungs clear to auscultation, no wheeze, rales, rhonchi. Normal insp/exp effort, no accessory muscle use Cardiovascular: RRR, soft 1/6 SILVERIO noted RUSB, no edema Vessels: no JVD or carotid bruit Chest: normal inspection of chest Abdomen: normal bowel sounds, soft, nontender, no hepatosplenomegaly Musculoskeletal: RLE Knee effusion with significant ecchymosis, Immobilizer in place, LUE wrist dorsal ecchymosis and edema, R 3rd finger laceration placed in metal splint, no cyanosis or clubbing, Skin: no rashes, warm and dry normal turgor Neurologic: PERRL, EOMI, accommodation nl, no face palsy, no dysarthria CN's II-XI intact bilaterally and moves all extremities Psychiatric: A+Ox3, euthymic affect Lymphatic: no cervical or axillary lymphadenopathy : deferred Principal Diagnosis Discharge Information Discharge Diagnosis Mechanical Fall Non displaced Right Patellar Fracture Left distal radial fracture Discharge Goals Decrease discomfort,Improve disease control, Improve function Discharge Activity Limitations Per instructions/follow-up Discharge Data Allergies Allergy/AdvReac Type Severity Reaction Status Date / Time Penicillins Allergy Mild RASH Verified 04/18/19 14:45 latex Allergy Unknown RASH Verified 04/18/19 14:45 niacin Allergy Unknown UNKNOWN Verified 04/18/19 14:45 metronidazole AdvReac Mild N/V Verified 04/18/19 14:45 Sulfa (Sulfonamide AdvReac Unknown . Verified 04/18/19 14:45 Antibiotics) tramadol AdvReac Unknown psycho Unverified 04/18/19 14:45 Consultations 04/18/19 16:26 Consult Orthopedic Surgery Stat 04/18/19 16:44 ED Decision to Admit Stat 04/18/19 19:32 Consult Case Management - Discharge Planning Routine Consult Orthopedic Surgery Routine 04/19/19 12:22 Consult Case Management - Discharge Planning Routine 04/22/19 08:33 Consult Cardiology Routine Procedures Performed Left Wrist Fracture: Acute comminuted displaced distal left radial fracture with intra-articular extension and mild palmar tilt of the distal component. Pelvic X ray: Generalized degenerative change. No acute process. Right Knee X ray: 1. Possible acute nondisplaced patellar fracture. Marked prepatellar soft tissue swelling. 2. Small right knee joint effusion. Head CT: 1. No acute intracranial findings. 2. No calvarial fracture. Face CT: 1. No acute bony abnormality. 2. Premandibular soft tissue edema. 3. Several periapical abscesses and caries within the dentition as discussed. CXR: No acute cardiopulmonary findings. Neck CT : No fractures within the cervical spine. Generalized degenerative disc change. Right Finger X ray: No acute fracture, dislocation or radiopaque foreign body within the right third finger. Ordered Studies 04/18/19 14:09 CT cervical spine wo con Stat CT facial bones wo con Stat CT head/brain wo con Stat Hospital Course (1) Fall (on) (from) other stairs and steps, initial encounter: (2) Closed fracture of left distal radius: (3) Closed fracture of right patella: Patient is an 83 yr female with H/O CAD S/P MILENA to mid LAD 03/2018, mild COPD, hx of CVA/TIA w/o deficit, LOUIE on cpap, seronegative RA, senile osteoporosis, GERD, CKD-3, vitamin D deficiency, GERD who presents to [facility] ED after suffering mechanical fall. Mechanical Fall Nondisplaced R Patellar Fracture Left comminuted distal radial fx with intraarticular involvement Right 3rd finger laceration Weightbearing as tolerated Conservative management Appreciate orthopedics input PT OT Needs rehab placement For right patella--locked in full extension for 4 to 6 weeks For left wrist--long-arm coaptation splint for 3 to 4 weeks Needs follow-up with orthopedics upon discharge in 1 week Pain is controlled Patient prefers to be discharged home Plan to discharge home with Home Health (4) Laceration of right middle finger: s/p 8 sutures placed Continue wound care Sleep Apnea: Continue CPAP Qhs (5) Elevated troponin: Transient chest pain Chronic troponin elevation troponin H/O CAD Last echo 04/2018 EF 55-60%, AV sclerosis, trace MR/TR EKG: Suggestive of progression of underlying conduction system, left bundle branch block ECHO:EF:55-60%, No regional wall motion abnormality, grade I diastolic dysfunction Appreciate cardiology input Atenolol discontinued Started on low dose Metoprolol--12.5mg daily Increased Isosorbide to 10mg TID (6) CAD (coronary artery disease), [place] coronary artery: H/O CAD S/P MILENA to mid LAD 03/2018 continue ASA, plavix, statin, atenolol, losartan, imdur (7) Hypertension: continue amlodipine, atenolol, losartan, imdur monitor BP (8) History of CVA (cerebrovascular accident) without residual deficits: continue ASA, Statin (9) CKD (chronic kidney disease) stage 3, GFR 30-59 ml/min: Cr at baseline Monitor renal function (10) Dyslipidemia: continue statin (11) Periapical abscess: asymptomatic recommend dental and periodontal referral as outpatient (12) Seronegative rheumatoid arthritis: continue hydroxychloroquine (13) Osteoporosis: continue vit D supplementation Receives Reclast (14) LOUIE on CPAP: CPAP QHS (15) DVT prophylaxis: Heparin SQ Code Status Full Code Disposition: Plan to discharge home with Home Health Follow up: PCP Dr. Vargas, Orthopedics, Dental surgeon upon discharge Total Time Total Time Spent Total Time Spent (In Minutes): 38 minutes Total Time Includes: Examination of the Patient, Discharge Planning, Medication Reconciliation, Communication With Other Providers and Other Discharge Plan Discharge Items Patient Disposition: Home - Home Health Services Reason For Visit: [facility] FALL,PATELLAR FX,WRIST FX Discharge Diagnosis: Mechanical Fall Non displaced Right Patellar Fracture Left distal radial fracture Discharge Goals: Decrease discomfort, Improve disease control and Improve functi on Activity: Per 'Additional Instructions' section Exercise/Sports: As tolerated Non-emergency contact: Primary Care Provider, Surgeon and Bench Worker Binding Call non-emergency contact if: you have any medication questions, your symptoms worsen, your pain is not controlled, your pain is worsening, your pain is unusual for you, your pain is concerning for you, you have a fever, your wound has increased redness, your wound has increased drainage and your wound pain has increased Follow-up/Referrals: Rory Vargas MD [Primary Care Provider] - Diet: Heart Healthy Add Provider Instructions: Follow-up with your primary care physician Dr. Vargas on May 02, 2019 at 10:45 AM Follow-up with your part time Kylee Parada PA-C on May 12, 2019 at 9:45 AM Follow-up with your orthopedic surgeon Dr. Enriquez in 1 week as advised Take Aspirin 81mg twice a day for 2 weeks and then switch to once a day (to prevent blood clots) You were discontinued on atenolol and was started on metoprolol 12.5 mg daily. Your isosorbide dinitrate is increased to 10 mg 3 times a day as per recommendations from your part time Seek immediate medical attention if your symptoms reoccur or worsen ORTHOPEDIC INSTRUCTIONS Activity Recommendations: Weightbearing as tolerated on the right leg with knee immobilizer on. The knee immobilizer needs to remain on at all times. Nonweightbearing on the left wrist Dressing Care: Leave the dressing on the right finger in place until follow-up in the office. Leave the coaptation splint on the left wrist in place until follow-up in the office. Showering: Do not shower until discussed in the office in 1 week. Follow-Up Visit: Follow-up with Dr. Enriquez in 1 week. Please call to make an appointment or be sure your rehab facility has made one. If you have any questions call Prescriptions: New metoprolol succinate 25 mg Tablet Extended Release 24 Hr 12.5 mg PO QAM 30 Days Qty: 15 RF: 1 polyethylene glycol 3350 [Miralax] 17 gram Powder In Packet 17 g PO DAILY PRN (Reason: constipation) 30 Days Qty: 30 RF: 0 docusate sodium [Colace] 100 mg capsule 100 mg PO BID Qty: 30 RF: 0 Continued aspirin 81 mg Tablet,Delayed Release (Dr/Ec) 81 mg PO QAM RF: 0 atorvastatin 40 mg tablet 40 mg PO HS RF: 0 nitroglycerin 0.3 mg tablet, sublingual 0.3 mg sublingual UD PRN (Reason: heart pain) RF: 0 cyanocobalamin (vitamin B-12) [Vitamin B-12] 1,000 mcg Tablet 1,000 mcg PO QAM RF: 0 amlodipine 2.5 mg tablet 2.5 mg PO QAM RF: 0 clopidogrel 75 mg tablet 75 mg PO QAM RF: 0 olanzapine 2.5 mg tablet 2.5 mg PO HS RF: 0 triamcinolone acetonide 0.1 % cream 1 applic topical BID PRN (Reason: .) RF: 0 losartan 25 mg tablet 25 mg PO HS RF: 0 omeprazole 20 mg capsule,delayed release(DR/EC) 20 mg PO BID RF: 0 montelukast 10 mg tablet 10 mg PO HS RF: 0 hydroxychloroquine 200 mg tablet 400 mg PO HS RF: 0 fluticasone propion-salmeterol [Advair Diskus] 100-50 mcg/dose blister with device 1 puff inhalation BID PRN (Reason: Shortness Of Breath Or Wheezing) RF: 0 albuterol sulfate [Ventolin HFA] 90 mcg/actuation HFA aerosol inhaler 2 puff inhalation Q4H PRN (Reason: Shortness Of Breath) RF: 0 escitalopram oxalate 5 mg tablet 5 mg PO QAM RF: 0 cholecalciferol (vitamin D3) [Vitamin D3] 1,000 unit Tablet 1,000 unit PO QAM RF: 0 Changed isosorbide dinitrate 5 mg tablet 10 mg PO TID Qty: 90 RF: 0 Discontinued atenolol 25 mg tablet 25 mg PO QAM RF: 0 Stand-Alone Forms: [facility] Discharge Orders: Discharge Order (Routine); Ordered 04/25/19 Ordered By: Clifford Pate Admission Data Admit Date/Time: 04/20/19 15:48 Attending Provider: Clifford Pate Admit Provider: Radha Valdez Primary Care Provider: Rory Vargas Other Providers: Eleazar Enriquez ; Arian Garcia ; Radha Valdez ; Rio Huber Service: Medical Other Interventions: Discharge Summary Assessment (RN) Last Done: 04/25/19 13:48 Pending Studies at Discharge: No DC Date/Time DO NOT enter until pt leaves facility: 04/25/19 14:25
--- NOTE | 2019-05-01 08:25 | Coding Query ---
CODING QUERY To promote full compliance with coding requirements relating to patient care, provider participation is requested in all cases of household personal assistant uncertainty. Please assist us with the question(s) below: Coding Question(s): Fractures of the Right Patella and the Left Distal Radius are documented in the patient who had a mechanical fall and also has Osteoporosis. Please clarify below, in your clinical opinion, regarding the Fractures. ( x ) Fracture are due to Trauma only ( ) Fractures are likely Osteoporotic Fractures Physician's Response(s): Thank you Valerie Mesa Principal Diagnosis: "that condition established after study, to be chiefly responsible for occasioning the admission of the patient to the hospital for care." Co-Existing Principal Diagnosis: "when two or more diagnoses equally meet the criteria for principal diagnosis as determined by the circumstances of admission, diagnostic work up, and/or therapy provided, and the Alphabetic Index, Tabular List, or another coding guideline does not provide sequencing direction, any one of the diagnoses may be sequenced first." "When the physician has documented what appears to be a current diagnosis in the body of the record, but has not included the diagnosis in the final diagnostic statement, the physician should be asked whether the diagnosis should be added." (Source Coding Clinic 2 QTR90. p3-4) PAL[place]
== END 2019-04-25 14:25 | disposition home health service (06) | DRG 563 ==
LOC: ED 13:58 → INTOOBSV 17:23 → SUATTDRO 17:23 → 3N 17:23 → 2W 04-22 13:17

== ENCOUNTER 2022-02-12 16:41 | Inpatient (IN) ==
--- NOTE | 2022-02-12 17:22 | CT Scan Report ---
CT head/brain wo con CLINICAL HISTORY: 86 years-old Female with Stroke Alert. Acute strokelike symptoms TECHNIQUE: Multiple axial CT images of the head were obtained without contrast. A dose lowering tech nique was utilized adhering to the principles of ALARA. CT DOSE: 537.48 mGy.cm COMPARISON: Head CT 07/10/2019 FINDINGS: No acute intracranial hemorrhage, midline shift, intracranial mass, hydrocephalus, territorial ischem ia or abnormal extra-axial collection. Cerebral vascular calcifications. The calvarium is intact. Prior bilateral lens replacement. The paranasal sinuses, mastoid air cells, and middle ear cavities are clear. IMPRESSION: No acute process. ACT 112: Negative or not required by law. The above report was generated using voice recognition software. It may contain grammatical, syntax o r spelling errors. Electronically signed by: Alli Wu M.D. 02/12/2022 5:21 PM
[2022-02-12 18:07] LABS: Hematocrit (blood only) 39.7 % (37-47); Hemoglobin 13.1 g/dL (12.0-16.0); Mean Corpuscular Volume 91.1 fL (80-100); Mean Platelet Volume 10.8 fL (7.4-10.4); Platelet Count 215 K/uL (130-400); RDW Coefficient of Variation 13.6 % (11.5-14.5); RDW Standard Deviation 45.2 fL (36.4-46.3); Red Blood Count 4.36 M/uL (4.2-5.4); White Blood Count 5.27 K/uL (4.8-10.8)
[2022-02-12 18:25] LABS: Albumin Globulin Ratio 1.3 (0.9-2); Albumin Level 4.3 gm/dl (3.4-5.0); BUN Creatinine Ratio 16.7 (10-20); Bilirubin,Total 1.3 mg/dl (0.2-1.0); Creatinine Clr Calc Pharmacy 44.7 ml/min; Est GFR (African American) 79.8 ml/min; Est GFR (Non-African American) 68.8 ml/min; Globulin 3.3 gm/dl (2.5-4.0); Potassium 3.4 mmol/L (3.5-5.1); Total Protein 7.6 gm/dl (6.0-8.3)
[2022-02-12 18:26] LABS: Partial Thromboplastin Time 26.3 Seconds (21.0-31.0); Prothrombin Time 10.5 Seconds (9.0-12.0)
--- NOTE | 2022-02-12 19:13 | Emergency Department Note ---
Impression & Plan Unsteady, Vision changes, Chest pain ED Provider Note Provider: Chicho Figueroa MD DATE OF SERVICE: 02/12/2022 CHIEF COMPLAINT: Double vision, balance issues HISTORY OF PRESENT ILLNESS: Patient is a 86-year-old female history of hypertension, CAD, CKD, schizoaffective paranoia presenting here with son today. Evidently over the past 3 weeks she states been having intermittent double blurry vision as well as occasionally some headache and having balance issues. Patient states he had balance issue in the past but this got better. Denies any recent falls. Patient denies any numbness or weakness in the extremities. She states she has had a little nausea at times movement of chest pain. Denies chest pain or nausea at this time. Denies abdominal pain. Patient with some occipital headache at times. Patient did see her eye doctor 2 days ago who recommended new glasses and medical evaluation for possible TIA. Patient is on 81 mg aspirin. Did change from Lexapro to Abilify 3 weeks ago and symptoms started. REVIEW OF SYSTEMS: A total of 10 review of systems was obtained and negative except as stated above in the HPI. PAST MEDICAL HISTORY: As noted above MEDICATIONS: Reviewed on medication SOCIAL HISTORY: Lives at home with PHYSICAL EXAM: GENERAL: alert and oriented in no acute distress on stretcher Head: normocephalic and atraumatic EYES: No injection, discharge or icterus. PERRL, EOMI. there is a some slight diplopia when looking through the left eye. NECK: Trachea midline. Supple. ENT: Mucous membranes pink and moist. LUNGS: Airway patent. No retractions. Breath sounds clear with good air entry bilaterally. HEART: Regular rate and rhythm. No chest wall tenderness ABDOMEN: Soft and non-tender, without guarding or rebound. SKIN: Acyanotic, warm, dry, without rashes EXTREMITIES: Without swelling, tenderness or deformity NEUROLOGICAL: No focal deficits. No aphasia. No facial droop or slurred speech. Normal strength and tone in the extremities. Sensation to gross touch normal. Ambulatory. EK beats per minute normal sinus rhythm. No PVC. Left axis. No acute ST segment elevation. LVH noted. CONTINUOUS CARDIAC MONITORING: was ordered and showed a heart rate of 60s-80s bpm in normal sinus rhythm Patient's laboratory studies and imaging reviewed. Differential includes Infection, dehydration, metabolic abnormality, hypo/hyperglycemia, electrolyte disturbance, anemia, hypoxia, cardiac sources, intracerebral event, toxicologic, neurologic, as well as other pathologies. IMPRESSION/MEDICAL DECISION MAKING: Patient presents with for evaluation today as well as son. Some balance issues and vision is seen predominantly more in the left eye developing over the past [address] head without acute findings. Blood work here was completed without evidence of significant abnormality. No large deficits noted on exam. No concerning findings at this time for acute cardiac injury and benign abdomen. Evidently is can get some new glasses to help with alignment. Is on aspirin. Discussed with patient as well as and son at bedside cannot entirely exclude stroke although low likelihood given the more left eye symptoms as well as no findings given the several weeks of symptoms on CT but did discuss with him possible further observation here and TIA work-up. Symptoms could be related to recent psychiatric medication changes well. CT angiograms did show evidence of some vascular narrowings of the carotids as well as some stenosis of the right subclavian artery. Discussed with the patient and her family. Discussed option of further observation and work-up here at the hospital this time versus continued outpatient follow-up. There has not been acute change in her symptoms over the last day or 2 this is been ongoing for several weeks and I do not see signs on the CT imaging per radiology of an acute stroke with this. She is on 81 mg aspirin. In shared decision-making the patient and her family they wish for further evaluation given her unsteadiness and the fact her staying and she would be at home alone. Discussed with the hospitalist. DIAGNOSIS: Visual changes, balance issues, transient chest pain DISPOSITION: Hospitalist will evaluate Patient was agreeable with this plan. Past Med/Surg History Medical History (Updated 02/12/22 @ 23:24 by Chicho Figueroa M.D.) Asthma CAD (coronary artery disease), [place] coronary artery CKD (chronic kidney disease) stage 3, GFR 30-59 ml/min CKD (chronic kidney disease), stage III COPD (chronic obstructive pulmonary disease) Coronary artery disease Diaphragmatic hernia Dyslipidemia GERD (gastroesophageal reflux disease) History of CVA (cerebrovascular accident) without residual deficits History of kidney disease History of TIA (transient ischemic attack) HTN (hypertension) Hypertension Meniere's disease Osteoporosis Rheumatoid arthritis Sciatica Surgical History H/O exploratory laparotomy 11/2018 History of carpal tunnel repair History of section History of Milly fundoplication History of right hemicolectomy 11/2018 Status post cardiac catheterization Status post coronary artery stent placement Drug-eluting stent mid LAD Dr. Garces 04/01/18 Family History Father Stroke Myocardial infarction Brother Ischemic heart disease Other Family history non-contributory Social History Smoking Status: Never smoker Second Hand Exposure: No; Hx Alcohol Use: No Hx Substance Use: No Preferred Language: Nepalese Communication Ability: Effective Resident Advisor Required: No Beliefs That Will Affect Care: None Current Living Situation: Spouse Feels Safe at Home: Yes Assistive Devices: Glasses and Walker Allergies Allergies Allergy/AdvReac Type Severity Reaction Status Date / Time Penicillins Allergy Mild RASH Verified 08/01/19 12:11 latex Allergy Unknown RASH Verified 08/01/19 12:11 niacin Allergy Unknown UNKNOWN Verified 08/01/19 12:11 metronidazole AdvReac Mild N/V Verified 08/01/19 12:11 Sulfa (Sulfonamide AdvReac Unknown . Verified 08/01/19 12:11 Antibiotics) tramadol AdvReac Unknown psycho Unverified 08/01/19 12:11 Home Meds Home Medications Medication Instructions Recorded Confirmed albuterol sulfate 90 mcg/actuation 2 puff INHALATION Q4H PRN 12/09/18 12/19/20 aerosol inhaler (Ventolin HFA) amlodipine 2.5 mg tablet 2.5 mg PO QAM 12/09/18 12/19/20 atorvastatin 40 mg tablet 40 mg PO HS 12/09/18 12/19/20 cholecalciferol (vitamin D3) 25 1,000 unit PO QAM 12/09/18 12/19/20 mcg (1,000 unit) tablet (Vitamin D3) clopidogrel 75 mg tablet 75 mg PO QAM 12/09/18 12/19/20 cyanocobalamin (vitamin B-12) 1,000 mcg PO QAM 12/09/18 12/19/20 1,000 mcg tablet (Vitamin B-12) escitalopram oxalate 5 mg tablet 5 mg PO QAM 12/09/18 12/19/20 fluticasone 100 mcg-salmeterol 50 1 puff INHALATION BID PRN 12/09/18 12/19/20 mcg/dose blistr powdr for inhalation (Advair Diskus) hydroxychloroquine 200 mg tablet 400 mg PO HS 12/09/18 12/19/20 losartan 25 mg tablet 25 mg PO HS 12/09/18 12/19/20 montelukast 10 mg tablet 10 mg PO HS 12/09/18 12/19/20 nitroglycerin 0.3 mg sublingual 0.3 mg SUBLINGUAL UD PRN 12/09/18 12/19/20 tablet olanzapine 2.5 mg tablet 2.5 mg PO HS 12/09/18 12/19/20 omeprazole 20 mg capsule,delayed 20 mg PO BID 12/09/18 12/19/20 release triamcinolone acetonide 0.1 % 1 applic TOPICAL BID PRN 12/09/18 12/19/20 topical cream aspirin 81 mg tablet,delayed 81 mg PO QAM 04/18/19 12/19/20 release metoprolol succinate 25 mg 12.5 mg PO DAILY 07/10/19 12/19/20 tablet,extended release 24 hr Previous Rx's Medication Instructions Recorded docusate sodium 100 mg capsule 100 mg PO BID #30 cap 04/25/19 (Colace) isosorbide dinitrate 5 mg tablet 10 mg PO TID #90 tab 04/25/19 Results & Data (ED) Vital Signs Vital Signs - 24 hr 02/12/22 16:44 02/12/22 18:45 02/12/22 22:00 Temperature 36.6 C Temperature Source Temporal Artery Scan Pulse Rate 80 Pulse Rate [Apical] 85 70 Respiratory Rate 18 16 18 Respiratory Effort / Characteristics Non-Labored Respiratory Depth Normal Blood Pressure 158/89 H Blood Pressure [Right Arm] 166/93 H 163/68 H Blood Pressure Mean 112 Blood Pressure Mean [Right Arm] 117 99 Blood Pressure Position [Right Arm] Lying Pulse Oximetry 96 99 98 Oxygen Delivery Method Room Air Room Air Room Air Sepsis Recent Fever Within 48 Hours No Sepsis New/Unexplained Change in Mental Status No Sepsis Action Taken by Nursing No Action Required Laboratory Data Result diagrams: 02/12/22 17:20 02/12/22 17:20 Lab Results 02/12/22 02/12/22 02/12/22 Range/Units 17:20 17:20 17:20 WBC 5.27 (4.8-10.8) K/uL RBC 4.36 (4.2-5.4) M/uL Hgb 13.1 (12.0-16.0) g/dL Hct 39.7 (37-47) % MCV 91.1 (80-100) fL MCH 30.0 (25-34) pg MCHC 33.0 (32-36) g/dL RDW Std Deviation 45.2 (36.4-46.3) fL RDW Coeff of Josse 13.6 (11.5-14.5) % Plt Count 215 (130-400) K/uL MPV 10.8 H (7.4-10.4) fL PT 10.5 (9.0-12.0) Seconds INR 1.0 (0.9-1.1) APTT 26.3 (21.0-31.0) Seconds PTT Ratio 1.0 Sodium 140 (136-145) mmol/L Potassium 3.4 L (3.5-5.1) mmol/L Chloride 105 (98-107) mmol/L Carbon Dioxide 29 (21-32) mmol/L Anion Gap 6 (3-11) BUN 13 (6-23) mg/dl Creatinine 0.78 (0.6-1.2) mg/dl Est Cr Clr Drug Dosing 44.7 ml/min Est GFR ( Amer) 79.8 ml/min Est GFR (Non-Af Amer) 68.8 ml/min BUN/Creatinine Ratio 16.7 (10-20) Glucose 92 (70-99(Fasting)) mg/dl Calcium 9.0 (8.5-10.1) mg/dl Magnesium 2.0 (1.7-2.4) mg/dl Total Bilirubin 1.3 H (0.2-1.0) mg/dl AST 32 (13-39) U/L ALT 21 (7-52) U/L Alkaline Phosphatase 81 (34-104) U/L Troponin I High Sens (0-14) pg/ml Total Protein 7.6 (6.0-8.3) gm/dl Albumin 4.3 (3.4-5.0) gm/dl Globulin 3.3 (2.5-4.0) gm/dl Albumin/Globulin Ratio 1.3 (0.9-2) Lipase (11-82) U/L SARS-CoV-2, RNA, NAAT (NEGATIVE) 02/12/22 02/12/22 Range/Units 17:20 22:27 WBC (4.8-10.8) K/uL RBC (4.2-5.4) M/uL Hgb (12.0-16.0) g/dL Hct (37-47) % MCV (80-100) fL MCH (25-34) pg MCHC (32-36) g/dL RDW Std Deviation (36.4-46.3) fL RDW Coeff of Josse (11.5-14.5) % Plt Count (130-400) K/uL MPV (7.4-10.4) fL PT (9.0-12.0) Seconds INR (0.9-1.1) APTT (21.0-31.0) Seconds PTT Ratio Sodium (136-145) mmol/L Potassium (3.5-5.1) mmol/L Chloride (98-107) mmol/L Carbon Dioxide (21-32) mmol/L Anion Gap (3-11) BUN (6-23) mg/dl Creatinine (0.6-1.2) mg/dl Est Cr Clr Drug Dosing ml/min Est GFR ( Amer) ml/min Est GFR (Non-Af Amer) ml/min BUN/Creatinine Ratio (10-20) Glucose (70-99(Fasting)) mg/dl Calcium (8.5-10.1) mg/dl Magnesium (1.7-2.4) mg/dl Total Bilirubin (0.2-1.0) mg/dl AST (13-39) U/L ALT (7-52) U/L Alkaline Phosphatase (34-104) U/L Troponin I High Sens 2.5 (0-14) pg/ml Total Protein (6.0-8.3) gm/dl Albumin (3.4-5.0) gm/dl Globulin (2.5-4.0) gm/dl Albumin/Globulin Ratio (0.9-2) Lipase 13 (11-82) U/L SARS-CoV-2, RNA, NAAT NEGATIVE (NEGATIVE) Administered Medications Lactated Ringer's (Lr) 1,000 mls @ 80 mls/hr IV .[id number] ONE Stop: 02/13/22 10:15 Last Admin: 02/12/22 22:09 Dose: 80 mls/hr Documented by: [id number] Discontinued Medications Ioversol (Optiray 320 125ml) 120 ml IV ONCE ONE Stop: 02/12/22 20:03 Last Admin: 02/12/22 20:02 Dose: 120 ml Documented by: [id number] Potassium Chloride (Potassium Chloride Crtab 20 Meq Tabcr) 40 meq PO NOW STA Stop: 02/12/22 21:47 Last Admin: 02/12/22 22:08 Dose: 20 meq Documented by: [id number] Imaging Data Radiologist's Impression: Head CT 02/12/22 16:52 CT head/brain wo con CLINICAL HISTORY: 86 years-old Female with Stroke Alert. Acute strokelike symptoms TECHNIQUE: Multiple axial CT images of the head were obtained without contrast. A dose lowering technique was utilized adhering to the principles of ALARA. CT DOSE: 537.48 mGy.cm COMPARISON: Head CT 07/10/2019 FINDINGS: No acute intracranial hemorrhage, midline shift, intracranial mass, hydrocephalus, territorial ischemia or abnormal extra-axial collection. Cerebral vascular calcifications. The calvarium is intact. Prior bilateral lens replacement. The paranasal sinuses, mastoid air cells, and middle ear cavities are clear. IMPRESSION: No acute process. ACT 112: Negative or not required by law. The above report was generated using voice recognition software. It may contain grammatical, syntax or spelling errors. Electronically signed by: Alli Wu M.D. 02/12/2022 5:21 PM Head CTA 02/12/22 19:10 CT angio neck with con, CT angio head w con CLINICAL HISTORY: 86 years-old Female with Vision issues. Acute strokelike symptoms with blurry vision COMPARISON STUDY: Head CT of same day TECHNIQUE: Following the IV administration of 120 mL of Optiray, CT angiogram of the head and neck was performed from the aortic arch to the skull apex. Images are reviewed in the axial, sagittal, and coronal planes. 3-D MIPS images are created and assessed. IV contrast was administered without complication. All measurements were calculated based on NASCET criteria. A dose lowering technique was utilized adhering to the principles of ALARA. FINDINGS: Moderate atherosclerosis of the thoracic aortic arch. There is patency of the innominate artery. Atherosclerotic plaque the left subclavian artery results in less than 50% stenosis. There is approximately 90% stenosis involving the mid right subclavian artery secondary to severe atherosclerotic plaque, image 111. This is distal to the vertebral artery origin. The common carotid arteries are widely patent. There is moderate plaque of the carotid bulbs and proximal cervical segments of the internal carotid arteries. This results in approximately 70% stenosis at the origin of the left ICA and approximately 60% stenosis at the origin of the right internal carotid artery. There is additional calcified plaque of the cavernous, clinoid and supraclinoid segments resulting in mild to moderate stenoses. The anterior middle cerebral arteries are patent. Codominant vertebral arteries demonstrate mild multifocal stenoses, notably within the V4 segments. The basilar and posterior cerebral arteries are patent. The cerebral venous sinuses are patent. There is no abnormal enhancement. Lung apices are clear without pneumothorax. Multinodular thyroid, mostly nodule subcentimeter in size. Streak artifact from dental amalgam hardware. Prior bilateral lens replacement. Degenerative changes of the cervical spine. IMPRESSION: 1. Atherosclerotic plaque of the carotid bulbs and proximal cervical segments of the internal carotid arteries results in approximately 70% stenosis at the origin of the left ICA and approximately 60% stenosis on the right. 2. No additional high-grade stenosis. No aneurysm, dissection or arterial occlusion. 3. 90% stenosis of the mid right subclavian artery distal to the vertebral artery origin. ACT 112: Negative or not required by law. The above report was generated using voice recognition software. It may contain grammatical, syntax or spelling errors. Electronically signed by: Alli Wu M.D. 02/12/2022 8:43 PM Neck CTA 02/12/22 19:10 CT angio neck with con, CT angio head w con CLINICAL HISTORY: 86 years-old Female with Vision issues. Acute strokelike symptoms with blurry vision COMPARISON STUDY: Head CT of same day TECHNIQUE: Following the IV administration of 120 mL of Optiray, CT angiogram of the head and neck was performed from the aortic arch to the skull apex. Images are reviewed in the axial, sagittal, and coronal planes. 3-D MIPS images are created and assessed. IV contrast was administered without complication. All measurements were calculated based on NASCET criteria. A dose lowering technique was utilized adhering to the principles of ALARA. FINDINGS: Moderate atherosclerosis of the thoracic aortic arch. There is patency of the innominate artery. Atherosclerotic plaque the left subclavian artery results in less than 50% stenosis. There is approximately 90% stenosis involving the mid right subclavian artery secondary to severe atherosclerotic plaque, image 111. This is distal to the vertebral artery origin. The common carotid arteries are widely patent. There is moderate plaque of the carotid bulbs and proximal cervical segments of the internal carotid arteries. This results in approximately 70% stenosis at the origin of the left ICA and approximately 60% stenosis at the origin of the right internal carotid artery. There is additional calcified plaque of the cavernous, clinoid and supraclinoid segments resulting in mild to moderate stenoses. The anterior middle cerebral arteries are patent. Codominant vertebral arteries demonstrate mild multifocal stenoses, notably within the V4 segments. The basilar and posterior cerebral arteries are patent. The cerebral venous sinuses are patent. There is no abnormal enhancement. Lung apices are clear without pneumothorax. Multinodular thyroid, mostly nodule subcentimeter in size. Streak artifact from dental amalgam hardware. Prior bilateral lens replacement. Degenerative changes of the cervical spine. IMPRESSION: 1. Atherosclerotic plaque of the carotid bulbs and proximal cervical segments of the internal carotid arteries results in approximately 70% stenosis at the origin of the left ICA and approximately 60% stenosis on the right. 2. No additional high-grade stenosis. No aneurysm, dissection or arterial occlusion. 3. 90% stenosis of the mid right subclavian artery distal to the vertebral artery origin. ACT 112: Negative or not required by law. The above report was generated using voice recognition software. It may contain grammatical, syntax or spelling errors. Electronically signed by: Alli Wu M.D. 02/12/2022 8:43 PM Discharge Plan Visit Data Chief Complaint: TIA Symptoms Stated Complaint: REF FROM FOR MINI STROKE ED Provider: Chicho Figueroa ED Midlevel Provider: Patricio Alvarez Discharge Problem: Unsteady, Vision changes, Chest pain Patient Disposition: Being Evaluated by Hospitalist Forms Stand Alone Forms: [facility] [place] [employer] Prescriptions Prescriptions: No Action aspirin 81 mg Tablet,Delayed Release (Dr/Ec) 81 mg PO QAM RF: 0 docusate sodium [Colace] 100 mg capsule 100 mg PO BID Qty: 30 RF: 0 isosorbide dinitrate 5 mg tablet 10 mg PO TID Qty: 90 RF: 0 metoprolol succinate 25 mg Tablet Extended Release 24 Hr 12.5 mg PO DAILY RF: 0 atorvastatin 40 mg tablet 40 mg PO HS RF: 0 nitroglycerin 0.3 mg tablet, sublingual 0.3 mg sublingual UD PRN (Reason: heart pain) RF: 0 cyanocobalamin (vitamin B-12) [Vitamin B-12] 1,000 mcg Tablet 1,000 mcg PO QAM RF: 0 amlodipine 2.5 mg tablet 2.5 mg PO QAM RF: 0 clopidogrel 75 mg tablet 75 mg PO QAM RF: 0 olanzapine 2.5 mg tablet 2.5 mg PO HS RF: 0 triamcinolone acetonide 0.1 % cream 1 applic topical BID PRN (Reason: .) RF: 0 losartan 25 mg tablet 25 mg PO HS RF: 0 omeprazole 20 mg capsule,delayed release(DR/EC) 20 mg PO BID RF: 0 montelukast 10 mg tablet 10 mg PO HS RF: 0 hydroxychloroquine 200 mg tablet 400 mg PO HS RF: 0 fluticasone propion-salmeterol [Advair Diskus] 100-50 mcg/dose blister with device 1 puff inhalation BID PRN (Reason: Shortness Of Breath Or Wheezing) RF: 0 albuterol sulfate [Ventolin HFA] 90 mcg/actuation HFA aerosol inhaler 2 puff inhalation Q4H PRN (Reason: Shortness Of Breath) RF: 0 escitalopram oxalate 5 mg tablet 5 mg PO QAM RF: 0 cholecalciferol (vitamin D3) [Vitamin D3] 1,000 unit Tablet 1,000 unit PO QAM RF: 0 Referrals Referrals: Rory Vargas MD [Primary Care Provider] - Resident Activity Tracking Resident Involvement: Resident Care Provided Care Provided: Adult ED
[2022-02-12] MEDS ORDERED: OPTIRAY 320 125ml IV ONE (20:02)
[2022-02-12 20:35] LABS: Troponin I High Sensitivity 2.5 pg/ml (0-14)
--- NOTE | 2022-02-12 20:46 | CT Scan Report ---
CT angio neck with con, CT angio head w con CLINICAL HISTORY: 86 years-old Female with Vision issues. Acute strokelike symptoms with blurry vi mar COMPARISON STUDY: Head CT of same day TECHNIQUE: Following the IV administration of 120 mL of Optiray, CT angiogram of the head and neck wa s performed from the aortic arch to the skull apex. Images are reviewed in the axial, sagittal, and c oronal planes. 3-D MIPS images are created and assessed. IV contrast was administered without complic ation. All measurements were calculated based on NASCET criteria. A dose lowering technique was util ized adhering to the principles of ALARA. FINDINGS: Moderate atherosclerosis of the thoracic aortic arch. There is patency of the innominate artery. Athe rosclerotic plaque the left subclavian artery results in less than 50% stenosis. There is approximate ly 90% stenosis involving the mid right subclavian artery secondary to severe atherosclerotic plaque, image 111. This is distal to the vertebral artery origin. The common carotid arteries are widely pat ent. There is moderate plaque of the carotid bulbs and proximal cervical segments of the internal car otid arteries. This results in approximately 70% stenosis at the origin of the left ICA and approxima tely 60% stenosis at the origin of the right internal carotid artery. There is additional calcified p laque of the cavernous, clinoid and supraclinoid segments resulting in mild to moderate stenoses. The anterior middle cerebral arteries are patent. Codominant vertebral arteries demonstrate mild multifo [place] stenoses, notably within the V4 segments. The basilar and posterior cerebral arteries are patent. The cerebral venous sinuses are patent. There is no abnormal enhancement. Lung apices are clear without pneumothorax. Multinodular thyroid, mostly nodule subcentimeter in size . Streak artifact from dental amalgam hardware. Prior bilateral lens replacement. Degenerative change s of the cervical spine. IMPRESSION: 1. Atherosclerotic plaque of the carotid bulbs and proximal cervical segments of the internal carotid arteries results in approximately 70% stenosis at the origin of the left ICA and approximately 60% s tenosis on the right. 2. No additional high-grade stenosis. No aneurysm, dissection or arterial occlusion. 3. 90% stenosis of the mid right subclavian artery distal to the vertebral artery origin. ACT 112: Negative or not required by law. The above report was generated using voice recognition software. It may contain grammatical, syntax o r spelling errors. Electronically signed by: Alli Wu M.D. 02/12/2022 8:43 PM
[2022-02-12] MEDS ORDERED: LACTATED RINGER'S 1,000 ML IV ONE (21:46)
[2022-02-12] MEDS ORDERED: POTASSIUM CHLORIDE CRTAB 20 MEQ TABCR PO STA (21:46)
[2022-02-12] MEDS ORDERED: POTASSIUM CHLORIDE PWD 20 MEQ PACK PO STA (22:30)
--- NOTE | 2022-02-12 22:39 | History & Physical Report ---
Date of Service February 12, 2022 Assessment & Plan (1) Vision changes: Plan: With intermittent drooling left mouth Rule out TIA hx CVA as per records CAD sp stent SSS as per records, observe without PPM for now as per recent outpatient cardiology note hx PVD hypertension, slight elevated hyperlipidemia on statin Rx PMR/rheumatoid arthritis, symptoms at baseline asthma stable OBS Medical telemetry MRI brain Neurology consult Re: Intermittent blurred vision left eye with left mouth drooling Permissive hypertension for now until new stroke ruled out PT OT eval DVT prophylaxis. Lovenox subcu DNR Text document was generated using [employer] voice recognition software. It may contain grammatical or spelling errors. Kindly contact undersigned for clarification of any documentation item in question. History of Present Illness Chief Complaint: Double vision left Primary Care Provider: Rory Vargas MD History obtained from patient and records. Medical history significant for CAD STATUS POST STENT, SSS, PVD, CVA, hypertension, hyperlipidemia PMR/rheumatoid arthritis, asthma, GERD status post surgery, LOUIE on CPAP. Last confinement April 2019 for left distal radius fracture, right patellar fracture secondary to fall. Few weeks ago, patient noted intermittent double vision on the left eye. Patient drooling from the left side of the mouth occasionally for undetermined period of time. Achy right-sided headache symptoms. Balance somewhat off. No chest pain, no SOB. Patient compliant with home medications. Tearfulness and paranoia noted on visit to PCPs office last month. As per patient, windows server specialist last visit a few days ago recommended new prescription for eyeglasses but recommended PCP evaluation for possible stroke drooling from left mouth. Patient directed to ER for evaluation. Patient currently comfortable. MEDICAL HISTORY: SURGICAL HISTORY: Hernia surgeries. Carpal tunnel surgery, section, esophogastric fundoplasty, exp laparotomy, hernia repair, partial colectomy with anastomosis, cataract surgeries FAMILY HISTORY: Father of heart attack in his 40s. SOCIAL HISTORY: Nonsmoker. No chronic intake of alcoholic beverages. 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 Lives with her . Allergies Allergy/AdvReac Type Severity Reaction Status Date / Time Penicillins Allergy Mild RASH Verified 08/01/19 12:11 latex Allergy Unknown RASH Verified 08/01/19 12:11 niacin Allergy Unknown UNKNOWN Verified 08/01/19 12:11 metronidazole AdvReac Mild N/V Verified 08/01/19 12:11 Sulfa (Sulfonamide AdvReac Unknown . Verified 08/01/19 12:11 Antibiotics) tramadol AdvReac Unknown psycho Unverified 08/01/19 12:11 Home Medications Medication Instructions Recorded Confirmed Type albuterol sulfate 90 mcg/actuation 2 puff INHALATION Q4H PRN 12/09/18 12/19/20 History aerosol inhaler (Ventolin HFA) amlodipine 2.5 mg tablet 2.5 mg PO QAM 12/09/18 12/19/20 History atorvastatin 40 mg tablet 40 mg PO HS 12/09/18 12/19/20 History cholecalciferol (vitamin D3) 25 1,000 unit PO QAM 12/09/18 12/19/20 History mcg (1,000 unit) tablet (Vitamin D3) clopidogrel 75 mg tablet 75 mg PO QAM 12/09/18 12/19/20 History cyanocobalamin (vitamin B-12) 1,000 mcg PO QAM 12/09/18 12/19/20 History 1,000 mcg tablet (Vitamin B-12) escitalopram oxalate 5 mg tablet 5 mg PO QAM 12/09/18 12/19/20 History fluticasone 100 mcg-salmeterol 50 1 puff INHALATION BID PRN 12/09/18 12/19/20 History mcg/dose blistr powdr for inhalation (Advair Diskus) hydroxychloroquine 200 mg tablet 400 mg PO HS 12/09/18 12/19/20 History losartan 25 mg tablet 25 mg PO HS 12/09/18 12/19/20 History montelukast 10 mg tablet 10 mg PO HS 12/09/18 12/19/20 History nitroglycerin 0.3 mg sublingual 0.3 mg SUBLINGUAL UD PRN 12/09/18 12/19/20 History tablet olanzapine 2.5 mg tablet 2.5 mg PO HS 12/09/18 12/19/20 History omeprazole 20 mg capsule,delayed 20 mg PO BID 12/09/18 12/19/20 History release triamcinolone acetonide 0.1 % 1 applic TOPICAL BID PRN 12/09/18 12/19/20 History topical cream aspirin 81 mg tablet,delayed 81 mg PO QAM 04/18/19 12/19/20 History release docusate sodium 100 mg capsule 100 mg PO BID #30 cap 04/25/19 12/19/20 Rx (Colace) isosorbide dinitrate 5 mg tablet 10 mg PO TID #90 tab 04/25/19 12/19/20 Rx metoprolol succinate 25 mg 12.5 mg PO DAILY 07/10/19 12/19/20 History tablet,extended release 24 hr Past Med/Surg History Medical History (Updated 02/12/22 @ 23:24 by Chicho Figueroa M.D.) Asthma CAD (coronary artery disease), [place] coronary artery CKD (chronic kidney disease) stage 3, GFR 30-59 ml/min CKD (chronic kidney disease), stage III COPD (chronic obstructive pulmonary disease) Coronary artery disease Diaphragmatic hernia Dyslipidemia GERD (gastroesophageal reflux disease) History of CVA (cerebrovascular accident) without residual deficits History of kidney disease History of TIA (transient ischemic attack) HTN (hypertension) Hypertension Meniere's disease Osteoporosis Rheumatoid arthritis Sciatica Surgical History H/O exploratory laparotomy 11/2018 History of carpal tunnel repair History of section History of Milly fundoplication History of right hemicolectomy 11/2018 Status post cardiac catheterization Status post coronary artery stent placement Drug-eluting stent mid LAD Dr. Garces 04/01/18 Family History Father Stroke Myocardial infarction Brother Ischemic heart disease Other Family history non-contributory Social History Smoking Status: Never smoker Second Hand Exposure: No; Hx Alcohol Use: No Hx Substance Use: No Preferred Language: Nigerian Communication Ability: Effective Business Loan Processor Required: No Beliefs That Will Affect Care: None Current Living Situation: Spouse Other Information That Helps Us Care for You: No Feels Safe at Home: Yes Safety Concerns: Feels Safe At This Time Assistive Devices: Cane, Glasses and Walker Review of Systems Review of Systems: As per HPI, all other systems reviewed and negative Physical Exam Physical Exam: GENERAL: Comfortable, pleasant, slightly anxious, no respiratory distress SKIN: Normal color, warm HEENT: Bespectacled, [place] palpebral conjunctivae, no ptosis, dry buccal mucosa NECK : Supple, no tenderness CHEST : CTA, no tenderness HEART : RRR, no obvious murmurs ABDOMEN: no distention, nontender EXTREMITIES : No LE swelling/tenderness, no other conspicuous deformities noted NEUROLOGIC : Coherent, no facial asymmetry, gait and stance not assessed Results & Data Results & Data ([facility]) Vital Signs (Past 12 Hours) Vital Signs Temp Pulse Pulse Resp BP BP Pulse Ox 02/12/22 22:00 70 18 163/68 H 98 02/12/22 18:45 85 16 166/93 H 99 02/12/22 16:44 36.6 C 80 18 158/89 H 96 Laboratory Results Laboratory Results WBC 5.27 K/uL (4.8-10.8) 02/12/22 17:20 RBC 4.36 M/uL (4.2-5.4) 02/12/22 17:20 Hgb 13.1 g/dL (12.0-16.0) 02/12/22 17:20 Hct 39.7 % (37-47) 02/12/22 17:20 MCV 91.1 fL (80-100) 02/12/22 17:20 MCH 30.0 pg (25-34) 02/12/22 17:20 MCHC 33.0 g/dL (32-36) 02/12/22 17:20 RDW Std Deviation 45.2 fL (36.4-46.3) 02/12/22 17:20 RDW Coeff of Josse 13.6 % (11.5-14.5) 02/12/22 17:20 Plt Count 215 K/uL (130-400) 02/12/22 17:20 MPV 10.8 fL (7.4-10.4) H 02/12/22 17:20 PT 10.5 Seconds (9.0-12.0) 02/12/22 17:20 INR 1.0 (0.9-1.1) 02/12/22 17:20 APTT 26.3 Seconds (21.0-31.0) 02/12/22 17:20 PTT Ratio 1.0 02/12/22 17:20 Sodium 140 mmol/L (136-145) 02/12/22 17:20 Potassium 3.4 mmol/L (3.5-5.1) L 02/12/22 17:20 Chloride 105 mmol/L (98-107) 02/12/22 17:20 Carbon Dioxide 29 mmol/L (21-32) 02/12/22 17:20 Anion Gap 6 (3-11) 02/12/22 17:20 BUN 13 mg/dl (6-23) 02/12/22 17:20 Creatinine 0.78 mg/dl (0.6-1.2) 02/12/22 17:20 Est Cr Clr Drug Dosing 44.7 ml/min 02/12/22 17:20 Est GFR ( Amer) 79.8 ml/min 02/12/22 17:20 Est GFR (Non-Af Amer) 68.8 ml/min 02/12/22 17:20 BUN/Creatinine Ratio 16.7 (10-20) 02/12/22 17:20 Glucose 92 mg/dl (70-99(Fasting)) 02/12/22 17:20 Calcium 9.0 mg/dl (8.5-10.1) 02/12/22 17:20 Magnesium 2.0 mg/dl (1.7-2.4) 02/12/22 17:20 Total Bilirubin 1.3 mg/dl (0.2-1.0) H 02/12/22 17:20 AST 32 U/L (13-39) 02/12/22 17:20 ALT 21 U/L (7-52) 02/12/22 17:20 Alkaline Phosphatase 81 U/L (34-104) 02/12/22 17:20 Troponin I High Sens 2.5 pg/ml (0-14) 02/12/22 17:20 Total Protein 7.6 gm/dl (6.0-8.3) 02/12/22 17:20 Albumin 4.3 gm/dl (3.4-5.0) 02/12/22 17:20 Globulin 3.3 gm/dl (2.5-4.0) 02/12/22 17:20 Albumin/Globulin Ratio 1.3 (0.9-2) 02/12/22 17:20 Lipase 13 U/L (11-82) 02/12/22 17:[address] 02/12/22 16:52 CT head/brain wo con CLINICAL HISTORY: 86 years-old Female with Stroke Alert. Acute strokelike symptoms TECHNIQUE: Multiple axial CT images of the head were obtained without contrast. A dose lowering technique was utilized adhering to the principles of ALARA. CT DOSE: 537.48 mGy.cm COMPARISON: Head CT 07/10/2019 FINDINGS: No acute intracranial hemorrhage, midline shift, intracranial mass, hydrocephalus, territorial ischemia or abnormal extra-axial collection. Cerebral vascular calcifications. The calvarium is intact. Prior bilateral lens replacement. The paranasal sinuse s, mastoid air cells, and middle ear cavities are clear. IMPRESSION: No acute process. ACT 112: Negative or not required by law. The above report was generated using voice recognition software. It may contain grammatical, syntax or spelling errors. Electronically signed by: Alli Wu M.D. 02/12/2022 5:21 PM Head CTA 02/12/22 19:10 CT angio neck with con, CT angio head w con CLINICAL HISTORY: 86 years-old Female with Vision issues. Acute strokelike symptoms with blurry vision COMPARISON STUDY: Head CT of same day TECHNIQUE: Following the IV administration of 120 mL of Optiray, CT angiogram of the head and neck was performed from the aortic arch to the skull apex. Images are reviewed in the axial, sagittal, and coronal planes. 3-D MIPS images are created and assessed. IV contrast was administered without complication. All measurements were calculated based on NASCET criteria. A dose lowering technique was utilized adhering to the principles of ALARA. FINDINGS: Moderate atherosclerosis of the thoracic aortic arch. There is patency of the innominate artery. Atherosclerotic plaque the left subclavian artery results in less than 50% stenosis. There is approximately 90% stenosis involving the mid right subclavian artery secondary to severe atherosclerotic plaque, image 111. This is distal to the vertebral artery origin. The common carotid arteries are widely patent. There is moderate plaque of the carotid bulbs and proximal cervical segments of the internal carotid arteries. This results in approximately 70% stenosis at the origin of the left ICA and approximately 60% stenosis at the origin of the right internal carotid artery. There is additional calcified plaque of the cavernous, clinoid and supraclinoid segments resulting in mild to moderate stenoses. The anterior middle cerebral arteries are patent. Codominant vertebral arteries demonstrate mild multifocal stenoses, notably within the V4 segments. The basilar and posterior cerebral arteries are patent. The cerebral venous sinuses are patent. There is no abnormal enhancement. Lung apices are clear without pneumothorax. Multinodular thyroid, mostly nodule subcentimeter in size. Streak artifact from dental amalgam hardware. Prior bilateral lens replacement. Degenerative changes of the cervical spine. IMPRESSION: 1. Atherosclerotic plaque of the carotid bulbs and proximal cervical segments of the internal carotid arteries results in approximately 70% stenosis at the origin of the left ICA and approximately 60% stenosis on the right. 2. No additional high-grade stenosis. No aneurysm, dissection or arterial occlusion. 3. 90% stenosis of the mid right subclavian artery distal to the vertebral artery origin. ACT 112: Negative or not required by law. The above report was generated using voice recognition software. It may contain grammatical, syntax or spelling errors. Electronically signed by: Alli Wu M.D. 02/12/2022 8:43 PM Neck CTA 02/12/22 19:10 CT angio neck with con, CT angio head w con CLINICAL HISTORY: 86 years-old Female with Vision issues. Acute strokelike symptoms with blurry vision COMPARISON STUDY: Head CT of same day TECHNIQUE: Following the IV administration of 120 mL of Optiray, CT angiogram of the head and neck was performed from the aortic arch to the skull apex. Images are reviewed in the axial, sagittal, and coronal planes. 3-D MIPS images are created and assessed. IV contrast was administered without complication. All measurements were calculated based on NASCET criteria. A dose lowering technique was utilized adhering to the principles of ALARA. FINDINGS: Moderate atherosclerosis of the thoracic aortic arch. There is patency of the innominate artery. Atherosclerotic plaque the left subclavian artery results in less than 50% stenosis. There is approximately 90% stenosis involving the mid right subclavian artery secondary to severe atherosclerotic plaque, image 111. This is distal to the vertebral artery origin. The common carotid arteries are widely patent. There is moderate plaque of the carotid bulbs and proximal cervical segments of the internal carotid arteries. This results in approximately 70% stenosis at the origin of the left ICA and approximately 60% stenosis at the origin of the right internal carotid artery. There is additional calcified plaque of the cavernous, clinoid and supraclinoid segments resulting in mild to moderate stenoses. The anterior middle cerebral arteries are patent. Codominant vertebral arteries demonstrate mild multifocal stenoses, notably within the V4 segments. The basilar and posterior cerebral arteries are patent. The cerebral venous sinuses are patent. There is no abnormal enhancement. Lung apices are clear without pneumothorax. Multinodular thyroid, mostly nodule subcentimeter in size. Streak artifact from dental amalgam hardware. Prior bilateral lens replacement. Degenerative changes of the cervical spine. IMPRESSION: 1. Atherosclerotic plaque of the carotid bulbs and proximal cervical segments of the internal carotid arteries results in approximately 70% stenosis at the origin of the left ICA and approximately 60% stenosis on the right. 2. No additional high-grade stenosis. No aneurysm, dissection or arterial occlusion. 3. 90% stenosis of the mid right subclavian artery distal to the vertebral artery origin. ACT 112: Negative or not required by law. The above report was generated using voice recognition software. It may contain grammatical, syntax or spelling errors. Electronically signed by: Alli Wu M.D. 02/12/2022 8:43 PM Diagnostic Findings EKG as per my interpretation: Rate 60, NSR, LAD, LAFB, no ischemia, LVH
[2022-02-13 01:11] LABS: Lyme Ab IgG w/WB Rflx Negative (Negative); Lyme Ab IgM w/WB Rflx Negative (Negative)
[2022-02-13] MEDS ORDERED: ACETAMINOPHEN 325 MG TAB PO PRN (02:02)
[2022-02-13] MEDS ORDERED: POLYETHYLENE (MIRALAX) 17 GM PACK PO PRN (02:02)
[2022-02-13] MEDS: ATORVASTATIN 40 MG TAB PO SCH ×2 (02:57→20:16)
[2022-02-13] MEDS: ISOSORBIDE DINITRATE 10 MG TAB PO SCH ×3 (06:15→17:13)
[2022-02-13 07:25] LABS: Basophils # (auto) 0.03 K/uL (0-0.2); Basophils % (auto) 0.5 %; Eosinophils # (auto) 0.21 K/uL (0-0.5); Eosinophils % (auto) 3.5 %; Hematocrit (blood only) 39.6 % (37-47); Hemoglobin 13.3 g/dL (12.0-16.0); Immature Granulocytes # (auto) 0.01 K/uL (0.00-0.02); Immature Granulocytes % (auto) 0.2 %; Lymphocytes # (auto) 1.65 K/uL (1.2-3.4); Lymphocytes % (auto) 27.6 %; Mean Corpuscular Hemoglobin 30.4 pg (25-34); Mean Corpuscular Hgb Conc 33.6 g/dL (32-36); Mean Corpuscular Volume 90.6 fL (80-100); Mean Platelet Volume 10.3 fL (7.4-10.4); Monocytes # (auto) 0.82 K/uL (0.11-0.59); Monocytes % (auto) 13.7 %; Neutrophils # (auto) 3.26 K/uL (1.4-6.5); Neutrophils % (auto) 54.5 %; Platelet Count 209 K/uL (130-400); RDW Coefficient of Variation 13.4 % (11.5-14.5); RDW Standard Deviation 43.7 fL (36.4-46.3); Red Blood Count 4.37 M/uL (4.2-5.4); White Blood Count 5.98 K/uL (4.8-10.8)
[2022-02-13 07:46] LABS: BUN Creatinine Ratio 13.9 (10-20); Chol HDL Ratio 2.1 (0-5); Creatinine Clr Calc Pharmacy 46.4 ml/min; Est GFR (African American) 87.9 ml/min; Est GFR (Non-African American) 75.8 ml/min; Potassium 3.7 mmol/L (3.5-5.1)
--- NOTE | 2022-02-13 08:10 | Magnetic Resonance Report ---
MRI OF THE BRAIN WITHOUT CONTRAST CLINICAL HISTORY: Transient ischemic attack. Double vision. COMPARISON STUDY: Head CT and CTA of the head February 12, 2022. TECHNIQUE: Utilizing a 1.5 Alejandrina magnet and dedicated coil, multiplanar, multiecho imaging of the bra in was performed without IV contrast. FINDINGS: There are no foci of restricted diffusion to suggest acute infarct. No acute intracranial h emorrhage, midline shift or mass effect is present. Ventricular system is unremarkable. Basal cistern s are patent. There are no extra-axial collections. Several small white matter T2 hyperintense foci s uggest mild small vessel disease. There is mild to moderate atrophy. Calvarial signal is normal. No e vidence for sinusitis. No mastoid fluid. No intracranial masses are identified on this unenhanced exa m. IMPRESSION: No acute intracranial findings. ACT 112: Negative or not required by law. Electronically signed by: Mehdi Ibarra M.D. 02/13/2022 8:09 AM
[2022-02-13] MEDS: ENOXAPARIN INJ 30 MG/0.3 ML SYR SQ SCH (09:03)
[2022-02-13] MEDS: ARIPIprazole 1 MG/ML ORAL SOLN 150 ML BTL PO SCH (09:04)
[2022-02-13] MEDS: METOPROLOL SUCC 25MG EXT REL TAB PO SCH (09:04)
[2022-02-13] MEDS: FEXOFENADINE HCL 180 MG TAB PO SCH (09:04)
[2022-02-13] MEDS: PANTOprazole 40 MG TAB PO SCH ×2 (09:04→20:16)
[2022-02-13] MEDS: CLOPIDOGREL BISULFATE 75 MG TAB PO SCH (09:05)
[2022-02-13] MEDS: ASPIRIN 81 MG ECTAB PO SCH (09:05)
[2022-02-13] MEDS: CYANOCOBALAMIN (B-12) 500 MCG TABLET PO SCH (09:05)
--- NOTE | 2022-02-13 12:09 | Electrocardiogram Report ---
Test Reason : Blood Pressure : / mmHG Vent. Rate : 060 BPM Atrial Rate : 060 BPM P-R Int : 192 ms QRS Dur : 134 ms QT Int : 428 ms P-R-T Axes : 057 -47 041 degrees QTc Int : 428 ms Normal sinus rhythm Left axis deviation Left ventricular hypertrophy with QRS widening Abnormal ECG When compared with ECG of 19-DEC-2020 13:49, Nonspecific T wave abnormality has replaced inverted T waves in Inferior leads Confirmed by Jordon Waters ([id number]) on 02/13/2022 12:09:25 PM Referred By: REFERRED SELF Confirmed By:Jordon Waters
--- NOTE | 2022-02-13 15:18 | Hospitalist Progress Note ---
Date of Service February 13, 2022 Assessment & Plan (1) Vision changes: Plan: Occasional diplopia with blurred vision Has been ongoing and was evaluated by an [employer] turret lathe operator and prescriptions of glasses were given Are visual problems are not any worse Possible TIA With intermittent drooling left mouth-noticed by the [employer] turret lathe operator She denies any other associated symptoms of TIA Denies any numbness and tingling in the extremities, no weakness involving any side of the body, no speech and/or swallowing problem hx CVA as per records MRI, CTS remain unremarkable Appreciate neurology input and recommendation Doubt any parkinsonian symptoms PT/OT eval prior to discharge CAD sp stent-no acute symptoms SSS as per records, observe without PPM for now as per recent outpatient cardiology note Hypertension, slight elevated Hyperlipidemia on statin Rx PMR/rheumatoid arthritis, symptoms at baseline Asthma stable DVT prophylaxis. Lovenox subcu DNR Admission and Anticipated Discharge Date Admission Date: February 12, 2022 Subjective 02/13/2022 The patient was seen and examined in telemetry unit She has been feeling much better since admission Her symptoms of diplopia and issues with vision remains unchanged Denies any numbness and or tingling in the extremities and no weakness involving any side of the body Review of Systems Review of Systems: All systems reviewed and are unremarkable except as noted below Neurologic: No focal sensory and/or motor neurodeficit Physical Exam Physical Exam: Lying in bed comfortably Constitutional: average body habitus; not ill appearing Eyes: PERRL, conjunctivae normal, anicteric sclerae ENMT: external ear and nose normal, oropharynx normal Neck: trachea midline, no thyromegaly Respiratory: no respiratory distress Auscultation: lungs clear to auscultation bilaterally Cardiovascular: Rate/Rhythm: regular rate and regular rhythm; not tachycardic Heart Sounds: normal S1 and normal S2; no murmur Extremities: no edema Gastrointestinal (Abdomen): Inspection/Auscultation: normal bowel sounds; abdomen not distended Percussion/Palpation: abdomen soft; abdomen nontender Musculoskeletal: No acute arthritis in any joint Neurologic: Alert, awake and oriented x3. No focal sensory and motor deficit appreciated Lymphatic: no cervical or axillary lymphadenopathy Results & Data Results & Data ([facility]) Vital Signs (Past 12 Hours) Vital Signs Temp Pulse Resp BP BP Pulse Ox 02/13/22 12:19 36.4 C L 65 18 144/82 H 97 02/13/22 07:23 36.3 C L 65 16 128/65 96 Laboratory Results Short CBC 02/12/22 02/13/22 Range/Units 17:20 07:08 WBC 5.27 5.98 (4.8-10.8) K/uL Hgb 13.1 13.3 (12.0-16.0) g/dL Hct 39.7 39.6 (37-47) % Plt Count 215 209 (130-400) K/uL BMP 02/12/22 02/13/22 17:20 07:08 Sodium 140 140 Potassium 3.4 L 3.7 Chloride 105 105 Carbon Dioxide 29 29 BUN 13 10 Creatinine 0.78 0.72 Glucose 92 91 Calcium 9.0 9.0 Liver Function 02/12/22 Range/Units 17:20 Total Bilirubin 1.3 H (0.2-1.0) mg/dl AST 32 (13-39) U/L ALT 21 (7-52) U/L Alkaline Phosphatase 81 (34-104) U/L Albumin 4.3 (3.4-5.0) gm/dl Medications Administered Current Inpatient Medications Acetaminophen (Acetaminophen 325 Mg Tab) 650 mg PO Q4H PRN PRN Reason: Pain or Fever Stop: 03/15/22 02:01 Aripiprazole (Aripiprazole 1 Mg/Ml Oral Soln 150 Ml Btl) 4 mg PO [facility] Stop: 03/15/22 08:59 Last Admin: 02/13/22 09:04 Dose: 4 mg Documented by: Aspirin (Aspirin 81 Mg Ectab) 81 mg PO [facility] Stop: 03/15/22 08:59 Last Admin: 02/13/22 09:05 Dose: 81 mg Documented by: Atorvastatin Calcium (Atorvastatin 40 Mg Tab) 40 mg PO [facility] Stop: 03/15/22 02:01 Last Admin: 02/13/22 02:57 Dose: 40 mg Documented by: Clopidogrel Bisulfate (Clopidogrel Bisulfate 75 Mg Tab) 75 mg PO [facility] Stop: 03/15/22 08:59 Last Admin: 02/13/22 09:05 Dose: 75 mg Documented by: Cyanocobalamin (Cyanocobalamin (B-12) 500 Mcg Tablet) 1,000 mcg PO [facility] Stop: 03/15/22 08:59 Last Admin: 02/13/22 09:05 Dose: 1,000 mcg Documented by: Enoxaparin Sodium (Enoxaparin Inj 30 Mg/0.3 Ml Syr) 30 mg SQ QAM MAC Stop: 03/15/22 08:59 Last Admin: 02/13/22 09:03 Dose: 30 mg Documented by: Fexofenadine HCl (Fexofenadine Hcl 180 Mg Tab) 180 mg PO QAM MAC Stop: 03/15/22 08:59 Last Admin: 02/13/22 09:04 Dose: 180 mg Documented by: Fluticasone/Vilanterol (Fluticasone/Vilanterol 100/25mcg 14 Puffs/Inhaler) 1 puffs INH DAILY MAC Stop: 03/16/22 08:59 Isosorbide Dinitrate (Isosorbide Dinitrate 10 Mg Tab) 10 mg PO TID@0700,1200,1700 MAC Stop: 03/15/22 06:59 Last Admin: 02/13/22 12:17 Dose: 10 mg Documented by: Metoprolol Succinate (Metoprolol Succ 25mg Ext Rel Tab) 12.5 mg PO DAILY MAC Stop: 03/15/22 08:59 Last Admin: 02/13/22 09:04 Dose: 12.5 mg Documented by: Montelukast Sodium (Montelukast Sodium 10 Mg Tablet) 10 mg PO HS [facility] Stop: 03/15/22 20:59 Pantoprazole Sodium (Pantoprazole 40 Mg Tab) 40 mg PO BID MAC Stop: 03/15/22 08:59 Last Admin: 02/13/22 09:04 Dose: 40 mg Documented by: Polyethylene Glycol (Polyethylene (Miralax) 17 Gm Pack) 17 gm PO DAILY PRN PRN Reason: Constipation Stop: 03/15/22 02:01
[2022-02-13] MEDS: MONTELUKAST SODIUM 10 MG TABLET PO SCH (20:16)
[2022-02-13] MEDS ORDERED: ISOSORBIDE DINITRATE 10 MG TAB PO SCH (21:00)
--- NOTE | 2022-02-13 22:30 | Consultation Report ---
NEUROLOGY CONSULTATION NOTE DATE OF CONSULTATION: 02/13/2022. CHIEF COMPLAINT: Sialorrhea, diplopia. HISTORY OF PRESENT ILLNESS: An 86-year-old female with a history of coronary artery disease, status post stent, history of cerebrovascular accident, hypertension, hyperlipidemia, noted to have intermit tent double vision in the left eye a few weeks ago. She was also having drooling from the left side of her mouth. This has been going on for unknown period of time. She also had a right-sided headach e and balance was off. She had no chest pain or shortness of breath. She was seen by her ophthalmol ogist and recommended prescription for eyeglasses, but recommended to the PCP for possible stroke mendel luation given the drooling on the left side of the mouth. The patient was admitted to the hospital f or further evaluation of stroke. Neurology was consulted on admission. ALLERGIES: PENICILLINS, LATEX, NIACIN, METRONIDAZOLE, SULFA ANTIBIOTICS, TRAMADOL. HOME MEDICATIONS: Albuterol as needed, Norvasc, Lipitor, vitamin D, Plavix 75 mg daily, vitamin B12, Lexapro, hydroxychloroquine, losartan, olanzapine, omeprazole, aspirin 81 mg daily, isosorbide dinit rate, metoprolol. PAST MEDICAL HISTORY: Asthma, CAD, CKD, COPD, dyslipidemia, gastroesophageal reflux disease, history of cerebrovascular accident, kidney disease, transient ischemic attack, hypertension, osteoporosis, rheumatoid arthritis, sciatica. PAST SURGICAL HISTORY: Laparotomy, carpal tunnel repair, , right hemicolectomy, cardiac cat heterization, coronary artery disease stent placement. FAMILY HISTORY: Father had a stroke and myocardial infarction. Brother had an ischemic heart diseas e, other family history noncontributory. SOCIAL HISTORY: She is a nonsmoker. No alcohol use. She does walk with a cane and wears glasses. PHYSICAL EXAMINATION: Vital signs: Blood pressure 144/82, pulse is 65, respiratory rate 18, tempera ture is 36.4 degrees Celsius. The patient is awake, alert, appears stated age, in no acute distress. Head is atraumatic and normocephalic. Eyes are midline. Conjunctivae are noninjected. Pupils are symmetric. Neck is supple. Normal respiratory effort. Cardiac: Pulses intact. Abdomen: Nondisten ded. No skin rash. Normal mood, normal affect. Speech is clear. No aphasia. Face is symmetric. T ongue is midline. Extraocular muscles intact. Pupils symmetric. Shoulder shrug is intact. No drif t in the upper and lower extremities. No ataxia with [id number] testing, no tremor. Cassidy si gn is negative. No ankle clonus. DIAGNOSTIC TESTING: Laboratory values: WBC 5.98, hemoglobin 13.3, platelet count 209. INR is 1.0. Sodium 140, potassium 3.7, chloride 105, carbon dioxide 29, BUN 10, creatinine 0.72. LDL cholestero l 63. Urinalysis was not performed. COVID-19 was negative. Imaging: Head and neck CTA showed athe rosclerotic plaque at the carotid bulbs and proximal cervical segment of the internal carotid arterie s resulting in approximately 70% stenosis at the origin of the left ICA and approximately 60% stenosi s of the right. No high-grade stenosis intracranially, no aneurysm, no dissection. No large vessel occlusion. 90% stenosis of the mid right subclavian artery distal to the vertebral artery origin. He ad CT noncontrast showed no hemorrhage or acute intracranial process. MRI of the brain showed no felix dence of acute ischemic stroke. [id number] atrophy. Several small white matter T2 hyperintens e foci suggestive of mild small vessel ischemic disease. ASSESSMENT AND PLAN: An 86-year-old female with history of peripheral vascular disease including cor onary artery disease, status post stent, on aspirin and Plavix, admitted with transient diplopia and sialorrhea. Recommend to continue home dual antiplatelet therapy for known atherosclerotic disease. MRI of the brain is reassuring with no evidence of acute ischemic stroke. If sialorrhea or drooling becomes problematic, atropine eyedrops can be utilized as needed under the tongue. 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 Okay to continue monitoring. If sym ptoms persist or reoccur, may consider acetylcholine receptor antibody testing as an outpatient. Oth erwise, low suspicion for stroke or transient ischemic attack. We will continue current home medicat ions. No additional neurology recommendations. The patient can follow up with PCP as an outpatient. Job ID: [id number]
[2022-02-14] MEDS: ISOSORBIDE DINITRATE 10 MG TAB PO SCH ×3 (06:37→16:41)
[2022-02-14 07:28] LABS: Basophils # (auto) 0.08 K/uL (0-0.2); Basophils % (auto) 0.9 %; Eosinophils # (auto) 0.33 K/uL (0-0.5); Eosinophils % (auto) 3.9 %; Hematocrit (blood only) 43.7 % (37-47); Hemoglobin 14.4 g/dL (12.0-16.0); Immature Granulocytes # (auto) 0.02 K/uL (0.00-0.02); Immature Granulocytes % (auto) 0.2 %; Lymphocytes # (auto) 3.52 K/uL (1.2-3.4); Lymphocytes % (auto) 41.3 %; Mean Corpuscular Hemoglobin 30.2 pg (25-34); Mean Corpuscular Volume 91.6 fL (80-100); Mean Platelet Volume 10.5 fL (7.4-10.4); Monocytes # (auto) 0.93 K/uL (0.11-0.59); Monocytes % (auto) 10.9 %; Neutrophils # (auto) 3.65 K/uL (1.4-6.5); Neutrophils % (auto) 42.8 %; Platelet Count 234 K/uL (130-400); RDW Coefficient of Variation 13.4 % (11.5-14.5); RDW Standard Deviation 45.1 fL (36.4-46.3); Red Blood Count 4.77 M/uL (4.2-5.4); White Blood Count 8.53 K/uL (4.8-10.8)
[2022-02-14] MEDS: FLUTICASONE/VILANTEROL 100/25MCG 14 PUFFS/INHALER INH SCH (07:47)
[2022-02-14] MEDS: ARIPIprazole 1 MG/ML ORAL SOLN 150 ML BTL PO SCH (07:48)
[2022-02-14] MEDS: CLOPIDOGREL BISULFATE 75 MG TAB PO SCH (07:49)
[2022-02-14] MEDS: FEXOFENADINE HCL 180 MG TAB PO SCH (07:49)
[2022-02-14] MEDS: PANTOprazole 40 MG TAB PO SCH ×2 (07:49→20:15)
[2022-02-14] MEDS: METOPROLOL SUCC 25MG EXT REL TAB PO SCH (07:49)
[2022-02-14] MEDS: CYANOCOBALAMIN (B-12) 500 MCG TABLET PO SCH (07:50)
[2022-02-14] MEDS: ASPIRIN 81 MG ECTAB PO SCH (07:50)
[2022-02-14] MEDS: ENOXAPARIN INJ 30 MG/0.3 ML SYR SQ SCH (07:50)
[2022-02-14 07:58] LABS: BUN Creatinine Ratio 16.8 (10-20); Calcium 9.1 mg/dl (8.5-10.1); Creatinine Clr Calc Pharmacy 33.1 ml/min; Est GFR (African American) 58.4 ml/min; Est GFR (Non-African American) 50.4 ml/min; Potassium 3.8 mmol/L (3.5-5.1)
--- NOTE | 2022-02-14 14:41 | Hospitalist Progress Note ---
Date of Service February 14, 2022 Assessment & Plan (1) Vision changes: Plan: Occasional diplopia with blurred vision Has been ongoing and was evaluated by an assembly inspector and prescriptions of glasses were given Are visual problems are not any worse Possible TIA With intermittent drooling left mouth-noticed by the assembly inspector She denies any other associated symptoms of TIA Denies any numbness and tingling in the extremities, no weakness involving any side of the body, no speech and/or swallowing problem hx CVA as per records MRI, CTS remain unremarkable Appreciate neurology input and recommendation Doubt any parkinsonian symptoms PT/OT eval prior to discharge-recommended home Still remains a little shaky to be discharged She will be discharged home in a day or 2 CAD sp stent-no acute symptoms SSS as per records, observe without PPM for now as per recent outpatient cardiology note Hypertension, slight elevated Hyperlipidemia on statin Rx PMR/rheumatoid arthritis, symptoms at baseline Asthma stable DVT prophylaxis. Lovenox subcu DNR Admission and Anticipated Discharge Date Admission Date: February 12, 2022 Subjective 02/13/2022 The patient was seen and examined in telemetry unit She has been feeling much better since admission Her symptoms of diplopia and issues with vision remains unchanged Denies any numbness and or tingling in the extremities and no weakness involving any side of the body 02/14/2022 The patient was seen and examined in medical telemetry unit She has been a little anxious but otherwise denied any more symptoms She has had physical therapy and recommended home She feels she is not ready to be discharged Review of Systems Review of Systems: All systems reviewed and are unremarkable except as noted below Neurologic: No focal sensory and/or motor neurodeficit Physical Exam Physical Exam: Lying in bed comfortably Constitutional: average body habitus; not ill appearing Eyes: PERRL, conjunctivae normal, anicteric sclerae ENMT: external ear and nose normal, oropharynx normal Neck: trachea midline, no thyromegaly Respiratory: no respiratory distress Auscultation: lungs clear to auscultation bilaterally Cardiovascular: Rate/Rhythm: regular rate and regular rhythm; not tachycardic Heart Sounds: normal S1 and normal S2; no murmur Extremities: no edema Gastrointestinal (Abdomen): Inspection/Auscultation: normal bowel sounds; abdomen not distended Percussion/Palpation: abdomen soft; abdomen nontender Musculoskeletal: No acute arthritis in any joint Neurologic: Alert, awake and oriented x3. Generally weak but no focal sensory or no motor deficit appreciated Lymphatic: no cervical or axillary lymphadenopathy Results & Data Results & Data ([facility]) Vital Signs (Past 12 Hours) Vital Signs Temp Pulse Pulse Resp BP BP Pulse Ox 02/14/22 10:40 36.4 C L 58 L 18 114/73 97 02/14/22 07:27 58 L 02/14/22 07:23 36.6 C 81 18 109/72 96 02/14/22 06:36 36.6 C 63 16 115/71 94 02/14/22 04:00 36.6 C 63 18 138/69 96 Laboratory Results Short CBC 02/14/22 Range/Units 07:03 WBC 8.53 (4.8-10.8) K/uL Hgb 14.4 (12.0-16.0) g/dL Hct 43.7 (37-47) % Plt Count 234 (130-400) K/uL BMP 02/14/22 07:03 Sodium 137 Potassium 3.8 Chloride 102 Carbon Dioxide 30 BUN 17 Creatinine 1.01 Glucose 108 H Calcium 9.1 Medications Administered Current Inpatient Medications Acetaminophen (Acetaminophen 325 Mg Tab) 650 mg PO Q4H PRN PRN Reason: Pain or Fever Stop: 03/15/22 02:01 Aripiprazole (Aripiprazole 1 Mg/Ml Oral Soln 150 Ml Btl) 4 mg PO [facility] Stop: 03/15/22 08:59 Last Admin: 02/14/22 07:48 Dose: 4 mg Documented by: Aspirin (Aspirin 81 Mg Ectab) 81 mg PO [facility] Stop: 03/15/22 08:59 Last Admin: 02/14/22 07:50 Dose: 81 mg Documented by: Atorvastatin Calcium (Atorvastatin 40 Mg Tab) 40 mg PO [facility] Stop: 03/15/22 02:01 Last Admin: 02/13/22 20:16 Dose: 40 mg Documented by: Clopidogrel Bisulfate (Clopidogrel Bisulfate 75 Mg Tab) 75 mg PO [facility] Stop: 03/15/22 08:59 Last Admin: 02/14/22 07:49 Dose: 75 mg Documented by: Cyanocobalamin (Cyanocobalamin (B-12) 500 Mcg Tablet) 1,000 mcg PO [facility] Stop: 03/15/22 08:59 Last Admin: 02/14/22 07:50 Dose: 1,000 mcg Documented by: Enoxaparin Sodium (Enoxaparin Inj 30 Mg/0.3 Ml Syr) 30 mg SQ QAM MAC Stop: 03/15/22 08:59 Last Admin: 02/14/22 07:50 Dose: 30 mg Documented by: Fexofenadine HCl (Fexofenadine Hcl 180 Mg Tab) 180 mg PO QAM MAC Stop: 03/15/22 08:59 Last Admin: 02/14/22 07:49 Dose: 180 mg Documented by: Fluticasone/Vilanterol (Fluticasone/Vilanterol 100/25mcg 14 Puffs/Inhaler) 1 puffs INH DAILY MAC Stop: 03/16/22 08:59 Last Admin: 02/14/22 07:47 Dose: 1 puffs Documented by: Isosorbide Dinitrate (Isosorbide Dinitrate 10 Mg Tab) 10 mg PO TID@0700,1200,1700 [facility] Stop: 03/15/22 06:59 Last Admin: 02/14/22 11:35 Dose: 10 mg Documented by: Metoprolol Succinate (Metoprolol Succ 25mg Ext Rel Tab) 12.5 mg PO DAILY [facility] Stop: 03/15/22 08:59 Last Admin: 02/14/22 07:49 Dose: 12.5 mg Documented by: Montelukast Sodium (Montelukast Sodium 10 Mg Tablet) 10 mg PO HS [facility] Stop: 03/15/22 20:59 Last Admin: 02/13/22 20:16 Dose: 10 mg Documented by: Pantoprazole Sodium (Pantoprazole 40 Mg Tab) 40 mg PO BID [facility] Stop: 03/15/22 08:59 Last Admin: 02/14/22 07:49 Dose: 40 mg Documented by: Polyethylene Glycol (Polyethylene (Miralax) 17 Gm Pack) 17 gm PO DAILY PRN PRN Reason: Constipation Stop: 03/15/22 02:01
[2022-02-14] MEDS: ATORVASTATIN 40 MG TAB PO SCH (20:15)
[2022-02-14] MEDS: MONTELUKAST SODIUM 10 MG TABLET PO SCH (20:15)
[2022-02-15] MEDS: ISOSORBIDE DINITRATE 10 MG TAB PO SCH ×2 (09:05→13:14)
[2022-02-15] MEDS: METOPROLOL SUCC 25MG EXT REL TAB PO SCH (09:06)
[2022-02-15] MEDS: FEXOFENADINE HCL 180 MG TAB PO SCH (09:09)
[2022-02-15] MEDS: PANTOprazole 40 MG TAB PO SCH (09:10)
[2022-02-15] MEDS: ASPIRIN 81 MG ECTAB PO SCH (09:10)
[2022-02-15] MEDS: ARIPIprazole 1 MG/ML ORAL SOLN 150 ML BTL PO SCH (09:11)
[2022-02-15] MEDS: CLOPIDOGREL BISULFATE 75 MG TAB PO SCH (09:11)
[2022-02-15] MEDS: FLUTICASONE/VILANTEROL 100/25MCG 14 PUFFS/INHALER INH SCH (09:11)
[2022-02-15] MEDS: CYANOCOBALAMIN (B-12) 500 MCG TABLET PO SCH (09:11)
[2022-02-15] MEDS: ENOXAPARIN INJ 30 MG/0.3 ML SYR SQ SCH (09:13)
--- NOTE | 2022-02-15 11:07 | Hospitalist Progress Note ---
Date of Service February 15, 2022 Assessment & Plan (1) Vision changes: Plan: Occasional diplopia with blurred vision Has been ongoing and was evaluated by an social science instructor and prescriptions of glasses were given Are visual problems are not any worse Possible TIA With intermittent drooling left mouth-noticed by the social science instructor She denies any other associated symptoms of TIA Denies any numbness and tingling in the extremities, no weakness involving any side of the body, no speech and/or swallowing problem hx CVA as per records MRI, CTS remain unremarkable Appreciate neurology input and recommendation Doubt any parkinsonian symptoms PT/OT eval prior to discharge-recommended home Still remains a little shaky to be discharged Denies any symptoms and ready to be discharged Neurologically intact CAD sp stent-no acute symptoms SSS as per records, observe without PPM for now as per recent outpatient cardiology note Hypertension, slight elevated Hyperlipidemia on statin Rx PMR/rheumatoid arthritis, symptoms at baseline Asthma stable DVT prophylaxis. Lovenox subcu DNR Admission and Anticipated Discharge Date Admission Date: February 14, 2022 Subjective 02/13/2022 The patient was seen and examined in telemetry unit She has been feeling much better since admission Her symptoms of diplopia and issues with vision remains unchanged Denies any numbness and or tingling in the extremities and no weakness involving any side of the body 02/14/2022 The patient was seen and examined in medical telemetry unit She has been a little anxious but otherwise denied any more symptoms She has had physical therapy and recommended home She feels she is not ready to be discharged 02/15/2022 The patient was seen and examined in medical telemetry unit She remains generally weak but otherwise denies any neurological symptoms Has been ambulating without any difficulty Review of Systems Review of Systems: All systems reviewed and are unremarkable except as noted below Neurologic: No focal sensory and/or motor neurodeficit Physical Exam Physical Exam: Lying in bed comfortably Constitutional: average body habitus; not ill appearing Eyes: PERRL, conjunctivae normal, anicteric sclerae ENMT: external ear and nose normal, oropharynx normal Neck: trachea midline, no thyromegaly Respiratory: no respiratory distress Auscultation: lungs clear to auscultation bilaterally Cardiovascular: Rate/Rhythm: regular rate and regular rhythm; not tachycardic Heart Sounds: normal S1 and normal S2; no murmur Extremities: no edema Gastrointestinal (Abdomen): Inspection/Auscultation: normal bowel sounds; abdomen not distended Percussion/Palpation: abdomen soft; abdomen nontender Musculoskeletal: No acute arthritis in any joint Neurologic: normal touch/pain/proprioception and moves all extremities; not confused Psychiatric: A+Ox3, euthymic affect Lymphatic: no cervical or axillary lymphadenopathy Results & Data Results & Data ([facility]) Vital Signs (Past 12 Hours) Vital Signs Temp Pulse Pulse Resp BP Pulse Ox 02/15/22 08:00 64 02/15/22 07:44 36.5 C 69 16 136/71 96 02/15/22 03:29 36.4 C L 66 18 133/68 96 Medications Administered Current Inpatient Medications Acetaminophen (Acetaminophen 325 Mg Tab) 650 mg PO Q4H PRN PRN Reason: Pain or Fever Stop: 03/15/22 02:01 Aripiprazole (Aripiprazole 1 Mg/Ml Oral Soln 150 Ml Btl) 4 mg PO [facility] Stop: 03/15/22 08:59 Last Admin: 02/15/22 09:11 Dose: 4 mg Documented by: Aspirin (Aspirin 81 Mg Ectab) 81 mg PO [facility] Stop: 03/15/22 08:59 Last Admin: 02/15/22 09:10 Dose: 81 mg Documented by: Atorvastatin Calcium (Atorvastatin 40 Mg Tab) 40 mg PO [facility] Stop: 03/15/22 02:01 Last Admin: 02/14/22 20:15 Dose: 40 mg Documented by: Clopidogrel Bisulfate (Clopidogrel Bisulfate 75 Mg Tab) 75 mg PO [facility] Stop: 03/15/22 08:59 Last Admin: 02/15/22 09:11 Dose: 75 mg Documented by: Cyanocobalamin (Cyanocobalamin (B-12) 500 Mcg Tablet) 1,000 mcg PO [facility] Stop: 03/15/22 08:59 Last Admin: 02/15/22 09:11 Dose: 1,000 mcg Documented by: Enoxaparin Sodium (Enoxaparin Inj 30 Mg/0.3 Ml Syr) 30 mg SQ [facility] Stop: 03/15/22 08:59 Last Admin: 02/15/22 09:13 Dose: Not Given Documented by: Fexofenadine HCl (Fexofenadine Hcl 180 Mg Tab) 180 mg PO [facility] Stop: 03/15/22 08:59 Last Admin: 02/15/22 09:09 Dose: 180 mg Documented by: Fluticasone/Vilanterol (Fluticasone/Vilanterol 100/25mcg 14 Puffs/Inhaler) 1 puffs INH DAILY [facility] Stop: 03/16/22 08:59 Last Admin: 02/15/22 09:11 Dose: 1 puffs Documented by: Isosorbide Dinitrate (Isosorbide Dinitrate 10 Mg Tab) 10 mg PO TID@07 00,1200,1700 [facility] Stop: 03/15/22 06:59 Last Admin: 02/15/22 09:05 Dose: 10 mg Documented by: Metoprolol Succinate (Metoprolol Succ 25mg Ext Rel Tab) 12.5 mg PO DAILY [facility] Stop: 03/15/22 08:59 Last Admin: 02/15/22 09:06 Dose: 12.5 mg Documented by: Montelukast Sodium (Montelukast Sodium 10 Mg Tablet) 10 mg PO HS [facility] Stop: 03/15/22 20:59 Last Admin: 02/14/22 20:15 Dose: 10 mg Documented by: Pantoprazole Sodium (Pantoprazole 40 Mg Tab) 40 mg PO BID [facility] Stop: 03/15/22 08:59 Last Admin: 02/15/22 09:10 Dose: 40 mg Documented by: Polyethylene Glycol (Polyethylene (Miralax) 17 Gm Pack) 17 gm PO DAILY PRN PRN Reason: Constipation Stop: 03/15/22 02:01
== END 2022-02-15 13:50 | disposition home health service (06) | DRG 123 ==
LOC: 2S 16:41 → ED 16:41 → 2S 02-13 00:18 → 2W 02-13 22:32
DX: M81.0 Age-related osteoporosis without current pathological fracture; Z88.0 Allergy status to penicillin; K11.7 Disturbances of salivary secretion; G47.33 Obstructive sleep apnea (adult) (pediatric); N18.30 Chronic kidney disease, stage 3 unspecified; E78.5 Hyperlipidemia, unspecified; J45.909 Unspecified asthma, uncomplicated; I12.9 Hypertensive chronic kidney disease with stage 1 through stage 4 chronic kidney disease, or unspecified chronic kidney disease; Z79.82 Long term (current) use of aspirin; I25.10 Atherosclerotic heart disease of native coronary artery without angina pectoris; M35.3 Polymyalgia rheumatica; Z88.3 Allergy status to other anti-infective agents; M06.9 Rheumatoid arthritis, unspecified; I73.9 Peripheral vascular disease, unspecified; H53.129 Transient visual loss, unspecified eye; I49.5 Sick sinus syndrome; F25.9 Schizoaffective disorder, unspecified; Z88.2 Allergy status to sulfonamides; Z88.1 Allergy status to other antibiotic agents; Z86.73 Personal history of transient ischemic attack (TIA), and cerebral infarction without residual deficits; Z66 Do not resuscitate; Z91.040 Latex allergy status; Z95.5 Presence of coronary angioplasty implant and graft; K21.9 Gastro-esophageal reflux disease without esophagitis

== ENCOUNTER 2022-04-12 03:43 | Inpatient (IN) ==
[2022-04-12] MEDS ORDERED: SODIUM CHLORIDE 0.9% 500 ML IV STA (04:03)
--- NOTE | 2022-04-12 04:05 | Emergency Department Note ---
Impression & Plan EJ (acute kidney injury), Constipation ADMIT ED Provider Note HPI: The patient is a 86-year-old female with history of coronary artery disease, history of hemicolectomy in 2019 secondary to bowel obstruction that was performed at [facility] in [place], [place], presents the emergency department with a chief complaint of constipation. Patient states that she had some diarrhea earlier in the week, patient states she took Pepto-Bismol, patient states that since about Wednesday she has been unable to have a bowel movement. Patient denies any vomiting, states she is not having much abdominal pain, patient states that she is unsure why she has been unable to have a bowel movement therefore presented to the ED for further assessment. On arrival the patient is hemodynamically stable, she is in no acute distress on my initial assessment. 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 Findings concerning for enteritis, with distended proximal small bowel loops likely representing ileus, which may be of infectious or inflammatory etiologies. Findings concerning for colitis of the distal transverse and descending colon. Diverticulosis of the sigmoid colon. Postsurgical changes of the ascending colon with surgical staple line in place. The gallbladder is decompressed. The common bile duct is normal. No evidence of pancreatitis. Thickened nodular adrenal glands. Left renal cyst. Enlarged endometrial cavity and the uterus, recommend pelvic ultrasound for further evaluation.. Moderate disc degeneration at L5-S1. Comparison made to prior CT scan abdomen and pelvis from December 19, 2020. Radiologist: Amberly Carey MD Phone:D [phone] Medical Decision Making: SomePatient presented to the emergency department with some nausea and constipation. CT imaging of the abdomen pelvis was obtained that raises concern for enteritis and the possibility of a partial small bowel obstruction. On my reassessment the patient appears well but she does still complain of some nausea, her lab work shows evidence of an acute kidney injury with creatinine 1.84 with normal baseline. Nonspecific leukocytosis is also noted. Patient was given IV fluids here in the ED, given these findings and her age and generalized frailty I feel that she would benefit from admission for observation and to make sure that there is no progression of any potential small bowel obstruction. Patient is in agreement to this plan. I discussed the case with the on-call hospitalist for [facility], Dr. Mobley and with his Colleague, Dr. Porras, and the patient was admitted in stable condition for further care. Diagnosis: 1. Acute kidney injury 2. Partial small bowel obstruction 3. Nausea 4. Constipation Disposition: Admission Sudhir Calzada DO Emergency Medicine Past Med/Surg History Medical History (Updated 04/12/22 @ 19:13 by Sudhir Calzada DO) Asthma CAD (coronary artery disease), [place] coronary artery CKD (chronic kidney disease) stage 3, GFR 30-59 ml/min CKD (chronic kidney disease), stage III COPD (chronic obstructive pulmonary disease) Coronary artery disease Diaphragmatic hernia Dyslipidemia Fracture, patella GERD (gastroesophageal reflux disease) History of CVA (cerebrovascular accident) without residual deficits History of kidney disease History of TIA (transient ischemic attack) HTN (hypertension) Hypertension Meniere's disease Osteoporosis Periapical abscess Sciatica Surgical History H/O exploratory laparotomy 11/2018 History of carpal tunnel repair History of section History of Milly fundoplication History of right hemicolectomy 11/2018 Status post cardiac catheterization Status post coronary artery stent placement Drug-eluting stent mid LAD Dr. Garces 04/01/18 Family History Father Stroke Myocardial infarction Brother Ischemic heart disease Other Family history non-contributory Social History Smoking Status: Never smoker Second Hand Exposure: No; Do You Dip or Chew Tobacco: No; Tobacco Cessation Education Requested by Patient: No Hx Alcohol Use: No Hx Substance Use: No Preferred Language: Colombian Communication Ability: Effective Tool And [employer] Level Five Required: No Beliefs That Will Affect Care: None Current Living Situation: Spouse Other Information That Helps Us Care for You: No Feels Safe at Home: Yes Safety Concerns: Feels Safe At This Time Assistive Devices: Cane, Glasses and Walker Allergies Allergies Allergy/AdvReac Type Severity Reaction Status Date / Time latex Allergy Unknown RASH Verified 08/01/19 12:11 niacin Allergy Unknown UNKNOWN Verified 04/12/22 10:52 Penicillins Allergy Unknown hives Verified 04/12/22 10:52 metronidazole AdvReac Unknown Hives Verified 04/12/22 10:52 Sulfa (Sulfonamide AdvReac Unknown hives Verified 04/12/22 10:52 Antibiotics) tramadol AdvReac Unknown psycho Unverified 08/01/19 12:11 Home Meds Home Medications Medication Instructions Recorded Confirmed albuterol sulfate 90 mcg/actuation 2 puff inhalation Q4H PRN 12/09/18 04/12/22 aerosol inhaler (Ventolin HFA) Shortness Of Breath amlodipine 2.5 mg tablet 5 mg PO QAM 12/09/18 04/12/22 atorvastatin 40 mg tablet 40 mg PO HS 12/09/18 04/12/22 cholecalciferol (vitamin D3) 25 1,000 unit PO QAM 12/09/18 04/12/22 mcg (1,000 unit) tablet (Vitamin D3) clopidogrel 75 mg tablet 75 mg PO QAM 12/09/18 04/12/22 cyanocobalamin (vitamin B-12) 1,000 mcg PO QAM 12/09/18 04/12/22 1,000 mcg tablet (Vitamin B-12) losartan 25 mg tablet 25 mg PO HS 12/09/18 04/12/22 montelukast 10 mg tablet 10 mg PO HS 12/09/18 04/12/22 nitroglycerin 0.3 mg sublingual 0.3 mg sublingual UD PRN heart pain 12/09/18 04/12/22 tablet omeprazole 20 mg capsule,delayed 20 mg PO BID 12/09/18 04/12/22 release aspirin 81 mg tablet,delayed 81 mg PO QAM 04/18/19 04/12/22 release metoprolol succinate 25 mg 12.5 mg PO DAILY 07/10/19 04/12/22 tablet,extended release 24 hr aripiprazole 2 mg tablet 4 mg PO DAILY 02/13/22 04/12/22 fexofenadine 180 mg tablet 180 mg PO DAILY 02/13/22 04/12/22 fluticasone furoate 100 1 inh inhalation DAILY 02/13/22 04/12/22 mcg-vilanterol 25 mcg/dose inhalation powder (Breo Ellipta) isosorbide dinitrate 10 mg tablet 10 mg PO DAILY@0600,1200,1800 02/13/22 04/12/22 Results & Data (ED) Vital Signs Vital Signs - 24 hr 04/12/22 03:44 04/12/22 04:05 04/12/22 04:05 Temperature 36.3 C L Temperature Source Oral Pulse Rate 72 Pulse Rate [Finger] 72 Pulse Rate from SpO2 Sensor Pulse Rhythm [Finger] Respiratory Rate 16 20 Respiratory Effort / Characteristics Respiratory Depth Respiratory Pattern Blood Pressure 134/84 Blood Pressure [Left Arm] 162/89 H Blood Pressure Mean 100 Blood Pressure Mean [Left Arm] 113 Blood Pressure Position [Left Arm] Sitting Pulse Oximetry 96 97 97 Oxygen Delivery Method Room Air Sepsis Recent Fever Within 48 Hours No Sepsis New/Unexplained Change in Mental Status No Sepsis Action Taken by Nursing No Action Required 04/12/22 06:14 04/12/22 07:30 04/12/22 09:00 Temperature Temperature Source Pulse Rate Pulse Rate [Finger] 86 81 77 Pulse Rate from SpO2 Sensor Pulse Rhythm [Finger] Regular Respiratory Rate 20 20 18 Respiratory Effort / Characteristics Non-Labored Spontaneous Non-Labored Non-Labored Respiratory Depth Normal Normal Normal Respiratory Pattern Regular Blood Pressure Blood Pressure [Left Arm] 145/91 H 159/97 H 196/117 H Blood Pressure Mean Blood Pressure Mean [Left Arm] 109 117 143 Blood Pressure Position [Left Arm] Pulse Oximetry 97 97 97 Oxygen Delivery Method Room Air Room Air Room Air Sepsis Recent Fever Within 48 Hours Sepsis New/Unexplained Change in Mental Status Sepsis Action Taken by Nursing 04/12/22 07:00 04/12/22 07:30 04/12/22 08:00 Temperature Temperature Source Pulse Rate 95 H 89 70 Pulse Rate [Finger] Pulse Rate from SpO2 Sensor Pulse Rhythm [Finger] Respiratory Rate 26 H 27 H 22 Respiratory Effort / Characteristics Respiratory Depth Respiratory Pattern Blood Pressure 177/102 H 159/97 H 176/80 H Blood Pressure [Left Arm] Blood Pressure Mean 127 117 112 Blood Pressure Mean [Left Arm] Blood Pressure Position [Left Arm] Pulse Oximetry Oxygen Delivery Method Sepsis Recent Fever Within 48 Hours Sepsis New/Unexplained Change in Mental Status Sepsis Action Taken by Nursing 04/12/22 09:00 04/12/22 09:30 Temperature Temperature Source Pulse Rate 78 65 Pulse Rate [Finger] Pulse Rate from SpO2 Sensor 77 77 Pulse Rhythm [Finger] Respiratory Rate 17 18 Respiratory Effort / Characteristics Respiratory Depth Respiratory Pattern Blood Pressure 196/117 H 201/96 H Blood Pressure [Left Arm] Blood Pressure Mean 143 131 Blood Pressure Mean [Left Arm] Blood Pressure Position [Left Arm] Pulse Oximetry 98 96 Oxygen Delivery Method Sepsis Recent Fever Within 48 Hours Sepsis New/Unexplained Change in Mental Status Sepsis Action Taken by Nursing Laboratory Data Result diagrams: 04/12/22 04:00 04/12/22 04:00 Lab Results 04/12/22 04/12/22 04/12/22 Range/Units 04:00 04:00 07:30 WBC 10.87 H (4.8-10.8) K/ul RBC 5.38 H (3.93-5.22) M/uL Hgb 16.2 H (12.0-16.0) g/dl Hct 47.6 H (34.1-44.9) % MCV 88.5 (80.0-100.0) fL MCH 30.1 (25.0-34.0) pg MCHC 34.0 (32.0-36.0) g/dL RDW Std Deviation 42.5 (36.4-46.3) fL RDW Coeff of Josse 13.1 (11.5-14.5) % Plt Count 263 (130-400) K/uL MPV 10.3 (9.4-12.3) fL Immature Gran % (Auto) 0.2 % Neut % (Auto) 81.3 % Lymph % (Auto) 9.7 % Bailey % (Auto) 8.5 % Eos % (Auto) 0.0 % Baso % (Auto) 0.3 % Neut # (Auto) 8.85 H (1.4-6.5) K/uL Lymph # (Auto) 1.05 L (1.2-3.4) K/uL Bailey # (Auto) 0.92 H (0.24-0.82) K/uL Eos # (Auto) 0.00 (0-0.50) K/uL Baso # (Auto) 0.03 (0-0.2) K/uL Immature Gran # (Auto) 0.02 (0.00-0.02) K/uL Sodium 135 L (136-145) mmol/L Potassium 3.5 (3.5-5.1) mmol/L Chloride 97 L (98-107) mmol/L Carbon Dioxide 24 (21-32) mmol/L Anion Gap 14 H (3-11) BUN 41 H (6-23) mg/dl Creatinine 1.84 H (0.6-1.2) mg/dl Est Cr Clr Drug Dosing 18.8 ml/min Est GFR ( Amer) 28.3 ml/min Est GFR (Non-Af Amer) 24.4 ml/min BUN/Creatinine Ratio 22.3 H (10-20) Glucose 149 H (70-99(Fasting)) mg/dl Calcium 8.8 (8.5-10.1) mg/dl Total Bilirubin 1.7 H (0.2-1.0) mg/dl AST 22 (13-39) U/L ALT 16 (7-52) U/L Alkaline Phosphatase 72 (34-104) U/L Total Protein 7.6 (6.0-8.3) gm/dl Albumin 4.0 (3.4-5.0) gm/dl Globulin 3.6 (2.5-4.0) gm/dl Albumin/Globulin Ratio 1.1 (0.9-2) Lipase 15 (11-82) U/L Urine Color Yellow Urine Appearance Clear (Clear) Urine pH 5.5 (4.5-7.5) Ur Specific Condon 1.023 (1.000-1.030) Urine Protein Trace H (Negative) Urine Glucose (UA) Negative (Negative) Urine Ketones Trace H (Negative) Urine Blood Trace H (Negative) Urine Nitrite Negative (Negative) Urine Bilirubin Negative (Negative) Urine Urobilinogen Negative (Negative) Ur Leukocyte Esterase Negative (Negative) Urine WBC (Auto) 1-5 (0-5) /hpf Urine RBC (Auto) 0-4 (0-4) /hpf U Hyaline Cast (Auto) 1-5 (0-5) /lpf U Epithel Cells (Auto) 10-20 H (0-5) /lpf Urine Bacteria (Auto) Negative (Negative) Urine Osmolality (500-800) mOsm/kg Ur Random Creatinine mg/dl Ur Random Sodium mmol/L SARS-CoV-2, RNA, NAAT (NEGATIVE) 04/12/22 04/12/22 04/12/22 Range/Units 07:30 07:30 08:30 WBC (4.8-10.8) K/ul RBC (3.93-5.22) M/uL Hgb (12.0-16.0) g/dl Hct (34.1-44.9) % MCV (80.0-100.0) fL MCH (25.0-34.0) pg MCHC (32.0-36.0) g/dL RDW Std Deviation (36.4-46.3) fL RDW Coeff of Josse (11.5-14.5) % Plt Count (130-400) K/uL MPV (9.4-12.3) fL Immature Gran % (Auto) % Neut % (Auto) % Lymph % (Auto) % Bailey % (Auto) % Eos % (Auto) % Baso % (Auto) % Neut # (Auto) (1.4-6.5) K/uL Lymph # (Auto) (1.2-3.4) K/uL Bailey # (Auto) (0.24-0.82) K/uL Eos # (Auto) (0-0.50) K/uL Baso # (Auto) (0-0.2) K/uL Immature Gran # (Auto) (0.00-0.02) K/uL Sodium (136-145) mmol/L Potassium (3.5-5.1) mmol/L Chloride (98-107) mmol/L Carbon Dioxide (21-32) mmol/L Anion Gap (3-11) BUN (6-23) mg/dl Creatinine (0.6-1.2) mg/dl Est Cr Clr Drug Dosing ml/min Est GFR ( Amer) ml/min Est GFR (Non-Af Amer) ml/min BUN/Creatinine Ratio (10-20) Glucose (70-99(Fasting)) mg/dl Calcium (8.5-10.1) mg/dl Total Bilirubin (0.2-1.0) mg/dl AST (13-39) U/L ALT (7-52) U/L Alkaline Phosphatase (34-104) U/L Total Protein (6.0-8.3) gm/dl Albumin (3.4-5.0) gm/dl Globulin (2.5-4.0) gm/dl Albumin/Globulin Ratio (0.9-2) Lipase (11-82) U/L Urine Color Urine Appearance (Clear) Urine pH (4.5-7.5) Ur Specific Condon (1.000-1.030) Urine Protein (Negative) Urine Glucose (UA) (Negative) Urine Ketones (Negative) Urine Blood (Negative) Urine Nitrite (Negative) Urine Bilirubin (Negative) Urine Urobilinogen (Negative) Ur Leukocyte Esterase (Negative) Urine WBC (Auto) (0-5) /hpf Urine RBC (Auto) (0-4) /hpf U Hyaline Cast (Auto) (0-5) /lpf U Epithel Cells (Auto) (0-5) /lpf Urine Bacteria (Auto) (Negative) Urine Osmolality 407 L (500-800) mOsm/kg Ur Random Creatinine 43.1 mg/dl Ur Random Sodium 97 mmol/L SARS-CoV-2, RNA, NAAT NEGATIVE (NEGATIVE) Administered Medications Lactated Ringer's (Lr) 1,000 mls @ 100 mls/hr IV .Q10H [facility] Stop: 04/13/22 08:40 Last Admin: 04/12/22 13:45 Dose: 100 mls/hr Documented By: RACHELLE Isosorbide Dinitrate (Isosorbide Dinitrate 10 Mg Tab) 10 mg PO TID@0700,1200,1700 [facility] Stop: 05/12/22 13:14 Last Admin: 04/12/22 18:03 Dose: Not Given Documented By: Admin: 04/12/22 13:45 Dose: 10 mg Documented By: RACHELLE Discontinued Medications Sodium Chloride (Nss) 500 mls @ 999 mls/hr IV .Q31M STA Stop: 04/12/22 04:33 Last Infusion: 04/12/22 05:11 Dose: 0 mls/hr Documented By: Admin: 04/12/22 04:41 Dose: 999 mls/hr Documented By: WESTON Ioversol (Optiray 300 500ml) 90 ml IV ONCE ONE Stop: 04/12/22 05:35 Last Admin: 04/12/22 05:34 Dose: 90 ml Documented By: LYLA Labetalol HCl (Labetalol Hcl Iv 5 Mg/Ml 20ml) 10 mg IV NOW STA Stop: 04/12/22 11:29 Last Admin: 04/12/22 11:58 Dose: Not Given Documented By: RACHELLE Labetalol HCl (Labetalol Hcl Iv 5 Mg/Ml 20ml) 10 mg IV NOW STA Stop: 04/12/22 17:20 Last Admin: 04/12/22 18:02 Dose: Not Given Documented By: RACHELLE Imaging Data Radiologist's Impression: Abdomen/Pelvis CT 04/12/22 04:[address] WITH IV CONTRAST CT DOSE: 252.00 mGy.cm HISTORY: Constipation/generalized abdominal pain TECHNIQUE: Multiaxial CT images of the abdomen and pelvis were performed following the use of intravenous contrast. A dose lowering technique was utilized adhering to the principles of ALARA. COMPARISON STUDY: Abdomen and pelvis CT 12/19/2020. FINDINGS: Mild dependent changes seen within the lung bases. No pneumoperitoneum. No pneumatosis. No suspicious lytic or blastic osseous lesions. Cholelithiasis. No gallbladder wall thickening. The liver, spleen, and pancreas unremarkable. No hydronephrosis. Stable left renal cyst. 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 Stable nodular thickening of the left adrenal gland. Normal bladder. Thickened endometrium containing a 1 cm polyp. This remains unchanged. Mild pelvic floor collapse. Colonic diverticulosis. No evidence for acute diverticulitis. Postoperative changes consistent with a prior right hemicolectomy. Multiple severely thickened loops of small bowel throughout the majority of the abdomen. These are also slightly dilated. There is mild mesenteric edema/fat stranding surrounding the thickened loops of small bowel. These measure up to 3.5 cm in diameter. No definite transition point identified. However, a partial bowel obstruction cannot be excluded given the degree of distention. The majority of the colon is decompressed. No retroperitoneal lymphadenopathy. Moderate calcified plaque within the normal caliber abdominal aorta. The main portal vein is patent. No evidence for occlusion within the major mesenteric vessels. IMPRESSION: 1. Multiple severely thickened loops of small bowel seen throughout the majority of the abdomen which are also distended. This favors an infectious or inflammatory enteritis. No clear transition point. However, the degree of distention raises the possibility of a partial small bowel obstruction. 2. Cholelithiasis. 3. No change in the thickened endometrium containing a 1 cm endometrial polyp. Gynecologic consultation recommended. 4. Additional findings as described above. ACT 112: Negative or not required by law. Electronically signed by: Da Zuniga M.D. 04/12/2022 7:32 AM Discharge Plan Visit Data Chief Complaint: GI Assessment Stated Complaint: POSSIBLE BLOCKED BOWEL ED Provider: Sudhir Calzada Discharge Problem: EJ (acute kidney injury), Constipation Patient Disposition: Admitted As Inpatient Discharge Instructions Interventions: ED Discharge Assessment Last Done: 04/12/22 12:39
[2022-04-12 04:23] LABS: Basophils # (auto) 0.03 K/uL (0-0.2); Basophils % (auto) 0.3 %; Hematocrit (blood only) 47.6 % (34.1-44.9); Hemoglobin 16.2 g/dl (12.0-16.0); Immature Granulocytes # (auto) 0.02 K/uL (0.00-0.02); Immature Granulocytes % (auto) 0.2 %; Lymphocytes # (auto) 1.05 K/uL (1.2-3.4); Lymphocytes % (auto) 9.7 %; Mean Corpuscular Hemoglobin 30.1 pg (25.0-34.0); Mean Corpuscular Volume 88.5 fL (80.0-100.0); Mean Platelet Volume 10.3 fL (9.4-12.3); Monocytes # (auto) 0.92 K/uL (0.24-0.82); Monocytes % (auto) 8.5 %; Neutrophils # (auto) 8.85 K/uL (1.4-6.5); Neutrophils % (auto) 81.3 %; Platelet Count 263 K/uL (130-400); RDW Coefficient of Variation 13.1 % (11.5-14.5); RDW Standard Deviation 42.5 fL (36.4-46.3); Red Blood Count 5.38 M/uL (3.93-5.22); White Blood Count 10.87 K/ul (4.8-10.8)
[2022-04-12 04:48] LABS: Albumin Globulin Ratio 1.1 (0.9-2); BUN Creatinine Ratio 22.3 (10-20); Bilirubin,Total 1.7 mg/dl (0.2-1.0); Calcium 8.8 mg/dl (8.5-10.1); Creatinine Clr Calc Pharmacy 18.8 ml/min; Est GFR (African American) 28.3 ml/min; Est GFR (Non-African American) 24.4 ml/min; Globulin 3.6 gm/dl (2.5-4.0); Potassium 3.5 mmol/L (3.5-5.1); Total Protein 7.6 gm/dl (6.0-8.3)
[2022-04-12] MEDS ORDERED: OPTIRAY 300 500mL IV ONE (05:34)
--- NOTE | 2022-04-12 07:34 | CT Scan Report ---
ABDOMEN AND PELVIS CT WITH IV CONTRAST CT DOSE: 252.00 mGy.cm HISTORY: Constipation/generalized abdominal pain TECHNIQUE: Multiaxial CT images of the abdomen and pelvis were performed following the use of intrave nous contrast. A dose lowering technique was utilized adhering to the principles of ALARA. COMPARISON STUDY: Abdomen and pelvis CT 12/19/2020. FINDINGS: Mild dependent changes seen within the lung bases. No pneumoperitoneum. No pneumatosis. No suspicious lytic or blastic osseous lesions. Cholelithiasis. No gallbladder wall thickening. The live r, spleen, and pancreas unremarkable. No hydronephrosis. Stable left renal cyst. Stable 15 mm right a drenal myelolipoma. Stable nodular thickening of the left adrenal gland. Normal bladder. Thickened en dometrium containing a 1 cm polyp. This remains unchanged. Mild pelvic floor collapse. Colonic divert iculosis. No evidence for acute diverticulitis. Postoperative changes consistent with a prior right h emicolectomy. Multiple severely thickened loops of small bowel throughout the majority of the abdomen . These are also slightly dilated. There is mild mesenteric edema/fat stranding surrounding the thick ened loops of small bowel. These measure up to 3.5 cm in diameter. No definite transition point ident ified. However, a partial bowel obstruction cannot be excluded given the degree of distention. The ma jority of the colon is decompressed. No retroperitoneal lymphadenopathy. Moderate calcified plaque wi thin the normal caliber abdominal aorta. The main portal vein is patent. No evidence for occlusion wi thin the major mesenteric vessels. IMPRESSION: 1. Multiple severely thickened loops of small bowel seen throughout the majority of the abdomen which are also distended. This favors an infectious or inflammatory enteritis. No clear transition point. However, the degree of distention raises the possibility of a partial small bowel obstruction. 2. Cholelithiasis. 3. No change in the thickened endometrium containing a 1 cm endometrial polyp. Gynecologic consultati on recommended. 4. Additional findings as described above. ACT 112: Negative or not required by law. Electronically signed by: Da Zuniga M.D. 04/12/2022 7:32 AM
[2022-04-12 07:43] LABS: Appearance Urine Clear (Clear); Bacteria Urine Automated Negative (Negative); Bilirubin Urine Negative (Negative); Blood Urine Trace (Negative); Color Urine Yellow; Glucose Urine UA Negative (Negative); Ketones Urine Trace (Negative); Leukocyte Esterase Urine Negative (Negative); Nitrite Urine Negative (Negative); Protein Urine Trace (Negative); RBC Urine Automated 0-4 /hpf (0-4); Specific Gravity Urine 1.023 (1.000-1.030); Urobilinogen Urine Negative (Negative); pH Urine 5.5 (4.5-7.5)
--- NOTE | 2022-04-12 10:05 | History & Physical Report ---
Date of Service April 12, 2022 Assessment & Plan (1) Colitis: Plan: History consistent with ischemic colitis with poor PO intake, diarrhea and EJ on labwork, no history of IBD and no bloody diarrhea. Additionally, she reports no recent antibiotics making c-diff low likelihood, however, will screen for it if diarrhea presents again given retirement use iof PPI. Consider stool culture if diarrhea returns. For now she is having no pain or evidence of infection. Will support with clear liquids and IVF and advance diet as tolerated. Will consult GI to discuss need for outpatient colonoscopy with her and give additional thoughts on etiology. (2) Acute renal failure superimposed on stage 3 chronic kidney disease: Plan: Likely related to poor PO intake and recent diarrhea causing pre-renal etiology in setting of losartan use. Repeat BMP after IVF. Urine studies. (3) Enteritis: Plan: Likely acute, uncertain cause. Plan as above. There are no findings on imaging or history that suggest ileus but that is in the differential. Will trial food and see how that goes. (4) Hypertension: Plan: uncontrolled BP this morning despite patient reporting she took all her home medications prior to arrival. Will hold losartan given EJ and will give one d ose of labetalol now (current BP is 167/118 and was just recorded as 196/117). Will cont to monitor on telemetry given this BP elevation and cont home norvasc. (5) Constipation: Plan: Took peptobismol this week. cont to monitor. Miralax as needed for discomfort. Last BM was 3 days ago and she is not currently reporting any discomfort. (6) LOUIE on CPAP: Plan: Per home settings. (7) Enlarged uterus: Plan: Incidental finding on CT scan. Recommend outpatient pelvic us. (8) CAD (coronary artery disease), [place] coronary artery: Plan: Chronic stable angina reporting daily use of nitro with exertion such as laundry. She had a stent placed in 2016 and again in mar 2018 when a MILENA was placed to the LAD. Last echo was Apr 2019 revealing EF 55-60%, grade I diastolic dysfunction and no significant valvular disease. Last seen by cardiology in Sep 2021 and due for her 6 month followup soon. Currently denies chest pain. (9) COPD (chronic obstructive pulmonary disease): Plan: chronic, stable. cont Breo per home regimen. (10) DVT prophylaxis: Plan: Heparin DNR as discussed in detail with her on admission. Dispo-to med tele. To home pending improvement in food intake, GI recs and return of creatinine to baseline. DO [facility] History of Present Illness Chief Complaint: constipation Primary Care Provider: Rory Vargas MD 86 yo F s/p hemicolectomy in 2019 secondary to bowel obstruction presents with constipation that followed diarrhea earlier in the week. She took Pepto-Bismol on Wed and has not had a BM since that time. Denies vomiting or abdominal pain but does have evidence of acute renal failure on the labwork today. Creatine is 1.8 with a baseline of 1.1. She has known CKD Stage III. Ct A/P with contrast revealed enteritis with possible ileus and also colitis in the distal transverse and descending colon. She reports a one week history of nonbloody diarrhea of uncertain etiology. She denies any recent travel or antibiotic usage, and doesn't feel this was a food born illness. She did have some infraumbilical pain that was dull, nonradiating and intermittent, better with bowel movements. then she took double the dos eof Pepto Bismol on Wed, and although she still had a BM into , didn't have any further BMs and presented because she was concerned she took something she wasn't supposed to. She currently denies any abdominal pain and reports last eating a hot dog yesterday for lunch. She hasn't eaten or drank anything much in the last week and normally says her appetite is not robust. She denies any nausea or vomiting and is fine to try some clear liquids now and advance her diet later today as tolerated. Allergies Allergy/AdvReac Type Severity Reaction Status Date / Time latex Allergy Unknown RASH Verified 08/01/19 12:11 niacin Allergy Unknown UNKNOWN Verified 04/12/22 10:52 Penicillins Allergy Unknown hives Verified 04/12/22 10:52 metronidazole AdvReac Unknown Hives Verified 04/12/22 10:52 Sulfa (Sulfonamide AdvReac Unknown hives Verified 04/12/22 10:52 Antibiotics) tramadol AdvReac Unknown psycho Unverified 08/01/19 12:11 Home Medications Medication Instructions Recorded Confirmed Type albuterol sulfate 90 mcg/actuation 2 puff inhalation Q4H PRN 12/09/18 04/12/22 History aerosol inhaler (Ventolin HFA) Shortness Of Breath amlodipine 2.5 mg tablet 5 mg PO QAM 12/09/18 04/12/22 History atorvastatin 40 mg tablet 40 mg PO HS 12/09/18 04/12/22 History cholecalciferol (vitamin D3) 25 1,000 unit PO QAM 12/09/18 04/12/22 History mcg (1,000 unit) tablet (Vitamin D3) clopidogrel 75 mg tablet 75 mg PO QAM 12/09/18 04/12/22 History cyanocobalamin (vitamin B-12) 1,000 mcg PO QAM 12/09/18 04/12/22 History 1,000 mcg tablet (Vitamin B-12) losartan 25 mg tablet 25 mg PO HS 12/09/18 04/12/22 History montelukast 10 mg tablet 10 mg PO HS 12/09/18 04/12/22 History nitroglycerin 0.3 mg sublingual 0.3 mg sublingual UD PRN heart pain 12/09/18 04/12/22 History tablet omeprazole 20 mg capsule,delayed 20 mg PO BID 12/09/18 04/12/22 History release aspirin 81 mg tablet,delayed 81 mg PO QAM 04/18/19 04/12/22 History release metoprolol succinate 25 mg 12.5 mg PO DAILY 07/10/19 04/12/22 History tablet,extended release 24 hr aripiprazole 2 mg tablet 4 mg PO DAILY 02/13/22 04/12/22 History fexofenadine 180 mg tablet 180 mg PO DAILY 02/13/22 04/12/22 History fluticasone furoate 100 1 inh inhalation DAILY 02/13/22 04/12/22 History mcg-vilanterol 25 mcg/dose inhalation powder (Breo Ellipta) isosorbide dinitrate 10 mg tablet 10 mg PO DAILY@0600,1200,1800 02/13/22 04/12/22 History Past Med/Surg History Medical History (Updated 04/12/22 @ 11:42 by Sanaz Porras DO) Asthma CAD (coronary artery disease), [place] coronary artery CKD (chronic kidney disease) stage 3, GFR 30-59 ml/min CKD (chronic kidney disease), stage III COPD (chronic obstructive pulmonary disease) Coronary artery disease Diaphragmatic hernia Dyslipidemia Fracture, patella GERD (gastroesophageal reflux disease) History of CVA (cerebrovascular accident) without residual deficits History of kidney disease History of TIA (transient ischemic attack) HTN (hypertension) Hypertension Meniere's disease Osteoporosis Periapical abscess Sciatica Surgical History H/O exploratory laparotomy 11/2018 History of carpal tunnel repair History of section History of Milly fundoplication History of right hemicolectomy 11/2018 Status post cardiac catheterization Status post coronary artery stent placement Drug-eluting stent mid LAD Dr. Garces 04/01/18 Family History Father Stroke Myocardial infarction Brother Ischemic heart disease Other Family history non-contributory Social History Smoking Status: Never smoker Second Hand Exposure: No; Hx Alcohol Use: No Hx Substance Use: No Preferred Language: [place] Communication Ability: Effective Facility Assistant Required: No Beliefs That Will Affect Care: None Current Living Situation: Spouse Feels Safe at Home: Yes Assistive Devices: Cane and Walker Review of Systems Review of Systems: All systems were reviewed and negative except that she does have daily chronic stable angina and takes nitroglycerin once daily. Chest pain is provoked by activities such as doing laundry or running the vacuum. She also has chronic urinary urgency and reports 10 lb weight loss over the past few months. Physical Exam Physical Exam: CONSTITUTIONAL: WNWD, vitals as above, generally well- appearing, NAD EYES: normal conjunctivae, no scleral icterus ENT: external ear and nose normal, MMM NECK: trachea midline RESPIRATORY: clear to auscultation bilaterally, no crackles, rales or wheezes, normal respiratory effort CARDIOVASCULAR: regular rate and rhythm, S1 and 2 heard without murmurs, gallops or rubs, no JVD, no peripheral edema CHEST: inspection of chest was normal GASTROINTESTINAL: hypoactive bowel sounds, soft, nontender, non-distended, no guarding, no CVA tenderness MUSCULOSKELETAL: strength 5/5 throughout, head is normocephalic and atraumatic, neck supple, normal palpation of chest wall without tenderness SKIN: warm and dry, no rashes NEUROLOGIC: patellar DTRs 2+ bilat. PERRL, EOMI, no facial palsy, no dysarthria. Touch, pain and proprioception normal. CN 2-12 grossly intact, no sensory deficit, normal cognition, normal speech, no tremor PSYCHIATRIC: alert cooperative and oriented to person, place and time. Euthymic mood, makes good eye contact, language grossly intact, recent and remote memory grossly intact. LYMPHATIC: no LAD Results & Data Results & Data ([facility]) Vital Signs (Past 12 Hours) Vital Signs Temp Pulse Pulse Resp BP BP Pulse Ox 04/12/22 07:30 81 20 159/97 H 97 04/12/22 06:14 86 20 145/91 H 97 04/12/22 04:05 97 04/12/22 04:05 72 20 162/89 H 97 04/12/22 03:44 36.3 C L 72 16 134/84 96 O2 Del Method 04/12/22 07:30 Room Air 04/12/22 06:14 Room Air 04/12/22 04:05 Room Air 04/12/22 04:05 04/12/22 03:44 Laboratory Results Short CBC 04/12/22 Range/Units 04:00 WBC 10.87 H (4.8-10.8) K/ul Hgb 16.2 H (12.0-16.0) g/dl Hct 47.6 H (34.1-44.9) % Plt Count 263 (130-400) K/uL BMP 04/12/22 04:00 Sodium 135 L Potassium 3.5 Chloride 97 L Carbon Dioxide 24 BUN 41 H Creatinine 1.84 H Glucose 149 H Calcium 8.8 Liver Function 04/12/22 Range/Units 04:00 Total Bilirubin 1.7 H (0.2-1.0) mg/dl AST 22 (13-39) U/L ALT 16 (7-52) U/L Alkaline Phosphatase 72 (34-104) U/L Albumin 4.0 (3.4-5.0) gm/dl Urine 04/12/22 Range/Units 07:30 Urine Color Yellow Urine Appearance Clear (Clear) Urine pH 5.5 (4.5-7.5) Ur Specific [place] 1.023 (1.000-1.030) Urine Protein Trace H (Negative) Urine Glucose (UA) Negative (Negative) Diagnostic Findings Abdomen/Pelvis CT 04/12/22 04:[address] WITH IV CONTRAST CT DOSE: 252.00 mGy.cm HISTORY: Constipation/generalized abdominal pain TECHNIQUE: Multiaxial CT images of the abdomen and pelvis were performed following the use of intravenous contrast. A dose lowering technique was utilized adhering to the principles of ALARA. COMPARISON STUDY: Abdomen and pelvis CT 12/19/2020. FINDINGS: Mild dependent changes seen within the lung bases. No pneumoperitoneum. No pneumatosis. No suspicious lytic or blastic osseous lesions. Cholelithiasis. No gallbladder wall thickening. The liver, spleen, and pancreas unremarkable. No hydronephrosis. Stable left renal cyst. 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 Stable nodular thickening of the left adrenal gland. Normal bladder. Thickened endometrium containing a 1 cm polyp. This remains unchanged. Mild pelvic floor collapse. Colonic diverticulosis. No evidence for acute diverticulitis. Postoperative changes consistent with a prior right hemicolectomy. Multiple severely thickened loops of small bowel throughout the majority of the abdomen. These are also slightly dilated. There is mild mesenteric edema/fat stranding surrounding the thickened loops of small bowel. These measure up to 3.5 cm in diameter. No definite transition point identified. However, a partial bowel obstruction cannot be excluded given the degree of distention. The majority of the colon is decompressed. No retroperitoneal lymphadenopathy. Moderate calcified plaque within the normal caliber abdominal aorta. The main portal vein is patent. No evidence for occlusion within the major mesenteric vessels. IMPRESSION: 1. Multiple severely thickened loops of small bowel seen throughout the majority of the abdomen which are also distended. This favors an infectious or inflammatory enteritis. No clear transition point. However, the degree of distention raises the possibility of a partial small bowel obstruction. 2. Cholelithiasis. 3. No change in the thickened endometrium containing a 1 cm endometrial polyp. Gynecologic consultation recommended. 4. Additional findings as described above. ACT 112: Negative or not required by law. Electronically signed by: Da Zuniga M.D. 04/12/2022 7:32 AM Code Status & VTE Plan VTE Prophylaxis Plan VTE Prophylaxis will be ordered: Yes (1) CAD (coronary artery disease), [place] coronary artery Associated angina: without angina [place] vs. transplanted heart: [place] heart Qualified Code(s): I25.10 - Atherosclerotic heart disease of [place] coronary artery without angina pectoris
[2022-04-12] MEDS ORDERED: LABETALOL HCL IV 5 MG/ML 20ML IV STA ×2 (11:28→17:19)
[2022-04-12] MEDS ORDERED: ALBUTEROL HFA 8 GM INHALER INH PRN (11:43)
[2022-04-12 12:21] LABS: Creatinine Urine Random 43.1 mg/dl
[2022-04-12] MEDS ORDERED: ALUMINUM/MAGNESIUM SUSP 30 ML UDC PO PRN (12:41)
[2022-04-12] MEDS ORDERED: POLYETHYLENE (MIRALAX) 17 GM PACK PO PRN (12:41)
[2022-04-12] MEDS ORDERED: ACETAMINOPHEN 325 MG TAB PO PRN (12:41)
[2022-04-12] MEDS: ISOSORBIDE DINITRATE 10 MG TAB PO SCH ×2 (13:45→18:03)
[2022-04-12] MEDS: LACTATED RINGER'S 1,000 ML IV SCH ×2 (13:45→22:58)
[2022-04-12] MEDS ORDERED: NITROGLYCERIN SL 0.4 MG/TAB TAB SL PRN (15:57)
[2022-04-12] MEDS: HEPARIN SOD 5,000 UNIT/0.5 ML VIAL SQ SCH (21:02)
[2022-04-12] MEDS: ATORVASTATIN 40 MG TAB PO SCH (21:02)
[2022-04-12] MEDS: PANTOprazole 40 MG TAB PO SCH (21:03)
[2022-04-12] MEDS: MONTELUKAST SODIUM 10 MG TABLET PO SCH (21:03)
--- NOTE | 2022-04-12 21:33 | Electrocardiogram Report ---
Test Reason : Blood Pressure : / mmHG Vent. Rate : 092 BPM Atrial Rate : 092 BPM P-R Int : 170 ms QRS Dur : 116 ms QT Int : 382 ms P-R-T Axes : 068 -49 091 degrees QTc Int : 472 ms Sinus rhythm with occasional Premature ventricular complexes Left anterior fascicular block Left ventricular hypertrophy with QRS widening and repolarization abnormality Cannot rule out Septal infarct , age undetermined Abnormal ECG When compared with ECG of 12-FEB-2022 17:24, Premature ventricular complexes are now Present Vent. rate has increased BY 32 BPM Inverted T waves have replaced nonspecific T wave abnormality in Lateral leads Confirmed by Fred Darby ([id number]) on 04/12/2022 9:32:53 PM Referred By: REFERRED SELF Confirmed By:Fred Darby
[2022-04-13] MEDS: MELATONIN 3 MG TAB PO PRN ×2 (00:45→20:04)
[2022-04-13 06:03] LABS: Hematocrit (blood only) 44.8 % (34.1-44.9); Hemoglobin 15.4 g/dl (12.0-16.0); Mean Corpuscular Hemoglobin 30.1 pg (25.0-34.0); Mean Corpuscular Hgb Conc 34.4 g/dL (32.0-36.0); Mean Corpuscular Volume 87.7 fL (80.0-100.0); Mean Platelet Volume 10.3 fL (9.4-12.3); Platelet Count 224 K/uL (130-400); RDW Standard Deviation 41.3 fL (36.4-46.3); Red Blood Count 5.11 M/uL (3.93-5.22); White Blood Count 5.42 K/ul (4.8-10.8)
[2022-04-13 06:29] LABS: BUN Creatinine Ratio 30.6 (10-20); Calcium 8.3 mg/dl (8.5-10.1); Creatinine Clr Calc Pharmacy 40.7 ml/min; Est GFR (African American) 71.9 ml/min; Magnesium 1.8 mg/dl (1.7-2.4); Phosphorus 2.9 mg/dl (2.5-4.9)
[2022-04-13] MEDS: ISOSORBIDE DINITRATE 10 MG TAB PO SCH ×3 (06:30→17:46)
[2022-04-13] MEDS ORDERED: POTASSIUM CHLORIDE CRTAB 20 MEQ TABCR PO STA (07:26)
[2022-04-13] MEDS: ASPIRIN 81 MG ECTAB PO SCH (08:11)
[2022-04-13] MEDS: METOPROLOL SUCC 25MG EXT REL TAB PO SCH (08:11)
[2022-04-13] MEDS: FLUTICASONE/VILANTEROL 100/25MCG 14 PUFFS/INHALER INH SCH (08:11)
[2022-04-13] MEDS: amLODIPine BESYLATE 5 MG TAB PO SCH (08:11)
[2022-04-13] MEDS: ARIPIprazole 1 MG/ML ORAL SOLN 150 ML BTL PO SCH (08:11)
[2022-04-13] MEDS: CLOPIDOGREL BISULFATE 75 MG TAB PO SCH (08:11)
[2022-04-13] MEDS: PANTOprazole 40 MG TAB PO SCH ×2 (08:11→20:01)
[2022-04-13] MEDS: HEPARIN SOD 5,000 UNIT/0.5 ML VIAL SQ SCH ×2 (08:12→20:01)
[2022-04-13] MEDS ORDERED: CIPROFLOXACIN / D5W 400 MG/200 ML BAG IV SCH (09:00)
--- NOTE | 2022-04-13 09:22 | Gastrointestinal Consultation ---
Date of Consultation April 13, 2022 Assessment & Plan (1) Enteritis: (2) Constipation: Pt is a 86 yo female w hx of bowel obstruction s/p hemicolectomy, chronic constipation, presented w diarrhea symptoms. CT abd/pelvis showed signs of small bowel thickening and dilation. Suspect enteritis vs developing small bowel obstruction. - If diarrhea recurs, obtain stool cx and Cdiff - Start antibx: Invaz 1g IV daily - CL diet - Obtain MRE to r/o small bowel transition point - Surgery consult - Consider starting Linzess 72mcg daily for bowel regimen - OP colonoscopy in about 4-6 week's time Supervising Physician Co-Signing Physician Notes I saw and evaluated the patient. She presented with abdominal pain, nausea /constipation/no flatus progressing over 10 days. Her prior surgical hx is notable for a right hemicoltectomy in 2019 at [facility] [place]. PE: NAD Mild abdominal distension Impression: I reviewed the CT and it appears most consistent with at least a partial Small bowel obstruction givne the dilation of the small bowel. I would suggest suggest conservative managmetn for the time being, a surgery consult and MR enterography. The patient may benefit from an OP colonoscopy as well in 4 to 6 weeks. History of Present Illness Reason for Consultation: Colitis Requesting Physician: Dr. Sanaz Porras Attending Physician: Dr. Radha Ha History of Present Illness Pt is a 86 yo female w hx of hemicolectomy in 2019 2/2 bowel obstruction who presented with constipation followed by diarrhea last week. She was given suppository at home for constipation, then had diarrhea. Took Pepto Bismol to control diarrhea and had no BM since last Wednesday. On eval, lab showed mild leukocytosis, no anemia, chem panel normal. CT abd/pelvis showed signs of small bowel dilation, thickening, ? enteritis (inflammatory/infectious) vs small bowel obstruction. She is eating CL diet this AM, no n/v, abd pain, and reports is passing flatus. Allergies Allergy/AdvReac Type Severity Reaction Status Date / Time latex Allergy Unknown RASH Verified 08/01/19 12:11 niacin Allergy Unknown UNKNOWN Verified 04/12/22 10:52 Penicillins Allergy Unknown hives Verified 04/12/22 10:52 metronidazole AdvReac Unknown Hives Verified 04/12/22 10:52 Sulfa (Sulfonamide AdvReac Unknown hives Verified 04/12/22 10:52 Antibiotics) tramadol AdvReac Unknown psycho Unverified 08/01/19 12:11 Home Medications Medication Instructions Recorded Confirmed Type albuterol sulfate 90 mcg/actuation 2 puff inhalation Q4H PRN 12/09/18 04/12/22 History aerosol inhaler (Ventolin HFA) Shortness Of Breath amlodipine 2.5 mg tablet 5 mg PO QAM 12/09/18 04/12/22 History atorvastatin 40 mg tablet 40 mg PO HS 12/09/18 04/12/22 History cholecalciferol (vitamin D3) 25 1,000 unit PO QAM 12/09/18 04/12/22 History mcg (1,000 unit) tablet (Vitamin D3) clopidogrel 75 mg tablet 75 mg PO QAM 12/09/18 04/12/22 History cyanocobalamin (vitamin B-12) 1,000 mcg PO QAM 12/09/18 04/12/22 History 1,000 mcg tablet (Vitamin B-12) losartan 25 mg tablet 25 mg PO HS 12/09/18 04/12/22 History montelukast 10 mg tablet 10 mg PO HS 12/09/18 04/12/22 History nitroglycerin 0.3 mg sublingual 0.3 mg sublingual UD PRN heart pain 12/09/18 04/12/22 History tablet omeprazole 20 mg capsule,delayed 20 mg PO BID 12/09/18 04/12/22 History release aspirin 81 mg tablet,delayed 81 mg PO QAM 04/18/19 04/12/22 History release metoprolol succinate 25 mg 12.5 mg PO DAILY 07/10/19 04/12/22 History tablet,extended release 24 hr aripiprazole 2 mg tablet 4 mg PO DAILY 02/13/22 04/12/22 History fexofenadine 180 mg tablet 180 mg PO DAILY 02/13/22 04/12/22 History fluticasone furoate 100 1 inh inhalation DAILY 02/13/22 04/12/22 History mcg-vilanterol 25 mcg/dose inhalation powder (Breo Ellipta) isosorbide dinitrate 10 mg tablet 10 mg PO DAILY@0600,1200,1800 02/13/22 04/12/22 History Patient History Medical History Asthma CAD (coronary artery disease), [place] coronary artery CKD (chronic kidney disease) stage 3, GFR 30-59 ml/min CKD (chronic kidney disease), stage III COPD (chronic obstructive pulmonary disease) Coronary artery disease Diaphragmatic hernia Dyslipidemia Fracture, patella GERD (gastroesophageal reflux disease) History of CVA (cerebrovascular accident) without residual deficits History of kidney disease History of TIA (transient ischemic attack) HTN (hypertension) Hypertension Meniere's disease Osteoporosis Periapical abscess Sciatica Surgical History H/O exploratory laparotomy 11/2018 History of carpal tunnel repair History of section History of Milly fundoplication History of right hemicolectomy 11/2018 Status post cardiac catheterization Status post coronary artery stent placement Drug-eluting stent mid LAD Dr. 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: No Beliefs That Will Affect Care: None Current Living Situation: Spouse Other Information That Helps Us Care for You: No Feels Safe at Home: Yes Safety Concerns: Feels Safe At This Time Assistive Devices: Cane, Glasses and Walker Review of Systems Review of Systems: All systems reviewed & are unremarkable except as noted in HPI & below Physical Exam Constitutional: WD/WN, vitals as above well groomed, cooperative and comfortable Eyes: PERRL, conjunctivae normal, anicteric sclerae ENMT: external ear and nose normal, oropharynx normal Respiratory: normal respiratory effort, lungs clear to auscultation Cardiovascular: RRR, no murmur, no edema Gastrointestinal (Abdomen): Hypoactive BS but present, non tender, soft Skin: no rashes, warm and dry no jaundice Psychiatric: A+Ox3, euthymic affect Lymphatic: no lymphedema Results & Data ([facility]) Vital Signs (Past 12 Hours) Vital Signs Temp Pulse Pulse Resp BP BP Pulse Ox 04/13/22 08:08 36.5 C 96 H 18 107/70 95 04/13/22 04:00 37.0 C 83 18 165/71 H 96 04/13/22 00:54 99 H 04/12/22 23:47 36.6 C 96 H 18 162/89 H 95 O2 Del Method 04/13/22 08:08 Room Air 04/13/22 04:00 Room Air 04/13/22 00:54 04/12/22 23:47 Room Air
[2022-04-13] MEDS ORDERED: ERTAPENEM SODIUM 10 ML IV SCH (09:30)
[2022-04-13] MEDS: ERTAPENEM SODIUM 1,000 MG in SYRINGE 0 ML IV SCH (10:30)
--- NOTE | 2022-04-13 16:27 | Surgery Consultation ---
Date of Consultation April 13, 2022 Assessment & Plan (1) Enteritis: (2) Colitis: Plan 86 year-old women with diarrhea and then constipation presented to ED with abdominal pain and nausea. CT scan showing severely thickened small bowel throughout the abdomen with dilatation consistent with enteritis/infectious etiology however developing SBO is in differential given degree of distention. No clear transition point appreciated. Plan: No acute surgical intervention required or recommended at this time. Would continue conservative measures as recommended by GI service. Keep on clear liquids today MR enterography ordered by GI will continue to follow Dr. Navarrete has seen and examined patient and agrees with above. see addendum for further recommendations/plan. Supervising Physician Co-Signing Physician Notes I have seen and examined the patient personally and agree with the above assessment plan. We will treat her conservatively. We will await the MR enterography for further evaluation. We will continue clear liquids. We will continue to follow. History of Present Illness Reason for Consultation: Enteritis vs SBO Requesting Physician: REYNALDO Cerna Attending Physician: Sanaz Porras DO History of Present Illness Mrs. Fuller is an 86 year old female who presented to emergency department on 04/12/22 for diarrhea followed by constipation and abdominal pain with nausea. She states that she was having diarrhea early last week and then she took Pepto Bismol and then was constipated. States her gave her a suppository without any improvement. She had lower abdominal pain with nausea but no vomiting. States her bowel movements prior to this were normal. Does not take any stool softeners or laxatives. She denies of anyone in the household having similar symptoms or eating anything unusual. Only has had one colonoscopy in her 50s. No family history of colon cancer. Had a right hemicolectomy in 2018 for bowel obstruction at [facility]. No other abdominal surgery. She states she is feeling better than when she presented to ED. Pain is about a 3-4/10. No further nausea. Passing gas but no bowel movement since admission. Tolerated clear liquids yesterday into today without nausea or increase in abdominal pain. Allergies Allergy/AdvReac Type Severity Reaction Status Date / Time latex Allergy Unknown RASH Verified 08/01/19 12:11 niacin Allergy Unknown UNKNOWN Verified 04/12/22 10:52 Penicillins Allergy Unknown hives Verified 04/12/22 10:52 metronidazole AdvReac Unknown Hives Verified 04/12/22 10:52 Sulfa (Sulfonamide AdvReac Unknown hives Verified 04/12/22 10:52 Antibiotics) tramadol AdvReac Unknown psycho Unverified 08/01/19 12:11 Home Medications Medication Instructions Recorded Confirmed Type albuterol sulfate 90 mcg/actuation 2 puff inhalation Q4H PRN 12/09/18 04/12/22 History aerosol inhaler (Ventolin HFA) Shortness Of Breath amlodipine 2.5 mg tablet 5 mg PO QAM 12/09/18 04/12/22 History atorvastatin 40 mg tablet 40 mg PO HS 12/09/18 04/12/22 History cholecalciferol (vitamin D3) 25 1,000 unit PO QAM 12/09/18 04/12/22 History mcg (1,000 unit) tablet (Vitamin D3) clopidogrel 75 mg tablet 75 mg PO QAM 12/09/18 04/12/22 History cyanocobalamin (vitamin B-12) 1,000 mcg PO QAM 12/09/18 04/12/22 History 1,000 mcg tablet (Vitamin B-12) losartan 25 mg tablet 25 mg PO HS 12/09/18 04/12/22 History montelukast 10 mg tablet 10 mg PO HS 12/09/18 04/12/22 History nitroglycerin 0.3 mg sublingual 0.3 mg sublingual UD PRN heart pain 12/09/18 04/12/22 History tablet omeprazole 20 mg capsule,delayed 20 mg PO BID 12/09/18 04/12/22 History release aspirin 81 mg tablet,delayed 81 mg PO QAM 04/18/19 04/12/22 History release metoprolol succinate 25 mg 12.5 mg PO DAILY 07/10/19 04/12/22 History tablet,extended release 24 hr aripiprazole 2 mg tablet 4 mg PO DAILY 02/13/22 04/12/22 History fexofenadine 180 mg tablet 180 mg PO DAILY 02/13/22 04/12/22 History fluticasone furoate 100 1 inh inhalation DAILY 02/13/22 04/12/22 History mcg-vilanterol 25 mcg/dose inhalation powder (Breo Ellipta) isosorbide dinitrate 10 mg tablet 10 mg PO DAILY@0600,1200,1800 02/13/22 04/12/22 History Patient History Medical History Asthma CAD (coronary artery disease), [place] coronary artery CKD (chronic kidney disease) stage 3, GFR 30-59 ml/min CKD (chronic kidney disease), stage III COPD (chronic obstructive pulmonary disease) Coronary artery disease Diaphragmatic hernia Dyslipidemia Fracture, patella GERD (gastroesophageal reflux disease) History of CVA (cerebrovascular accident) without residual deficits History of kidney disease History of TIA (transient ischemic attack) HTN (hypertension) Hypertension Meniere's disease Osteoporosis Periapical abscess Sciatica Surgical History H/O exploratory laparotomy 11/2018 History of carpal tunnel repair History of section History of Milly fundoplication History of right hemicolectomy 11/2018 Status post cardiac catheterization Status post coronary artery stent placement Drug-eluting stent mid LAD Dr. Garces 04/01/18 Family History Father Stroke Myocardial infarction Brother Ischemic heart disease Other Family history non-contributory Social History Smoking Status: Never smoker Second Hand Exposure: No; Do You Dip or Chew Tobacco: No; Tobacco Cessation Education Requested by Patient: No Hx Alcohol Use: No Hx Substance Use: No Preferred Language: Yakut Communication Ability: Effective Director Of Program Management Required: No Beliefs That Will Affect Care: None marital status: Current Living Situation: Spouse Other Information That Helps Us Care for You: No Feels Safe at Home: Yes Safety Concerns: Feels Safe At This Time Assistive Devices: Cane and Walker Physical Exam Constitutional: WD/WN, vitals as above no acute distress and not ill appearing Respiratory: normal respiratory effort; no respiratory distress Gastrointestinal (Abdomen): Inspection/Auscultation: abdomen normal to inspection, + abdominal surgical scar (midline laparotomy scar) and + hypoactive bowel sounds; abdomen not distended and + abnormal bowel sounds Percussion/Palpation: abdomen soft; abdomen nontender, no guarding and abdomen not rigid Skin: no rashes, warm and dry Psychiatric: A+Ox3, euthymic affect Results & Data ([facility]) Vital Signs (Past 12 Hours) Vital Signs Temp Pulse Pulse Resp BP BP Pulse Ox 04/13/22 15:00 94 H 04/13/22 12:55 80 141/75 H 04/13/22 07:00 82 04/13/22 11:13 36.5 C 113 H 16 122/74 93 04/13/22 08:08 36.5 C 96 H 18 107/70 95 O2 Del Method 04/13/22 15:00 04/13/22 12:55 04/13/22 07:00 04/13/22 11:13 Room Air 04/13/22 08:08 Room Air Laboratory Results 04/13/22 04/13/22 Range/Units 05:31 05:31 WBC 5.42 (4.8-10.8) K/ul RBC 5.11 (3.93-5.22) M/uL Hgb 15.4 (12.0-16.0) g/dl Hct 44.8 (34.1-44.9) % MCV 87.7 (80.0-100.0) fL MCH 30.1 (25.0-34.0) pg MCHC 34.4 (32.0-36.0) g/dL RDW Std Deviation 41.3 (36.4-46.3) fL RDW Coeff of Josse 13.0 (11.5-14.5) % Plt Count 224 (130-400) K/uL MPV 10.3 (9.4-12.3) fL Sodium 136 (136-145) mmol/L Potassium 3.0 L (3.5-5.1) mmol/L Chloride 98 (98-107) mmol/L Carbon Dioxide 27 (21-32) mmol/L Anion Gap 11 (3-11) BUN 26 H (6-23) mg/dl Creatinine 0.85 D (0.6-1.2) mg/dl Est Cr Clr Drug Dosing 40.7 ml/min Est GFR ( Amer) 71.9 ml/min Est GFR (Non-Af Amer) 62.0 ml/min BUN/Creatinine Ratio 30.6 H (10-20) Glucose 134 H (70-99(Fasting)) mg/dl Calcium 8.3 L (8.5-10.1) mg/dl Phosphorus 2.9 (2.5-4.9) mg/dl Magnesium 1.8 (1.7-2.4) mg/dl Diagnostic Findings ABDOMEN AND PELVIS CT WITH IV CONTRAST CT DOSE: 252.00 mGy.cm HISTORY: Constipation/generalized abdominal pain TECHNIQUE: Multiaxial CT images of the abdomen and pelvis were performed following the use of intravenous contrast. A dose lowering technique was utilized adhering to the principles of ALARA. COMPARISON STUDY: Abdomen and pelvis CT 12/19/2020. FINDINGS: Mild dependent changes seen within the lung bases. No pneumoperitoneum. No pneumatosis. No suspicious lytic or blastic osseous lesions. Cholelithiasis. No gallbladder wall thickening. The liver, spleen, and pancreas unremarkable. No hydronephrosis. Stable left renal cyst. 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 Stable nodular thickening of the left adrenal gland. Normal bladder. Thickened endometrium containing a 1 cm polyp. This remains unchanged. Mild pelvic floor collapse. Colonic diverticulosis. No evidence for acute diverticulitis. Postoperative changes consistent with a prior right hemicolectomy. Multiple severely thickened loops of small bowel throughout the majority of the abdomen. These are also slightly dilated. There is mild mesenteric edema/fat stranding surrounding the thickened loops of small bowel. These measure up to 3.5 cm in diameter. No definite transition point identified. However, a partial bowel obstruction cannot be excluded given the degree of distention. The majority of the colon is decompressed. No retroperitoneal lymphadenopathy. Moderate calcified plaque within the normal caliber abdominal aorta. The main portal vein is patent. No evidence for occlusion within the major mesenteric vessels. IMPRESSION: 1. Multiple severely thickened loops of small bowel seen throughout the majority of the abdomen which are also distended. This favors an infectious or inflammatory enteritis. No clear transition point. However, the degree of distention raises the possibility of a partial small bowel obstruction. 2. Cholelithiasis. 3. No change in the thickened endometrium containing a 1 cm endometrial polyp. Gynecologic consultation recommended. 4. Additional findings as described above.
[2022-04-13] MEDS ORDERED: POTASSIUM CHLORIDE CRTAB 20 MEQ TABCR PO ONE (18:29)
--- NOTE | 2022-04-13 18:31 | Hospitalist Progress Note ---
Date of Service April 13, 2022 Assessment & Plan (1) Enteritis: Plan: Likely acute, uncertain cause. Plan as above. There are no findings on imaging or history that suggest ileus but that is in the differential. Will trial food and see how that goes. (2) Colitis: Plan: - seen by GI and surgery- recommendations noted. Continue conservative management - Clears today, MRE pending, on IV antibiotic per GI - if diarrhea, send stool clx and C diff - OP colonoscopy in 4-6 wks (3) Acute renal failure superimposed on stage 3 chronic kidney disease: Plan: prerenal. resolved with IVF. Cr back to baseline of 0.8 (4) Hypertension: Plan: BP still high. continue norvasc, lopresor. will resume losartan as EJ improved. (5) Constipation: Plan: consider linzess per GI (6) Hypokalemia: Plan: repleted, recheck in am (7) LOUIE on CPAP: Plan: Per home settings. (8) Enlarged uterus: Plan: Incidental finding on CT scan. Recommend outpatient pelvic ultrasound. (9) CAD (coronary artery disease), [place] coronary artery: Plan: Chronic stable angina reporting daily use of nitro with exertion such as laundry. She had a stent placed in 2016 and again in mar 2018 when a MILENA was placed to the LAD. Last echo was Apr 2019 revealing EF 55-60%, grade I diastolic dysfunction and no significant valvular disease. Last seen by stormy zaldivar in Sep 2021 and due for her 6 month followup soon. Currently denies chest pain. (10) COPD (chronic obstructive pulmonary disease): Plan: chronic, stable. cont Breo per home regimen. (11) DVT prophylaxis: Plan: sc heparin Plan Dispo- on IV antibiotics, MRE pending. Admission and Anticipated Discharge Date Admission Date: April 12, 2022 Subjective states she is doing better. No N/V/abd pain. tolerating clears without issues. passing gas but no BM yet. Physical Exam Physical Exam: General: Observed ambulating independently from bathroom to bed, not in distress, on room air HEENT: EOMI, SRIRAM, MMM Chest: Clear breath sounds bilaterally, no wheezes or crackles CVS: Regular rate and rhythm, normal heart sounds, no murmur Abdomen: Soft, non tender, not distended, normal bowel sounds Neuro: Awake, alert, oriented, conversing well, non focal Extremities: No edema Results & Data Results & Data ([facility]) Vital Signs (Past 12 Hours) Vital Signs Temp Pulse Pulse Resp BP BP Pulse Ox 04/13/22 16:40 36.6 C 95 H 18 146/81 H 95 04/13/22 15:00 94 H 04/13/22 12:55 80 141/75 H 04/13/22 07:00 82 04/13/22 11:13 36.5 C 113 H 16 122/74 93 04/13/22 08:08 36.5 C 96 H 18 107/70 95 O2 Del Method 04/13/22 16:40 Room Air 04/13/22 15:00 04/13/22 12:55 04/13/22 07:00 04/13/22 11:13 Room Air 04/13/22 08:08 Room Air Laboratory Results Short CBC 04/13/22 Range/Units 05:31 WBC 5.42 (4.8-10.8) K/ul Hgb 15.4 (12.0-16.0) g/dl Hct 44.8 (34.1-44.9) % Plt Count 224 (130-400) K/uL BMP 04/13/22 05:31 Sodium 136 Potassium 3.0 L Chloride 98 Carbon Dioxide 27 BUN 26 H Creatinine 0.85 D Glucose 134 H Calcium 8.3 L Medications Administered Current Inpatient Medications Acetaminophen (Acetaminophen 325 Mg Tab) 650 mg PO Q4H PRN PRN Reason: Pain or Fever Stop: 05/12/22 12:40 Last Admin: 04/12/22 21:03 Dose: 650 mg Al Hydrox/Mg Hydrox/Simethicone (Aluminum/Magnesium Susp 30 Ml Udc) 15 ml PO Q4H PRN PRN Reason: Dyspepsia Stop: 05/12/22 12:40 Albuterol (Albuterol Hfa 8 Gm Inhaler) 2 puffs INH Q4R PRN PRN Reason: Shortness Of Breath Stop: 05/12/22 11:42 Amlodipine Besylate (Amlodipine Besylate 5 Mg Tab) 5 mg PO QAM MAC Stop: 05/13/22 08:59 Last Admin: 04/13/22 08:11 Dose: 5 mg Aripiprazole (Aripiprazole 1 Mg/Ml Oral Soln 150 Ml Btl) 4 mg PO DAILY MAC Stop: 05/13/22 08:59 Last Admin: 04/13/22 08:11 Dose: 4 mg Aspirin (Aspirin 81 Mg Ectab) 81 mg PO QAM MAC Stop: 05/13/22 08:59 Last Admin: 04/13/22 08:11 Dose: 81 mg Atorvastatin Calcium (Atorvastatin 40 Mg Tab) 40 mg PO HS MAC Stop: 05/12/22 20:59 Last Admin: 04/12/22 21:02 Dose: 40 mg Clopidogrel Bisulfate (Clopidogrel Bisulfate 75 Mg Tab) 75 mg PO QAM MAC Stop: 05/13/22 08:59 Last Admin: 04/13/22 08:11 Dose: 75 mg Fluticasone/Vilanterol (Fluticasone/Vilanterol 100/25mcg 14 Puffs/Inhaler) 1 puffs INH DAILY MAC Stop: 05/13/22 08:59 Last Admin: 04/13/22 08:11 Dose: 1 puffs Heparin Sodium (Porcine) (Heparin Sod 5,000 Unit/0.5 Ml Vial) 5,000 units SQ Q12 MAC Stop: 05/12/22 20:59 Last Admin: 04/13/22 08:12 Dose: 5,000 units Ertapenem 1,000 mg/ Syringe 10 mls @ 2 mls/min IV DAILY [facility] Stop: 04/23/22 09:44 Last Admin: 04/13/22 10:30 Dose: 2 mls/min Isosorbide Dinitrate (Isosorbide Dinitrate 10 Mg Tab) 10 mg PO TID@0700,1200,1700 [facility] Stop: 05/12/22 13:14 Last Admin: 04/13/22 17:46 Dose: 10 mg Melatonin (Melatonin 3 Mg Tab) 3 mg PO HS PRN PRN Reason: Sleep Stop: 05/12/22 23:34 Last Admin: 04/13/22 00:45 Dose: 3 mg Metoprolol Succinate (Metoprolol Succ 25mg Ext Rel Tab) 12.5 mg PO DAILY MAC Stop: 05/13/22 08:59 Last Admin: 04/13/22 08:11 Dose: 12.5 mg Montelukast Sodium (Montelukast Sodium 10 Mg Tablet) 10 mg PO HS MAC Stop: 05/12/22 20:59 Last Admin: 04/12/22 21:03 Dose: 10 mg Nitroglycerin (Nitroglycerin Sl 0.4 Mg/Tab Tab) 0.4 mg SL UD PRN PRN Reason: heart pain Stop: 05/12/22 15:56 Pantoprazole Sodium (Pantoprazole 40 Mg Tab) 40 mg PO BID MAC; Protocol Stop: 05/12/22 20:59 Last Admin: 04/13/22 08:11 Dose: 40 mg Polyethylene Glycol (Polyethylene (Miralax) 17 Gm Pack) 17 gm PO DAILY PRN PRN Reason: Constipation Stop: 05/12/22 12:40 (1) CAD (coronary artery disease), [place] coronary artery [place] vs. transplanted heart: [place] heart Associated angina: without angina Qualified Code(s): I25.10 - Atherosclerotic heart disease of [place] coronary artery without angina pectoris
[2022-04-13] MEDS: LOSARTAN POTASSIUM 25 MG TAB PO SCH (20:01)
[2022-04-13] MEDS: ATORVASTATIN 40 MG TAB PO SCH (20:01)
[2022-04-13] MEDS: MONTELUKAST SODIUM 10 MG TABLET PO SCH (20:01)
[2022-04-14] MEDS: ISOSORBIDE DINITRATE 10 MG TAB PO SCH ×3 (06:10→16:28)
[2022-04-14 07:06] LABS: Hematocrit (blood only) 43.7 % (34.1-44.9); Mean Corpuscular Hemoglobin 29.8 pg (25.0-34.0); Mean Corpuscular Hgb Conc 34.3 g/dL (32.0-36.0); Mean Corpuscular Volume 86.7 fL (80.0-100.0); Mean Platelet Volume 10.7 fL (9.4-12.3); Platelet Count 216 K/uL (130-400); RDW Standard Deviation 41.2 fL (36.4-46.3); Red Blood Count 5.04 M/uL (3.93-5.22); White Blood Count 4.39 K/ul (4.8-10.8)
[2022-04-14 07:36] LABS: BUN Creatinine Ratio 27.5 (10-20); Calcium 8.5 mg/dl (8.5-10.1); Creatinine Clr Calc Pharmacy 41.5 ml/min; Est GFR (African American) 77.4 ml/min; Est GFR (Non-African American) 66.8 ml/min; Potassium 4.2 mmol/L (3.5-5.1)
[2022-04-14] MEDS: ARIPIprazole 1 MG/ML ORAL SOLN 150 ML BTL PO SCH (07:59)
[2022-04-14] MEDS: PANTOprazole 40 MG TAB PO SCH ×2 (07:59→20:20)
[2022-04-14] MEDS: METOPROLOL SUCC 25MG EXT REL TAB PO SCH (07:59)
[2022-04-14] MEDS: ERTAPENEM SODIUM 1,000 MG in SYRINGE 0 ML IV SCH (07:59)
[2022-04-14] MEDS: ASPIRIN 81 MG ECTAB PO SCH (07:59)
[2022-04-14] MEDS: CLOPIDOGREL BISULFATE 75 MG TAB PO SCH (07:59)
[2022-04-14] MEDS: amLODIPine BESYLATE 5 MG TAB PO SCH (07:59)
[2022-04-14] MEDS: FLUTICASONE/VILANTEROL 100/25MCG 14 PUFFS/INHALER INH SCH (07:59)
[2022-04-14] MEDS: HEPARIN SOD 5,000 UNIT/0.5 ML VIAL SQ SCH ×2 (08:00→20:19)
--- NOTE | 2022-04-14 09:10 | Gastroenterology Progress Note ---
Date of Service April 14, 2022 Assessment & Plan (1) Enteritis: (2) Constipation: Plan: Pt is a 86 yo female w hx of bowel obstruction s/p hemicolectomy, chronic constipation, presented w diarrhea symptoms. CT abd/pelvis showed signs of small bowel thickening and dilation. Suspect enteritis vs developing small bowel obstruction. - If diarrhea recurs, obtain stool cx and Cdiff - Invaz 1g IV daily - CL diet - Obtain MRE to r/o small bowel transition point - Surgery consulted, appreciate recs - Consider starting Linzess 72mcg daily for bowel regimen if no obstruction noted on MR enterography - OP colonoscopy in about 4-6 week's time Admission and Anticipated Discharge Date Admission Date: April 12, 2022 Supervising Physician Co-Signing Physician Notes I saw and evaluated the patient this morning. She notes that she is having flatus but still has yet to have a bowel movement. Based on the patient's history I wonder about a partial small bowel obstruction and would suggest further evaluation with MR enterography as mentioned yesterday. Subjective Patient reports that she is feeling comfortable, is passing flatus but no bowel movements yet. Is scheduled for MR enterography study this morning. No nausea, vomiting. Review of Systems Review of Systems: All systems reviewed & are unremarkable except as noted in HPI & below Physical Exam Constitutional: WD/WN, vitals as above well groomed, cooperative and comfortable Eyes: PERRL, conjunctivae normal, anicteric sclerae ENMT: external ear and nose normal, oropharynx normal Respiratory: normal respiratory effort, lungs clear to auscultation Cardiovascular: RRR, no murmur, no edema Gastrointestinal (Abdomen): Hypoactive but present BS, soft, non tender Skin: no rashes, warm and dry no jaundice Psychiatric: A+Ox3, euthymic affect Lymphatic: no lymphedema Results & Data ([facility]) Vital Signs (Past 12 Hours) Vital Signs Temp Pulse Pulse Resp BP Pulse Ox O2 Del Method 04/14/22 07:22 36.5 C 104 H 16 111/72 93 Room Air 04/14/22 05:40 36.6 C 97 H 16 155/77 H 94 04/13/22 22:53 83 04/13/22 22:44 36.8 C 97 H 16 121/73 95 Room Air
--- NOTE | 2022-04-14 09:38 | Surgery Progress Note ---
Date of Service April 14, 2022 Assessment & Plan (1) Enteritis: (2) Colitis: Plan 86 year-old women with diarrhea and then constipation presented to ED with abdominal pain and nausea. CT scan showing severely thickened small bowel throughout the abdomen with dilatation consistent with enteritis/infectious etiology however developing SBO is in differential given degree of distention. No clear transition point appreciated. Plan: No acute surgical intervention required or recommended at this time. Would continue conservative measures. Keep on clear liquids today await MR enterography Discussed with Dr. Navarrete who agrees with above. Admission and Anticipated Discharge Date Admission Date: April 12, 2022 Supervising Physician Co-Signing Physician Notes I have seen and examined the patient and agree with the above assessment and plan. Continue conservative measures. We will await the MR enterography. We will continue to follow. Subjective feeling better today abdominal pain is better no n,v, tolerated clear liquids all day yesterday passing small amount of flatus, no bowel movement yet Physical Exam Constitutional: WD/WN, vitals as above no acute distress and not ill appea ring Neck: normal visual inspection and trachea midline Respiratory: normal respiratory effort; no respiratory distress Gastrointestinal (Abdomen): Inspection/Auscultation: abdomen normal to inspection, + abdominal surgical scar (midline laparotomy scar) and + hypoactive bowel sounds (but present); abdomen not distended and + abnormal bowel sounds Percussion/Palpation: abdomen soft; abdomen nontender, no guarding and abdomen not rigid mildly tympanic on percussion Skin: no rashes, warm and dry Psychiatric: A+Ox3, euthymic affect Results & Data ([facility]) Vital Signs (Past 12 Hours) Vital Signs Temp Pulse Pulse Resp BP Pulse Ox O2 Del Method 04/14/22 07:22 36.5 C 104 H 16 111/72 93 Room Air 04/14/22 05:40 36.6 C 97 H 16 155/77 H 94 04/13/22 22:53 83 04/13/22 22:44 36.8 C 97 H 16 121/73 95 Room Air Laboratory Results 04/14/22 04/14/22 Range/Units 06:34 06:34 WBC 4.39 L (4.8-10.8) K/ul RBC 5.04 (3.93-5.22) M/uL Hgb 15.0 (12.0-16.0) g/dl Hct 43.7 (34.1-44.9) % MCV 86.7 (80.0-100.0) fL MCH 29.8 (25.0-34.0) pg MCHC 34.3 (32.0-36.0) g/dL RDW Std Deviation 41.2 (36.4-46.3) fL RDW Coeff of Josse 13.0 (11.5-14.5) % Plt Count 216 (130-400) K/uL MPV 10.7 (9.4-12.3) fL Sodium 134 L (136-145) mmol/L Potassium 4.2 D (3.5-5.1) mmol/L Chloride 100 (98-107) mmol/L Carbon Dioxide 26 (21-32) mmol/L Anion Gap 8 (3-11) BUN 22 (6-23) mg/dl Creatinine 0.80 (0.6-1.2) mg/dl Est Cr Clr Drug Dosing 41.5 ml/min Est GFR ( Amer) 77.4 ml/min Est GFR (Non-Af Amer) 66.8 ml/min BUN/Creatinine Ratio 27.5 H (10-20) Glucose 113 H (70-99(Fasting)) mg/dl Calcium 8.5 (8.5-10.1) mg/dl
[2022-04-14] MEDS ORDERED: GLUCAGON FOR INJ 1 MG VIAL ONE (11:34)
--- NOTE | 2022-04-14 11:35 | Hospitalist Progress Note ---
Date of Service April 14, 2022 Assessment & Plan (1) Enteritis: (2) Colitis: Plan: - seen by GI and surgery- recommendations noted. Continue conservative management - MRE pending- if negative, can start linzess for BM - on IV antibiotic per GI - if diarrhea, send stool clx and C diff - OP colonoscopy in 4-6 wks (3) Acute renal failure superimposed on stage 3 chronic kidney disease: Plan: resolved. Cr back to baseline of 0.8 (4) Hypertension: Plan: stable. continue home norvasc, losartan (5) Constipation: Plan: start linzess if MRE with no obstruction (6) Hypokalemia: Plan: resolved (7) LOUIE on CPAP: Plan: continue (8) Enlarged uterus: Plan: Incidental finding on CT scan. Recommend outpatient pelvic ultrasound. (9) CAD (coronary artery disease), [place] coronary artery: Plan: stable, no ongoing chest pain. continue ASA, Plavix, BB, isordil. Follows with cardiology. Due for her 6 month OP cardio appt soon H/o stent placed in 2016 and again in mar 2018 when a MILENA was placed to the LAD. Last echo was Apr 2019 revealing EF 55-60%, grade I diastolic dysfunction and no significant valvular disease. (10) COPD (chronic obstructive pulmonary disease): Plan: stable, no exacerbation. continue breo (11) DVT prophylaxis: Plan: sc heparin Plan Dispo- MRE pending. Admission and Anticipated Discharge Date Admission Date: April 12, 2022 Subjective Feels fine. No new issues. Still no BM. Passing gas, no N/V/abd pain. No fever, chills. Waiting for MRE Physical Exam Physical Exam: General: Sitting in bed, not in distress, on room air HEENT: EOMI, SRIRAM, MMM Chest: Clear breath sounds bilaterally, no wheezes or crackles CVS: Regular rate and rhythm, normal heart sounds, no murmur Abdomen: Soft, non tender, not distended, normal bowel sounds Neuro: Awake, alert, oriented, conversing well, non focal Extremities: No edema Results & Data Results & Data ([facility]) Vital Signs (Past 12 Hours) Vital Signs Temp Pulse Resp BP Pulse Ox O2 Del Method 04/14/22 07:22 36.5 C 104 H 16 111/72 93 Room Air 04/14/22 05:40 36.6 C 97 H 16 155/77 H 94 Laboratory Results Short CBC 04/14/22 Range/Units 06:34 WBC 4.39 L (4.8-10.8) K/ul Hgb 15.0 (12.0-16.0) g/dl Hct 43.7 (34.1-44.9) % Plt Count 216 (130-400) K/uL BMP 04/14/22 06:34 Sodium 134 L Potassium 4.2 D Chloride 100 Carbon Dioxide 26 BUN 22 Creatinine 0.80 Glucose 113 H Calcium 8.5 Medications Administered Current Inpatient Medications Acetaminophen (Acetaminophen 325 Mg Tab) 650 mg PO Q4H PRN PRN Reason: Pain or Fever Stop: 05/12/22 12:40 Last Admin: 04/12/22 21:03 Dose: 650 mg Al Hydrox/Mg Hydrox/Simethicone (Aluminum/Magnesium Susp 30 Ml Udc) 15 ml PO Q4H PRN PRN Reason: Dyspepsia Stop: 05/12/22 12:40 Albuterol (Albuterol Hfa 8 Gm Inhaler) 2 puffs INH Q4R PRN PRN Reason: Shortness Of Breath Stop: 05/12/22 11:42 Amlodipine Besylate (Amlodipine Besylate 5 Mg Tab) 5 mg PO QAM [facility] Stop: 05/13/22 08:59 Last Admin: 04/14/22 07:59 Dose: 5 mg Aripiprazole (Aripiprazole 1 Mg/Ml Oral Soln 150 Ml Btl) 4 mg PO DAILY MAC Stop: 05/13/22 08:59 Last Admin: 04/14/22 07:59 Dose: 4 mg Aspirin (Aspirin 81 Mg Ectab) 81 mg PO QAM MAC Stop: 05/13/22 08:59 Last Admin: 04/14/22 07:59 Dose: 81 mg Atorvastatin Calcium (Atorvastatin 40 Mg Tab) 40 mg PO HS [facility] Stop: 05/12/22 20:59 Last Admin: 04/13/22 20:01 Dose: 40 mg Clopidogrel Bisulfate (Clopidogrel Bisulfate 75 Mg Tab) 75 mg PO QAM [facility] Stop: 05/13/22 08:59 Last Admin: 04/14/22 07:59 Dose: 75 mg Fluticasone/Vilanterol (Fluticasone/Vilanterol 100/25mcg 14 Puffs/Inhaler) 1 puffs INH DAILY MAC Stop: 05/13/22 08:59 Last Admin: 04/14/22 07:59 Dose: 1 puffs Heparin Sodium (Porcine) (Heparin Sod 5,000 Unit/0.5 Ml Vial) 5,000 units SQ Q12 MAC Stop: 05/12/22 20:59 Last Admin: 04/14/22 08:00 Dose: 5,000 units Ertapenem 1,000 mg/ Syringe 10 mls @ 2 mls/min IV DAILY MAC Stop: 04/23/22 09:44 Last Admin: 04/14/22 07:59 Dose: 2 mls/min Isosorbide Dinitrate (Isosorbide Dinitrate 10 Mg Tab) 10 mg PO TID@0700,1200,1700 [facility] Stop: 05/12/22 13:14 Last Admin: 04/14/22 06:10 Dose: 10 mg Losartan Potassium (Losartan Potassium 25 Mg Tab) 25 mg PO HS MAC Stop: 05/13/22 20:59 Last Admin: 04/13/22 20:01 Dose: 25 mg Melatonin (Melatonin 3 Mg Tab) 3 mg PO HS PRN PRN Reason: Sleep Stop: 05/12/22 23:34 Last Admin: 04/13/22 20:04 Dose: 3 mg Metoprolol Succinate (Metoprolol Succ 25mg Ext Rel Tab) 12.5 mg PO DAILY MAC Stop: 05/13/22 08:59 Last Admin: 04/14/22 07:59 Dose: 12.5 mg Montelukast Sodium (Montelukast Sodium 10 Mg Tablet) 10 mg PO HS MAC Stop: 05/12/22 20:59 Last Admin: 04/13/22 20:01 Dose: 10 mg Nitroglycerin (Nitroglycerin Sl 0.4 Mg/Tab Tab) 0.4 mg SL UD PRN PRN Reason: heart pain Stop: 05/12/22 15:56 Pantoprazole Sodium (Pantoprazole 40 Mg Tab) 40 mg PO BID [facility]; Protocol Stop: 05/12/22 20:59 Last Admin: 04/14/22 07:59 Dose: 40 mg Polyethylene Glycol (Polyethylene (Miralax) 17 Gm Pack) 17 gm PO DAILY PRN PRN Reason: Constipation Stop: 05/12/22 12:40 (1) CAD (coronary artery disease), [place] coronary artery [place] vs. transplanted heart: [place] heart Associated angina: without angina Qualified Code(s): I25.10 - Atherosclerotic heart disease of [place] coronary artery without angina pectoris
[2022-04-14] MEDS ORDERED: GLUCAGON FOR INJ 1 MG VIAL IM ONE (11:42)
--- NOTE | 2022-04-14 16:05 | Magnetic Resonance Report ---
MR enterography wo/w con CLINICAL HISTORY: eval small bowel obstruction/transition point . Diarrhea, no nausea or vomiting. No bowel movement of bowel obstructions. COMPARISON: Comparison is made to CT abdomen pelvis 04/12/2022 TECHNIQUE: Multiplanar multisequence images were obtained of the abdomen with and without the adminis tration of contrast. An MR enterography protocol was utilized with oral administration of VoLumen con trast. Cine MR fluoroscopy was acquired for dynamic evaluation of bowel peristalsis. 1 mg of glucagon was administered intramuscularly after cine imaging prior to intravenous contrast injection. FINDINGS: Lower chest: No acute abnormality Liver: Unremarkable. No focal lesions are seen. Gallbladder and biliary tree: Cholelithiasis is seen without evidence of cholecystitis. No intra- or extrahepatic biliary ductal dilation. Pancreas: Unremarkable, no focal lesions. Spleen: Unremarkable. Adrenals: Partial visualization of right adrenal myelolipoma. Stable nodular thickening of the left a drenal. Kidneys and ureters: Bilateral renal cysts are seen including parapelvic cysts. Reproductive: There is a 1 cm nodular density in the endometrium which is nonspecific but may represe nt an endometrial polyp. Endometrial stripe is prominent for age, measuring approximately 16 mm. Bowel: Numerous distended, aperistaltic loops of bowel are seen. No proximal transition point is seen . No definite distal transition point is seen, there is smooth tapering to nonobstructed bowel. Posto perative changes of right hemicolectomy are seen, the colon is decompressed and peristalsing normally . Lymph nodes Retroperitoneal: Unremarkable. Mesenteric: Unremarkable. Peritoneum: Normal Vessels: Atherosclerotic calcifications are seen. Abdominal wall: Unremarkable. Bones: Degenerative changes in the visualized spine. IMPRESSION: 1. Numerous distended aperistaltic loops of small bowel are seen which may represent partial bowel o bstruction or ileus. No sharp transition point is seen proximally or distally. 2. Endometrial polyp. Prominence of the endometrium for patient age, correlation with medication his tory is recommended. ACT 112: Negative or not required by law. Electronically signed by: Siddharth Latif M.D. 04/14/2022 4:03 PM
[2022-04-14] MEDS: MONTELUKAST SODIUM 10 MG TABLET PO SCH (20:19)
[2022-04-14] MEDS: LOSARTAN POTASSIUM 25 MG TAB PO SCH (20:19)
[2022-04-14] MEDS: ATORVASTATIN 40 MG TAB PO SCH (20:19)
[2022-04-15 05:37] LABS: Creatinine Clr Calc Pharmacy 32.2 ml/min; Est GFR (Non-African American) 49.2 ml/min
[2022-04-15] MEDS: ISOSORBIDE DINITRATE 10 MG TAB PO SCH (06:17)
[2022-04-15] MEDS: PANTOprazole 40 MG TAB PO SCH (08:18)
[2022-04-15] MEDS: CLOPIDOGREL BISULFATE 75 MG TAB PO SCH (08:18)
[2022-04-15] MEDS: ARIPIprazole 1 MG/ML ORAL SOLN 150 ML BTL PO SCH (08:18)
[2022-04-15] MEDS: FLUTICASONE/VILANTEROL 100/25MCG 14 PUFFS/INHALER INH SCH (08:18)
[2022-04-15] MEDS: HEPARIN SOD 5,000 UNIT/0.5 ML VIAL SQ SCH (08:19)
[2022-04-15] MEDS: amLODIPine BESYLATE 5 MG TAB PO SCH (08:19)
[2022-04-15] MEDS: ASPIRIN 81 MG ECTAB PO SCH (08:19)
[2022-04-15] MEDS: METOPROLOL SUCC 25MG EXT REL TAB PO SCH (08:19)
--- NOTE | 2022-04-15 09:01 | Gastroenterology Progress Note ---
Date of Service April 15, 2022 Assessment & Plan (1) Enteritis: (2) Constipation: Plan: Pt is a 86 yo female w hx of bowel obstruction s/p hemicolectomy, chronic constipation, presented w diarrhea symptoms. CT abd/pelvis showed signs of small bowel thickening and dilation. Suspect enteritis vs developing small bowel obstruction. MRE 04/14: 1. Numerous distended aperistaltic loops of small bowel are seen which may represent partial bowel obstruction or ileus. No sharp transition point is seen proximally or distally. 2. Endometrial polyp. Prominence of the endometrium for patient age, correlation with medication history is recommended. She passed large BM this AM, abd soft and non tender on exam, BS present. - Stop antibiotics - Advance diet as tolerated - Need daily bowel regimen such as Miralax 17g once to twice daily and may add stimulants (Bisacodyl) prn; Alternatively can also consider Linzess in the future if constipation persis - OP colonoscopy in about 4-6 week's time - GI to sign off; pls recall prn Admission and Anticipated Discharge Date Admission Date: April 12, 2022 Supervising Physician Co-Signing Physician Notes I saw and evaluated the patient. Her MR enterography did show that she likely had a partial small bowel obstruction with as cause of her symptoms. She notes that she is tolerating p.o. today and having spontaneous bowel movements with the use of MiraLAX. We recommend outpatient colonoscopy to evaluate her prior anastomosis. Should the patient have recurrent symptoms she may want to have a repeat evaluation by general surgery please call with any questions or concerns. Subjective Pt had large brown BM this morning. Denies abd pain, n/v. Is passing flatus. Physical Exam Constitutional: WD/WN, vitals as above well groomed, cooperative and comfortable Eyes: PERRL, conjunctivae normal, anicteric sclerae ENMT: external ear and nose normal, oropharynx normal Respiratory: normal respiratory effort, lungs clear to auscultation Cardiovascular: RRR, no murmur, no edema Gastrointestinal (Abdomen): normal bowel sounds, soft, nontender, no hepatosplenomegaly Skin: no rashes, warm and dry no jaundice Psychiatric: A+Ox3, euthymic affect Lymphatic: no lymphedema Results & Data ([facility]) Vital Signs (Past 12 Hours) Vital Signs Temp Pulse Pulse Resp BP BP Pulse Ox 04/15/22 08:01 36.3 C L 86 16 100/64 96 04/15/22 02:59 36.6 C 89 20 126/74 95 04/14/22 23:59 85 04/14/22 23:22 36.4 C L 82 18 128/72 95 O2 Del Method 04/15/22 08:01 04/15/22 02:59 Room Air 04/14/22 23:59 04/14/22 23:22 Room Air
[2022-04-15] MEDS: ERTAPENEM SODIUM 1,000 MG in SYRINGE 0 ML IV SCH (09:05)
--- NOTE | 2022-04-15 15:37 | Discharge Summary ---
Date of Service April 15, 2022 Admission HPI Per Admitting Provider 86 yo F s/p hemicolectomy in 2019 secondary to bowel obstruction presents with constipation that followed diarrhea earlier in the week. She took Pepto-Bismol on Wed and has not had a BM since that time. Denies vomiting or abdominal pain but does have evidence of acute renal failure on the labwork today. Creatine is 1.8 with a baseline of 1.1. She has known CKD Stage III. Ct A/P with contrast revealed enteritis with possible ileus and also colitis in the distal transverse and descending colon. She reports a one week history of nonbloody diarrhea of uncertain etiology. She denies any recent travel or antibiotic usage, and doesn't feel this was a food born illness. She did have some infraumbilical pain that was dull, nonradiating and intermittent, better with bowel movements. then she took double the dos eof Pepto Bismol on Wed, and although she still had a BM into , didn't have any further BMs and presented because she was concerned she took something she wasn't supposed to. She currently denies any abdominal pain and reports last eating a hot dog yesterday for lunch. She hasn't eaten or drank anything much in the last week and normally says her appetite is not robust. She denies any nausea or vomiting and is fine to try some clear liquids now and advance her diet later today as tolerated. Admission Exam Per Admitting Provider CONSTITUTIONAL: WNWD, vitals as above, generally well-appearing, NAD EYES: normal conjunctivae, no scleral icterus ENT: external ear and nose normal, MMM NECK: trachea midline RESPIRATORY: clear to auscultation bilaterally, no crackles, rales or wheezes, normal respiratory effort CARDIOVASCULAR: regular rate and rhythm, S1 and 2 heard without murmurs, gallops or rubs, no JVD, no peripheral edema CHEST: inspection of chest was normal GASTROINTESTINAL: hypoactive bowel sounds, soft, nontender, non-distended, no guarding, no CVA tenderness MUSCULOSKELETAL: strength 5/5 throughout, head is normocephalic and atraumatic, neck supple, normal palpation of chest wall without tenderness SKIN: warm and dry, no rashes NEUROLOGIC: patellar DTRs 2+ bilat. PERRL, EOMI, no facial palsy, no dysarthria. Touch, pain and proprioception normal. CN 2-12 grossly intact, no sensory deficit, normal cognition, normal speech, no tremor PSYCHIATRIC: alert cooperative and oriented to person, place and time. Euthymic mood, makes good eye contact, language grossly intact, recent and remote memory grossly intact. LYMPHATIC: no LAD Principal Diagnosis EJ, suspected early SBO vs enteritis Discharge Exam General: Sitting in bed, not in distress, on room air HEENT: EOMI, SRIRAM, MMM Chest: Clear breath sounds bilaterally, no wheezes or crackles CVS: Regular rate and rhythm, normal heart sounds, no murmur Abdomen: Soft, non tender, not distended, normal bowel sounds Neuro: Awake, alert, oriented, conversing well, non focal Extremities: No edema Discharge Data Allergies Allergy/AdvReac Type Severity Reaction Status Date / Time latex Allergy Unknown RASH Verified 08/01/19 12:11 niacin Allergy Unknown UNKNOWN Verified 04/12/22 10:52 Penicillins Allergy Unknown hives Verified 04/12/22 10:52 metronidazole AdvReac Unknown Hives Verified 04/12/22 10:52 Sulfa (Sulfonamide AdvReac Unknown hives Verified 04/12/22 10:52 Antibiotics) tramadol AdvReac Unknown psycho Unverified 08/01/19 12:11 Consultations 04/12/22 08:49 ED Decision to Admit Stat 04/12/22 12:00 Consult Gastroenterology Routine 04/13/22 08:56 Consult General Surgery Routine Ordered Studies 04/12/22 04:03 CT abd pelvis IV con only Urgent 04/14/22 00:00 MR enterography wo/w con Routine Laboratory Results WBC 4.39 K/ul (4.8-10.8) L 04/14/22 06:34 RBC 5.04 M/uL (3.93-5.22) 04/14/22 06:34 Hgb 15.0 g/dl (12.0-16.0) 04/14/22 06:34 Hct 43.7 % (34.1-44.9) 04/14/22 06:34 MCV 86.7 fL (80.0-100.0) 04/14/22 06:34 MCH 29.8 pg (25.0-34.0) 04/14/22 06:34 MCHC 34.3 g/dL (32.0-36.0) 04/14/22 06:34 RDW Std Deviation 41.2 fL (36.4-46.3) 04/14/22 06:34 RDW Coeff of Josse 13.0 % (11.5-14.5) 04/14/22 06:34 Plt Count 216 K/uL (130-400) 04/14/22 06:34 MPV 10.7 fL (9.4-12.3) 04/14/22 06:34 Immature Gran % (Auto) 0.2 % 04/12/22 04:00 Neut % (Auto) 81.3 % 04/12/22 04:00 Lymph % (Auto) 9.7 % 04/12/22 04:00 Arthur % (Auto) 8.5 % 04/12/22 04:00 Eos % (Auto) 0.0 % 04/12/22 04:00 Baso % (Auto) 0.3 % 04/12/22 04:00 Neut # (Auto) 8.85 K/uL (1.4-6.5) H 04/12/22 04:00 Lymph # (Auto) 1.05 K/uL (1.2-3.4) L 04/12/22 04:00 Arthur # (Auto) 0.92 K/uL (0.24-0.82) H 04/12/22 04:00 Eos # (Auto) 0.00 K/uL (0-0.50) 04/12/22 04:00 Baso # (Auto) 0.03 K/uL (0-0.2) 04/12/22 04:00 Immature Gran # (Auto) 0.02 K/uL (0.00-0.02) 04/12/22 04:00 Sodium 134 mmol/L (136-145) L 04/14/22 06:34 Potassium 4.2 mmol/L (3.5-5.1) D 04/14/22 06:34 Chloride 100 mmol/L (98-107) 04/14/22 06:34 Carbon Dioxide 26 mmol/L (21-32) 04/14/22 06:34 Anion Gap 8 (3-11) 04/14/22 06:34 BUN 22 mg/dl (6-23) 04/14/22 06:34 Creatinine 1.03 mg/dl (0.6-1.2) 04/15/22 04:45 Est Cr Clr Drug Dosing 32.2 ml/min 04/15/22 04:45 Est GFR ( Amer) 57.0 ml/min 04/15/22 04:45 Est GFR (Non-Af Amer) 49.2 ml/min 04/15/22 04:45 BUN/Creatinine Ratio 27.5 (10-20) H 04/14/22 06:34 Glucose 113 mg/dl (70-99(Fasting)) H 04/14/22 06:34 Calcium 8.5 mg/dl (8.5-10.1) 04/14/22 06:34 Phosphorus 2.9 mg/dl (2.5-4.9) 04/13/22 05:31 Magnesium 1.8 mg/dl (1.7-2.4) 04/13/22 05:31 Total Bilirubin 1.7 mg/dl (0.2-1.0) H 04/12/22 04:00 AST 22 U/L (13-39) 04/12/22 04:00 ALT 16 U/L (7-52) 04/12/22 04:00 Alkaline Phosphatase 72 U/L (34-104) 04/12/22 04:00 Total Protein 7.6 gm/dl (6.0-8.3) 04/12/22 04:00 Albumin 4.0 gm/dl (3.4-5.0) 04/12/22 04:00 Globulin 3.6 gm/dl (2.5-4.0) 04/12/22 04:00 Albumin/Globulin Ratio 1.1 (0.9-2) 04/12/22 04:00 Lipase 15 U/L (11-82) 04/12/22 04:00 Urine Color Yellow 04/12/22 07:30 Urine Appearance Clear (Clear) 04/12/22 07:30 Urine pH 5.5 (4.5-7.5) 04/12/22 07:30 Ur Specific [place] 1.023 (1.000-1.030) 04/12/22 07:30 Urine Protein Trace (Negative) H 04/12/22 07:30 Urine Glucose (UA) Negative (Negative) 04/12/22 07:30 Urine Ketones Trace (Negative) H 04/12/22 07:30 Urine Blood Trace (Negative) H 04/12/22 07:30 Urine Nitrite Negative (Negative) 04/12/22 07:30 Urine Bilirubin Negative (Negative) 04/12/22 07:30 Urine Urobilinogen Negative (Negative) 04/12/22 07:30 Ur Leukocyte Esterase Negative (Negative) 04/12/22 07:30 Urine WBC (Auto) 1-5 /hpf (0-5) 04/12/22 07:30 Urine RBC (Auto) 0-4 /hpf (0-4) 04/12/22 07:30 U Hyaline Cast (Auto) 1-5 /lpf (0-5) 04/12/22 07:30 U Epithel Cells (Auto) 10-20 /lpf (0-5) H 04/12/22 07:30 Urine Bacteria (Auto) Negative (Negative) 04/12/22 07:30 Urine Osmolality 407 mOsm/kg (500-800) L 04/12/22 07:30 Ur Random Creatinine 43.1 mg/dl 04/12/22 07:30 Ur Random Sodium 97 mmol/L 04/12/22 07:30 SARS-CoV-2, RNA, NAAT NEGATIVE (NEGATIVE) 04/12/22 08:30 Impressions Abdomen/Pelvis CT 04/12/22 04:[address] WITH IV CONTRAST CT DOSE: 252.00 mGy.cm HISTORY: Constipation/generalized abdominal pain TECHNIQUE: Multiaxial CT images of the abdomen and pelvis were performed following the use of intravenous contrast. A dose lowering technique was utilized adhering to the principles of ALARA. COMPARISON STUDY: Abdomen and pelvis CT 12/19/2020. FINDINGS: Mild dependent changes seen within the lung bases. No pneumoperitoneum. No pneumatosis. No suspicious lytic or blastic osseous lesions. Cholelithiasis. No gallbladder wall thickening. The liver, spleen, and pancreas unremarkable. No hydronephrosis. Stable left renal cyst. 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 Stable nodular thickening of the left adrenal gland. Normal bladder. Thickened endometrium containing a 1 cm polyp. This remains unchanged. Mild pelvic floor collapse. Colonic diverticulosis. No evidence for acute diverticulitis. Postoperative changes consistent with a prior right hemicolectomy. Multiple severely thickened loops of small bowel throughout the majority of the abdomen. These are also slightly dilated. There is mild mesenteric edema/fat stranding surrounding the thickened loops of small bowel. These measure up to 3.5 cm in diameter. No definite transition point identified. However, a partial bowel obstruction cannot be excluded given the degree of distention. The majority of the colon is decompressed. No retroperitoneal lymphadenopathy. Moderate calcified plaque within the normal caliber abdominal aorta. The main portal vein is patent. No evidence for occlusion within the major mesenteric vessels. IMPRESSION: 1. Multiple severely thickened loops of small bowel seen throughout the majority of the abdomen which are also distended. This favors an infectious or inflammatory enteritis. No clear transition point. However, the degree of distention raises the possibility of a partial small bowel obstruction. 2. Cholelithiasis. 3. No change in the thickened endometrium containing a 1 cm endometrial polyp. Gynecologic consultation recommended. 4. Additional findings as described above. ACT 112: Negative or not required by law. Electronically signed by: Da Zuniga M.D. 04/12/2022 7:32 AM Enterography MRI 04/14/22 00:00 MR enterography wo/w con CLINICAL HISTORY: eval small bowel obstruction/transition point . Diarrhea, no nausea or vomiting. No bowel movement of bowel obstructions. COMPARISON: Comparison is made to CT abdomen pelvis 04/12/2022 TECHNIQUE: Multiplanar multisequence images were obtained of the abdomen with and without the administration of contrast. An MR enterography protocol was utilized with oral administration of VoLumen contrast. Cine MR fluoroscopy was acquired for dynamic evaluation of bowel peristalsis. 1 mg of glucagon was administered intramuscularly after cine imaging prior to intravenous contrast injection. FINDINGS: Lower chest: No acute abnormality Liver: Unremarkable. No focal lesions are seen. Gallbladder and biliary tree: Cholelithiasis is seen without evidence of cholecystitis. No intra- or extrahepatic biliary ductal dilation. Pancreas: Unremarkable, no focal lesions. Spleen: Unremarkable. Adrenals: Partial visualization of right adrenal myelolipoma. Stable nodular thickening of the left adrenal. Kidneys and ureters: Bilateral renal cysts are seen including parapelvic cysts. Reproductive: There is a 1 cm nodular density in the endometrium which is nonspecific but may represent an endometrial polyp. Endometrial stripe is prominent for age, measuring approximately 16 mm. Bowel: Numerous distended, aperistaltic loops of bowel are seen. No proximal transition point is seen. No definite distal transition point is seen, there is smooth tapering to nonobstructed bowel. Postoperative changes of right hemicolectomy are seen, the colon is decompressed and peristalsing normally. Lymph nodes Retroperitoneal: Unremarkable. Mesenteric: Unremarkable. Peritoneum: Normal Vessels: Atherosclerotic calcifications are seen. Abdominal wall: Unremarkable. Bones: Degenerative changes in the visualized spine. IMPRESSION: 1. Numerous distended aperistaltic loops of small bowel are seen which may represent partial bowel obstruction or ileus. No sharp transition point is seen proximally or distally. 2. Endometrial polyp. Prominence of the endometrium for patient age, correlation with medication history is recommended. ACT 112: Negative or not required by law. Electronically signed by: Siddharth Latif M.D. 04/14/2022 4:03 PM Hospital Course (1) Enteritis: She likely had early SBO vs enteritis which is now resolved. - seen by GI and surgery- continued conservative management with improvement. - MRE noted as above - symptoms resolved. States she had good BM today. No N/V/abd pain. Diet advanced and she tolerated well without issues. - Empiric antibiotic stopped per GI. Cleared by GI for discharge. - OP colonoscopy in 4-6 wks - Started on miralax for regular BM- recommended titration up as needed. (2) Acute renal failure superimposed on stage 3 chronic kidney disease: resolved. Cr back to baseline of 0.8-1 (3) Hypertension: stable. continue home norvasc, losartan (4) Constipation: continue bowel regimen. If persist, consider linzess in future (5) Hypokalemia: resolved (6) LOUIE on CPAP: continue (7) Enlarged uterus: Incidental finding on CT scan. Recommend outpatient pelvic ultrasound and follow up with PCP. (8) CAD (coronary artery disease), rosebud coronary artery: stable, no ongoing chest pain. continue ASA, Plavix, BB, isordil. Follows with cardiology. Due for her 6 month OP cardio appt soon H/o stent placed in 2016 and again in mar 2018 when a MILENA was placed to the LAD. Last echo was Apr 2019 revealing EF 55-60%, grade I diastolic dysfunction and no significant valvular disease. (9) COPD (chronic obstructive pulmonary disease): stable, no exacerbation. continue breo Plan comfortable and stable for discharge home. Ambulating independently. Cleared by PT. No discharge needs identified. Total Time Total Time Spent Total Time Spent (In Minutes): 35 Discharge Plan Discharge Items Patient Disposition: Home - Self-Care Reason For Visit: ACUTE RENAL FAILURE Discharge Diagnosis: Acute renal failure, possible SBO Activity: Resume your previous activity Non-emergency contact: Primary Care Provider Call non-emergency contact if: you have any medication questions, your symptoms worsen, your pain is concerning for you and you have a fever Follow-up/Referrals: [facility] [Other] ( [address], [place] [id number] The Gastroenterology Office will call you with an appointment for a colonoscopy) Rory Vargas MD [Primary Care Provider] - (Date & Time 04/20/2022 2:00 PM Provider Audrey Monzon MD Department [facility] ) Diet: Regular Addtl Attending Provider Instructions: continue miralax daily to have a daily BM. If needed, you can increase to twice daily. If needed, you can add other over the counter stool softeners. follow up with GI doctors for outpatient colonoscopy in 4-[address] scan shows an endometrial polyp in the uterus. Please follow up with the family doctor with referral to gynecology. Pending Studies at Discharge: No Stand-Alone Forms: My [employer], Smoking Cessation Medications and DC Order Prescriptions: New polyethylene glycol 3350 [Miralax] 17 gram powder in packet 17 g PO DAILY Qty: 30 0RF Continued aspirin 81 mg Tablet,Delayed Release (Dr/Ec) 81 mg PO QAM metoprolol succinate 25 mg Tablet Extended Release 24 Hr 12.5 mg PO DAILY atorvastatin 40 mg tablet 40 mg PO HS nitroglycerin 0.3 mg tablet, sublingual 0.3 mg sublingual UD PRN (Reason: heart pain) cyanocobalamin (vitamin B-12) [Vitamin B-12] 1,000 mcg Tablet 1,000 mcg PO QAM clopidogrel 75 mg tablet 75 mg PO QAM losartan 25 mg tablet 25 mg PO HS omeprazole 20 mg capsule,delayed release(DR/EC) 20 mg PO BID montelukast 10 mg tablet 10 mg PO HS albuterol sulfate [Ventolin HFA] 90 mcg/actuation HFA aerosol inhaler 2 puff inhalation Q4H PRN (Reason: Shortness Of Breath) cholecalciferol (vitamin D3) [Vitamin D3] 1,000 unit Tablet 1,000 unit PO QAM fexofenadine 180 mg tablet 180 mg PO DAILY aripiprazole 2 mg tablet 4 mg PO DAILY isosorbide dinitrate 10 mg tablet 10 mg PO DAILY@0600,1200,1800 fluticasone furoate-vilanterol [Breo Ellipta] 100-25 mcg/dose blister with device 1 inh INHALATION DAILY Changed amlodipine 2.5 mg tablet 2.5 mg PO QAM Qty: 30 0RF Discharge Orders: Discharge Order (Routine); Ordered 04/15/22 Ordered By: Kanu Mobley Admission Data Admit Date/Time: 04/12/22 09:59 Attending Provider: Kanu Mobley Admit Provider: Sanaz Porras Primary Care Provider: Rory Vargas Other Providers: Kris Gu ; Kanu Mobley ; James Navarrete Other Interventions: Discharge Summary Assessment (RN) Last Done: 04/15/22 12:27
== END 2022-04-15 14:10 | disposition home or self-care (01) | DRG 389 ==
LOC: ED 03:43 → EDINP 09:59 → SUATTDRO 09:59 → 4W 12:39

== ENCOUNTER 2022-04-22 08:25 | Observation (INO) ==
--- NOTE | 2022-04-22 08:35 | Emergency Department Note ---
Impression & Plan Diarrhea, Leukocytosis, Elevated bilirubin, Acute hypotension ED Provider Note NAME: WOODY IBANEZ AGE: 86 SEX: F : 1935 ARRIVES VIA: Ambulance INFORMANT: Patient ED PROVIDER(S): Chema Cruz DO CHIEF COMPLAINT: Diarrhea HPI: Patient is an 86-year-old female with a past medical history of CKD 3, enteritis, colitis, CAD, COPD, CVA and, hypertension who presents the ER for diarrhea. This has been going on for the past 10 days. Patient was seen and evaluated admitted on the . She was observed in the hospital and eventually discharged. She started having out normal bowel movements. Since being discharged she has been having diarrhea again. She denies any headache or change in vision. No chest pain or shortness of breath. No nausea or vomiting. No belly pain. She admits to loose watery stools without blood which is occurring about 5 times a day. No dysuria, urgency, or frequency. No other exacerbating or remitting factors. ROS: See above HPI for pertinent positives & negatives. A total of 10 systems reviewed and were otherwise negative. PAST MEDICAL HISTORY:See Below PAST SURGICAL HISTORY:See Below FAMILY HISTORY:See Below SOCIAL HISTORY:See Below HOME MEDICATIONS:See Below ALLERGIES:See Below VITALS:See Below PHYSICAL EXAMINATION: GENERAL: Sitting up in bed, alert, well appearing, well nourished, no distress, non-toxic EYE EXAM: normal conjunctiva. PERRL and EOM's grossly intact. OROPHARYNX: mucous membranes are dry NECK: supple, no nuchal rigidity, no adenopathy, non-tender LUNGS: Clear to auscultation. Normal chest wall mechanics HEART: no murmurs, S1 normal and S2 normal ABDOMEN: abdomen soft, non-tender, normo-active bowel sounds, no masses, no rebound or guarding. UPPER EXTREMITIES: upper extremities are grossly normal. LOWER EXTREMITIES: No pitting edema. NEURO EXAM: Normal sensorium, cranial nerves II-XII grossly intact, normal speech, no gross weakness of arms, no gross weakness of legs. MEDICAL DECISION MAKING: Patient is an 86-year-old female who presents ER for the above-stated complaint. IV was established blood work is obtained. Labs show mild leukocytosis of 14,000. No significant anemia. BMP with slightly elevated bilirubin at 1.7. LFTs and lipase were unremarkable. UA was contaminated. Question UTI did cover with Rocephin. With the white count and blood pressure of 80 initially which responded to fluids patient was discussed with the hospitalist. Eventually obtain a stool sample which was negative. COVID was negative. Patient was give n IV fluids updated bedside discussed with hospitalist for further evaluation. Triage Nursing notes reviewed. Limited review of prior medical records performed Vital Signs: reviewed and remarkable for no significant abnormalities Differential diagnosis: Differential diagnoses includes but is not limited to gastritis, peptic ulcer disease, GERD, gallbladder disease, pancreatitis, small bowel obstruction, acute coronary syndrome, pericarditis, ischemic bowel, irritable bowel disease, irritable bowel syndrome, appendicitis, diverticulitis, malignancy, hernia, urinary tract infection, torsion, perforation, trauma, infectious. ER treatment provided: See below Diagnostics interpreted by me: ECG: none Cardiac Monitoring: An order was placed for continuous cardiac monitoring. The monitor shows a rate of 85 with sinus rhythm. Laboratory studies: As stated above and show below. Imaging studies: See below Consultation(s): [facility] Procedures: none Critical Care: None Past Med/Surg History Medical History Asthma CAD (coronary artery disease), [place] coronary artery CKD (chronic kidney disease) stage 3, GFR 30-59 ml/min CKD (chronic kidney disease), stage III COPD (chronic obstructive pulmonary disease) Coronary artery disease Diaphragmatic hernia Dyslipidemia Fracture, patella GERD (gastroesophageal reflux disease) History of CVA (cerebrovascular accident) without residual deficits History of kidney disease History of TIA (transient ischemic attack) HTN (hypertension) Hypertension Meniere's disease Osteoporosis Periapical abscess Sciatica Surgical History H/O exploratory laparotomy 11/2018 History of carpal tunnel repair History of section History of Milly fundoplication History of right hemicolectomy 11/2018 Status post cardiac catheterization Status post coronary artery stent placement Drug-eluting stent mid LAD Dr. Garces 04/01/18 Family History Father Stroke Myocardial infarction Brother Ischemic heart disease Other Family history non-contributory Social History Smoking Status: Never smoker Second Hand Exposure: No; Hx Alcohol Use: No Hx Substance Use: No Preferred Language: [place]ese Communication Ability: Effective Appointment Scheduler Required: No Beliefs That Will Affect Care: None marital status: Current Living Situation: Spouse Feels Safe at Home: Yes Assistive Devices: Cane and Walker Allergies Allergies Allergy/AdvReac Type Severity Reaction Status Date / Time latex Allergy Unknown RASH Verified 08/01/19 12:11 niacin Allergy Unknown UNKNOWN Verified 04/12/22 10:52 Penicillins Allergy Unknown hives Verified 04/12/22 10:52 metronidazole AdvReac Unknown Hives Verified 04/12/22 10:52 Sulfa (Sulfonamide AdvReac Unknown hives Verified 04/12/22 10:52 Antibiotics) tramadol AdvReac Unknown psycho Unverified 08/01/19 12:11 Home Meds Home Medications Medication Instructions Recorded Confirmed albuterol sulfate 90 mcg/actuation 2 puff inhalation Q4H PRN 12/09/18 04/22/22 aerosol inhaler (Ventolin HFA) Shortness Of Breath atorvastatin 40 mg tablet 40 mg PO HS 12/09/18 04/22/22 cholecalciferol (vitamin D3) 25 1,000 unit PO QAM 12/09/18 04/22/22 mcg (1,000 unit) tablet (Vitamin D3) clopidogrel 75 mg tablet 75 mg PO QAM 12/09/18 04/22/22 cyanocobalamin (vitamin B-12) 1,000 mcg PO QAM 12/09/18 04/22/22 1,000 mcg tablet (Vitamin B-12) losartan 25 mg tablet 25 mg PO HS 12/09/18 04/22/22 montelukast 10 mg tablet 10 mg PO HS 12/09/18 04/22/22 nitroglycerin 0.3 mg sublingual 0.3 mg sublingual UD PRN heart pain 12/09/18 04/22/22 tablet omeprazole 20 mg capsule,delayed 20 mg PO BID 12/09/18 04/22/22 release aspirin 81 mg tablet,delayed 81 mg PO QAM 04/18/19 04/22/22 release metoprolol succinate 25 mg 12.5 mg PO DAILY 07/10/19 04/22/22 tablet,extended release 24 hr aripiprazole 2 mg tablet 4 mg PO DAILY 02/13/22 04/22/22 fexofenadine 180 mg tablet 180 mg PO DAILY 02/13/22 04/22/22 fluticasone furoate 100 1 inh inhalation DAILY 02/13/22 04/22/22 mcg-vilanterol 25 mcg/dose inhalation powder (Breo Ellipta) isosorbide dinitrate 10 mg tablet 10 mg PO DAILY@0600,1200,1800 02/13/22 04/22/22 Previous Rx's Medication Instructions Recorded amlodipine 2.5 mg tablet 2.5 mg PO QAM #30 tabs 04/15/22 polyethylene glycol 3350 17 gram 17 g PO DAILY #30 ea 04/15/22 oral powder packet (Miralax) Results & Data (ED) Vital Signs Vital Signs - 24 hr 04/22/22 08:30 04/22/22 08:33 04/22/22 08:34 Temperature 36.4 C L Temperature Source Oral Pulse Rate 77 Pulse Rate from SpO2 Sensor Respiratory Rate 18 Respiratory Effort / Characteristics Non-Labored Respiratory Depth Normal Respiratory Pattern Regular Blood Pressure 89/49 L 89/49 L Blood Pressure Mean 62 62 Blood Pressure Position Semi-fowlers Pulse Oximetry 94 94 Oxygen Delivery Method Room Air Room Air Sepsis Recent Fever Within 48 Hours No Sepsis New/Unexplained Change in Mental Status N/A Sepsis Action Taken by Nursing No Action Required 04/22/22 08:34 04/22/22 08:45 04/22/22 08:45 Temperature Temperature Source Pulse Rate 80 73 Pulse Rate from SpO2 Sensor 80 71 Respiratory Rate 25 H 24 Respiratory Effort / Characteristics Respiratory Depth Respiratory Pattern Blood Pressure 99/48 L Blood Pressure Mean 65 Blood Pressure Position Pulse Oximetry 98 Oxygen Delivery Method Sepsis Recent Fever Within 48 Hours Sepsis New/Unexplained Change in Mental Status Sepsis Action Taken by Nursing 04/22/22 09:00 04/22/22 09:00 04/22/22 09:30 Temperature Temperature Source Pulse Rate 79 Pulse Rate from SpO2 Sensor 68 Respiratory Rate 17 Respiratory Effort / Characteristics Respiratory Depth Respiratory Pattern Blood Pressure 119/54 L 121/65 Blood Pressure Mean 75 83 Blood Pressure Position Pulse Oximetry 97 Oxygen Delivery Method Sepsis Recent Fever Within 48 Hours Sepsis New/Unexplained Change in Mental Status Sepsis Action Taken by Nursing 04/22/22 09:30 04/22/22 10:00 04/22/22 10:30 Temperature Temperature Source Pulse Rate 82 83 75 Pulse Rate from SpO2 Sensor 75 Respiratory Rate 16 20 21 Respiratory Effort / Characteristics Respiratory Depth Respiratory Pattern Blood Pressure 110/57 L Blood Pressure Mean 74 Blood Pressure Position Pulse Oximetry 98 Oxygen Delivery Method Sepsis Recent Fever Within 48 Hours Sepsis New/Unexplained Change in Mental Status Sepsis Action Taken by Nursing 04/22/22 11:00 04/22/22 11:30 04/22/22 11:30 Temperature Temperature Source Pulse Rate 74 84 Pulse Rate from SpO2 Sensor 77 83 Respiratory Rate 19 19 Respiratory Effort / Characteristics Respiratory Depth Respiratory Pattern Blood Pressure 123/55 L Blood Pressure Mean 77 Blood Pressure Position Pulse Oximetry 100 94 Oxygen Delivery Method Sepsis Recent Fever Within 48 Hours Sepsis New/Unexplained Change in Mental Status Sepsis Action Taken by Nursing 04/22/22 12:30 04/22/22 13:00 04/22/22 13:30 Temperature Temperature Source Pulse Rate 70 72 Pulse Rate from SpO2 Sensor 71 Respiratory Rate 24 17 Respiratory Effort / Characteristics Respiratory Depth Respiratory Pattern Blood Pressure 116/61 116/51 L Blood Pressure Mean 79 72 Blood Pressure Position Pulse Oximetry 95 Oxygen Delivery Method Sepsis Recent Fever Within 48 Hours Sepsis New/Unexplained Change in Mental Status Sepsis Action Taken by Nursing 04/22/22 13:30 04/22/22 14:00 04/22/22 14:00 Temperature Temperature Source Pulse Rate 69 71 Pulse Rate from SpO2 Sensor 70 71 Respiratory Rate 22 21 Respiratory Effort / Characteristics Respiratory Depth Respiratory Pattern Blood Pressure 113/50 L Blood Pressure Mean 71 Blood Pressure Position Pulse Oximetry 97 99 Oxygen Delivery Method Sepsis Recent Fever Within 48 Hours Sepsis New/Unexplained Change in Mental Status Sepsis Action Taken by Nursing 04/22/22 14:30 Temperature Temperature Source Pulse Rate 79 Pulse Rate from SpO2 Sensor 80 Respiratory Rate 25 H Respiratory Effort / Characteristics Respiratory Depth Respiratory Pattern Blood Pressure Blood Pressure Mean Blood Pressure Position Pulse Oximetry 100 Oxygen Delivery Method Sepsis Recent Fever Within 48 Hours Sepsis New/Unexplained Change in Mental Status Sepsis Action Taken by Nursing Laboratory Data Result diagrams: 04/22/22 08:38 04/22/22 08:38 Lab Results 04/22/22 04/22/22 04/22/22 Range/Units 08:38 08:38 08:46 WBC 14.44 H (4.8-10.8) K/ul RBC 4.62 (3.93-5.22) M/uL Hgb 13.6 (12.0-16.0) g/dl Hct 40.8 (34.1-44.9) % MCV 88.3 (80.0-100.0) fL MCH 29.4 (25.0-34.0) pg MCHC 33.3 (32.0-36.0) g/dL RDW Std Deviation 43.3 (36.4-46.3) fL RDW Coeff of Josse 13.3 (11.5-14.5) % Plt Count 230 (130-400) K/uL MPV 10.3 (9.4-12.3) fL Immature Gran % (Auto) 0.3 % Neut % (Auto) 84.1 % Lymph % (Auto) 6.6 % Garfield % (Auto) 8.4 % Eos % (Auto) 0.3 % Baso % (Auto) 0.3 % Neut # (Auto) 12.13 H (1.4-6.5) K/uL Lymph # (Auto) 0.96 L (1.2-3.4) K/uL Garfield # (Auto) 1.21 H (0.24-0.82) K/uL Eos # (Auto) 0.04 (0-0.50) K/uL Baso # (Auto) 0.05 (0-0.2) K/uL Immature Gran # (Auto) 0.05 H (0.00-0.02) K/uL Echinocytes 1+ Sodium 136 (136-145) mmol/L Potassium 4.0 (3.5-5.1) mmol/L Chloride 102 (98-107) mmol/L Carbon Dioxide 24 (21-32) mmol/L Anion Gap 10 (3-11) BUN 28 H (6-23) mg/dl Creatinine 1.13 (0.6-1.2) mg/dl Est Cr Clr Drug Dosing 29.9 ml/min Est GFR ( Amer) 51.0 ml/min Est GFR (Non-Af Amer) 44.0 ml/min BUN/Creatinine Ratio 24.8 H (10-20) Glucose 100 H (70-99(Fasting)) mg/dl Calcium 8.8 (8.5-10.1) mg/dl Total Bilirubin 1.7 H (0.2-1.0) mg/dl AST 24 (13-39) U/L ALT 15 (7-52) U/L Alkaline Phosphatase 63 (34-104) U/L Total Protein 7.1 (6.0-8.3) gm/dl Albumin 3.7 (3.4-5.0) gm/dl Globulin 3.4 (2.5-4.0) gm/dl Albumin/Globulin Ratio 1.1 (0.9-2) Lipase 53 (11-82) U/L Urine Color Urine Appearance (Clear) Urine pH (4.5-7.5) Ur Specific [place] (1.000-1.030) Urine Protein (Negative) Urine Glucose (UA) (Negative) Urine Ketones (Negative) Urine Blood (Negative) Urine Nitrite (Negative) Urine Bilirubin (Negative) Urine Urobilinogen (Negative) Ur Leukocyte Esterase (Negative) Urine WBC (Auto) (0-5) /hpf Urine RBC (Auto) (0-4) /hpf U Hyaline Cast (Auto) (0-5) /lpf U Epithel Cells (Auto) (0-5) /lpf Urine Bacteria (Auto) (Negative) Urine Crystals Other Crystals (None Prsent) Stl C. cayetanensis PCR (NotDetected) Stool Rotavirus A PCR (NotDetected) Stl Adenov F 40/41 PCR (NotDetected) Stool Astrovirus (PCR) (NotDetected) Stool Campylobacter PCR (NotDetected) Stl C. diff Tox A/B PCR (NotDetected) Stool Cryptosporidium PCR (NotDetected) Stl E.coli Shiga Tox PCR (NotDetected) Stl Enterotoxigenic E PCR (NotDetected) Stool EPEC (PCR) (NotDetected) Stool EAEC (PCR) (NotDetected) Stl E. histolytica PCR (NotDetected) Stool Giardia Lamblia PCR (NotDetected) Stool Salmonella PCR (NotDetected) Stool Sapovirus (PCR) (NotDetected) Stl P. shigelloides PCR (NotDetected) Stl Shigella/EIEC PCR (NotDetected) St Y.enterocolitica PCR (NotDetected) Stool Vibrio (PCR) (NotDetected) Stl Vibrio cholerae PCR (NotDetected) Stl Norovirus GI/GII PCR (NotDetected) SARS-CoV-2, RNA, NAAT NEGATIVE (NEGATIVE) 04/22/22 04/22/22 Range/Units 10:19 12:10 WBC (4.8-10.8) K/ul RBC (3.93-5.22) M/uL Hgb (12.0-16.0) g/dl Hct (34.1-44.9) % MCV (80.0-100.0) fL MCH (25.0-34.0) pg MCHC (32.0-36.0) g/dL RDW Std Deviation (36.4-46.3) fL RDW Coeff of Josse (11.5-14.5) % Plt Count (130-400) K/uL MPV (9.4-12.3) fL Immature Gran % (Auto) % Neut % (Auto) % Lymph % (Auto) % Garfield % (Auto) % Eos % (Auto) % Baso % (Auto) % Neut # (Auto) (1.4-6.5) K/uL Lymph # (Auto) (1.2-3.4) K/uL Garfield # (Auto) (0.24-0.82) K/uL Eos # (Auto) (0-0.50) K/uL Baso # (Auto) (0-0.2) K/uL Immature Gran # (Auto) (0.00-0.02) K/uL Echinocytes Sodium (136-145) mmol/L Potassium (3.5-5.1) mmol/L Chloride (98-107) mmol/L Carbon Dioxide (21-32) mmol/L Anion Gap (3-11) BUN (6-23) mg/dl Creatinine (0.6-1.2) mg/dl Est Cr Clr Drug Dosing ml/min Est GFR ( Amer) ml/min Est GFR (Non-Af Amer) ml/min BUN/Creatinine Ratio (10-20) Glucose (70-99(Fasting)) mg/dl Calcium (8.5-10.1) mg/dl Total Bilirubin (0.2-1.0) mg/dl AST (13-39) U/L ALT (7-52) U/L Alkaline Phosphatase (34-104) U/L Total Protein (6.0-8.3) gm/dl Albumin (3.4-5.0) gm/dl Globulin (2.5-4.0) gm/dl Albumin/Globulin Ratio (0.9-2) Lipase (11-82) U/L Urine Color Dark Yellow Urine Appearance Cloudy A (Clear) Urine pH 5.0 (4.5-7.5) Ur Specific [place] 1.022 (1.000-1.030) Urine Protein Trace H (Negative) Urine Glucose (UA) Negative (Negative) Urine Ketones Trace H (Negative) Urine Blood 1+ H (Negative) Urine Nitrite Negative (Negative) Urine Bilirubin 1+ H (Negative) Urine Urobilinogen Negative (Negative) Ur Leukocyte Esterase 2+ H (Negative) Urine WBC (Auto) 10-30 H (0-5) /hpf Urine RBC (Auto) 10-30 H (0-4) /hpf U Hyaline Cast (Auto) 5-10 H (0-5) /lpf U Epithel Cells (Auto) >30 H (0-5) /lpf Urine Bacteria (Auto) 3+ H (Negative) Urine Crystals Not Reportable Other Crystals Talc (None Prsent) Stl C. cayetanensis PCR Not Detected (NotDetected) Stool Rotavirus A PCR Not Detected (NotDetected) Stl Adenov F 40/41 PCR Not Detected (NotDetected) Stool Astrovirus (PCR) Not Detected (NotDetected) Stool Campylobacter PCR Not Detected (NotDetected) Stl C. diff Tox A/B PCR Not Detected (NotDetected) Stool Cryptosporidium PCR Not Detected (NotDetected) Stl E.coli Shiga Tox PCR Not Detected (NotDetected) Stl Enterotoxigenic E PCR Not Detected (NotDetected) Stool EPEC (PCR) Not Detected (NotDetected) Stool EAEC (PCR) Not Detected (NotDetected) Stl E. histolytica PCR Not Detected (NotDetected) Stool Giardia Lamblia PCR Not Detected (NotDetected) Stool Salmonella PCR Not Detected (NotDetected) Stool Sapovirus (PCR) Not Detected (NotDetected) Stl P. shigelloides PCR Not Detected (NotDetected) Stl Shigella/EIEC PCR Not Detected (NotDetected) St Y.enterocolitica PCR Not Detected (NotDetected) Stool Vibrio (PCR) Not Detected (NotDetected) Stl Vibrio cholerae PCR Not Detected (NotDetected) Stl Norovirus GI/GII PCR Not Detected (NotDetected) SARS-CoV-2, RNA, NAAT (NEGATIVE) Administered Medications Discontinued Medications Sodium Chloride (Nss) 500 mls @ 999 mls/hr IV .Q31M ONE Stop: 04/22/22 09:04 Last Admin: 04/22/22 08:49 Dose: Not Given Documented By: CALEB Sodium Chloride (Nss 1000ml) 500 mls @ 999 mls/hr IV .Q31M ONE Stop: 04/22/22 09:16 Last Infusion: 04/22/22 09:31 Dose: 0 mls/hr Documented By: Admin: 04/22/22 08:48 Dose: 999 mls/hr Documented By: CALEB Ceftriaxone Sodium (Rocephin) 2,000 mg in 70 mls @ 140 mls/hr IV NOW STA Stop: 04/22/22 13:43 Last Admin: 04/22/22 14:43 Dose: 140 mls/hr Documented By: CALEB Ioversol (Optiray 300 500ml) 95 ml IV ONCE ONE Stop: 04/22/22 12:10 Last Admin: 04/22/22 12:09 Dose: 95 ml Documented By: KISHORE Imaging Data Radiologist's Impression: Abdomen/Pelvis CT 04/22/22 11:[address] WITH IV CONTRAST CT DOSE: 272.16 mGy.cm HISTORY: hypotension lucero wbc TECHNIQUE: Multiaxial CT images of the abdomen and pelvis were performed following the use of intravenous contrast. A dose lowering technique was utilized adhering to the principles of ALARA. COMPARISON STUDY: Abdomen and pelvis CT 04/12/2022. FINDINGS: Mild dependent changes seen within the lung bases. No pn eumoperitoneum. No pneumatosis. No suspicious lytic or blastic osseous lesions. Cholelithiasis. No gallbladder wall thickening. The main portal vein is patent. The liver, pancreas, and spleen are unremarkable. 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 Mild nodular thickening of the left adrenal gland is also unchanged. Stable left renal cyst. The right kidney enhances normally. No hydronephrosis. No retroperitoneal lymphadenopathy. The bladder is unremarkable. No change in the thickened endometrium containing a 1 cm endometrial nodule/polyp. No pelvic free fluid. Fluid-filled large and small bowel again noted. There are few mildly dilated fluid-filled loops of small bowel in the abdomen. These have improved in the interval. The thickened loops of small bowel seen within the right and mid abdomen have also slightly improved in the interval. No evidence for transition point to suggest a small bowel obstruction at this time. A mild mesenteric edema/fat stranding is also slightly improved. P ostoperative changes consistent with prior right hemicolectomy. IMPRESSION: 1. Multiple scattered areas of circumferential bowel wall thickening involving the mid to distal small bowel which has slightly improved in the interval. This suggests a nonspecific enteritis. 2. Interval improvement in the distended loops of small bowel suggesting a resolving partial small bowel obstruction. No clear transition point identified at this time. 3. Fluid-filled loops of large and small bowel suggesting a diarrheal illness/gastroenteritis. 4. Redemonstration of the thickened endometrium containing a 1 cm endometrial polyp/nodule. ACT 112: Negative or not required by law. Electronically signed by: Da Zuniga M.D. 04/22/2022 12:27 PM Discharge Plan Visit Data Chief Complaint: Diarrhea ED Provider: Chema Cruz Discharge Problem: Diarrhea, Leukocytosis, Elevated bilirubin, Acute hypotension Discharge Instructions Krames/Other Patient Handouts: ED Diarrhea, Unknown Cause Activity Restrictions/Additional Instructions: Please follow up with your primary care doctor with in the next 24 hours. Any worsening of your symptoms, please return to the ED immediately. This includes any fevers greater than 100.4, worsening pain, chest pain, shortness breath, persistent nausea, vomiting, unable to eat or drink, or any other concerning signs or symptoms from your standpoint. You were found to have a blood pressure greater than 120 systolic over 90 diastolic. Due to the new Medicare guidelines, we are now recommending that you follow up with your primary care doctor in regards to this elevated blood pressure. We recommended that you stay and be evaluated as her blood pressure was slightly low. Forms Stand Alone Forms: [facility] Prescriptions Prescriptions: No Action aspirin 81 mg Tablet,Delayed Release (Dr/Ec) 81 mg PO QAM metoprolol succinate 25 mg Tablet Extended Release 24 Hr 12.5 mg PO DAILY atorvastatin 40 mg tablet 40 mg PO HS nitroglycerin 0.3 mg tablet, sublingual 0.3 mg sublingual UD PRN (Reason: heart pain) cyanocobalamin (vitamin B-12) [Vitamin B-12] 1,000 mcg Tablet 1,000 mcg PO QAM clopidogrel 75 mg tablet 75 mg PO QAM losartan 25 mg tablet 25 mg PO HS omeprazole 20 mg capsule,delayed release(DR/EC) 20 mg PO BID montelukast 10 mg tablet 10 mg PO HS albuterol sulfate [Ventolin HFA] 90 mcg/actuation HFA aerosol inhaler 2 puff inhalation Q4H PRN (Reason: Shortness Of Breath) cholecalciferol (vitamin D3) [Vitamin D3] 1,000 unit Tablet 1,000 unit PO QAM fexofenadine 180 mg tablet 180 mg PO DAILY aripiprazole 2 mg tablet 4 mg PO DAILY isosorbide dinitrate 10 mg tablet 10 mg PO DAILY@0600,1200,1800 fluticasone furoate-vilanterol [Breo Ellipta] 100-25 mcg/dose blister with device 1 inh INHALATION DAILY polyethylene glycol 3350 [Miralax] 17 gram powder in packet 17 g PO DAILY Qty: 30 0RF amlodipine 2.5 mg tablet 2.5 mg PO QAM Qty: 30 0RF Referrals Referrals: Rory Vargas MD [Primary Care Provider] -
[2022-04-22] MEDS: SODIUM CHLORIDE 0.9% 500 ML IV ONE ×2 (08:44→08:49)
[2022-04-22] MEDS ORDERED: SODIUM CHLORIDE 0.9% 1000ML 500 ML IV ONE (08:46)
[2022-04-22 09:16] LABS: Basophils # (auto) 0.05 K/uL (0-0.2); Basophils % (auto) 0.3 %; Echinocytes 1+; Eosinophils # (auto) 0.04 K/uL (0-0.50); Eosinophils % (auto) 0.3 %; Immature Granulocytes # (auto) 0.05 K/uL (0.00-0.02); Immature Granulocytes % (auto) 0.3 %; Lymphocytes # (auto) 0.96 K/uL (1.2-3.4); Lymphocytes % (auto) 6.6 %; Monocytes # (auto) 1.21 K/uL (0.24-0.82); Monocytes % (auto) 8.4 %; Neutrophils # (auto) 12.13 K/uL (1.4-6.5); Neutrophils % (auto) 84.1 %
[2022-04-22 09:17] LABS: Hematocrit (blood only) 40.8 % (34.1-44.9); Hemoglobin 13.6 g/dl (12.0-16.0); Mean Corpuscular Hemoglobin 29.4 pg (25.0-34.0); Mean Corpuscular Hgb Conc 33.3 g/dL (32.0-36.0); Mean Corpuscular Volume 88.3 fL (80.0-100.0); Mean Platelet Volume 10.3 fL (9.4-12.3); Platelet Count 230 K/uL (130-400); RDW Coefficient of Variation 13.3 % (11.5-14.5); RDW Standard Deviation 43.3 fL (36.4-46.3); Red Blood Count 4.62 M/uL (3.93-5.22); White Blood Count 14.44 K/ul (4.8-10.8)
[2022-04-22 09:35] LABS: Albumin Globulin Ratio 1.1 (0.9-2); Albumin Level 3.7 gm/dl (3.4-5.0); BUN Creatinine Ratio 24.8 (10-20); Bilirubin,Total 1.7 mg/dl (0.2-1.0); Calcium 8.8 mg/dl (8.5-10.1); Creatinine Clr Calc Pharmacy 29.9 ml/min; Globulin 3.4 gm/dl (2.5-4.0); Total Protein 7.1 gm/dl (6.0-8.3)
[2022-04-22 10:39] LABS: Appearance Urine Cloudy (Clear); Bacteria Urine Automated 3+ (Negative); Blood Urine 1+ (Negative); Color Urine Dark Yellow; Epithelial Cell Urine Auto >30 /lpf (0-5); Glucose Urine UA Negative (Negative); Ketones Urine Trace (Negative); Leukocyte Esterase Urine 2+ (Negative); Nitrite Urine Negative (Negative); Protein Urine Trace (Negative); Specific Gravity Urine 1.022 (1.000-1.030); Urobilinogen Urine Negative (Negative)
[2022-04-22 10:40] LABS: Bilirubin Urine 1+ (Negative)
[2022-04-22] MEDS ORDERED: OPTIRAY 300 500mL IV ONE (12:09)
--- NOTE | 2022-04-22 12:28 | CT Scan Report ---
ABDOMEN AND PELVIS CT WITH IV CONTRAST CT DOSE: 272.16 mGy.cm HISTORY: hypotension lucero wbc TECHNIQUE: Multiaxial CT images of the abdomen and pelvis were performed following the use of intrave nous contrast. A dose lowering technique was utilized adhering to the principles of ALARA. COMPARISON STUDY: Abdomen and pelvis CT 04/12/2022. FINDINGS: Mild dependent changes seen within the lung bases. No pneumoperitoneum. No pneumatosis. No suspicious lytic or blastic osseous lesions. Cholelithiasis. No gallbladder wall thickening. The main portal vein is patent. The liver, pancreas, and spleen are unremarkable. 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 Mild nodular thickening of the left adrenal gland is also unchanged. Stable left renal c yst. The right kidney enhances normally. No hydronephrosis. No retroperitoneal lymphadenopathy. The b ladder is unremarkable. No change in the thickened endometrium containing a 1 cm endometrial nodule/p olyp. No pelvic free fluid. Fluid-filled large and small bowel again noted. There are few mildly dila armando fluid-filled loops of small bowel in the abdomen. These have improved in the interval. The thicke james loops of small bowel seen within the right and mid abdomen have also slightly improved in the int erval. No evidence for transition point to suggest a small bowel obstruction at this time. A mild mes enteric edema/fat stranding is also slightly improved. Postoperative changes consistent with prior ri ght hemicolectomy. IMPRESSION: 1. Multiple scattered areas of circumferential bowel wall thickening involving the mid to distal smal l bowel which has slightly improved in the interval. This suggests a nonspecific enteritis. 2. Interval improvement in the distended loops of small bowel suggesting a resolving partial small max wel obstruction. No clear transition point identified at this time. 3. Fluid-filled loops of large and small bowel suggesting a diarrheal illness/gastroenteritis. 4. Redemonstration of the thickened endometrium containing a 1 cm endometrial polyp/nodule. ACT 112: Negative or not required by law. Electronically signed by: Da Zuniga M.D. 04/22/2022 12:27 PM
[2022-04-22] MEDS ORDERED: cefTRIAXone SODIUM 2,000 MG/70 ML BAG IV STA (13:14)
--- NOTE | 2022-04-22 13:37 | History & Physical Report ---
Date of Service April 22, 2022 Assessment & Plan (1) History of right hemicolectomy: (2) Diarrhea: Plan: -Admit to MedSurg with telemetry due to hypotension initially -1.5 NSS administered in the ER, continue on fluids for hydration, allow a diet for now -GI consulted -Patient reports that she has not been taking MiraLAX or Dulcolax at home -C. difficile is pending, patient denies history of such, no recent antibiotic use, will start po vanc if positive -Check hemmocult stool - If stool panel is negative for infectious workup will order anti-diarrheal agent (3) UTI (urinary tract infection): Plan: -UA appears to be infected, follow urine culture, denies any burning sensation but admits to increased frequency -hypotension possibly early sepsis? check lactate and blood cultures stat -IV ceftriaxone ordered by ER, continue - Already fluids as above, contine (4) CAD (coronary artery disease), [place] coronary artery: (5) Hypertension: (6) History of CVA (cerebrovascular accident) without residual deficits: (7) HTN (hypertension): Plan: - TECHNOLOGY CONSULTANT meds include amlodipine, losartan, atorvastatin, plavix and baby aspirin - Pt did not take her morning medications today - will hold amlodipine and losartan, continue metoprolol to prevent rebound tachycardia - BP now improved with fluids, likely hypovolemia due to dehydration with multiple bowel movements - Cont plavix and aspirin (8) Dyslipidemia: Plan: - Cont statin as above DVT ppx: - teds, scds, aspirin and Plavix CODE: DNR/DNI Dispo: From home, likely to remain in the hospital x 1 day on observation History of Present Illness Chief Complaint: Abdominal pain, diarrhea Primary Care Provider: Rory Vargas MD This is an 86 yo F s/p hemicolectomy in 2019 secondary to bowel obstruction presents with constipation that followed diarrhea. She was recently here admitted for similar presentation from 04/12/22-04/15/22. During that time she was seen by General surgery and GI, where she was treated for enteritis versus a developing SBO. There was no surgical needs during that time. It was seen on CT of the abdomen that there were numerous distended at peristaltic loops of small bowel and an endometrial polyp. She was recommended to continue on MiraLAX once to twice daily with addition of stimulants like bisacodyl, and they were considering Linzess in the future if constipation persists. Her diet was slowly advanced. Today she presents with ongoing diarrhea upwards of 5 times daily which happens whenever she drinks anything liquid. She states this has been going on since right after she was discharged. It is worsened with drinking cold water. She has been eating solid foods without difficulty. Denies any abdominal pain, bloating, distention, nausea or vomiting. 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 Double vision is not worse or different compared to previously. She also walks at home with use of a walker, and denies any recent falls. It was noted in the ER that she had a systolic blood pressure in the mid 80s whenever she first arrived and has been given 1.5 L NSS since then. Initially the patient was not sure that she needed to stay, however is agreeable to staying overnight for monitoring. Allergies Allergy/AdvReac Type Severity Reaction Status Date / Time latex Allergy Unknown RASH Verified 08/01/19 12:11 niacin Allergy Unknown UNKNOWN Verified 04/12/22 10:52 Penicillins Allergy Unknown hives Verified 04/12/22 10:52 metronidazole AdvReac Unknown Hives Verified 04/12/22 10:52 Sulfa (Sulfonamide AdvReac Unknown hives Verified 04/12/22 10:52 Antibiotics) tramadol AdvReac Unknown psycho Unverified 08/01/19 12:11 Home Medications Medication Instructions Recorded Confirmed Type albuterol sulfate 90 mcg/actuation 2 puff inhalation Q4H PRN 12/09/18 04/22/22 History aerosol inhaler (Ventolin HFA) Shortness Of Breath atorvastatin 40 mg tablet 40 mg PO HS 12/09/18 04/22/22 History cholecalciferol (vitamin D3) 25 1,000 unit PO QAM 12/09/18 04/22/22 History mcg (1,000 unit) tablet (Vitamin D3) clopidogrel 75 mg tablet 75 mg PO QAM 12/09/18 04/22/22 History cyanocobalamin (vitamin B-12) 1,000 mcg PO QAM 12/09/18 04/22/22 History 1,000 mcg tablet (Vitamin B-12) losartan 25 mg tablet 25 mg PO HS 12/09/18 04/22/22 History montelukast 10 mg tablet 10 mg PO HS 12/09/18 04/22/22 History nitroglycerin 0.3 mg sublingual 0.3 mg sublingual UD PRN heart pain 12/09/18 04/22/22 History tablet omeprazole 20 mg capsule,delayed 20 mg PO BID 12/09/18 04/22/22 History release aspirin 81 mg tablet,delayed 81 mg PO QAM 04/18/19 04/22/22 History release metoprolol succinate 25 mg 12.5 mg PO DAILY 07/10/19 04/22/22 History tablet,extended release 24 hr aripiprazole 2 mg tablet 4 mg PO DAILY 02/13/22 04/22/22 History fexofenadine 180 mg tablet 180 mg PO DAILY 02/13/22 04/22/22 History fluticasone furoate 100 1 inh inhalation DAILY 02/13/22 04/22/22 History mcg-vilanterol 25 mcg/dose inhalation powder (Breo Ellipta) isosorbide dinitrate 10 mg tablet 10 mg PO DAILY@0600,1200,1800 02/13/22 04/22/22 History amlodipine 2.5 mg tablet 2.5 mg PO QAM #30 tabs 04/15/22 04/22/22 Rx polyethylene glycol 3350 17 gram 17 g PO DAILY #30 ea 04/15/22 04/22/22 Rx oral powder packet (Miralax) Past Med/Surg History Medical History Asthma CAD (coronary artery disease), [place] coronary artery CKD (chronic kidney disease) stage 3, GFR 30-59 ml/min CKD (chronic kidney disease), stage III COPD (chronic obstructive pulmonary disease) Coronary artery disease Diaphragmatic hernia Dyslipidemia Fracture, patella GERD (gastroesophageal reflux disease) History of CVA (cerebrovascular accident) without residual deficits History of kidney disease History of TIA (transient ischemic attack) HTN (hypertension) Hypertension Meniere's disease Osteoporosis Periapical abscess Sciatica Surgical History H/O exploratory laparotomy 11/2018 History of carpal tunnel repair History of section History of Milly fundoplication History of right hemicolectomy 11/2018 Status post cardiac catheterization Status post coronary artery stent placement Drug-eluting stent mid LAD Dr. Garces 04/01/18 Family History Father Stroke Myocardial infarction Brother Ischemic heart disease Other Family history non-contributory Social History Smoking Status: Never smoker Second Hand Exposure: No; Hx Alcohol Use: No Hx Substance Use: No Preferred Language: Hungarian Communication Ability: Effective Shirt Bander Required: No Beliefs That Will Affect Care: None marital status: Current Living Situation: Spouse Feels Safe at Home: Yes Assistive Devices: Cane and Walker Review of Systems Review of Systems: Constitutional: No fever, sweats or chills Eyes: No diplopia, no worsening or blurred vision ENT: normal hearing, no trouble swallowing Respiratory: No cough, sputum, dyspnea at rest or on exertion Cardiovascular: No chest pain, tightness or palpitations Abdomen: As per HPI, no pain, nausea, vomiting, or constipation Musculoskeletal: No joint pain, calf pain, swelling Neurologic: No weakness, numbness/tingling, + balance problems and uses a walker at baseline Psychiatric: No anxiety or depression Skin: No rash or itch Physical Exam Physical Exam: General: awake, alert, no apparent distress, thin Head: Normocephalic, atraumatic ENT: PERRL, EOMI, no pharyngeal exudate, mucous membranes moist Chest: Clear to auscultation, on room air, no adventitious breath sounds Cardiac: Regular rate and rhythm, no murmur, no JVD, normal peripheral pulses, good capillary refill Abdominal: + hypoactive BS x 4 quadrants, soft, nondistended, nontender to palpation, no rebound or guarding Extremities: Normal inspection, no peripheral edema or erythema, calfs nontender to palpation Psych: Normal mood and affect Neuro: AAO x 3, strength intact bilaterally and rated 5/5, no motor deficits, speech is clear, no peripheral sensory deficits Results & Data Results & Data ([facility]) Vital Signs (Past 12 Hours) Vital Signs Temp Pulse Resp BP Pulse Ox O2 Del Method 04/22/22 12:30 70 24 116/61 04/22/22 11:30 84 19 94 04/22/22 11:30 123/55 L 04/22/22 11:00 74 19 100 04/22/22 10:30 75 21 110/57 L 98 04/22/22 10:00 83 20 04/22/22 09:30 82 16 04/22/22 09:30 121/65 04/22/22 09:00 79 17 97 04/22/22 09:00 119/54 L 04/22/22 08:45 99/48 L 04/22/22 08:45 73 24 04/22/22 08:34 80 25 H 98 04/22/22 08:34 89/49 L 04/22/22 08:33 94 Room Air 04/22/22 08:30 36.4 C L 77 18 89/49 L 94 Room Air Laboratory Results 04/22/22 10:19 Urine Culture - Pending Urine,Clean Catch 04/22/22 04/22/22 04/22/22 10:19 08:46 08:38 WBC RBC Hgb Hct MCV MCH MCHC RDW Std Deviation RDW Coeff of Josse Plt Count MPV Immature Gran % (Auto) Neut % (Auto) Lymph % (Auto) [place] % (Auto) Eos % (Auto) Baso % (Auto) Neut # (Auto) Lymph # (Auto) [place] # (Auto) Eos # (Auto) Baso # (Auto) Immature Gran # (Auto) Echinocytes Sodium 136 Potassium 4.0 Chloride 102 Carbon Dioxide 24 Anion Gap 10 BUN 28 H Creatinine 1.13 Est Cr Clr Drug Dosing 29.9 Est GFR ( Amer) 51.0 Est GFR (Non-Af Amer) 44.0 BUN/Creatinine Ratio 24.8 H Glucose 100 H Calcium 8.8 Total Bilirubin 1.7 H AST 24 ALT 15 Alkaline Phosphatase 63 Total Protein 7.1 Albumin 3.7 Globulin 3.4 Albumin/Globulin Ratio 1.1 Lipase 53 Urine Color Dark Yellow Urine Appearance Cloudy A Urine pH 5.0 Ur Specific [place] 1.022 Urine Protein Trace H Urine Glucose (UA) Negative Urine Ketones Trace H Urine Blood 1+ H Urine Nitrite Negative Urine Bilirubin 1+ H Urine Urobilinogen Negative Ur Leukocyte Esterase 2+ H Urine WBC (Auto) 10-30 H Urine RBC (Auto) 10-30 H U Hyaline Cast (Auto) 5-10 H U Epithel Cells (Auto) >30 H Urine Bacteria (Auto) 3+ H Urine Crystals Not Reportable Other Crystals Talc SARS-CoV-2, RNA, NAAT NEGATIVE 04/22/22 08:38 WBC 14.44 H RBC 4.62 Hgb 13.6 Hct 40.8 MCV 88.3 MCH 29.4 MCHC 33.3 RDW Std Deviation 43.3 RDW Coeff of Josse 13.3 Plt Count 230 MPV 10.3 Immature Gran % (Auto) 0.3 Neut % (Auto) 84.1 Lymph % (Auto) 6.6 [place] % (Auto) 8.4 Eos % (Auto) 0.3 Baso % (Auto) 0.3 Neut # (Auto) 12.13 H Lymph # (Auto) 0.96 L [place] # (Auto) 1.21 H Eos # (Auto) 0.04 Baso # (Auto) 0.05 Immature Gran # (Auto) 0.05 H Echinocytes 1+ Sodium Potassium Chloride Carbon Dioxide Anion Gap BUN Creatinine Est Cr Clr Drug Dosing Est GFR ( Amer) Est GFR (Non-Af Amer) BUN/Creatinine Ratio Glucose Calcium Total Bilirubin AST ALT Alkaline Phosphatase Total Protein Albumin Globulin Albumin/Globulin Ratio Lipase Urine Color Urine Appearance Urine pH Ur Specific [place] Urine Protein Urine Glucose (UA) Urine Ketones Urine Blood Urine Nitrite Urine Bilirubin Urine Urobilinogen Ur Leukocyte Esterase Urine WBC (Auto) Urine RBC (Auto) U Hyaline Cast (Auto) U Epithel Cells (Auto) Urine Bacteria (Auto) Urine Crystals Other Crystals SARS-CoV-2, RNA, NAAT Diagnostic Findings Abdomen/Pelvis CT 04/22/22 11:[address] WITH IV CONTRAST CT DOSE: 272.16 mGy.cm HISTORY: hypotension lucero wbc TECHNIQUE: Multiaxial CT images of the abdomen and pelvis were performed following the use of intravenous contrast. A dose lowering technique was utilized adhering to the principles of ALARA. COMPARISON STUDY: Abdomen and pelvis CT 04/12/2022. FINDINGS: Mild dependent changes seen within the lung bases. No pneumoper itoneum. No pneumatosis. No suspicious lytic or blastic osseous lesions. Cholelithiasis. No gallbladder wall thickening. The main portal vein is patent. The liver, pancreas, and spleen are unremarkable. 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 Mild nodular thickening of the left adrenal gland is also unchanged. Stable left renal cyst. The right kidney enhances normally. No hydronephrosis. No retroperitoneal lymphadenopathy. The bladder is unremarkable. No change in the thickened endometrium containing a 1 cm endometrial nodule/polyp. No pelvic free fluid. Fluid-filled large and small bowel again noted. There are few mildly dilated fluid-filled loops of small bowel in the abdomen. These have improved in the interval. The thickened loops of small bowel seen within the right and mid abdomen have also slightly improved in the interval. No evidence for transition point to suggest a small bowel obstruction at this time. A mild mesenteric edema/fat stranding is also slightly improved. Postoperative changes consistent with prior right hemicolectomy. IMPRESSION: 1. Multiple scattered areas of circumferential bowel wall thickening involving the mid to distal small bowel which has slightly improved in the interval. This suggests a nonspecific enteritis. 2. Interval improvement in the distended loops of small bowel suggesting a resolving partial small bowel obstruction. No clear transition point identified at this time. 3. Fluid-filled loops of large and small bowel suggesting a diarrheal illness/gastroenteritis. 4. Redemonstration of the thickened endometrium containing a 1 cm endometrial polyp/nodule. ACT 112: Negative or not required by law. Electronically signed by: Da Zuniga M.D. 04/22/2022 12:27 PM Code Status & VTE Plan Code Status DNR/DNI-discussed with patient at bedside Supervising Physician Co-Signing Physician Notes Attending addendum: 86 years old female with significant past medical history of s/p hemicolectomy in 2019 secondary to bowel obstruction who was in hospital recently from 821 09/30/2023 with SBO. She has been here with complaining of ongoing diarrhea without any abdominal pain, nausea and or vomiting or distention. No fever and or chills and no in extraintestinal symptoms. She denies any urinary symptoms but UA is suggestive of infection On examination Lying in bed comfortably Hemodynamically stable Afebrile Chest-clear to auscultation bilaterally HeartS1-S2 with a 2/6 ESM over precordium Abdomenbenign, bowel sound exaggerated Extremitiesno edema Her admission labs, EKG and imaging studies reviewed Has ongoing diarrhea likely secondary to nonspecific enteritis without any SBO Likely has UTI as well Stool has been sent for C. difficile colitis and other studies Will ask for GI evaluation Agree with assessment and plan as outlined above by DORI Herrera DR (1) CAD (coronary artery disease), [place] coronary artery Associated angina: without angina [place] vs. transplanted heart: [place] heart Qualified Code(s): I25.10 - Atherosclerotic heart disease of [place] coronary artery without angina pectoris
[2022-04-22 14:37] LABS: Adenovirus F 40/41 PCR Not Detected (NotDetected); Astrovirus PCR Not Detected (NotDetected); Campylobacter PCR Not Detected (NotDetected); Clostridium diff Toxin A/B PCR Not Detected (NotDetected); Cryptosporidium PCR Not Detected (NotDetected); Cyclospora cayetanensis PCR Not Detected (NotDetected); Entamoeba histolytica PCR Not Detected (NotDetected); Enteroaggregative E.coli(EAEC) Not Detected (NotDetected); Enteropathogenic E.coli (EPEC) Not Detected (NotDetected); Enterotoxigenic E.coli (ETEC) Not Detected (NotDetected); Giardia lamblia PCR Not Detected (NotDetected); Norovirus GI/GII PCR Not Detected (NotDetected); Plesiomonas shigelloides PCR Not Detected (NotDetected); Rotavirus A PCR Not Detected (NotDetected); Salmonella PCR Not Detected (NotDetected); Sapovirus PCR Not Detected (NotDetected); Shiga-like Toxin E.coli (STEC) Not Detected (NotDetected); Shigella/Enteroinvasive E.coli Not Detected (NotDetected); Vibrio cholerae PCR Not Detected (NotDetected); Vibrio species PCR Not Detected (NotDetected); Yersinia enterocolitica PCR Not Detected (NotDetected)
--- NOTE | 2022-04-22 16:07 | Gastrointestinal Consultation ---
Date of Consultation April 22, 2022 Assessment & Plan (1) Diarrhea: No evidence of SBO transition zone. Will watch for C-diff results DC Miralax. IV fluids Clear liquids for now, will advance as tolerate. Supervising Physician Co-Signing Physician Notes Attg add: I interviewed and examined pt, reviewed chart and labs. Recent admit for ? enteritis or SBO, now with diarrhea on outpt Miralax. Will hold MIralax, check C diff. History of Present Illness Reason for Consultation: Enteritis, diarrhea Requesting Physician: Michelle Parada PA-C [facility] of Present Illness Ms. Liliana Fuller is an 86 yr old female pt of Dr. Vargas w a hx of hemicolectomy in 2019 2/2 bowel obstruction who presented with ws hospitalized last week for questionable SBO obstruction which resolved w conservative tx. At that time, she was constipated and she was discharged on Miralax BID which she has taken consistently, as recently as yesterday. She reports passing about 5 loose/liquid BMs/day and returned to the hospital this morning because of the diarrhea. She denies blood in her BMs, N/V or weakness. On arrival, CT w mid to small distal small bowel wall thickening. These findings are actually improved from similar findings on CT last week. She is mildly hypotensive at 113/50 as well as mildly hypothermic at 36.4. CBC CMP are w/o significant abnormalities. T bili is elevated at 1.7 but LFTs are otherwise normal. She is awake, alert, oriented but tells me that she has some memory issues. On exam, she is a thin, frail, with a soft, non tender, non distended abdomen. Allergies Allergy/AdvReac Type Severity Reaction Status Date / Time latex Allergy Unknown RASH Verified 08/01/19 12:11 niacin Allergy Unknown UNKNOWN Verified 04/12/22 10:52 Penicillins Allergy Unknown hives Verified 04/12/22 10:52 metronidazole AdvReac Unknown Hives Verified 04/12/22 10:52 Sulfa (Sulfonamide AdvReac Unknown hives Verified 04/12/22 10:52 Antibiotics) tramadol AdvReac Unknown psycho Unverified 08/01/19 12:11 Home Medications Medication Instructions Recorded Confirmed Type albuterol sulfate 90 mcg/actuation 2 puff inhalation Q4H PRN 04/19/19 08/31/22 History aerosol inhaler (Ventolin HFA) Shortness Of Breath atorvastatin 40 mg tablet 40 mg PO HS 12/09/18 04/22/22 History cholecalciferol (vitamin D3) 25 1,000 unit PO QAM 12/09/18 04/22/22 History mcg (1,000 unit) tablet (Vitamin D3) clopidogrel 75 mg tablet 75 mg PO QAM 12/09/18 04/22/22 History cyanocobalamin (vitamin B-12) 1,000 mcg PO QAM 12/09/18 04/22/22 History 1,000 mcg tablet (Vitamin B-12) losartan 25 mg tablet 25 mg PO HS 12/09/18 04/22/22 History montelukast 10 mg tablet 10 mg PO HS 12/09/18 04/22/22 History nitroglycerin 0.3 mg sublingual 0.3 mg sublingual UD PRN heart pain 12/09/18 04/22/22 History tablet omeprazole 20 mg capsule,delayed 20 mg PO BID 12/09/18 04/22/22 History release aspirin 81 mg tablet,delayed 81 mg PO QAM 04/18/19 04/22/22 History release metoprolol succinate 25 mg 12.5 mg PO DAILY 07/10/19 04/22/22 History tablet,extended release 24 hr aripiprazole 2 mg tablet 4 mg PO DAILY 02/13/22 04/22/22 History fexofenadine 180 mg tablet 180 mg PO DAILY 02/13/22 04/22/22 History fluticasone furoate 100 1 inh inhalation DAILY 02/13/22 04/22/22 History mcg-vilanterol 25 mcg/dose inhalation powder (Breo Ellipta) isosorbide dinitrate 10 mg tablet 10 mg PO DAILY@0600,1200,1800 02/13/22 04/22/22 History amlodipine 2.5 mg tablet 2.5 mg PO QAM #30 tabs 04/15/22 04/22/22 Rx polyethylene glycol 3350 17 gram 17 g PO DAILY #30 ea 04/15/22 04/22/22 Rx oral powder packet (Miralax) Patient History Medical History Asthma CAD (coronary artery disease), [place] coronary artery CKD (chronic kidney disease) stage 3, GFR 30-59 ml/min CKD (chronic kidney disease), stage III COPD (chronic obstructive pulmonary disease) Coronary artery disease Diaphragmatic hernia Dyslipidemia Fracture, patella GERD (gastroesophageal reflux disease) History of CVA (cerebrovascular accident) without residual deficits History of kidney disease History of TIA (transient ischemic attack) HTN (hypertension) Hypertension Meniere's disease Osteoporosis Periapical abscess Sciatica Surgical History H/O exploratory laparotomy 11/2018 History of carpal tunnel repair History of section History of Milly fundoplication History of right hemicolectomy 11/2018 Status post cardiac catheterization Status post coronary artery stent placement Drug-eluting stent mid LAD Dr. Garces 04/01/18 Family History Father Stroke Myocardial infarction Brother Ischemic heart disease Other Family history non-contributory Social History Smoking Status: Never smoker Second Hand Exposure: No; Hx Alcohol Use: No Hx Substance Use: No Preferred Language: Croatian Communication Ability: Effective Director Of Acquisition Marketing Required: No Beliefs That Will Affect Care: None marital status: Current Living Situation: Spouse Feels Safe at Home: Yes Assistive Devices: Cane and Walker Review of Systems Review of Systems: ROS: Gen: + mild weakness past few days. No fevers, weight loss Eyes: No eye redness, or pain, no recent vision changes Resp: No SOB, no cough Cardio: No palpitations/irregular beats, no chest pain GI: + diarrhea, No abdominal pain, no nausea/vomiting : Denies pain on urination Skin: No jaundice, itching or new rashes A total of 12 systems were reviewed, all others (-) Physical Exam Constitutional: + frail appearing, cooperative and comfortable Eyes: PERRL, conjunctivae normal, anicteric sclerae ENMT: external ear and nose normal, oropharynx normal Neck: trachea midline, no thyromegaly Respiratory: normal respiratory effort, lungs clear to auscultation Cardiovascular: Rate/Rhythm: regular rate and regular rhythm 3/6 systolic murmur Skin: no rashes, warm and dry Neurologic: PERRL, EOMI, accommodation nl, no face palsy, no dysarthria Psychiatric: Orientation: alert, oriented x 3 and cooperative Some difficulty remembering certain details regarding names of medications etc, but able to give a reliable hx. Lymphatic: no cervical or axillary lymphadenopathy Results & Data ([facility]) Vital Signs (Past 12 Hours) Vital Signs Temp Pulse Resp BP Pulse Ox O2 Del Method 04/22/22 14:30 79 25 H 100 04/22/22 14:00 71 21 99 04/22/22 14:00 113/50 L 04/22/22 13:30 69 22 97 04/22/22 13:30 116/51 L 04/22/22 13:00 72 17 95 04/22/22 12:30 70 24 116/61 04/22/22 11:30 84 19 94 04/22/22 11:30 123/55 L 04/22/22 11:00 74 19 100 04/22/22 10:30 75 21 110/57 L 98 04/22/22 10:00 83 20 04/22/22 09:30 82 16 04/22/22 09:30 121/65 04/22/22 09:00 79 17 97 04/22/22 09:00 119/54 L 04/22/22 08:45 99/48 L 04/22/22 08:45 73 24 04/22/22 08:34 80 25 H 98 04/22/22 08:34 89/49 L 04/22/22 08:33 94 Room Air 04/22/22 08:30 36.4 C L 77 18 89/49 L 94 Room Air Laboratory Results WBC 14, Hb 13.6, Hct 40.8, Plts 230, Na 136, K 4.0, Cl 107, CO2 24, BUN 28, Cr 1.13, glucose 100. Diagnostic Findings CTAP last week: 1. Multiple severely thickened loops of small bowel seen throughout the majority of the abdomen which are also distended. This favors an infectious or inflammatory enteritis. No clear transition point. However, the degree of distention raises the possibility of a partial small bowel obstruction. 2. Cholelithiasis. 3. No change in the thickened endometrium containing a 1 cm endometrial polyp. Gynecologic consultation recommended. 4. Additional findings as described above. CTAP today: 1. Multiple scattered areas of circumferential bowel wall thickening involving the mid to distal small bowel which has slightly improved in the interval. This suggests a nonspecific enteritis. 2. Interval improvement in the distended loops of small bowel suggesting a resolving partial small bowel obstruction. No clear transition point identified at this time. 3. Fluid-filled loops of large and small bowel suggesting a diarrheal illness/gastroenteritis. 4. Redemonstration of the thickened endometrium containing a 1 cm endometrial polyp/nodule.
[2022-04-22] MEDS ORDERED: SODIUM CHLORIDE 0.9% 1000ML 1,000 ML IV SCH (18:04)
[2022-04-22] MEDS ORDERED: ONDANSETRON INJ 2 MG/ML 2 ML VIAL IV PRN (18:04)
[2022-04-22] MEDS ORDERED: ALBUTEROL HFA 8 GM INHALER INH PRN (18:04)
[2022-04-22] MEDS ORDERED: ACETAMINOPHEN 325 MG TAB PO PRN (18:04)
[2022-04-22] MEDS: CLOPIDOGREL BISULFATE 75 MG TAB PO SCH (20:40)
[2022-04-22] MEDS: ASPIRIN 81 MG ECTAB PO SCH (20:40)
[2022-04-22] MEDS: ISOSORBIDE DINITRATE 10 MG TAB PO SCH (20:41)
[2022-04-22] MEDS: PANTOprazole 40 MG TAB PO SCH (20:41)
[2022-04-22] MEDS ORDERED: MONTELUKAST SODIUM 10 MG TABLET PO SCH (21:00)
[2022-04-22] MEDS ORDERED: ATORVASTATIN 40 MG TAB PO SCH (21:00)
[2022-04-23] MEDS: ISOSORBIDE DINITRATE 10 MG TAB PO SCH ×2 (06:26→12:00)
[2022-04-23 07:19] LABS: Hematocrit (blood only) 35.8 % (34.1-44.9); Hemoglobin 11.8 g/dl (12.0-16.0); Mean Corpuscular Hemoglobin 29.5 pg (25.0-34.0); Mean Corpuscular Volume 89.5 fL (80.0-100.0); Mean Platelet Volume 10.3 fL (9.4-12.3); Platelet Count 224 K/uL (130-400); RDW Standard Deviation 43.1 fL (36.4-46.3); White Blood Count 8.62 K/ul (4.8-10.8)
[2022-04-23 07:54] LABS: Albumin Globulin Ratio 1.1 (0.9-2); BUN Creatinine Ratio 25.7 (10-20); Calcium 7.8 mg/dl (8.5-10.1); Creatinine Clr Calc Pharmacy 45.7 ml/min; Est GFR (Non-African American) 73.4 ml/min; Globulin 2.7 gm/dl (2.5-4.0); Magnesium 1.7 mg/dl (1.7-2.4); Potassium 3.4 mmol/L (3.5-5.1); Total Protein 5.7 gm/dl (6.0-8.3)
[2022-04-23] MEDS: CLOPIDOGREL BISULFATE 75 MG TAB PO SCH (08:00)
[2022-04-23] MEDS: ASPIRIN 81 MG ECTAB PO SCH (08:00)
[2022-04-23] MEDS: PANTOprazole 40 MG TAB PO SCH (08:00)
[2022-04-23] MEDS ORDERED: CHOLECALCIFEROL 1,000 UNITS 25 MCG TAB PO SCH (09:00)
[2022-04-23] MEDS ORDERED: cefTRIAXone SODIUM 2,000 MG in DEXTROSE 5% 50 ML IV SCH (09:00)
[2022-04-23] MEDS ORDERED: CYANOCOBALAMIN (B-12) 500 MCG TABLET PO SCH (09:00)
[2022-04-23] MEDS ORDERED: FEXOFENADINE HCL 180 MG TAB PO SCH (09:00)
[2022-04-23] MEDS ORDERED: ARIPIprazole 1 MG/ML ORAL SOLN 150 ML BTL PO SCH (09:00)
[2022-04-23] MEDS ORDERED: METOPROLOL SUCC 25MG EXT REL TAB PO SCH (09:00)
[2022-04-23] MEDS ORDERED: FLUTICASONE/VILANTEROL 100/25MCG 14 PUFFS/INHALER INH SCH (09:00)
[2022-04-23] MEDS ORDERED: POTASSIUM CHLORIDE PWD 20 MEQ PACK PO ONE (09:30)
--- NOTE | 2022-04-23 10:14 | Hospitalist Progress Note ---
Date of Service April 23, 2022 Assessment & Plan (1) History of right hemicolectomy: (2) Diarrhea: Plan: -Admitted to [facility] with telemetry due to hypotension initially -1.5 NSS administered in the ER, continue on fluids for hydration, allow a diet for now -GI consulted -recommend to hold miralax and check for c.diff -C. difficile negative, stool PCR panel negative - diarrhea has resolved, pt is feeling well, tolerates food -Discussed that she should have only 1 or 2 stools a day, if more, she should hold MiraLAX. If no BM, take MiraLAX daily. (3) UTI (urinary tract infection): Plan: - Questionable UTI UA positive for bacteria, however poor sample with large number of epithelial cells - pt denies any burning sensation but admits to increased frequency Urine culture positive for gram-negative bacilli Started on IV ceftriaxone on admission. Will finish one more day of Abx treatment -blood cultures pending -hypotension resolved (4) CAD (coronary artery disease), [place] coronary artery: (5) Hypertension: (6) History of CVA (cerebrovascular accident) without residual deficits: (7) Dyslipidemia: Plan: - Cont statin as above DVT ppx: scds CODE: DNR/DNI Dispo: Plan to DC home Admission and Anticipated Discharge Date Admission Date: April 22, 2022 Subjective Pt seen in follow up of diarrhea She is sitting at the edge of the bed, eating breakfast She reports feeling well, much improved, she would like to go home Denies any more diarrhea, tolerates diet Denies fevers, chills, chest pain, shortness of breath, denies abdominal pain, nausea vomiting, difficulty with urination Review of Systems Review of Systems: All systems reviewed & are unremarkable except as noted in Subjective Physical Exam Physical Exam: General: awake, alert, no apparent distress Head: Normocephalic, atraumatic ENT: PERRL, EOMI, no pharyngeal exudate, mucous membranes moist Chest: Clear to auscultation, on room air, no adventitious breath sounds Cardiac: Regular rate and rhythm, no murmur, no JVD, normal peripheral pulses Abdominal: + bowel sounds, soft, nondistended, nontender to palpation, no rebound or guarding Extremities: Normal inspection, no peripheral edema or erythema, calves nontender to palpation Psych: Normal mood and affect Neuro: AAO x 3, strength intact bilaterally and rated 5/5, no motor deficits, speech is clear, no peripheral sensory deficits Results & Data Results & Data ([facility]) Vital Signs (Past 12 Hours) Vital Signs Temp Pulse Pulse Resp BP Pulse Ox O2 Del Method 04/23/22 07:29 96 H 04/23/22 06:24 36.5 C 84 18 125/65 96 Room Air 04/22/22 22:25 80 04/22/22 23:00 36.4 C L 75 18 111/59 L 96 Room Air Laboratory Results 04/23/22 04/23/22 04/22/22 Range/Units 06:36 06:36 16:29 WBC 8.62 (4.8-10.8) K/ul RBC 4.00 (3.93-5.22) M/uL Hgb 11.8 L (12.0-16.0) g/dl Hct 35.8 (34.1-44.9) % MCV 89.5 (80.0-100.0) fL MCH 29.5 (25.0-34.0) pg MCHC 33.0 (32.0-36.0) g/dL RDW Std Deviation 43.1 (36.4-46.3) fL RDW Coeff of Josse 13.0 (11.5-14.5) % Plt Count 224 (130-400) K/uL MPV 10.3 (9.4-12.3) fL Sodium 137 (136-145) mmol/L Potassium 3.4 L (3.5-5.1) mmol/L Chloride 109 H (98-107) mmol/L Carbon Dioxide 20 L (21-32) mmol/L Anion Gap 8 (3-11) BUN 19 (6-23) mg/dl Creatinine 0.74 D (0.6-1.2) mg/dl Est Cr Clr Drug Dosing 45.7 ml/min Est GFR ( Amer) 85.0 ml/min Est GFR (Non-Af Amer) 73.4 ml/min BUN/Creatinine Ratio 25.7 H (10-20) Glucose 79 (70-99(Fasting)) mg/dl Lactate 1.1 (0.4-2.0) mmol/L Calcium 7.8 L (8.5-10.1) mg/dl Magnesium 1.7 (1.7-2.4) mg/dl Total Bilirubin 1.0 D (0.2-1.0) mg/dl AST 15 (13-39) U/L ALT 11 (7-52) U/L Alkaline Phosphatase 55 (34-104) U/L Total Protein 5.7 L (6.0-8.3) gm/dl Albumin 3.0 L (3.4-5.0) gm/dl Globulin 2.7 (2.5-4.0) gm/dl Albumin/Globulin Ratio 1.1 (0.9-2) Urine Color Urine Appearance (Clear) Urine pH (4.5-7.5) Ur Specific [place] (1.000-1.030) Urine Protein (Negative) Urine Glucose (UA) (Negative) Urine Ketones (Negative) Urine Blood (Negative) Urine Nitrite (Negative) Urine Bilirubin (Negative) Urine Urobilinogen (Negative) Ur Leukocyte Esterase (Negative) Urine WBC (Auto) (0-5) /hpf Urine RBC (Auto) (0-4) /hpf U Hyaline Cast (Auto) (0-5) /lpf U Epithel Cells (Auto) (0-5) /lpf Urine Bacteria (Auto) (Negative) Urine Crystals Other Crystals (None Prsent) Stl C. cayetanensis PCR (NotDetected) Stool Rotavirus A PCR (NotDetected) Stl Adenov F 40/41 PCR (NotDetected) Stool Astrovirus (PCR) (NotDetected) Stool Campylobacter PCR (NotDetected) Stl C. diff Tox A/B PCR (NotDetected) Stool Cryptosporidium PCR (NotDetected) Stl E.coli Shiga Tox PCR (NotDetected) Stl Enterotoxigenic E PCR (NotDetected) Stool EPEC (PCR) (NotDetected) Stool EAEC (PCR) (NotDetected) Stl E. histolytica PCR (NotDetected) Stool Giardia Lamblia PCR (NotDetected) Stool Salmonella PCR (NotDetected) Stool Sapovirus (PCR) (NotDetected) Stl P. shigelloides PCR (NotDetected) Stl Shigella/EIEC PCR (NotDetected) St Y.enterocolitica PCR (NotDetected) Stool Vibrio (PCR) (NotDetected) Stl Vibrio cholerae PCR (NotDetected) Stl Norovirus GI/GII PCR (NotDetected) SARS-CoV-2, RNA, NAAT (NEGATIVE) 04/22/22 04/22/22 04/22/22 Range/Units 12:10 10:19 08:46 WBC (4.8-10.8) K/ul RBC (3.93-5.22) M/uL Hgb (12.0-16.0) g/dl Hct (34.1-44.9) % MCV (80.0-100.0) fL MCH (25.0-34.0) pg MCHC (32.0-36.0) g/dL RDW Std Deviation (36.4-46.3) fL RDW Coeff of Josse (11.5-14.5) % Plt Count (130-400) K/uL MPV (9.4-12.3) fL Sodium (136-145) mmol/L Potassium (3.5-5.1) mmol/L Chloride (98-107) mmol/L Carbon Dioxide (21-32) mmol/L Anion Gap (3-11) BUN (6-23) mg/dl Creatinine (0.6-1.2) mg/dl Est Cr Clr Drug Dosing ml/min Est GFR ( Amer) ml/min Est GFR (Non-Af Amer) ml/min BUN/Creatinine Ratio (10-20) Glucose (70-99(Fasting)) mg/dl Lactate (0.4-2.0) mmol/L Calcium (8.5-10.1) mg/dl Magnesium (1.7-2.4) mg/dl Total Bilirubin (0.2-1.0) mg/dl AST (13-39) U/L ALT (7-52) U/L Alkaline Phosphatase (34-104) U/L Total Protein (6.0-8.3) gm/dl Albumin (3.4-5.0) gm/dl Globulin (2.5-4.0) gm/dl Albumin/Globulin Ratio (0.9-2) Urine Color Dark Yellow Urine Appearance Cloudy A (Clear) Urine pH 5.0 (4.5-7.5) Ur Specific [place] 1.022 (1.000-1.030) Urine Protein Trace H (Negative) Urine Glucose (UA) Negative (Negative) Urine Ketones Trace H (Negative) Urine Blood 1+ H (Negative) Urine Nitrite Negative (Negative) Urine Bilirubin 1+ H (Negative) Urine Urobilinogen Negative (Negative) Ur Leukocyte Esterase 2+ H (Negative) Urine WBC (Auto) 10-30 H (0-5) /hpf Urine RBC (Auto) 10-30 H (0-4) /hpf U Hyaline Cast (Auto) 5-10 H (0-5) /lpf U Epithel Cells (Auto) >30 H (0-5) /lpf Urine Bacteria (Auto) 3+ H (Negative) Urine Crystals Not Reportable Other Crystals Talc (None Prsent) Stl C. cayetanensis PCR Not Detected (NotDetected) Stool Rotavirus A PCR Not Detected (NotDetected) Stl Adenov F 40/41 PCR Not Detected (NotDetected) Stool Astrovirus (PCR) Not Detected (NotDetected) Stool Campylobacter PCR Not Detected (NotDetected) Stl C. diff Tox A/B PCR Not Detected (NotDetected) Stool Cryptosporidium PCR Not Detected (NotDetected) Stl E.coli Shiga Tox PCR Not Detected (NotDetected) Stl Enterotoxigenic E PCR Not Detected (NotDetected) Stool EPEC (PCR) Not Detected (NotDetected) Stool EAEC (PCR) Not Detected (NotDetected) Stl E. histolytica PCR Not Detected (NotDetected) Stool Giardia Lamblia PCR Not Detected (NotDetected) Stool Salmonella PCR Not Detected (NotDetected) Stool Sapovirus (PCR) Not Detected (NotDetected) Stl P. shigelloides PCR Not Detected (NotDetected) Stl Shigella/EIEC PCR Not Detected (NotDetected) St Y.enterocolitica PCR Not Detected (NotDetected) Stool Vibrio (PCR) Not Detected (NotDetected) Stl Vibrio cholerae PCR Not Detected (NotDetected) Stl Norovirus GI/GII PCR Not Detected (NotDetected) SARS-CoV-2, RNA, NAAT NEGATIVE (NEGATIVE) Medications Administered Current Inpatient Medications Acetaminophen (Acetaminophen 325 Mg Tab) 650 mg PO Q4H PRN PRN Reason: Moderate Pain Stop: 05/22/22 18:03 Albuterol (Albuterol Hfa 8 Gm Inhaler) 2 puffs INH Q4H PRN PRN Reason: Shortness Of Breath Stop: 05/22/22 18:03 Aripiprazole (Aripiprazole 1 Mg/Ml Oral Soln 150 Ml Btl) 4 mg PO DAILY [facility] Stop: 05/23/22 08:59 Last Admin: 04/23/22 08:05 Dose: 4 mg Aspirin (Aspirin 81 Mg Ectab) 81 mg PO QAM [facility] Stop: 05/22/22 18:03 Last Admin: 04/23/22 08:00 Dose: 81 mg Atorvastatin Calcium (Atorvastatin 40 Mg Tab) 40 mg PO [facility] Stop: 05/22/22 20:59 Last Admin: 04/22/22 20:41 Dose: 40 mg Clopidogrel Bisulfate (Clopidogrel Bisulfate 75 Mg Tab) [facility] Stop: 05/22/22 18:03 Last Admin: 04/23/22 08:00 Dose: 75 mg Cyanocobalamin (Cyanocobalamin (B-12) 500 Mcg Tablet) 1,000 mcg PO QAM [facility] Stop: 05/23/22 08:59 Last Admin: 04/23/22 07:59 Dose: 1,000 mcg Fexofenadine HCl (Fexofenadine Hcl 180 Mg Tab) 180 mg PO DAILY [facility] Stop: 05/23/22 08:59 Last Admin: 04/23/22 07:59 Dose: 180 mg Fluticasone/Vilanterol (Fluticasone/Vilanterol 100/25mcg 14 Puffs/Inhaler) 1 puffs INH DAILY [facility] Stop: 05/23/22 08:59 Last Admin: 04/23/22 08:02 Dose: 1 puffs Ceftriaxone Sodium 2,000 mg/ (Dextrose) 70 mls @ 100 mls/hr IV DAILY [facility]; Protocol Stop: 04/27/22 08:59 Last Infusion: 04/23/22 08:51 Dose: Infused Isosorbide Dinitrate (Isosorbide Dinitrate 10 Mg Tab) 10 mg PO DAILY@0600,1200,1800 [facility] Stop: 05/22/22 18:03 Last Admin: 04/23/22 06:26 Dose: 10 mg Metoprolol Succinate (Metoprolol Succ 25mg Ext Rel Tab) 12.5 mg PO DAILY [facility] Stop: 05/23/22 08:59 Last Admin: 04/23/22 07:58 Dose: 12.5 mg Montelukast Sodium (Montelukast Sodium 10 Mg Tablet) 10 mg PO HS [facility] Stop: 05/22/22 20:59 Last Admin: 04/22/22 20:41 Dose: 10 mg Ondansetron HCl (Ondansetron Inj 2 Mg/Ml 2 Ml Vial) 4 mg IV Q4H PRN PRN Reason: Nausea And Vomiting Stop: 05/22/22 18:03 Pantoprazole Sodium (Pantoprazole 40 Mg Tab) 40 mg PO BID [facility] Stop: 05/22/22 20:59 Last Admin: 04/23/22 08:00 Dose: 40 mg Vitamin D (Cholecalciferol 1,000 Units 25 Mcg Tab) 1,000 units PO QAM [facility] Stop: 05/23/22 08:59 Last Admin: 04/23/22 08:00 Dose: 1,000 units (1) CAD (coronary artery disease), [place] coronary artery [place] vs. transplanted heart: [place]bud heart Associated angina: without angina Qualified Code(s): I25.10 - Atherosclerotic heart disease of [place] coronary artery without angina pectoris
--- NOTE | 2022-04-23 10:28 | Discharge Summary ---
Date of Service April 23, 2022 Admission HPI Per Admitting Provider This is an 86 yo F s/p hemicolectomy in 2019 secondary to bowel obstruction presents with constipation that followed diarrhea. She was recently here admitted for similar presentation from 04/12/22-04/15/22. During that time she was seen by General surgery and GI, where she was treated for enteritis versus a developing SBO. There was no surgical needs during that time. It was seen on CT of the abdomen that there were numerous distended at peristaltic loops of small bowel and an endometrial polyp. She was recommended to continue on MiraLAX once to twice daily with addition of stimulants like bisacodyl, and they were considering Linzess in the future if constipation persists. Her diet was slowly advanced. Today she presents with ongoing diarrhea upwards of 5 times daily which happens whenever she drinks anything liquid. She states this has been going on since right after she was discharged. It is worsened with drinking cold water. She has been eating solid foods without difficulty. Denies any abdominal pain, bloating, distention, nausea or vomiting. 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 Double vision is not worse or different compared to previously. She also walks at home with use of a walker, and denies any recent falls. It was noted in the ER that she had a systolic blood pressure in the mid 80s whenever she first arrived and has been given 1.5 L NSS since then. Initially the patient was not sure that she needed to stay, however is agreeable to staying overnight for monitoring. Admission Exam Per Admitting Provider General: awake, alert, no apparent distress, thin Head: Normocephalic, atraumatic ENT: PERRL, EOMI, no pharyngeal exudate, mucous membranes moist Chest: Clear to auscultation, on room air, no adventitious breath sounds Cardiac: Regular rate and rhythm, no murmur, no JVD, normal peripheral pulses, good capillary refill Abdominal: + hypoactive BS x 4 quadrants, soft, nondistended, nontender to palpation, no rebound or guarding Extremities: Normal inspection, no peripheral edema or erythema, calfs nontender to palpation Psych: Normal mood and affect Neuro: AAO x 3, strength intact bilaterally and rated 5/5, no motor deficits, speech is clear, no peripheral sensory deficits Principal Diagnosis Diarrhea Possible UTI Discharge Exam General: awake, alert, no apparent distress Head: Normocephalic, atraumatic ENT: PERRL, EOMI, no pharyngeal exudate, mucous membranes moist Chest: Clear to auscultation, on room air, no adventitious breath sounds Cardiac: Regular rate and rhythm, no murmur, no JVD, normal peripheral pulses Abdominal: + bowel sounds, soft, nondistended, nontender to palpation, no rebound or guarding Extremities: Normal inspection, no peripheral edema or erythema, calves nontender to palpation Psych: Normal mood and affect Neuro: AAO x 3, strength intact bilaterally and rated 5/5, no motor deficits, speech is clear, no peripheral sensory deficits Discharge Data Allergies Allergy/AdvReac Type Severity Reaction Status Date / Time latex Allergy Unknown RASH Verified 08/01/19 12:11 niacin Allergy Unknown UNKNOWN Verified 04/12/22 10:52 Penicillins Allergy Unknown hives Verified 04/12/22 10:52 metronidazole AdvReac Unknown Hives Verified 04/12/22 10:52 Sulfa (Sulfonamide AdvReac Unknown hives Verified 04/12/22 10:52 Antibiotics) tramadol AdvReac Unknown psycho Unverified 08/01/19 12:11 Consultations 04/22/22 13:33 ED Decision to Admit Stat 04/22/22 13:54 Consult Gastroenterology Routine 04/22/22 15:41 ED Decision to Admit Stat Ordered Studies 04/22/22 11:02 CT Abd and Pelvis [CT abd pelvis IV con only] Stat FINDINGS: Mild dependent changes seen within the lung bases. No pneum operitoneum. No pneumatosis. No suspicious lytic or blastic osseous lesions. Cholelithiasis. No gallbladder wall thickening. The main portal vein is patent. The liver, pancreas, and spleen are unremarkable. 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 Mild nodular thickening of the left adrenal gland is also unchanged. Stable left renal cyst. The right kidney enhances normally. No hydronephrosis. No retroperitoneal lymphadenopathy. The bladder is unremarkable. No change in the thickened endometrium containing a 1 cm endometrial nodule/polyp. No pelvic free fluid. Fluid-filled large and small bowel again noted. There are few mildly dilated fluid-filled loops of small bowel in the abdomen. These have improved in the interval. The thickened loops of small bowel seen within the right and mid abdomen have also slightly improved in the interval. No evidence for transition point to suggest a small bowel obstruction at this time. A mild mesenteric edema/fat stranding is also slightly improved. Postoperative changes consistent with prior right hemicolectomy. IMPRESSION: 1. Multiple scattered areas of circumferential bowel wall thickening involving the mid to distal small bowel which has slightly improved in the interval. This suggests a nonspecific enteritis. 2. Interval improvement in the distended loops of small bowel suggesting a resolving partial small bowel obstruction. No clear transition point identified at this time. 3. Fluid-filled loops of large and small bowel suggesting a diarrheal illness/gastroenteritis. 4. Redemonstration of the thickened endometrium containing a 1 cm endometrial polyp/nodule. Hospital Course (1) History of right hemicolectomy: (2) Diarrhea: -Admitted to [facility] with telemetry due to hypotension initially -1.5 NSS administered in the ER, continue on fluids for hydration, allow a diet for now -GI consulted -recommend to hold miralax and check for c.diff -C. difficile negative, stool PCR panel negative - diarrhea has resolved, pt is feeling well, tolerates food -Discussed that she should have only 1 or 2 stools a day, if more, she should hold MiraLAX. If no BM, take MiraLAX daily. (3) UTI (urinary tract infection): - Questionable UTI UA positive for bacteria, however poor sample with large number of epithelial cells - pt denies any dysuria but admits to increased frequency Urine culture positive for gram-negative bacilli Started on IV ceftriaxone on admission. Will finish one more day of Abx treatment -blood cultures pending -hypotension resolved (4) CAD (coronary artery disease), [place] coronary artery: (5) Hypertension: (6) History of CVA (cerebrovascular accident) without residual deficits: (7) Dyslipidemia: - Cont statin as above Total Time Total Time Spent Total Time Spent (In Minutes): 40 Discharge Plan Discharge Items Patient Disposition: Home - Self-Care Reason For Visit: DIARRHEA, HYPOTENSION Discharge Diagnosis: Diarrhea Possible UTI Activity: Per Instructions section Non-emergency contact: Primary Care Provider Call non-emergency contact if: you have any medication questions and your symptoms worsen Follow-up/Referrals: Rory Vargas MD [Primary Care Provider] - (Date & Time 04/29/2022 2:00 PM Provider Audrey Monzon MD Department [facility] ) Diet: Regular Addtl Attending Provider Instructions: Follow-up with your primary care doctor, the appointment is scheduled for you for April 29. Continue using MiraLAX daily, only if you do not have any bowel movement. You should have 1-2 soft stools a day. If you have more, hold MiraLAX. Finish 1 more day of antibiotic treatment, for possible UTI. Monitor your blood pressure at home if you can, and discuss your numbers with your primary care physician. Pending Studies at Discharge: Yes Studies:: Final urine culture, final blood culture Stand-Alone Forms: My [facility] [place], Smoking Cessation Medications and DC Order Prescriptions: New cefuroxime axetil 250 mg tablet 250 mg PO BID 1 Days Qty: 2 0RF Continued aspirin 81 mg Tablet,Delayed Release (Dr/Ec) 81 mg PO QAM metoprolol succinate 25 mg Tablet Extended Release 24 Hr 12.5 mg PO DAILY atorvastatin 40 mg tablet 40 mg PO HS nitroglycerin 0.3 mg tablet, sublingual 0.3 mg sublingual UD PRN (Reason: heart pain) cyanocobalamin (vitamin B-12) [Vitamin B-12] 1,000 mcg Tablet 1,000 mcg PO QAM clopidogrel 75 mg tablet 75 mg PO QAM losartan 25 mg tablet 25 mg PO HS omeprazole 20 mg capsule,delayed release(DR/EC) 20 mg PO BID montelukast 10 mg tablet 10 mg PO HS albuterol sulfate [Ventolin HFA] 90 mcg/actuation HFA aerosol inhaler 2 puff inhalation Q4H PRN (Reason: Shortness Of Breath) cholecalciferol (vitamin D3) [Vitamin D3] 1,000 unit Tablet 1,000 unit PO QAM fexofenadine 180 mg tablet 180 mg PO DAILY aripiprazole 2 mg tablet 4 mg PO DAILY isosorbide dinitrate 10 mg tablet 10 mg PO DAILY@0600,1200,1800 fluticasone furoate-vilanterol [Breo Ellipta] 100-25 mcg/dose blister with device 1 inh INHALATION DAILY polyethylene glycol 3350 [Miralax] 17 gram powder in packet 17 g PO DAILY Qty: 30 0RF amlodipine 2.5 mg tablet 2.5 mg PO QAM Qty: 30 0RF Discharge Orders: Discharge Order (Routine); Ordered 04/23/22 Ordered By: Foreign Brock Admission Data Admit Date/Time: 04/22/22 13:54 Attending Provider: Foreign Brock Admit Provider: Kendra Parada Primary Care Provider: Rory Vargas Other Providers: Mariano Rodriguez ; Nelly Miles
--- NOTE | 2022-04-23 12:41 | Gastroenterology Progress Note ---
Date of Service April 23, 2022 Assessment & Plan (1) Diarrhea: Plan Use one dose of Miralax prn, if no BM for >24 hrs. She tells me that her can help her know when to use the Miralax. Regular diet. No further GI testing recommended at this time. No GI contraindication to discharge. Admission and Anticipated Discharge Date Admission Date: April 22, 2022 Supervising Physician Co-Signing Physician Notes Attg add: I interviewed and examined pt, reviewed chart and labs. Pt with resolution of diarrhea since admit. Please call with questions. Subjective 86 yr female admitted yesterday for diarrhea on Miralax. Prior admission a week ago for enteritis. CT last week with small bowel wall thickening. This week with same but improved. Was taking Miralax BID at home. Diarrhea resolved when arrived and Miralax was held. Passed a formed brown BM this morning. Stool studies (-). Tells me she feels well. Hemodynamically stable. Review of Systems Review of Systems: ROS: Gen: Denies weakness, fevers, weight loss Eyes: No eye redness, or pain, no recent vision changes Resp: No SOB, no cough Cardio: No palpitations/irregular beats, no chest pain GI: No abdominal pain, no nausea/vomiting : Denies pain on urination Skin: No jaundice, itching or new rashes Physical Exam Constitutional: WD/WN, vitals as above Eyes: PERRL, conjunctivae normal, anicteric sclerae ENMT: external ear and nose normal, oropharynx normal Neck: trachea midline, no thyromegaly Respiratory: normal respiratory effort, lungs clear to auscultation Cardiovascular: Rate/Rhythm: regular rate and regular rhythm Heart Sounds: normal S1, normal S2 and + murmur (2-3/6, systolic) Gastrointestinal (Abdomen): normal bowel sounds, soft, nontender, no hepatosplenomegaly Skin: no rashes, warm and dry Neurologic: PERRL, EOMI, accommodation nl, no face palsy, no dysarthria Psychiatric: A+Ox3, euthymic affect Lymphatic: no cervical or axillary lymphadenopathy Results & Data ([facility]) Vital Signs (Past 12 Hours) Vital Signs Temp Pulse Pulse Resp BP Pulse Ox O2 Del Method 04/23/22 11:51 36.4 C L 73 18 119/65 97 04/23/22 11:24 36.4 C L 73 18 119/65 97 Room Air 04/23/22 07:29 96 H 04/23/22 06:24 36.5 C 84 18 125/65 96 Room Air Laboratory Results WBC 8.6, Hb 11.8, Hct 35.8, Plts 224, Na 137, K 3.4, Cl 109, CO2 20, BUN 14, Cr 0.7 Stool pathogens including C-diff (-). Diagnostic Findings CTAP 04/22/22: 1. Multiple scattered areas of circumferential bowel wall thickening involving the mid to distal small bowel which has slightly improved in the interval. This suggests a nonspecific enteritis. 2. Interval improvement in the distended loops of small bowel suggesting a resolving partial small bowel obstruction. No clear transition point identified at this time. 3. Fluid-filled loops of large and small bowel suggesting a diarrheal illness/gastroenteritis. 4. Redemonstration of the thickened endometrium containing a 1 cm endometrial polyp/nodule.
--- NOTE | 2022-04-23 17:39 | Electrocardiogram Report ---
Test Reason : Blood Pressure : / mmHG Vent. Rate : 075 BPM Atrial Rate : 075 BPM P-R Int : 184 ms QRS Dur : 134 ms QT Int : 412 ms P-R-T Axes : 071 -42 104 degrees QTc Int : 460 ms Sinus rhythm with Premature atrial complexes Left axis deviation Left ventricular hypertrophy with QRS widening and repolarization abnormality Abnormal ECG When compared with ECG of 12-APR-2022 11:43, Premature ventricular complexes are no longer Present Premature atrial complexes are now Present Confirmed by Tomas Cruz ([id number]) on 04/23/2022 5:39:17 PM Referred By: REFERRED SELF Confirmed By:Ludin Cruz
== END 2022-04-23 14:01 | disposition home or self-care (01) ==
LOC: 2W 08:25 → ED 08:25 → SUATTDRO 13:54 → 2W 17:10

== ENCOUNTER 2023-08-18 11:01 | Inpatient (IN) ==
[2023-08-18] MEDS ORDERED: SODIUM CHLORIDE 0.9% 500 ML IV SCH (11:15)
--- NOTE | 2023-08-18 11:16 | Emergency Department Note ---
Impression & Plan Altered mental status, Acute CVA (cerebrovascular accident), Elevated troponin, Pneumonia, Acute UTI ED Provider Note NAME: WOODY IBANEZ AGE: 88 SEX: F : 1935 ARRIVES VIA: Ambulance INFORMANT: [ems, nursing, family] ED PROVIDER(S): [Mukesh Travis MD] CHIEF COMPLAINT: Stroke symptoms HISTORY OF PRESENT ILLNESS: The patient is an 88-year-old female who was found altered this morning. Her last known well is a truly unknown but may have been yesterday evening. As per the son who is at bedside, the patient was at her baseline mental state 3 days ago when he visited. The patient is currently nonverbal. She seems to have some droop to the right side of the face. She at times moans. She does not respond to any questioning. As per the son, the patient is a DNR. He is the power of civil rights attorney. He understands that this could be a stroke, infection or intracranial bleeding. No aggressive measures, comfort measures are most important. The patient has had a previous intracranial bleed this year, several months ago. He states that his mother has never been the same since. PMHx/PSHx/Social Hx: See Below PHYSICAL EXAM: GENERAL: Patient is in no acute distress. HEENT: No acute trauma, normocephalic atraumatic, mucous membranes moist, no nasal congestion. Drooling off the right side of the mouth. NECK: No stridor, no adenopathy, no meningismus, trachea is midline. LUNGS: Clear to auscultation bilaterally, no wheeze, no rhonchi, breath sounds equal. HEART: Irregular rhythm, no obvious murmur, normal rate. ABDOMEN: Soft, nontender, no peritonitis. EXTREMITIES: No cyanosis, full range of motion of all the joints without pain or difficulty. NEUROLOGIC: Awake, nonverbal, occasionally moans. There appears to be a right facial droop. She does have reasonable strength as best I can tell in the upper and lower extremities. I cannot really assess for drift or cerebellar function. SKIN: No jaundice, no diaphoresis. DIFFERENTIAL DIAGNOSIS: Stroke, intracranial bleed, sepsis or bacteremia, electrolyte imbalance, dehydration, OR, dysrhythmia, among others. EMERGENCY DEPARTMENT PROCEDURES: MEDICAL DECISION MAKING: There is a moderate leukocytosis, this could be consistent with infection or just the stress of her current presentation. There is a normal hemoglobin and platelet count. No coagulopathy. Sodium slightly low, no renal failure. No concerning liver enzyme elevation. ECG showed what appears to be sinus rhythm without any obvious acute ischemia. Cardiac enzyme testing x 1 is elevated. This troponin elevation could be secondary to cardiac injury. Urinalysis is suggestive of infection, respiratory bio fire was negative. Chest x-ray shows a left-sided pneumonia. Brain CT showed no acute bleed or mass effect, however, potential bilateral MCA stroke findings were considered. CT angio of the head neck was performed. A potential clot was noted along the left MCA territory. On exam, the patient was awake but nonverbal with a right facial droop. I discussed the patient's condition with the son. The patient is to be a DNR, comfort measures were stressed. The patient was not a candidate for TNK as her last known well was yesterday. The patient was given IV saline, 500 cc. She was given IV cefepime as antibiotic coverage. I had ordered for IV labetalol however, her blood pressure decreased spontaneously and this medication was not required. The patient has multiple findings on workup. I do think the change in mental status is from an acute CVA. She appears to have a UTI with pneumonia which is contributing to her presentation of course. I did speak with the son, I did speak with case management, the on-call hospitalist was consulted. Prior/Outside records/notes reviewed: EMS notes. ECG per my interpretation: Indication was possible stroke. The ECG shows what appears to be a sinus rhythm with PVCs. There is a poor baseline. The rate is 94. There appears to be LVH present. No obvious ST elevation, QTc is 442. Continuous Cardiac Monitoring per my interpretation: An order was placed for continuous cardiac monitoring. The monitor shows a rate of 96 with sinus rhythm with PVCs. Imaging/x-ray results per my interpretation: Chest x-ray shows what appears to be a left-sided pneumonia, no obvious CHF, no pneumothorax. Chronic Medical/Social conditions affecting care: Dementia, chronic [facility]p care. Care/Management discussed with: Case management, the on-call hospitalist Level of care consideration(s): After review of the information above and other included data: --I believe the patient requires escalation of care to admission Critical Care Note: I have personally spent 54 minutes of critical care time in the direct management of this patient. This includes bedside care, interpretation of diagnostic studies, and testing, discussion with consultants, patient, and family members, and other required patient management activities. This 54 minutes is in excess of all separately billable procedures. DISPOSITION: Admission Past Med/Surg History Medical History Subclavian artery stenosis Carotid artery stenosis Traumatic subarachnoid hemorrhage Fracture, patella Periapical abscess CAD (coronary artery disease), alutiiq coronary artery multiple cardiac caths- most recent 04/01/2018, 30% LM, 75% mid LAD stenosis and 20% stenosis of proxRCA. The LAD lesion had previously felt to be intermediate in severity and on a previous assessment by cardiac catheterization medical management was pursued however due to the patient's recurrent symptoms and elevated troponin, she subsequently underwent PCI and drug-eluting stent to the mid LAD on 04/01/2018. CKD (chronic kidney disease), stage III COPD (chronic obstructive pulmonary disease) Hypertension History of CVA (cerebrovascular accident) without residual deficits History of kidney disease CKD (chronic kidney disease) stage 3, GFR 30-59 ml/min Sciatica Meniere's disease Diaphragmatic hernia Asthma Osteoporosis GERD (gastroesophageal reflux disease) History of TIA (transient ischemic attack) HTN (hypertension) Dyslipidemia Surgical History H/O exploratory laparotomy 11/2018 History of right hemicolectomy 11/2018 Status post cardiac catheterization Status post coronary artery stent placement Drug-eluting stent mid LAD Dr. Garces 04/01/18 History of carpal tunnel repair History of Milly fundoplication History of section Family History Father Stroke Myocardial infarction Brother Ischemic heart disease Other Family history non-contributory Social History Smoking Status: Unknown if ever smoked Second Hand Exposure: No; Do You Dip or Chew Tobacco: No; Hx Alcohol Use: No Hx Substance Use: No Preferred Language: Wolof Communication Ability: Effective Federal Appellate Law Clerk Required: No Beliefs That Will Affect Care: None marital status: Current Living Situation: Spouse Feels Safe at Home: Yes Assistive Devices: Cane and Walker Allergies Allergies Allergy/AdvReac Type Severity Reaction Status Date / Time latex Allergy Unknown RASH Verified 08/18/23 13:15 niacin Allergy Unknown UNKNOWN Verified 08/18/23 13:15 Penicillins Allergy Unknown hives Verified 08/18/23 13:15 metronidazole AdvReac Unknown Hives Verified 08/18/23 13:15 Sulfa (Sulfonamide AdvReac Unknown hives Verified 08/18/23 13:15 Antibiotics) tramadol AdvReac Unknown psycho Unverified 08/18/23 13:15 Home Meds Home Medications Medication Instructions Recorded Confirmed albuterol sulfate 90 mcg/actuation 2 puff inhalation Q4H PRN 12/09/18 08/18/23 aerosol inhaler (Ventolin HFA) Shortness Of Breath cholecalciferol (vitamin D3) 25 1,000 unit PO QAM 12/09/18 08/18/23 mcg (1,000 unit) tablet (Vitamin D3) montelukast 10 mg tablet 10 mg PO HS 12/09/18 08/18/23 omeprazole 20 mg capsule,delayed 20 mg PO BID 12/09/18 08/18/23 release metoprolol succinate 25 mg 12.5 mg PO QAM 07/10/19 08/18/23 tablet,extended release 24 hr fexofenadine 180 mg tablet 180 mg PO QAM 02/13/22 08/18/23 fluticasone furoate 100 1 inh inhalation QAM 02/13/22 08/18/23 mcg-vilanterol 25 mcg/dose inhalation powder (Breo Ellipta) Saccharomyces boulardii 250 mg 250 mg PO BID 08/18/23 08/18/23 capsule (Florastor) acetaminophen 500 mg tablet 1,000 mg PO Q8H PRN pain/fever 08/18/23 08/18/23 aripiprazole 5 mg tablet 5 mg PO QAM 08/18/23 08/18/23 bisacodyl 10 mg rectal suppository 10 mg AL DAILY PRN Constipation 08/18/23 08/18/23 (Dulcolax (bisacodyl)) magnesium hydroxide 400 mg/5 mL 2,400 mg PO DAILY PRN Constipation 08/18/23 08/18/23 oral suspension (Milk of Magnesia) melatonin 3 mg tablet 6 mg PO HS 08/18/23 08/18/23 potassium chloride 20 mEq 20 meq PO QAM 08/18/23 08/18/23 tablet,extended release(part/cryst) sodium phosphates 19 gram-7 118 ml AL DAILY PRN Constipation 08/18/23 08/18/23 gram/118 mL enema (Fleet Enema) Results & Data (ED) Vital Signs Vital Signs - 24 hr 08/18/23 11:08 08/18/23 11:18 08/18/23 12:00 Temperature 36.4 C L Temperature Source Oral Pulse Rate 99 H 96 H 97 H Pulse Rate [Apical] Pulse Rate from SpO2 Sensor Pulse Rhythm Regular Pulse Rhythm [Apical] Pulse Strength [Apical] Respiratory Rate 20 28 H Respiratory Effort / Characteristics Non-Labored Spontaneous Respiratory Depth Normal Respiratory Pattern Regular Blood Pressure 145/96 H 158/110 H Blood Pressure [Right Arm] Blood Pressure Mean 112 126 Blood Pressure Mean [Right Arm] Blood Pressure Position Semi-fowlers Blood Pressure Position [Right Arm] Pulse Oximetry 96 95 Oxygen Delivery Method Room Air Room Air Sepsis Recent Fever Within 48 Hours No Sepsis New/Unexplained Change in Mental Status No Sepsis Action Taken by Nursing No Action Required 08/18/23 12:01 08/18/23 12:15 08/18/23 12:30 Temperature Temperature Source Pulse Rate 89 Pulse Rate [Apical] 94 H 92 H Pulse Rate from SpO2 Sensor 90 Pulse Rhythm Pulse Rhythm [Apical] Regular Regular Pulse Strength [Apical] Normal Respiratory Rate 20 18 12 Respiratory Effort / Characteristics Non-Labored Spontaneous Non-Labored Spontaneous Respiratory Depth Normal Normal Respiratory Pattern Regular Regular Blood Pressure 133/91 Blood Pressure [Right Arm] 158/110 H 135/82 Blood Pressure Mean 105 Blood Pressure Mean [Right Arm] 126 99 Blood Pressure Position Blood Pressure Position [Right Arm] Lying Pulse Oximetry 94 94 95 Oxygen Delivery Method Room Air Room Air Room Air Sepsis Recent Fever Within 48 Hours Sepsis New/Unexplained Change in Mental Status Sepsis Action Taken by Nursing 08/18/23 12:32 Temperature Temperature Source Pulse Rate Pulse Rate [Apical] 104 H Pulse Rate from SpO2 Sensor Pulse Rhythm Pulse Rhythm [Apical] Regular Pulse Strength [Apical] Respiratory Rate 17 Respiratory Effort / Characteristics Non-Labored Spontaneous Respiratory Depth Normal Respiratory Pattern Regular Blood Pressure Blood Pressure [Right Arm] 133/91 Blood Pressure Mean Blood Pressure Mean [Right Arm] 105 Blood Pressure Position Blood Pressure Position [Right Arm] Pulse Oximetry 93 Oxygen Delivery Method Room Air Sepsis Recent Fever Within 48 Hours Sepsis New/Unexplained Change in Mental Status Sepsis Action Taken by Care Home Medications Current Medication List: was personally reviewed by me Laboratory Data Attestation: I reviewed the patient's lab results. 08/18/23 11:19 08/18/23 11:19 Lab Results 08/18/23 08/18/23 08/18/23 Range/Units 11:17 11:19 11:23 WBC 16.33 H (4.8-10.8) K/ul RBC 5.03 (4.20-5.40) M/uL Hgb 14.0 (12.0-16.0) g/dl POC Hgb 15.0 (12.0-16.0) g/dl Hct 42.7 (37.0-47.0) % POC Hct 44 (37-47) % MCV 84.9 (80.0-100.0) fL MCH 27.8 (25.0-34.0) pg MCHC 32.8 (32.0-36.0) g/dL RDW Std Deviation 49.6 H (36.4-46.3) fL RDW Coeff of Josse 16.0 H (11.5-14.5) % Plt Count 227 (130-400) K/uL MPV 10.4 (9.4-12.4) fL Immature Gran % (Auto) 0.4 % Neut % (Auto) 85.7 % Lymph % (Auto) 5.2 % [place] % (Auto) 8.3 % Eos % (Auto) 0.2 % Baso % (Auto) 0.2 % Neut # (Auto) 13.99 H (1.40-6.50) K/uL Lymph # (Auto) 0.85 L (1.20-3.40) K/uL [place] # (Auto) 1.35 H (0.11-0.59) K/uL Eos # (Auto) 0.03 (0.00-0.50) K/uL Baso # (Auto) 0.04 (0.00-0.20) K/uL Immature Gran # (Auto) 0.07 (0.01-0.20) K/uL PT 10.0 (9.0-12.0) Seconds INR 0.9 (0.9-1.1) APTT 31 (21-31) Seconds PTT Ratio 1.1 POC Sodium 133 L (135-144) mmol/L Sodium 133 L (136-145) mmol/L POC Potassium 4.6 (3.3-5.0) mmol/L Potassium 4.5 (3.5-5.1) mmol/L POC Chloride 99 L (101-112) mmol/L Chloride 99 (98-107) mmol/L Carbon Dioxide 26 (21-32) mmol/L POC Total CO2 25 (24-31) mmol/L Anion Gap 8 (3-11) POC Anion Gap 15.0 L (16-25) mmol/L POC BUN 25 H (7-18) mg/dl BUN 25 H (6-23) mg/dl Creatinine 0.91 (0.6-1.2) mg/dl POC Creatinine 0.9 (0.6-1.3) mg/dl Est Cr Clr Drug Dosing 37.0 ml/min Est GFR ( Amer) 65.3 ml/min Est GFR (Non-Af Amer) 56.3 ml/min BUN/Creatinine Ratio 27.5 H (10-20) Glucose 109 H (70-99(Fasting)) mg/dl POC Glucose 96 (70-99) mg/dl POC Glucose (other) 114 H (70-99) mg/dl Lactate (0.4-2.0) mmol/L Calcium 9.1 (8.6-10.3) mg/dl POC Ioniz Calcium Kerline 1.13 (1.12-1.32) mmol/l Magnesium 2.1 (1.7-2.4) mg/dl Total Bilirubin 1.8 H (0.2-1.0) mg/dl AST 14 (13-39) U/L ALT 15 (7-52) U/L Alkaline Phosphatase 99 (34-104) U/L Troponin I High Sens 213.0 H* (0-14) pg/ml Total Protein 7.0 (6.0-8.3) gm/dl Albumin 3.2 L (3.4-5.0) gm/dl Globulin 3.8 (2.5-4.0) gm/dl Albumin/Globulin Ratio 0.8 L (0.9-2) TSH 1.585 (0.300-4.500) uIu/ml Urine Color Urine Appearance (Clear) Urine pH (4.5-7.5) Ur Specific [place] (1.000-1.030) Urine Protein (Negative) Urine Glucose (UA) (Negative) Urine Ketones (Negative) Urine Blood (Negative) Urine Nitrite (Negative) Urine Bilirubin (Negative) Urine Urobilinogen (Negative) Ur Leukocyte Esterase (Negative) Urine WBC (Auto) (0-5) /hpf Urine RBC (Auto) (0-4) /hpf U Hyaline Cast (Auto) (0-5) /lpf U Epithel Cells (Auto) (0-5) /lpf Urine Bacteria (Auto) (Negative) Adenovirus (PCR) (NotDetected) B. pertussis DNA (PCR) (NotDetected) B.parapertussis DNA PCR (NotDetected) C. pneumoniae DNA (PCR) (NotDetected) Coronavirus OC43 (PCR) (NotDetected) Coronavirus HKU1 (PCR) (NotDetected) Coronavirus 229E (PCR) (NotDetected) SARS-CoV-2 (PCR) (NotDetected) Coronavirus NL63 (PCR) (NotDetected) Human Metapneumovir PCR (NotDetected) Influenza Type A (PCR) (NotDetected) Influenza Type B (PCR) (NotDetected) M. pneumoniae (PCR) (NotDetected) Parainfluenza 1 (PCR) (NotDetected) Parainfluenza 2 (PCR) (NotDetected) Parainfluenza 3 (PCR) (NotDetected) Parainfluenza 4 (PCR) (NotDetected) RSV (PCR) (NotDetected) Entero/Rhino (PCR) (NotDetected) 08/18/23 08/18/23 08/18/23 Range/Units 11:24 11:48 12:29 WBC (4.8-10.8) K/ul RBC (4.20-5.40) M/uL Hgb (12.0-16.0) g/dl POC Hgb (12.0-16.0) g/dl Hct (37.0-47.0) % POC Hct (37-47) % MCV (80.0-100.0) fL MCH (25.0-34.0) pg MCHC (32.0-36.0) g/dL RDW Std Deviation (36.4-46.3) fL RDW Coeff of Josse (11.5-14.5) % Plt Count (130-400) K/uL MPV (9.4-12.4) fL Immature Gran % (Auto) % Neut % (Auto) % Lymph % (Auto) % [place] % (Auto) % Eos % (Auto) % Baso % (Auto) % Neut # (Auto) (1.40-6.50) K/uL Lymph # (Auto) (1.20-3.40) K/uL [place] # (Auto) (0.11-0.59) K/uL Eos # (Auto) (0.00-0.50) K/uL Baso # (Auto) (0.00-0.20) K/uL Immature Gran # (Auto) (0.01-0.20) K/uL PT (9.0-12.0) Seconds INR (0.9-1.1) APTT (21-31) Seconds PTT Ratio POC Sodium (135-144) mmol/L Sodium (136-145) mmol/L POC Potassium (3.3-5.0) mmol/L Potassium (3.5-5.1) mmol/L POC Chloride (101-112) mmol/L Chloride (98-107) mmol/L Carbon Dioxide (21-32) mmol/L POC Total CO2 (24-31) mmol/L Anion Gap (3-11) POC Anion Gap (16-25) mmol/L POC BUN (7-18) mg/dl BUN (6-23) mg/dl Creatinine (0.6-1.2) mg/dl POC Creatinine (0.6-1.3) mg/dl Est Cr Clr Drug Dosing ml/min Est GFR ( Amer) ml/min Est GFR (Non-Af Amer) ml/min BUN/Creatinine Ratio (10-20) Glucose (70-99(Fasting)) mg/dl POC Glucose (70-99) mg/dl POC Glucose (other) (70-99) mg/dl Lactate 3.0 H* (0.4-2.0) mmol/L Calcium (8.6-10.3) mg/dl POC Ioniz Calcium Kerline (1.12-1.32) mmol/l Magnesium (1.7-2.4) mg/dl Total Bilirubin (0.2-1.0) mg/dl AST (13-39) U/L ALT (7-52) U/L Alkaline Phosphatase (34-104) U/L Troponin I High Sens (0-14) pg/ml Total Protein (6.0-8.3) gm/dl Albumin (3.4-5.0) gm/dl Globulin (2.5-4.0) gm/dl Albumin/Globulin Ratio (0.9-2) TSH (0.300-4.500) uIu/ml Urine Color Dark Yellow Urine Appearance Cloudy A (Clear) Urine pH 5.5 (4.5-7.5) Ur Specific [place] 1.022 (1.000-1.030) Urine Protein 1+ H (Negative) Urine Glucose (UA) Negative (Negative) Urine Ketones Negative (Negative) Urine Blood Negative (Negative) Urine Nitrite Negative (Negative) Urine Bilirubin Negative (Negative) Urine Urobilinogen Negative (Negative) Ur Leukocyte Esterase 2+ H (Negative) Urine WBC (Auto) >30 H (0-5) /hpf Urine RBC (Auto) 0-4 (0-4) /hpf U Hyaline Cast (Auto) 1-5 (0-5) /lpf U Epithel Cells (Auto) >30 H (0-5) /lpf Urine Bacteria (Auto) 1+ H (Negative) Adenovirus (PCR) Not Detected (NotDetected) B. pertussis DNA (PCR) Not Detected (NotDetected) B.parapertussis DNA PCR Not Detected (NotDetected) C. pneumoniae DNA (PCR) Not Detected (NotDetected) Coronavirus OC43 (PCR) Not Detected (NotDetected) Coronavirus HKU1 (PCR) Not Detected (NotDetected) Coronavirus 229E (PCR) Not Detected (NotDetected) SARS-CoV-2 (PCR) Not Detected (NotDetected) Coronavirus NL63 (PCR) Not Detected (NotDetected) Human Metapneumovir PCR Not Detected (NotDetected) Influenza Type A (PCR) Not Detected (NotDetected) Influenza Type B (PCR) Not Detected (NotDetected) M. pneumoniae (PCR) Not Detected (NotDetected) Parainfluenza 1 (PCR) Not Detected (NotDetected) Parainfluenza 2 (PCR) Not Detected (NotDetected) Parainfluenza 3 (PCR) Not Detected (NotDetected) Parainfluenza 4 (PCR) Not Detected (NotDetected) RSV (PCR) Not Detected (NotDetected) Entero/Rhino (PCR) Not Detected (NotDetected) Administered Medications Sodium Chloride (Nss) 1,000 mls @ 80 mls/hr IV .[id number] [facility] Stop: 09/17/23 13:29 Last Admin: 08/18/23 14:36 Dose: 80 mls/hr Documented By: ROSE MARIE Doxycycline Hyclate 100 mg/ (Dextrose) 100 mls @ 50 mls/hr IV Q12H [facility] Stop: 08/25/23 14:59 Last Admin: 08/18/23 17:31 Dose: 50 mls/hr Documented By: VIOLETA Discontinued Medications Gadobutrol (Gadobutrol 65ml Vial) 5.4 ml IV ONCE ONE Stop: 08/18/23 16:46 Last Admin: 08/18/23 16:46 Dose: 5.4 ml Documented By: JOSH Sodium Chloride (Nss) 500 mls @ 999 mls/hr IV .Q31M [facility] Stop: 08/18/23 11:45 Last Infusion: 08/18/23 12:17 Dose: Infused Documented By: Admin: 08/18/23 11:44 Dose: 999 mls/hr Documented By: JACQUES Cefepime HCl (Maxipime) 2,000 mg in 20 mls @ 5 mls/min IV NOW STA; Protocol Stop: 08/18/23 12:07 Last Admin: 08/18/23 12:43 Dose: 5 mls/min Documented By: JACQUES Ioversol (Optiray 320 125ml) 115 ml IV ONCE ONE Stop: 08/18/23 11:41 Last Admin: 08/18/23 11:40 Dose: 115 ml Documented By: KISHORE Labetalol HCl (Labetalol Hcl Iv 5 Mg/Ml 20ml) 5 mg IV NOW STA Stop: 08/18/23 12:07 Last Admin: 08/18/23 13:49 Dose: Not Given Documented By: Imaging Data Radiologist's Impression: Chest X-Ray 08/18/23 11:08 XR chest 1V portable CLINICAL HISTORY: weakness COMPARISON STUDY: Chest CT December 19, 2020. Chest radiograph March 24, 2023. FINDINGS: Lung volumes are normal. Patient is rotated. There is a small left pleural effusion. Extensive asymmetric left mid and lower lung airspace opacity is present. No definite consolidation within the right lung. Cardiomediastinal silhouette is stable. IMPRESSION: 1. Extensive asymmetric left lung airspace opacity. This favors pneumonia. Asymmetric pulmonary edema is considered less likely but could appear similar. Radiographic follow-up to ensure resolution is recommended. 2. Small left pleural effusion. ACT 112: Negative or not required by law. Electronically signed by: Mehdi Ibarra M.D. 08/18/2023 12:[address] 08/18/23 11:09 CT OF THE HEAD WITHOUT CONTRAST CLINICAL HISTORY: Altered mental status. Right-sided weakness. COMPARISON STUDY: MRI of the brain February 12, 2022. Head CT March 24, 2023. TECHNIQUE: Helical axial images of the head were obtained without IV contrast. Automated exposure control was utilized for the study. A dose lowering technique was utilized adhering to the principles of ALARA. FINDINGS: No acute intracranial hemorrhage, midline shift or mass effect is present. The subarachnoid and subdural hemorrhages shown on head CT of May 24, 2023 has resolved. The ventricular system is stable. White matter hypodensity suggests small vessel disease. Subtle increased attenuation of a of a right sylvian vessel on axial image 11 of 28 is noted. No definite corresponding vessel occlusion is identified on CT which will be reported separately. The basal cisterns are patent. No extra-axial collections are present. There are no findings to suggest acute dural sinus thrombosis or acute territorial infarct. No significant calvarial abnormalities are present. Visualized portions of the sinuses and mastoid air cells are clear. IMPRESSION: 1. No acute intracranial hemorrhage or mass effect. 2. Subtle increased attenuation of a right sylvian vessel without definite corresponding vessel occlusion on CT which will be reported separately. A small focus of thrombus cannot be excluded and the findings could be correlated with acute right MCA territory symptoms. ACT 112: Negative or not required by law. Electronically signed by: Mehdi Ibarra M.D. 08/18/2023 11:52 AM Head CTA 08/18/23 11:09 CTA ANGIOGRAPHY OF THE HEAD CLINICAL HISTORY: stroke symptoms, right weak COMPARISON STUDY: CTA February 12, 2022. TECHNIQUE: Helical axial images of the head were obtained following uneventful intravenous administration of 115 cc of Optiray. Sagittal and coronal reconstructions were viewed as well as maximal intensity projections on an independent 3-D workstation. Automated exposure control was utilized for the study. A dose lowering technique was utilized adhering to the principles of ALARA. FINDINGS: The bilateral M1, M2, A1 and A2 segments are patent. There is extensive calcified plaque within the bilateral cavernous carotids with mild stenosis. Note is made of probable focal occlusion of a small distal left MCA branch (M4 segment) within the posterior left frontal lobe on axial image 161 of 233. No additional sites of vessel occlusion are present. There is moderate plaque within the bilateral vertebral arteries with mild stenosis of the right vertebral artery. Basilar artery is patent. Posterior cerebral arteries are patent. There is no intracranial aneurysm. IMPRESSION: 1. Probable focal occlusion of a distal small left MCA branch (M4 segment) within the posterior left frontal lobe. Findings could be correlated with evidence for an acute left MCA territory infarct. 2. No large vessel occlusion. No intracranial aneurysm. ACT 112: Negative or not required by law. Electronically signed by: Mehdi Ibarra M.D. 08/18/2023 12:02 PM Neck CTA 08/18/23 11:09 CT angio neck with con CLINICAL HISTORY: 88 years-old Female with stroke symptoms right weak. Acute stroke like symptoms COMPARISON STUDY: CT head and CTA head studies of same day TECHNIQUE: Following the IV administration of 115 mL of Optiray, CT angiogram of the neck was performed from the aortic arch to the skull base. Images are reviewed in the axial, sagittal, and coronal planes. 3-D MIPS images are created and assessed. IV contrast was administered without complication. All measurements were calculated based on NASCET criteria. A dose lowering technique was utilized adhering to the principles of ALARA. CT DOSE: 892.8 mGy.cm FINDINGS: Atherosclerosis of the thoracic aortic arch. Patency of the innominate and left subclavian arteries. Moderate stenosis of the mid left subclavian artery and severe stenosis of the mid right subclavian artery on image 90 series 6 secondary to prominent calcified plaque. Moderate calcified plaque of the left carotid bulb results in 70% stenosis at the origin of the left ICA on image 214. There is approximately 60% stenosis at the origin of the right ICA. Calcified plaque involving the cavernous, clinoid and supraclinoid segments results in narrowing up to approximately 50%. Codominant and patent vertebral arteries. There is at least mild stenosis at the origin of the vertebral artery secondary to calcified plaque. Moderate narrowing of the right V4 segment secondary to atherosclerosis. Lung apices are clear. No pneumothorax. Multinodular thyroid goiter. Unremarkable soft tissues. Degenerative changes of the cervical spine. IMPRESSION: 1. Atherosclerosis with 70% stenosis at the origin of the left ICA and 60% stenosis on the right. 2. 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 3. No aneurysm or arterial occlusion identified. ACT 112: Negative or not required by law. The above report was generated using voice recognition software. It may contain grammatical, syntax or spelling errors. Electronically signed by: Alli Wu M.D. 08/18/2023 12:00 PM Discharge Plan Visit Data Chief Complaint: Stroke/CVA Symptoms ED Provider: Mukesh Travis Discharge Problem: Altered mental status, Acute CVA (cerebrovascular accident), Elevated troponin, Pneumonia, Acute UTI Patient Disposition: Admitted As Inpatient Condition: Serious Discharge Instructions Interventions: ED Discharge Assessment Last Done: 08/18/23 14:57 Discharge Problem: Altered mental status Qualifiers: Altered mental status type: unspecified Qualified Code(s): R41.82 - Altered mental status, unspecified Pneumonia Qualifiers: Pneumonia type: due to unspecified organism Laterality: left Lung location: u nspecified part of lung Qualified Code(s): J18.9 - Pneumonia, unspecified organism
[2023-08-18 11:35] LABS: iSTAT Creatinine 0.9 mg/dl (0.6-1.3); iSTAT Ionized Calcium 1.13 mmol/l (1.12-1.32); iSTAT Potassium 4.6 mmol/L (3.3-5.0)
[2023-08-18 11:39] LABS: Basophils # (auto) 0.04 K/uL (0.00-0.20); Basophils % (auto) 0.2 %; Eosinophils # (auto) 0.03 K/uL (0.00-0.50); Eosinophils % (auto) 0.2 %; Hematocrit (blood only) 42.7 % (37.0-47.0); Immature Granulocytes # (auto) 0.07 K/uL (0.01-0.20); Immature Granulocytes % (auto) 0.4 %; Lymphocytes # (auto) 0.85 K/uL (1.20-3.40); Lymphocytes % (auto) 5.2 %; Mean Corpuscular Hemoglobin 27.8 pg (25.0-34.0); Mean Corpuscular Hgb Conc 32.8 g/dL (32.0-36.0); Mean Corpuscular Volume 84.9 fL (80.0-100.0); Mean Platelet Volume 10.4 fL (9.4-12.4); Monocytes # (auto) 1.35 K/uL (0.11-0.59); Monocytes % (auto) 8.3 %; Neutrophils # (auto) 13.99 K/uL (1.40-6.50); Neutrophils % (auto) 85.7 %; Platelet Count 227 K/uL (130-400); RDW Standard Deviation 49.6 fL (36.4-46.3); Red Blood Count 5.03 M/uL (4.20-5.40); White Blood Count 16.33 K/ul (4.8-10.8)
[2023-08-18] MEDS ORDERED: OPTIRAY 320 125ml IV ONE (11:40)
[2023-08-18 11:42] LABS: Appearance Urine Cloudy (Clear); Bacteria Urine Automated 1+ (Negative); Bilirubin Urine Negative (Negative); Blood Urine Negative (Negative); Color Urine Dark Yellow; Epithelial Cell Urine Auto >30 /lpf (0-5); Glucose Urine UA Negative (Negative); Ketones Urine Negative (Negative); Leukocyte Esterase Urine 2+ (Negative); Nitrite Urine Negative (Negative); Protein Urine 1+ (Negative); RBC Urine Automated 0-4 /hpf (0-4); Specific Gravity Urine 1.022 (1.000-1.030); Urobilinogen Urine Negative (Negative); WBC Urine Automated >30 /hpf (0-5); pH Urine 5.5 (4.5-7.5)
[2023-08-18 11:54] LABS: Albumin Globulin Ratio 0.8 (0.9-2); Albumin Level 3.2 gm/dl (3.4-5.0); BUN Creatinine Ratio 27.5 (10-20); Bilirubin,Total 1.8 mg/dl (0.2-1.0); Calcium 9.1 mg/dl (8.6-10.3); Est GFR (African American) 65.3 ml/min; Est GFR (Non-African American) 56.3 ml/min; Globulin 3.8 gm/dl (2.5-4.0); Magnesium 2.1 mg/dl (1.7-2.4); Potassium 4.5 mmol/L (3.5-5.1)
--- NOTE | 2023-08-18 11:54 | CT Scan Report ---
CT OF THE HEAD WITHOUT CONTRAST CLINICAL HISTORY: Altered mental status. Right-sided weakness. COMPARISON STUDY: MRI of the brain February 12, 2022. Head CT March 24, 2023. TECHNIQUE: Helical axial images of the head were obtained without IV contrast. Automated exposure con trol was utilized for the study. A dose lowering technique was utilized adhering to the principles o f ALARA. FINDINGS: No acute intracranial hemorrhage, midline shift or mass effect is present. The subarachnoid and subdural hemorrhages shown on head CT of May 24, 2023 has resolved. The ventricular system is stable. White matter hypodensity suggests small vessel disease. Subtle increased attenuation of a of a right sylvian vessel on axial image 11 of 28 is noted. No definite corresponding vessel occlusion is identified on CT which will be reported separately. The basal cisterns are patent. No extra-axial collections are present. There are no findings to suggest acute dural sinus thrombosis or acute edith torial infarct. No significant calvarial abnormalities are present. Visualized portions of the sinuse s and mastoid air cells are clear. IMPRESSION: 1. No acute intracranial hemorrhage or mass effect. 2. Subtle increased attenuation of a right sylvian vessel without definite corresponding vessel occlu mar on CT which will be reported separately. A small focus of thrombus cannot be excluded and the fi ndings could be correlated with acute right MCA territory symptoms. ACT 112: Negative or not required by law. Electronically signed by: Mehdi Ibarra M.D. 08/18/2023 11:52 AM
--- NOTE | 2023-08-18 12:01 | CT Scan Report ---
CT angio neck with con CLINICAL HISTORY: 88 years-old Female with stroke symptoms right weak. Acute stroke like symptoms COMPARISON STUDY: CT head and CTA head studies of same day TECHNIQUE: Following the IV administration of 115 mL of Optiray, CT angiogram of the neck was perform ed from the aortic arch to the skull base. Images are reviewed in the axial, sagittal, and coronal pl anes. 3-D MIPS images are created and assessed. IV contrast was administered without complication. Al l measurements were calculated based on NASCET criteria. A dose lowering technique was utilized adhe ring to the principles of ALARA. CT DOSE: 892.8 mGy.cm FINDINGS: Atherosclerosis of the thoracic aortic arch. Patency of the innominate and left subclavian arteries. Moderate stenosis of the mid left subclavian artery and severe stenosis of the mid right subclavian a rtery on image 90 series 6 secondary to prominent calcified plaque. Moderate calcified plaque of the left carotid bulb results in 70% stenosis at the origin of the left ICA on image 214. There is approx imately 60% stenosis at the origin of the right ICA. Calcified plaque involving the cavernous, clinoi d and supraclinoid segments results in narrowing up to approximately 50%. Codominant and patent verte bral arteries. There is at least mild stenosis at the origin of the vertebral artery secondary to chelsea cified plaque. Moderate narrowing of the right V4 segment secondary to atherosclerosis. Lung apices are clear. No pneumothorax. Multinodular thyroid goiter. Unremarkable soft tissues. Degen erative changes of the cervical spine. IMPRESSION: 1. Atherosclerosis with 70% stenosis at the origin of the left ICA and 60% stenosis on the right. 2. 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 3. No aneurysm or arterial occlusion identified. ACT 112: Negative or not required by law. The above report was generated using voice recognition software. It may contain grammatical, syntax o r spelling errors. Electronically signed by: Alli Wu M.D. 08/18/2023 12:00 PM
--- NOTE | 2023-08-18 12:03 | CT Scan Report ---
CTA ANGIOGRAPHY OF THE HEAD CLINICAL HISTORY: stroke symptoms, right weak COMPARISON STUDY: CTA February 12, 2022. TECHNIQUE: Helical axial images of the head were obtained following uneventful intravenous administr ation of 115 cc of Optiray. Sagittal and coronal reconstructions were viewed as well as maximal inten sity projections on an independent 3-D workstation. Automated exposure control was utilized for the study. A dose lowering technique was utilized adhering to the principles of ALARA. FINDINGS: The bilateral M1, M2, A1 and A2 segments are patent. There is extensive calcified plaque wi thin the bilateral cavernous carotids with mild stenosis. Note is made of probable focal occlusion of a small distal left MCA branch (M4 segment) within the posterior left frontal lobe on axial image 16 1 of 233. No additional sites of vessel occlusion are present. There is moderate plaque within the bi lateral vertebral arteries with mild stenosis of the right vertebral artery. Basilar artery is patent . Posterior cerebral arteries are patent. There is no intracranial aneurysm. IMPRESSION: 1. Probable focal occlusion of a distal small left MCA branch (M4 segment) within the posterior left frontal lobe. Findings could be correlated with evidence for an acute left MCA territory infarct. 2. No large vessel occlusion. No intracranial aneurysm. ACT 112: Negative or not required by law. Electronically signed by: Mehdi Ibarra M.D. 08/18/2023 12:02 PM
[2023-08-18] MEDS ORDERED: CEFEPIME 2,000 MG/20 ML VIAL IV STA (12:04)
[2023-08-18] MEDS ORDERED: LABETALOL HCL IV 5 MG/ML 20ML IV STA (12:06)
[2023-08-18 12:09] LABS: Thyroid Stimulating Hormone 1.585 uIu/ml (0.300-4.500)
[2023-08-18 12:11] LABS: INR 0.9 (0.9-1.1); Partial Thromboplastin Ratio 1.1; Partial Thromboplastin Time 31 Seconds (21-31)
--- NOTE | 2023-08-18 12:17 | XRay Report ---
XR chest 1V portable CLINICAL HISTORY: weakness COMPARISON STUDY: Chest CT December 19, 2020. Chest radiograph March 24, 2023. FINDINGS: Lung volumes are normal. Patient is rotated. There is a small left pleural effusion. Extens haritha asymmetric left mid and lower lung airspace opacity is present. No definite consolidation within the right lung. Cardiomediastinal silhouette is stable. IMPRESSION: 1. Extensive asymmetric left lung airspace opacity. This favors pneumonia. Asymmetric pulmonary edema is considered less likely but could appear similar. Radiographic follow-up to ensure resolution is r ecommended. 2. Small left pleural effusion. ACT 112: Negative or not required by law. Electronically signed by: Mehdi Ibarra M.D. 08/18/2023 12:15 PM
[2023-08-18 12:57] LABS: Adenovirus PCR Not Detected (NotDetected); Bordetella parapertussis PCR Not Detected (NotDetected); Bordetella pertussis PCR Not Detected (NotDetected); Chlamydia pneumoniae PCR Not Detected (NotDetected); Coronavirus 229E PCR Not Detected (NotDetected); Coronavirus CoV-2 (COVID19)PCR Not Detected (NotDetected); Coronavirus HKU1 PCR Not Detected (NotDetected); Coronavirus NL63 PCR Not Detected (NotDetected); Coronavirus OC43PCR Not Detected (NotDetected); Human Metapneumovirus PCR Not Detected (NotDetected); Influenza A PCR Not Detected (NotDetected); Influenza B PCR Not Detected (NotDetected); Mycoplasma pneumoniae PCR Not Detected (NotDetected); Parainfluenza Virus 1 PCR Not Detected (NotDetected); Parainfluenza Virus 2 PCR Not Detected (NotDetected); Parainfluenza Virus 3 PCR Not Detected (NotDetected); Parainfluenza Virus 4 PCR Not Detected (NotDetected); Respiratory Syncytial VirusPCR Not Detected (NotDetected); Rhinovirus/Enterovirus PCR Not Detected (NotDetected)
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
[2023-08-18] MEDS: SODIUM CHLORIDE 0.9% 1,000 ML IV SCH (14:36)
[2023-08-18] MEDS ORDERED: ACETAMINOPHEN 325 MG TAB PO PRN (14:57)
[2023-08-18] MEDS ORDERED: PHARMACIST DISCHARGE MED REC CONSULT PRN (14:57)
--- NOTE | 2023-08-18 15:19 | Electrocardiogram Report ---
Test Reason : Blood Pressure : / mmHG Vent. Rate : 094 BPM Atrial Rate : 094 BPM P-R Int : 142 ms QRS Dur : 102 ms QT Int : 354 ms P-R-T Axes : 090 -26 050 degrees QTc Int : 442 ms Sinus rhythm with occasional Premature ventricular complexes Moderate voltage criteria for LVH, may be normal variant Borderline ECG When compared with ECG of 24-MAR-2023 12:47, Premature ventricular complexes are now Present T wave amplitude has increased in Anterior leads Confirmed by Tomas Cruz ([id number]) on 08/18/2023 3:18:47 PM Referred By: Confirmed By:Ludin Cruz
[2023-08-18] MEDS ORDERED: GADOBUTROL 65ML VIAL IV ONE (16:45)
--- NOTE | 2023-08-18 17:19 | Magnetic Resonance Report ---
MRI OF THE BRAIN WITHOUT AND WITH IV CONTRAST CLINICAL HISTORY: Cerebrovascular accident. Right-sided weakness. Recent intracranial bleed. COMPARISON STUDY: MRI of the brain February 12, 2022. Head CT and CTA of the head performed earlier adriana mejia. TECHNIQUE: Utilizing a 1.5 Alejandrina magnet and dedicated coil, multiplanar, multiecho imaging of the br ain was performed pre and postcontrast administration. IV administration of 5.4 mL of Gadavist contr ast was uneventful. FINDINGS: This exam moderately compromised by motion artifact. There is a 1.3 cm focus of restricted diffusion within the right parietal lobe on axial diffusion-weighted sequence image 16 of 25. There i s no mass effect. There is no evidence for hemorrhagic conversion. There may be punctate associated e nhancement. There is an equivocal small focus of restricted diffusion within the posterior left front al lobe. Basal cisterns are patent. There are no extra-axial collections. Flow-voids for the major in tracranial vessels are present. Hypointensity with susceptibility artifact within the bilateral parie [place] lobes on gradient echo sequence represent old blood products. No intracranial masses are identifi ed. White matter T2 hyperintense foci suggest small vessel disease. IMPRESSION: 1. 1.3 cm acute infarct within the right parietal lobe. No mass effect. No evidence for hemorrhagic c onversion. 2. Equivocal small posterior left frontal lobe infarct. 3. Exam moderately compromised by motion artifact. 4. Susceptibility artifact within the bilateral parietal lobes on gradient echo sequence related to o ld blood products. ACT 112: Negative or not required by law. Electronically signed by: Mehdi Ibarra M.D. 08/18/2023 5:17 PM
[2023-08-18] MEDS: DOXYCYCLINE HYCLATE 100 MG in DEXTROSE 5% MINI-B 100 ML IV SCH (17:31)
[2023-08-18] MEDS ORDERED: INFLUENZA VACCINE HIGH-DOSE (HD-IIV4) PF 65+ 0.7mL SYR IM ONE (19:47)
[2023-08-18] MEDS: cefTRIAXone SODIUM 1,000 MG in DEXTROSE 5 % MINI-B 50 ML IV SCH (20:06)
[2023-08-19] MEDS: DOXYCYCLINE HYCLATE 100 MG in DEXTROSE 5% MINI-B 100 ML IV SCH ×2 (05:15→17:29)
[2023-08-19] MEDS: SODIUM CHLORIDE 0.9% 1,000 ML IV SCH ×2 (05:15→17:28)
[2023-08-19 05:33] LABS: Basophils # (auto) 0.04 K/uL (0.00-0.20); Basophils % (auto) 0.3 %; Eosinophils # (auto) 0.06 K/uL (0.00-0.50); Eosinophils % (auto) 0.5 %; Hematocrit (blood only) 37.5 % (37.0-47.0); Hemoglobin 12.8 g/dl (12.0-16.0); Immature Granulocytes # (auto) 0.03 K/uL (0.01-0.20); Immature Granulocytes % (auto) 0.2 %; Lymphocytes # (auto) 0.83 K/uL (1.20-3.40); Lymphocytes % (auto) 6.2 %; Mean Corpuscular Hemoglobin 28.1 pg (25.0-34.0); Mean Corpuscular Hgb Conc 34.1 g/dL (32.0-36.0); Mean Corpuscular Volume 82.4 fL (80.0-100.0); Mean Platelet Volume 10.7 fL (9.4-12.4); Monocytes % (auto) 10.5 %; Neutrophils # (auto) 10.94 K/uL (1.40-6.50); Neutrophils % (auto) 82.3 %; Platelet Count 244 K/uL (130-400); RDW Coefficient of Variation 15.9 % (11.5-14.5); Red Blood Count 4.55 M/uL (4.20-5.40)
[2023-08-19 05:39] LABS: BUN Creatinine Ratio 26.6 (10-20); Calcium 8.3 mg/dl (8.6-10.3); Chol HDL Ratio 3.3 (0-5); Creatinine Clr Calc Pharmacy 52.6 ml/min; Est GFR (African American) 92.3 ml/min; Est GFR (Non-African American) 79.7 ml/min; Potassium 3.7 mmol/L (3.5-5.1)
[2023-08-19 07:31] LABS: Estimated Average Glucose 126 mg/dl
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
[2023-08-19] MEDS ORDERED: METOPROLOL TARTRATE 1 MG/ML VIAL IV STA (13:56)
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
[2023-08-19] MEDS: cefTRIAXone SODIUM 1,000 MG in DEXTROSE 5 % MINI-B 50 ML IV SCH (15:43)
[2023-08-19] MEDS: ASPIRIN 300 MG SUPP PR SCH (17:30)
[2023-08-19] MEDS: METOPROLOL TARTRATE 1 MG/ML VIAL IV SCH (20:47)
[2023-08-20] MEDS: SODIUM CHLORIDE 0.9% 1,000 ML IV SCH ×2 (02:35→15:59)
[2023-08-20] MEDS: DOXYCYCLINE HYCLATE 100 MG in DEXTROSE 5% MINI-B 100 ML IV SCH ×2 (05:23→17:14)
[2023-08-20 08:02] LABS: Basophils # (auto) 0.04 K/uL (0.00-0.20); Basophils % (auto) 0.3 %; Eosinophils # (auto) 0.02 K/uL (0.00-0.50); Eosinophils % (auto) 0.2 %; Hematocrit (blood only) 40.4 % (37.0-47.0); Hemoglobin 13.2 g/dl (12.0-16.0); Immature Granulocytes # (auto) 0.06 K/uL (0.01-0.20); Immature Granulocytes % (auto) 0.5 %; Lymphocytes # (auto) 0.67 K/uL (1.20-3.40); Lymphocytes % (auto) 5.7 %; Mean Corpuscular Hgb Conc 32.7 g/dL (32.0-36.0); Mean Corpuscular Volume 82.8 fL (80.0-100.0); Mean Platelet Volume 10.4 fL (9.4-12.4); Monocytes # (auto) 1.46 K/uL (0.11-0.59); Monocytes % (auto) 12.5 %; Neutrophils # (auto) 9.46 K/uL (1.40-6.50); Neutrophils % (auto) 80.8 %; Platelet Count 256 K/uL (130-400); RDW Coefficient of Variation 15.4 % (11.5-14.5); RDW Standard Deviation 46.8 fL (36.4-46.3); Red Blood Count 4.88 M/uL (4.20-5.40); White Blood Count 11.71 K/ul (4.8-10.8)
[2023-08-20 08:18] LABS: BUN Creatinine Ratio 24.6 (10-20); Calcium 8.4 mg/dl (8.6-10.3); Creatinine Clr Calc Pharmacy 48.6 ml/min; Est GFR (African American) 93.8 ml/min; Est GFR (Non-African American) 80.9 ml/min; Magnesium 1.7 mg/dl (1.7-2.4); Phosphorus 2.9 mg/dl (2.5-4.9); Potassium 3.2 mmol/L (3.5-5.1)
[2023-08-20 08:50] LABS: D Dimer 7100 ug/L FEU (0-500)
[2023-08-20] MEDS: METOPROLOL TARTRATE 1 MG/ML VIAL IV SCH ×2 (08:52→18:47)
[2023-08-20] MEDS ORDERED: METOPROLOL TARTRATE 1 MG/ML VIAL IV STA (10:58)
[2023-08-20] MEDS ORDERED: METOPROLOL TARTRATE 1 MG/ML VIAL IV PRN (11:03)
[2023-08-20] MEDS: ASPIRIN 300 MG SUPP PR SCH (11:32)
--- NOTE | 2023-08-20 12:25 | Cardiology Consultation ---
Date of Consultation August 20, 2023 Assessment & Plan (1) Atrial flutter, paroxysmal: (2) Acute CVA (cerebrovascular accident): (3) Carotid artery stenosis: Plan 88-year-old female admitted with acute cerebrovascular accident. Telemetry revealing paroxysmal atrial flutter. Fair rate control currently. Recommend titration of IV Lopressor to 2.5 mg every 6 hours. Convert to oral metoprolol 12.5 mg every 6 hours when able to swallow pills. Chronically treated with met oprolol succinate 12.5 mg daily as outpatient. Restart atorvastatin when able. Avoid hypotension in setting of acute CVA. Echocardiogram demonstrates preserved LV systolic function with a possible small PFO. The PFO is not clinically relevant in this setting and not the cause of patient's CVA. In regard to long-term anticoagulation, I discussed the risk versus benefit of oral anticoagulants including warfarin and DOACs. Per son, patient is a significant fall risk with more than 4 falls over the past few months. She typically ambulates with use of a walker and unfortunately suffers from paranoid schizophrenia which further complicates management. After long discussion with the son, with shared decision making, risk of long-term anticoagulation appears to outweigh benefit. Continue antiplatelet therapy per direction of neurology. Consideration for short-term anticoagulation per neurology as a pertains to risk of hemorrhagic transformation. Case discussed with hospitalist. Thank you for allow me to participate in the care of your patient. History of Present Illness Reason for Consultation: Atrial flutter with RVR Requesting Physician: Dr. Mclaughlin Attending Physician: Yamilex Mclaughlin MD History of Present Illness 88-year-old female present to the emergency department from [place] care with altered mental status, right-sided facial droop, right-sided weakness. CTA demonstrating acute left MCA territory infarct. With a history of subarachnoid hemorrhage, tPA was not considered. Patient currently with expressive aphasia. Arousable to verbal stimuli. Follows commands. Denies pain or shortness of breath. Telemetry reveals salvos of paroxysmal atrial flutter with rapid ventricular response improved with addition of IV metoprolol. Evaluated by neurology recommending dual antiplatelet therapy, however, patient currently n.p.o. Only receiving aspirin per rectum. History of coronary artery disease status post drug-eluting stent implantation to the mid LAD 03/2018, intermittent left bundle branch block, chronic sinus bradycardia, subclavian and carotid stenosis. Allergies Allergy/AdvReac Type Severity Reaction Status Date / Time latex Allergy Unknown RASH Verified 08/18/23 13:15 niacin Allergy Unknown UNKNOWN Verified 08/18/23 13:15 Penicillins Allergy Unknown hives Verified 08/18/23 13:15 metronidazole AdvReac Unknown Hives Verified 08/18/23 13:15 Sulfa (Sulfonamide AdvReac Unknown hives Verified 08/18/23 13:15 Antibiotics) tramadol AdvReac Unknown psycho Unverified 08/18/23 13:15 Home Medications Medication Instructions Recorded Confirmed Type albuterol sulfate 90 mcg/actuation 2 puff inhalation Q4H PRN 12/09/18 08/18/23 History aerosol inhaler (Ventolin HFA) Shortness Of Breath cholecalciferol (vitamin D3) 25 1,000 unit PO QAM 12/09/18 08/18/23 History mcg (1,000 unit) tablet (Vitamin D3) montelukast 10 mg tablet 10 mg PO HS 12/09/18 08/18/23 History omeprazole 20 mg capsule,delayed 20 mg PO BID 12/09/18 08/18/23 History release metoprolol succinate 25 mg 12.5 mg PO QAM 07/10/19 08/18/23 History tablet,extended release 24 hr fexofenadine 180 mg tablet 180 mg PO QAM 02/13/22 08/18/23 History fluticasone furoate 100 1 inh inhalation QAM 02/13/22 08/18/23 History mcg-vilanterol 25 mcg/dose inhalation powder (Breo Ellipta) Saccharomyces boulardii 250 mg 250 mg PO BID 08/18/23 08/18/23 History capsule (Florastor) acetaminophen 500 mg tablet 1,000 mg PO Q8H PRN pain/fever 08/18/23 08/18/23 History aripiprazole 5 mg tablet 5 mg PO QAM 08/18/23 08/18/23 History bisacodyl 10 mg rectal suppository 10 mg MI DAILY PRN Constipation 08/18/23 08/18/23 History (Dulcolax (bisacodyl)) magnesium hydroxide 400 mg/5 mL 2,400 mg PO DAILY PRN Constipation 08/18/23 08/18/23 History oral suspension (Milk of Magnesia) melatonin 3 mg tablet 6 mg PO HS 08/18/23 08/18/23 History potassium chloride 20 mEq 20 meq PO QAM 08/18/23 08/18/23 History tablet,extended release(part/cryst) sodium phosphates 19 gram-7 118 ml MI DAILY PRN Constipation 08/18/23 08/18/23 History gram/118 mL enema (Fleet Enema) Patient History Medical History Subclavian artery stenosis Carotid artery stenosis Traumatic subarachnoid hemorrhage Fracture, patella Periapical abscess CAD (coronary artery disease), [place] coronary artery multiple cardiac caths- most recent 04/01/2018, 30% LM, 75% mid LAD stenosis and 20% stenosis of proxRCA. The LAD lesion had previously felt to be intermediate in severity and on a previous assessment by cardiac catheterization medical management was pursued however due to the patient's recurrent symptoms and elevated troponin, she subsequently underwent PCI and drug-eluting stent to the mid LAD on 04/01/2018. CKD (chronic kidney disease), stage III COPD (chronic obstructive pulmonary disease) Hypertension History of CVA (cerebrovascular accident) without residual deficits History of kidney disease CKD (chronic kidney disease) stage 3, GFR 30-59 ml/min Sciatica Meniere's disease Diaphragmatic hernia Asthma Osteoporosis GERD (gastroesophageal reflux disease) History of TIA (transient ischemic attack) HTN (hypertension) Dyslipidemia Surgical History H/O exploratory laparotomy 11/2018 History of right hemicolectomy 11/2018 Status post cardiac catheterization Status post coronary artery stent placement Drug-eluting stent mid LAD Dr. Garces 04/01/18 History of carpal tunnel repair History of Milly fundoplication History of section Family History Father Stroke Myocardial infarction Brother Ischemic heart disease Other Family history non-contributory Social History Smoking Status: Unknown if ever smoked Second Hand Exposure: No; Do You Dip or Chew Tobacco: No; Hx Alcohol Use: No Hx Substance Use: No Preferred Language: Tajik Communication Ability: Impaired Communication Ability Comment: aphasic [employer] Analyst Required: No Beliefs That Will Affect Care: None marital status: Current Living Situation: Other Current Living Situation Comment: center care Other Information That Helps Us Care for You: No Feels Safe at Home: Yes Safety Concerns: Feels Safe At This Time Assistive Devices: Walker Review of Systems Review of Systems: All systems reviewed & are unremarkable except as noted in Subjective Physical Exam Constitutional: + ill appearing; no acute distress Respiratory: no respiratory distress, no labored breathing and no retractions Auscultation: no crackles, no rales, no rhonchi and no wheezes Cardiovascular: Rate/Rhythm: regular rate and + tachycardic Heart Sounds: normal S1 and normal S2; no murmur Vessels: + carotid bruit (1/7 left sided bruit); no JVD Extremities: no edema Gastrointestinal (Abdomen): Inspection/Auscultation: abdomen normal to inspection and normal bowel sounds; abdomen not distended Percussion/Palpation: abdomen nontender, no guarding and abdomen not rigid Neurologic: Right-sided weakness, expressive aphasia. Results & Data Vital Signs (Past 12 Hours) Vital Signs Temp Pulse Pulse Resp BP BP Pulse Ox 08/20/23 11:18 88 140/84 08/20/23 11:06 102 H 130/80 08/20/23 10:47 37.1 C 145 H 20 132/56 L 97 08/20/23 08:42 37.1 C 89 18 108/60 94 08/20/23 07:16 102 H 08/20/23 02:18 36.8 C 119 H 18 129/87 92 O2 Del Method 08/20/23 11:18 08/20/23 11:06 08/20/23 10:47 Room Air 08/20/23 08:42 Room Air 08/20/23 07:16 08/20/23 02:18 Room Air Laboratory Results CBC 08/20/23 Range/Units 07:21 WBC 11.71 H (4.8-10.8) K/ul RBC 4.88 (4.20-5.40) M/uL Hgb 13.2 (12.0-16.0) g/dl Hct 40.4 (37.0-47.0) % Plt Count 256 (130-400) K/uL Neut # (Auto) 9.46 H (1.40-6.50) K/uL Lymph # (Auto) 0.67 L (1.20-3.40) K/uL Bradford # (Auto) 1.46 H (0.11-0.59) K/uL Eos # (Auto) 0.02 (0.00-0.50) K/uL Baso # (Auto) 0.04 (0.00-0.20) K/uL Comprehensive Metabolic Panel 08/20/23 Range/Units 07:21 Sodium 134 L (136-145) mmol/L Potassium 3.2 L (3.5-5.1) mmol/L Chloride 103 (98-107) mmol/L Carbon Dioxide 21 (21-32) mmol/L BUN 15 (6-23) mg/dl Creatinine 0.61 (0.6-1.2) mg/dl Glucose 109 H (70-99(Fasting)) mg/dl Calcium 8.4 L (8.6-10.3) mg/dl Intake and Output 08/19/23 08/20/23 08/20/23 22:59 06:59 14:59 Intake Total 1127.333 / 1956.666 729.333 / 1956.666 100 / 100 Output Total 1150 / 2951 301 / 2951 Balance -22.667 / -994.334 428.333 / -994.334 100 / 100 Intake: IV 1127.333 / 1956.666 729.333 / 1956.666 100 / 100 Doxycycline Hyclate 100 mg In 100 / 200 100 / 100 Dextrose 5% Mini-B 100 ml @ 50 mls/hr IV Q12H MAC Rx#:[id number] Sodium Chloride 0.9% 1,000 ml @ 977.333 / 1706.666 729.333 / 1706.666 80 mls/hr IV .[id number] MAC Rx#: [id number] cefTRIAXone SODIUM 1,000 mg In 50 / 50 Dextrose 5 % Mini-B 50 ml @ 100 mls/hr IV Q24H MAC Rx#: [id number] Output: Urine Amount (Catheter) 1150 / 2950 300 / 2950 Lenz/Indwelling 1150 / 2950 300 / 2950 # Bowel Movements Other: Other Intake Source npo npo Weight 54.8 kg 48.3 kg Weight Measurement Method [facility] in [facility] (3) Carotid artery stenosis Laterality: bilateral Qualified Code(s): I65.23 - Occlusion and stenosis of bilateral carotid arteries
[2023-08-20] MEDS ORDERED: OPTIRAY 320 125ml IV ONE (12:32)
--- NOTE | 2023-08-20 12:50 | CT Scan Report ---
CT angio chest PE protocol CLINICAL HISTORY: ro pe TECHNIQUE: Multidetector row helical CT of the chest was performed with angiographic protocol. Jenkins l and sagittal reformations were obtained. Coronal and sagittal MIPS were obtained from the axial niya a set and were submitted for review. Automated dose lowering techniques and/or adjustment according to patient size were utilized for this exam. CT DOSE: 471.09 mGy.cm Comparison: Comparison is made to CTA chest 12/19/2020 FINDINGS: Lungs and pleura: Small right and moderate loculated left pleural effusions. Heart and pericardium: Heart size is normal. No pericardial effusion. Vessels: Left nonocclusive lobar and segmental pulmonary embolus is seen. Smaller segmental and subse gmental emboli are seen for example in the right lower lobe. Mediastinum and linda: Unremarkable. Chest wall and lower neck: Unremarkable. Abdomen: Unremarkable. Bones: Degenerative changes in the thoracic spine. T8 compression fracture is seen. IMPRESSION: Pulmonary emboli are seen without evidence of right heart strain. ACT 112: Negative or not required by law. Electronically signed by: Siddharth Latif M.D. 08/20/2023 12:49 PM
--- NOTE | 2023-08-20 15:05 | Ultrasound Report ---
ULTRASOUND BILATERAL LOWER EXTREMITY VENOUS CLINICAL HISTORY: Stroke. COMPARISON STUDY: Left lower extremity venous ultrasound dated 04/22/2015. TECHNIQUE: Real-time, grayscale, and color Doppler sonography of the deep veins of the right and left lower extremity was performed from the inguinal crease to the calf. Compression and augmentation wer e utilized. The examination is degraded by lack of patient cooperation. FINDINGS: Right lower extremity: There is no sonographic evidence of deep venous thrombosis in the right lower extremity. The common femoral, superficial femoral, and popliteal veins are patent and normally compr essible. The greater saphenous vein and the profunda femoris vein at the junction with the common fem oral vein are clear. The visualized calf veins are patent. Left lower extremity: There is nonocclusive deep venous thrombosis seen extending from the proximal s uperficial femoral vein to the distal superficial femoral vein. The common femoral vein is patent and normally compressible. The popliteal vein is not well-visualized due to lack of patient cooperation/ positioning. The greater saphenous vein and the profunda femoris vein at the junction with the common femoral vein are clear. The visualized calf veins are patent. IMPRESSION: 1. There is nonocclusive deep venous thrombosis seen throughout the left superficial femoral vein as above. 2. There is no sonographic evidence of deep venous thrombosis in the right lower extremity. ACT 112: Negative or not required by law. Electronically signed by: Mukesh Godfrey M.D. 08/20/2023 3:02 PM
[2023-08-20] MEDS: cefTRIAXone SODIUM 1,000 MG in DEXTROSE 5 % MINI-B 50 ML IV SCH (15:57)
[2023-08-20] MEDS: ACETAMINOPHEN 1,000 MG/100 ML VIAL IV PRN (16:17)
--- NOTE | 2023-08-20 16:26 | Electrocardiogram Report ---
Test Reason : Blood Pressure : / mmHG Vent. Rate : 147 BPM Atrial Rate : 147 BPM P-R Int : 120 ms QRS Dur : 112 ms QT Int : 312 ms P-R-T Axes : 000 -42 122 degrees QTc Int : 488 ms Atrial fibrillation Left axis deviation Left ventricular hypertrophy with repolarization abnormality Abnormal ECG When compared with ECG of 18-AUG-2023 11:04, Premature ventricular complexes are no longer Present Vent. rate has increased BY [address] no longer elevated in Lateral leads Confirmed by Tomas Cruz ([id number]) on 08/20/2023 4:26:25 PM Referred By: REFERRED SELF Confirmed By:Ludin Cruz
--- NOTE | 2023-08-20 16:27 | Electrocardiogram Report ---
Test Reason : Blood Pressure : / mmHG Vent. Rate : 095 BPM Atrial Rate : 277 BPM P-R Int : 000 ms QRS Dur : 112 ms QT Int : 384 ms P-R-T Axes : 000 -46 118 degrees QTc Int : 482 ms Poor data quality, interpretation may be adversely affected Sinus rhythm with PACs Left anterior fascicular block Voltage criteria for left ventricular hypertrophy Abnormal ECG When compared with ECG of 19-AUG-2023 13:53, (unconfirmed) Sinus rhythm has replaced atrial fibrillation Vent. rate has decreased BY 52 BPM Confirmed by Tomas Cruz ([id number]) on 08/20/2023 4:27:20 PM Referred By: REFERRED SELF Confirmed By:Ludin Cruz
[2023-08-20] MEDS ORDERED: MAGNESIUM SULFATE / D5W 1 GM/100 ML BAG IV ONE (16:48)
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
[2023-08-20] MEDS: D5W AND NSS 1,000 ML IV SCH (17:06)
[2023-08-20] MEDS: POTASSIUM CHLORIDE / WTR 10 MEQ/100 ML PLCT IV SCH ×4 (17:07→20:23)
[2023-08-21] MEDS: METOPROLOL TARTRATE 1 MG/ML VIAL IV SCH ×5 (00:17→23:10)
[2023-08-21 06:08] LABS: Basophils # (auto) 0.06 K/uL (0.00-0.20); Basophils % (auto) 0.5 %; Eosinophils # (auto) 0.15 K/uL (0.00-0.50); Eosinophils % (auto) 1.2 %; Hematocrit (blood only) 45.7 % (37.0-47.0); Immature Granulocytes # (auto) 0.11 K/uL (0.01-0.20); Immature Granulocytes % (auto) 0.9 %; Lymphocytes # (auto) 0.95 K/uL (1.20-3.40); Lymphocytes % (auto) 7.5 %; Mean Corpuscular Hemoglobin 27.2 pg (25.0-34.0); Mean Corpuscular Hgb Conc 32.8 g/dL (32.0-36.0); Mean Corpuscular Volume 82.8 fL (80.0-100.0); Mean Platelet Volume 9.9 fL (9.4-12.4); Monocytes # (auto) 1.87 K/uL (0.11-0.59); Monocytes % (auto) 14.7 %; Neutrophils # (auto) 9.61 K/uL (1.40-6.50); Neutrophils % (auto) 75.2 %; Platelet Count 291 K/uL (130-400); RDW Coefficient of Variation 15.7 % (11.5-14.5); RDW Standard Deviation 47.9 fL (36.4-46.3); Red Blood Count 5.52 M/uL (4.20-5.40); White Blood Count 12.75 K/ul (4.8-10.8)
[2023-08-21] MEDS: DOXYCYCLINE HYCLATE 100 MG in DEXTROSE 5% MINI-B 100 ML IV SCH ×2 (06:25→18:26)
[2023-08-21 06:28] LABS: Calcium 8.4 mg/dl (8.6-10.3); Est GFR (African American) 94.8 ml/min; Est GFR (Non-African American) 81.8 ml/min; Magnesium 1.9 mg/dl (1.7-2.4); Phosphorus 2.5 mg/dl (2.5-4.9); Potassium 3.8 mmol/L (3.5-5.1)
[2023-08-21] MEDS: D5W AND NSS 1,000 ML IV SCH (07:44)
[2023-08-21] MEDS: ACETAMINOPHEN 1,000 MG/100 ML VIAL IV PRN (07:50)
[2023-08-21] MEDS: ASPIRIN 300 MG SUPP PR SCH (09:31)
--- NOTE | 2023-08-21 13:10 | Cardiology Progress Note ---
Date of Service August 21, 2023 Assessment & Plan (1) Atrial flutter, paroxysmal: (2) Acute CVA (cerebrovascular accident): (3) Carotid artery stenosis: Plan 88-year-old female admitted with acute cerebrovascular accident. Telemetry revealing paroxysmal atrial flutter. Fair rate control currently. Recommend titration of IV Lopressor to 2.5 mg every 6 hours. Convert to oral metoprolol 12.5 mg every 6 hours when able to swallow pills. Chronically treated with metoprolol succinate 12.5 mg daily as outpatient. Restart atorvastatin when able. Avoid hypotension in setting of acute CVA. Echocardiogram demonstrates preserved LV systolic function with a possible small PFO. The PFO is not clinically relevant in this setting and not the cause of patient's CVA. In regard to long-term anticoagulation, I discussed the risk versus benefit of oral anticoagulants including warfarin and DOACs. Per son, patient is a significant fall risk with more than 4 falls over the past few months. She typically ambulates with use of a walker and unfortunately suffers from paranoid schizophrenia which further complicates management. After long discussion with the son, with shared decision making, risk of long-term anticoagulation appears to outweigh benefit. Continue antiplatelet therapy per direction of neurology. Consideration for short-term anticoagulation per neurology as a pertains to risk of hemorrhagic transformation. Case discussed with hospitalist. Thank you for allow me to participate in the care of your patient. 08/21/2023 Assessment as above. Still unable to take oral medications. Arrhythmias predominantly A-fib flutter continuously rates moderately Will increase metoprolol to tartrate to 5 mg IV every 6. Plan to transition to oral metoprolol succinate once able to take p.o. Overall prognosis limited Admission and Anticipated Discharge Date Admission Date: August 18, 2023 Subjective Patient was seen and examined, chart, telemetry reviewed. Somewhat somnolent this morning but will arouse. Does not vocalize complaints. Struggled with aspiration test remains n.p.o. Atrial fibrillation flutter still with elevated ventricular sponsor rates at time Review of Systems Review of Systems: Unobtainable due to cognitive status Physical Exam Constitutional: + ill appearing; no acute distress ENMT: external ear and nose normal, oropharynx normal Neck: trachea midline, no thyromegaly Respiratory: no respiratory distress, no labored breathing and no retractions Auscultation: no crackles, no rales, no rhonchi and no wheezes Cardiovascular: Rate/Rhythm: + tachycardic and + irregularly irregular Heart Sounds: normal S1 and normal S2; no murmur Vessels: + carotid bruit (1/7 left sided bruit); no JVD Extremities: no edema Gastrointestinal (Abdomen): Inspection/Auscultation: abdomen normal to inspection and normal bowel sounds; abdomen not distended Percussion/Palpation: abdomen nontender, no guarding and abdomen not rigid Results & Data Vital Signs (Past 12 Hours) Vital Signs Temp Pulse Pulse Resp BP BP Pulse Ox 08/21/23 12:38 36.5 C 114 H 18 149/73 H 96 08/21/23 07:38 95 H 08/21/23 07:19 36.5 C 87 19 150/78 H 94 08/21/23 07:16 87 150/78 H 08/21/23 06:28 96 H 157/90 H 08/21/23 03:38 36.4 C L 80 16 132/80 95 O2 Del Method 08/21/23 12:38 Room Air 08/21/23 07:38 08/21/23 07:19 Room Air 08/21/23 07:16 08/21/23 06:28 08/21/23 03:38 Room Air Laboratory Results Laboratory Results - last 24 hr 08/21/23 05:48 WBC 12.75 H RBC 5.52 H Hgb 15.0 Hct 45.7 MCV 82.8 MCH 27.2 MCHC 32.8 RDW Std Deviation 47.9 H RDW Coeff of Josse 15.7 H Plt Count 291 MPV 9.9 Immature Gran % (Auto) 0.9 Neut % (Auto) 75.2 Lymph % (Auto) 7.5 [place] % (Auto) 14.7 Eos % (Auto) 1.2 Baso % (Auto) 0.5 Neut # (Auto) 9.61 H Lymph # (Auto) 0.95 L [place] # (Auto) 1.87 H Eos # (Auto) 0.15 Baso # (Auto) 0.06 Immature Gran # (Auto) 0.11 Sodium 134 L Potassium 3.8 Chloride 104 Carbon Dioxide 20 L Anion Gap 10 BUN 13 Creatinine 0.59 L Est Cr Clr Drug Dosing 53.0 Est GFR ( Amer) 94.8 Est GFR (Non-Af Amer) 81.8 BUN/Creatinine Ratio 22.0 H Glucose 148 H Calcium 8.4 L Phosphorus 2.5 Magnesium 1.9 (3) Carotid artery stenosis Laterality: bilateral Qualified Code(s): I65.23 - Occlusion and stenosis of bilateral carotid arteries
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
[2023-08-21] MEDS: cefTRIAXone SODIUM 1,000 MG in DEXTROSE 5 % MINI-B 50 ML IV SCH (16:53)
[2023-08-21] MEDS ORDERED: LORazepam 0.25 MG in SYRINGE 0.125 ML IV STA (22:47)
[2023-08-22] MEDS: D5W AND NSS 1,000 ML IV SCH ×2 (02:24→17:01)
[2023-08-22] MEDS ORDERED: METOPROLOL TARTRATE 1 MG/ML VIAL IV STA (04:45)
[2023-08-22] MEDS: DOXYCYCLINE HYCLATE 100 MG in DEXTROSE 5% MINI-B 100 ML IV SCH ×2 (05:52→18:04)
[2023-08-22] MEDS: METOPROLOL TARTRATE 1 MG/ML VIAL IV SCH ×4 (06:44→23:28)
[2023-08-22 07:16] LABS: Hematocrit (blood only) 42.4 % (37.0-47.0); Hemoglobin 14.1 g/dl (12.0-16.0); Mean Corpuscular Hemoglobin 27.4 pg (25.0-34.0); Mean Corpuscular Hgb Conc 33.3 g/dL (32.0-36.0); Mean Corpuscular Volume 82.3 fL (80.0-100.0); Mean Platelet Volume 9.6 fL (9.4-12.4); Platelet Count 338 K/uL (130-400); RDW Coefficient of Variation 15.9 % (11.5-14.5); RDW Standard Deviation 47.5 fL (36.4-46.3); Red Blood Count 5.15 M/uL (4.20-5.40); White Blood Count 11.37 K/ul (4.8-10.8)
[2023-08-22 07:34] LABS: BUN Creatinine Ratio 18.3 (10-20); Creatinine Clr Calc Pharmacy 52.1 ml/min; Est GFR (African American) 94.3 ml/min; Est GFR (Non-African American) 81.4 ml/min; Magnesium 1.7 mg/dl (1.7-2.4); Phosphorus 2.6 mg/dl (2.5-4.9); Potassium 3.5 mmol/L (3.5-5.1)
[2023-08-22] MEDS: MAGNESIUM SULFATE / D5W 1 GM/100 ML BAG IV SCH ×2 (09:30→11:08)
[2023-08-22] MEDS: POTASSIUM CHLORIDE / WTR 10 MEQ/100 ML PLCT IV SCH ×2 (09:30→10:24)
[2023-08-22] MEDS: ASPIRIN 300 MG SUPP PR SCH (09:30)
--- NOTE | 2023-08-22 12:01 | Cardiology Progress Note ---
Date of Service August 22, 2023 Assessment & Plan (1) Atrial flutter, paroxysmal: (2) Acute CVA (cerebrovascular accident): (3) Carotid artery stenosis: Plan 88-year-old female admitted with acute cerebrovascular accident. Telemetry revealing paroxysmal atrial flutter. Fair rate control currently. Recommend titration of IV Lopressor to 2.5 mg every 6 hours. Convert to oral metoprolol 12.5 mg every 6 hours when able to swallow pills. Chronically treated with metoprolol succinate 12.5 mg daily as outpatient. Restart atorvastatin when able. Avoid hypotension in setting of acute CVA. Echocardiogram demonstrates preserved LV systolic function with a possible small PFO. The PFO is not clinically relevant in this setting and not the cause of patient's CVA. In regard to long-term anticoagulation, I discussed the risk versus benefit of oral anticoagulants including warfarin and DOACs. Per son, patient is a significant fall risk with more than 4 falls over the past few months. She typically ambulates with use of a walker and unfortunately suffers from paranoid schizophrenia which further complicates management. After long discussion with the son, with shared decision making, risk of long-term anticoagulation appears to outweigh benefit. Continue antiplatelet therapy per direction of neurology. Consideration for short-term anticoagulation per neurology as a pertains to risk of hemorrhagic transformation. Case discussed with hospitalist. Thank you for allow me to participate in the care of your patient. 08/21/2023 Assessment as above. Still unable to take oral medications. Arrhythmias predominantly A-fib flutter continuously rates moderately Will increase metoprolol to tartrate to 5 mg IV every 6. Plan to transition to oral metoprolol succinate once able to take p.o. Overall prognosis limited 08/22/2023 Plan as previously outlined continue IV metoprolol for heart rate control. Ultimate goal changed to oral when able to transition Long-term goals need to be assessed Admission and Anticipated Discharge Date Admission Date: August 18, 2023 Subjective Patient seen and examined, chart, medications, telemetry reviewed Minimally arousable but awakens to stimuli Heart rate trending towards better control Review of Systems Review of Systems: Unobtainable due to cognitive status Physical Exam Constitutional: + ill appearing and + thin; no acute dis tress ENMT: external ear and nose normal, oropharynx normal Neck: trachea midline, no thyromegaly Respiratory: no respiratory distress, no labored breathing and no retractions Auscultation: no crackles, no rales, no rhonchi and no wheezes Cardiovascular: Rate/Rhythm: + tachycardic and + irregularly irregular Heart Sounds: normal S1 and normal S2; no murmur Vessels: + carotid bruit (1/7 left sided bruit); no JVD Extremities: no edema Gastrointestinal (Abdomen): Inspection/Auscultation: abdomen normal to inspection and normal bowel sounds; abdomen not distended Percussion/Palpation: abdomen nontender, no guarding and abdomen not rigid Results & Data Vital Signs (Past 12 Hours) Vital Signs Temp Pulse Pulse Resp BP BP Pulse Ox 08/22/23 11:20 36.4 C L 95 H 21 136/86 94 08/22/23 09:30 08/22/23 07:16 98 H 08/22/23 07:15 96 H 08/22/23 06:58 36.5 C 97 H 19 159/92 H 94 08/22/23 06:44 110 H 151/78 H 08/22/23 05:20 88 151/88 H 08/22/23 04:52 140 H 131/92 O2 Del Method 08/22/23 11:20 Room Air 08/22/23 09:30 Room Air 08/22/23 07:16 08/22/23 07:15 08/22/23 06:58 Room Air 08/22/23 06:44 08/22/23 05:20 08/22/23 04:52 (3) Carotid artery stenosis Laterality: bilateral Qualified Code(s): I65.23 - Occlusion and stenosis of bilateral carotid arteries
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
[2023-08-22] MEDS: cefTRIAXone SODIUM 1,000 MG in DEXTROSE 5 % MINI-B 50 ML IV SCH (17:01)
[2023-08-23] MEDS: METOPROLOL TARTRATE 1 MG/ML VIAL IV SCH ×3 (05:07→17:21)
[2023-08-23] MEDS: DOXYCYCLINE HYCLATE 100 MG in DEXTROSE 5% MINI-B 100 ML IV SCH ×2 (05:39→17:17)
[2023-08-23] MEDS: D5W AND NSS 1,000 ML IV SCH ×2 (05:44→16:24)
[2023-08-23] MEDS: ASPIRIN 300 MG SUPP PR SCH (08:49)
[2023-08-23 09:28] LABS: Hematocrit (blood only) 39.3 % (37.0-47.0); Hemoglobin 13.2 g/dl (12.0-16.0); Mean Corpuscular Hemoglobin 27.6 pg (25.0-34.0); Mean Corpuscular Hgb Conc 33.6 g/dL (32.0-36.0); Mean Platelet Volume 9.7 fL (9.4-12.4); Platelet Count 363 K/uL (130-400); RDW Coefficient of Variation 16.2 % (11.5-14.5); RDW Standard Deviation 48.7 fL (36.4-46.3); Red Blood Count 4.79 M/uL (4.20-5.40); White Blood Count 9.54 K/ul (4.8-10.8)
[2023-08-23 09:46] LABS: BUN Creatinine Ratio 13.8 (10-20); Calcium 7.9 mg/dl (8.6-10.3); Creatinine Clr Calc Pharmacy 47.8 ml/min; Est GFR (African American) 91.9 ml/min; Est GFR (Non-African American) 79.3 ml/min; Magnesium 1.9 mg/dl (1.7-2.4); Potassium 3.6 mmol/L (3.5-5.1)
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
[2023-08-23] MEDS: ACETAMINOPHEN 1,000 MG/100 ML VIAL IV PRN (17:17)
[2023-08-24] MEDS: METOPROLOL TARTRATE 1 MG/ML VIAL IV SCH ×5 (00:09→23:24)
[2023-08-24] MEDS: DOXYCYCLINE HYCLATE 100 MG in DEXTROSE 5% MINI-B 100 ML IV SCH ×2 (06:00→17:19)
[2023-08-24] MEDS: D5W AND NSS 1,000 ML IV SCH ×2 (06:01→22:22)
[2023-08-24] MEDS: ASPIRIN 300 MG SUPP PR SCH (10:02)
[2023-08-24 10:48] LABS: BUN Creatinine Ratio 13.3 (10-20); Creatinine Clr Calc Pharmacy 67.7 ml/min; Est GFR (African American) 103.7 ml/min; Est GFR (Non-African American) 89.5 ml/min; Potassium 3.1 mmol/L (3.5-5.1)
--- NOTE | 2023-08-24 10:59 | Palliative Care Consultation ---
Date of Consultation August 24, 2023 Assessment & Plan (1) Palliative care by specialist: Plan * Chart reviewed and case d/w primary team. Consult was placed over a holiday weekend, and in that time a resolution was reached with decision from family/SDM to pursue hospice at SNF once placement is identified by CM. * No indication for an urgent.acute inpatient pall med consult. * Patient has a dc plan desired by family and CM is assisting with it. * Consult deferred/pt not seen, NO charge submitted Thank you for allowing us to participate in the ongoing care of this patient. Please don't hesitate to call or page with any additional concerns. Dr. Nisha Yu DNP Director, Palliative Care History of Present Illness Reason for Consultation: dementia Attending Physician: Yamilex Mclaughlin MD Allergies Allergy/AdvReac Type Severity Reaction Status Date / Time latex Allergy Unknown RASH Verified 08/18/23 13:15 niacin Allergy Unknown UNKNOWN Verified 08/18/23 13:15 Penicillins Allergy Unknown hives Verified 08/18/23 13:15 metronidazole AdvReac Unknown Hives Verified 08/18/23 13:15 Sulfa (Sulfonamide AdvReac Unknown hives Verified 08/18/23 13:15 Antibiotics) tramadol AdvReac Unknown psycho Unverified 08/18/23 13:15 Home Medications Medication Instructions Recorded Confirmed Type albuterol sulfate 90 mcg/actuation 2 puff inhalation Q4H PRN 12/09/18 08/18/23 History aerosol inhaler (Ventolin HFA) Shortness Of Breath cholecalciferol (vitamin D3) 25 1,000 unit PO QAM 12/09/18 08/18/23 History mcg (1,000 unit) tablet (Vitamin D3) montelukast 10 mg tablet 10 mg PO HS 12/09/18 08/18/23 History omeprazole 20 mg capsule,delayed 20 mg PO BID 12/09/18 08/18/23 History release metoprolol succinate 25 mg 12.5 mg PO QAM 07/10/19 08/18/23 History tablet,extended release 24 hr fexofenadine 180 mg tablet 180 mg PO QAM 02/13/22 08/18/23 History fluticasone furoate 100 1 inh inhalation QAM 02/13/22 08/18/23 History mcg-vilanterol 25 mcg/dose inhalation powder (Breo Ellipta) Saccharomyces boulardii 250 mg 250 mg PO BID 08/18/23 08/18/23 History capsule (Florastor) acetaminophen 500 mg tablet 1,000 mg PO Q8H PRN pain/fever 08/18/23 08/18/23 History aripiprazole 5 mg tablet 5 mg PO QAM 08/18/23 08/18/23 History bisacodyl 10 mg rectal suppository 10 mg NJ DAILY PRN Constipation 08/18/23 08/18/23 History (Dulcolax (bisacodyl)) magnesium hydroxide 400 mg/5 mL 2,400 mg PO DAILY PRN Constipation 08/18/23 08/18/23 History oral suspension (Milk of Magnesia) melatonin 3 mg tablet 6 mg PO HS 08/18/23 08/18/23 History potassium chloride 20 mEq 20 meq PO QAM 08/18/23 08/18/23 History tablet,extended release(part/cryst) sodium phosphates 19 gram-7 118 ml NJ DAILY PRN Constipation 08/18/23 08/18/23 History gram/118 mL enema (Fleet Enema) Patient History Medical History Subclavian artery stenosis Carotid artery stenosis Traumatic subarachnoid hemorrhage Fracture, patella Periapical abscess CAD (coronary artery disease), false pass coronary artery multiple cardiac caths- most recent 04/01/2018, 30% LM, 75% mid LAD stenosis and 20% stenosis of proxRCA. The LAD lesion had previously felt to be intermediate in severity and on a previous assessment by cardiac catheterization medical management was pursued however due to the patient's recurrent symptoms and elevated troponin, she subsequently underwent PCI and drug-eluting stent to the mid LAD on 04/01/2018. CKD (chronic kidney disease), stage III COPD (chronic obstructive pulmonary disease) Hypertension History of CVA (cerebrovascular accident) without residual deficits History of kidney disease CKD (chronic kidney disease) stage 3, GFR 30-59 ml/min Sciatica Meniere's disease Diaphragmatic hernia Asthma Osteoporosis GERD (gastroesophageal reflux disease) History of TIA (transient ischemic attack) HTN (hypertension) Dyslipidemia Surgical History H/O exploratory laparotomy 11/2018 History of right hemicolectomy 11/2018 Status post cardiac catheterization Status post coronary artery stent placement Drug-eluting stent mid LAD Dr. Garces 04/01/18 History of carpal tunnel repair History of Milly fundoplication History of section Family History Father Stroke Myocardial infarction Brother Ischemic heart disease Other Family history non-contributory Social History Smoking Status: Unknown if ever smoked Second Hand Exposure: No; Do You Dip or Chew Tobacco: No; Hx Alcohol Use: No Hx Substance Use: No Preferred Language: Japanese Communication Ability: Impaired Communication Ability Comment: aphasic Professor Of Communication Required: No Beliefs That Will Affect Care: None marital status: Current Living Situation: Other Current Living Situation Comment: center care Other Information That Helps Us Care for You: No Feels Safe at Home: Yes Safety Concerns: Feels Safe At This Time Assistive Devices: Walker Results & Data Vital Signs (Past 12 Hours) Vital Signs Temp Pulse Pulse Resp BP BP Pulse Ox 08/24/23 10:43 08/24/23 07:44 78 08/24/23 07:19 35.9 C L 64 16 169/82 H 95 08/24/23 06:16 68 168/85 H 08/24/23 05:58 81 172/91 H 08/24/23 02:26 69 08/24/23 02:09 08/24/23 01:09 69 18 170/89 H 96 08/24/23 00:24 65 170/89 H 08/24/23 00:09 78 164/88 H 08/24/23 00:00 36.6 C 78 20 164/88 H 96 O2 Del Method 08/24/23 10:43 Room Air 08/24/23 07:44 08/24/23 07:19 Room Air 08/24/23 06:16 08/24/23 05:58 08/24/23 02:26 08/24/23 02:09 Room Air 08/24/23 01:09 Room Air 08/24/23 00:24 08/24/23 00:09 08/24/23 00:00 Room Air PG Care Time/CCT Total # of Minutes Spent Total Time Spent with Patient: Total time spent is greater than 50% in coordination of care (as documented) at patient's floor/unit and/or counseling patient: Coding Level of Care Code None Diagnoses Palliative care by specialist Z51.5
[2023-08-24] MEDS: POTASSIUM CHLORIDE / WTR 10 MEQ/100 ML PLCT IV SCH ×4 (11:23→16:05)
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
[2023-08-25] MEDS: ACETAMINOPHEN 1,000 MG/100 ML VIAL IV PRN ×2 (01:15→10:46)
[2023-08-25] MEDS: METOPROLOL TARTRATE 1 MG/ML VIAL IV SCH ×2 (05:59→12:05)
[2023-08-25] MEDS: DOXYCYCLINE HYCLATE 100 MG in DEXTROSE 5% MINI-B 100 ML IV SCH (06:00)
[2023-08-25] MEDS: ASPIRIN 300 MG SUPP PR SCH (08:09)
[2023-08-25 09:51] LABS: BUN Creatinine Ratio 12.5 (10-20); Calcium 8.2 mg/dl (8.6-10.3); Creatinine Clr Calc Pharmacy 63.4 ml/min; Est GFR (African American) 101.5 ml/min; Est GFR (Non-African American) 87.6 ml/min; Magnesium 1.6 mg/dl (1.7-2.4); Phosphorus 2.9 mg/dl (2.5-4.9); Potassium 3.1 mmol/L (3.5-5.1)
[2023-08-25] MEDS ORDERED: POTASSIUM CHLORIDE / WTR 10 MEQ/100 ML PLCT IV SCH (10:45)
[2023-08-25] MEDS: D5W AND NSS 1,000 ML IV SCH (10:46)
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
== END 2023-08-25 12:40 | disposition hospice, inpatient (51) | DRG 64 ==
LOC: ED 11:01 → EDINP 12:35 → SUATTDRO 12:35 → 2N 08-19 15:00